=== PATIENT | female | born 1950 ===

== ENCOUNTER 2025-03-06 09:10 | Outpatient (AMB) | payer MEDICARE, SELFPAY ==
--- OUTSIDE RECORDS SUMMARY | 2024-09-08 04:45 | XMS_ITS ---
Author Organization [facility] Address [address] [place] [address] Care Team Providers Care Product Grader Name Role Phone HILDA SPENCE Unavailable [phone] REASON FOR VISIT 4 week f/u Medications Medication SIG (Take, Route, Frequency, Duration) Notes Start Date End Date Status Omeprazole 20 MG TAKE 1 CAPSULE BY MOUTH 1/2 TO 1 HOUR BEFORE MORNING MEAL ONCE A DAY; Duration: 90 Active Fluticasone Propionate Active Losartan Potassium 50 MG TAKE 1 TABLET BY MOUTH EVERY DAY; Duration: 90 Active amLODIPine Besylate 2.5 MG 1 tablet Orally Once a day Active Metoprolol Tartrate 50 MG 1 tablet with food Oral Twice a day; Duration: 90 days Active Albuterol Sulfate HFA 108 (90 Base) MCG/ACT INHALE 1 PUFF INTO THE LUNGS EVERY 4 HOURS NEEDED; Duration: 30 Active Vitamin D (Ergocalciferol) 1.25 MG (80486 UT) TAKE 1 CAPSULE BY MOUTH WEEKLY; Duration: 84 Active guaiFENesin 400 MG 1 tablet as needed Orally every 4 hrs; Duration: 7 days 600mg Active Mirtazapine 15 MG TAKE 1 TABLET BY MOUTH ONCE DAILY AT BEDTIME; Duration: 90 Active Contrave 8-90 MG 1 tab in AM x 1 week, 1 tab in AM 1 tab in PM for 1 week, 2 tab in AM 1 tab in PM for 1 week, then 2 tabs twice daily Orally twice daily; Duration: 30 days 06/27/2024 Active Pramipexole Dihydrochloride 0.75 MG 1 tablet Orally Once a day rx by neurologist Active Lasix 20 MG 1 tablet Orally Once a day 20mg daily prn Active Gabapentin 300 MG TAKE 1 CAPSULE BY MOUTH TWICE A DAY; Duration: 90 Active Encounters Encounter Location Date Provider Diagnosis [facility] [address] [place] [address] 09/08/2024 HILDA SPENCE Plan Of Treatment Next Appt Details Provider Name:HILDA SPENCE, 03/23/2025 09:15:00 AM, [address], [place], [address], Progress Notes * NOAM DURONADELEB:1950 (74 yo F)Acc No.[id number]:09/08/2024 Patient: SHAVON MOSS Provider: Rg SPENCE PA-C :1950 A ge:73 Y S ex:Female Date:09/08/2024 Address:[address] [place] [address] Subjective: * Chief Complaints: * 1 . 4 week f/u. * Medical History: * Medications: T aking Fluticasone Propionate , Taking amLODIPine Besylate 2.5 MG Tablet 1 tablet Orally Once a day , Taking Metoprolol Tartrate 50 MG Tablet 1 tablet with food Oral Twice a day , Taking Pramipexole Dihydrochloride 0.75 MG Tablet 1 tablet Orally Once a day , Notes to Pharmacist: rx by neurologist, Taking Lasix 20 MG Tablet 1 tablet Orally Once a day , Notes to Pharmacist: 20mg daily prn, Taking Gabapentin 300 MG Capsule TAKE 1 CAPSULE BY MOUTH TWICE A DAY , Taking Vitamin D (Ergocalciferol) 1.25 MG (01388 UT) Capsule TAKE 1 CAPSULE BY MOUTH WEEKLY , Taking guaiFENesin 400 MG Tablet 1 tablet as needed Orally every 4 hrs , Notes to Pharmacist: 600mg, Taking Mirtazapine 15 MG Tablet TAKE 1 TABLET BY MOUTH ONCE DAILY AT BEDTIME , Taking Contrave 8-90 MG Tablet Extended Release 12 Hour 1 tab in AM x 1 week, 1 tab in AM 1 tab in PM for 1 week, 2 tab in AM 1 tab in PM for 1 week, then 2 tabs twice daily Orally twice daily , Taking Albuterol Sulfate HFA 108 (90 Base) MCG/ACT Aerosol Solution INHALE 1 PUFF INTO THE LUNGS EVERY 4 HOURS NEEDED , Taking Losartan Potassium 50 MG Tablet TAKE 1 TABLET BY MOUTH EVERY DAY , Taking Omeprazole 20 MG Capsule Delayed Release TAKE 1 CAPSULE BY MOUTH 1/2 TO 1 HOUR BEFORE MORNING MEAL ONCE A DAY Objective: * Vitals: Assessment: Plan: * Treatment: * Images: Billing Information: * Visit Code: * Procedure Codes: * Electronic signature of THELMA SPENCE PA-C, [id number] on 03/06/2025 at 10:19 AM EDT Sign off status: Pending * Provider: Rg SPENCE PA-C Date: 0 09/08/2024 Generated for Jose juarez/Dean/Terry on: 1 10:19 AM EDT
--- OUTSIDE RECORDS SUMMARY | 2024-10-13 05:00 | XMS_ITS ---
Author Organization [facility] Address [address] [place] [address] Care Team Providers Care Certified Substance Abuse Counselor Name Role Phone HILDA SPENCE Unavailable [phone] LAURENT MARVIN Unavailable [phone] REASON FOR VISIT pt presents for nurse visit. b12 1ml injected. pt tolerated well, consent form signed Medications Medication SIG (Take, Route, Frequency, Duration) Notes Start Date End Date Status Furosemide 20 MG 2 TABS Oral Once a day; Duration: 90 days Active Metoprolol Succinate ER 50 MG 1 tablet Orally Once a day; Duration: 90 days Active Atorvastatin Calcium 80 MG TAKE 1 TABLET BY MOUTH EVERY DAY; Duration: 90 Active Gabapentin 300 MG TAKE 2 TABS Orally Once a day; Duration: 30 days Active metFORMIN HCl ER 500 MG TAKE 1 TABLET BY MOUTH DAILY FOR 2 WEEKS THEN 2 TABLETS BY MOUTH ONCE DAILY; Duration: 30 Active Losartan Potassium 25 MG TAKE 1 TABLET BY MOUTH EVERY DAY Orally Once a day; Duration: 90 days Active Eliquis 5 MG as directed Oral twice a day; Duration: 90 days Active Aspirin Low Dose 81 MG TAKE 1 TABLET BY MOUTH EVERY DAY Oral; Duration: 90 Days Active Omeprazole 20 MG TAKE 1 CAPSULE BY MOUTH 1/2 TO 1 HOUR BEFORE MORNING MEAL ONCE A DAY; Duration: 90 Active Albuterol Sulfate HFA 108 (90 Base) MCG/ACT INHALE 1 PUFF INTO THE LUNGS EVERY 4 HOURS NEEDED; Duration: 30 days Active amLODIPine Besylate 2.5 MG 1 tablet Orally Once a day Active Fluticasone Propionate Active Mirtazapine 15 MG TAKE 1 TABLET BY MOUTH ONCE DAILY AT BEDTIME; Duration: 90 Active Pramipexole Dihydrochloride 0.75 MG 1 tablet Orally Once a day rx by neurologist Active Vitamin D (Ergocalciferol) 1.25 MG (61780 UT) TAKE 1 CAPSULE BY MOUTH WEEKLY; Duration: 84 Active Encounters Encounter Location Date Provider Diagnosis [facility] [address] [place] [address] 10/13/2024 CORRIEFLACO DC Plan Of Treatment Next Appt Details Provider Name:HILDA SPENCE, 03/23/2025 09:15:00 AM, [address], [place], [address], Medications Administered Medication Instructions Date of Administration Dosage Notes vitamin b12 10/13/2024 1 mL Progress Notes * NOAM DURONADOB:1950 (74 yo F)Acc No.[id number]:10/13/2024 Progress Note Patient: SHAVON MOSS Provider: Favio Marvin MD :1950 A ge:73 Y S ex:Female Date:10/13/2024 Address:[address] [place], [place] [id number] Subjective: * Chief Complaints: * 1 . Pt presents for nurse visit. b12 1ml injected. pt tolerated well, consent form signed. * Medical History: * Medications: T aking Fluticasone Propionate , Taking amLODIPine Besylate 2.5 MG Tablet 1 tablet Orally Once a day , Taking Pramipexole Dihydrochloride 0.75 MG Tablet 1 tablet Orally Once a day , Notes to Pharmacist: rx by neurologist, Taking Vitamin D (Ergocalciferol) 1.25 MG (01565 UT) Capsule TAKE 1 CAPSULE BY MOUTH WEEKLY , Taking Mirtazapine 15 MG Tablet TAKE 1 TABLET BY MOUTH ONCE DAILY AT BEDTIME , Taking Losartan Potassium 25 MG Tablet TAKE 1 TABLET BY MOUTH EVERY DAY Orally Once a day , Taking Omeprazole 20 MG Capsule Delayed Release TAKE 1 CAPSULE BY MOUTH 1/2 TO 1 HOUR BEFORE MORNING MEAL ONCE A DAY , Taking Albuterol Sulfate HFA 108 (90 Base) MCG/ACT Aerosol Solution INHALE 1 PUFF INTO THE LUNGS EVERY 4 HOURS NEEDED , Taking Eliquis 5 MG Tablet as directed Oral twice a day , Taking Aspirin Low Dose 81 MG Tablet Delayed Release TAKE 1 TABLET BY MOUTH EVERY DAY Oral , Taking Furosemide 20 MG Tablet 2 TABS Oral Once a day , Taking Metoprolol Succinate ER 50 MG Tablet Extended Release 24 Hour 1 tablet Orally Once a day , Taking Atorvastatin Calcium 80 MG Tablet TAKE 1 TABLET BY MOUTH EVERY DAY , Taking Gabapentin 300 MG Capsule TAKE 2 TABS Orally Once a day , Taking metFORMIN HCl ER 500 MG Tablet Extended Release 24 Hour TAKE 1 TABLET BY MOUTH DAILY FOR 2 WEEKS THEN 2 TABLETS BY MOUTH ONCE DAILY Objective: * Vitals: Assessment: Plan: * Treatment: * Therapeutic Injections: vitamin b12 : 1 mL (Route: Intramuscular) given by Kacy Aragon on left arm intramuscular * Procedure Codes: J 3420 INJ VIT B-12 CYNOCOBLMN TO 1000 MCG, [address] THER/PROPH/DIAG INJ, SC/IM Care Plan: * Problems: * Images: Billing Information: * Visit Code: * Procedure Codes: J3420 INJ VIT B-12 CYNOCOBLMN TO 1000 MCG. [address] THER/PROPH/DIAG INJ, SC/IM. Care Plan Details* * Electronic signature of ENRRIQUE MARVIN MD on 03/06/2025 at 10:19 AM EDT Sign off status: Pending * Provider: Favio Marvin MD Date: 0 10/13/2024 Generated for Jose juarez/Dean/Terry on: 1 10:19 AM EDT
--- OUTSIDE RECORDS SUMMARY | 2024-12-19 04:45 | XMS_ITS ---
Author Organization [facility] Address [address] [place] [address] Care Team Providers Care Guest Services Ambassador Name Role Phone HILDA SPENCE Unavailable [phone] REASON FOR VISIT 3 month f/u Encounters Encounter Location Date Provider Diagnosis [facility] [address] [place] [address] 12/19/2024 HILDA SPENCE Plan Of Treatment Next Appt Details Provider Name:HILDA SPENCE, 03/23/2025 09:15:00 AM, [address], [place], [address], Progress Notes * NAKIA DURONB:1950 (74 yo F)Acc No.[id number]:12/19/2024 Progress Notes Patient: SHAVON MOSS Provider: Rg SPENCE PA-C :1950 A ge:74 Y S ex:Female Date:12/19/2024 Address:[address] [place], [place] [id number] Subjective: * Chief Complaints: * 1 . 3 month f/u. * Medical History: Objective: * Vitals: Assessment: Plan: * Treatment: * Images: Billing Information: * Visit Code: * Procedure Codes: Care Plan Details* * Electronic signature of THELMA SPENCE PA-C, [id number] on 03/06/2025 at 10:18 AM EDT Sign off status: Pending * Provider: Rg SPENCE PA-C Date: 0 12/19/2024 Generated for Jose juarez/Dean/Terry on: 1 10:18 AM EDT
--- OUTSIDE RECORDS SUMMARY | 2024-12-26 05:15 | XMS_ITS ---
Author Organization [facility] Address [address] [place] [address] Care Team Providers Care Rent Collector Name Role Phone HILDA SPENCE Unavailable [phone] LAURENT MARVIN Unavailable [phone] REASON FOR VISIT Patient is here for vitamin b12. Patient signed consent and left the office in stable condition Medications Medication SIG (Take, Route, Frequency, Duration) Notes Start Date End Date Status Atorvastatin Calcium 80 MG TAKE 1 TABLET BY MOUTH EVERY DAY; Duration: 90 Active metFORMIN HCl ER 500 MG TAKE 1 TABLET BY MOUTH DAILY FOR 2 WEEKS THEN 2 TABLETS BY MOUTH ONCE DAILY; Duration: 30 Active Metoprolol Succinate ER 50 MG 1 tablet Orally Once a day; Duration: 90 days Active Vitamin D (Ergocalciferol) 1.25 MG (24674 UT) TAKE 1 CAPSULE BY MOUTH WEEKLY; Duration: 84 Active Escitalopram Oxalate 5 MG TAKE 1 TABLET BY MOUTH EVERY DAY; Duration: 90 Active Aspirin Low Dose 81 MG TAKE 1 TABLET BY MOUTH EVERY DAY Oral; Duration: 90 Days Active Furosemide 20 MG 2 TABS Oral Once a day; Duration: 90 days Active Albuterol Sulfate HFA 108 (90 Base) MCG/ACT INHALE 1 PUFF INTO THE LUNGS EVERY 4 HOURS NEEDED; Duration: 30 days Active Eliquis 5 MG as directed Oral twice a day; Duration: 90 days Active Omeprazole 20 MG TAKE 1 CAPSULE BY MOUTH 1/2 TO 1 HOUR BEFORE MORNING MEAL ONCE A DAY; Duration: 90 Active Fluticasone Propionate Active Mounjaro 2.5 MG/0.5ML as directed Subcutaneous once weekly; Duration: 30 days 12/19/2024 Active Mirtazapine 15 MG TAKE 1 TABLET BY MOUTH ONCE DAILY AT BEDTIME; Duration: 90 Active amLODIPine Besylate 2.5 MG 1 tablet Orally Once a day Active Pramipexole Dihydrochloride 0.75 MG 1 tablet Orally Once a day rx by neurologist Active Gabapentin 300 MG TAKE 2 CAPSULES BY MOUTH ONCE DAILY; Duration: 60 Active Jardiance 10 MG Oral; Duration: 30 Days Active Encounters Encounter Location Date Provider Diagnosis [facility] [address] [place] [address] 12/26/2024 CORRIEFLACO DIAZAN Pernicious anemia D5 1.0 Assessments Encounter Date Diagnosis (ICD Code) Assessment Notes Treatment Notes Treatment Clinical Notes Section Notes 12/26/2024 Pernicious anemia (ICD-10 - D51.0) Plan Of Treatment Next Appt Details Provider Name:HILDA SPENCE, 03/23/2025 09:15:00 AM, [address], [place], [address], Medications Administered Medication Instructions Date of Administration Dosage Notes vitamin b12 12/26/2024 1 mL Progress Notes * NOAM DURONADOB:1950 (74 yo F)Acc No.[id number]:12/26/2024 Progress Note Patient: SHAVON MOSS Provider: Favio Marvin MD :1950 A ge:74 Y S ex:Female Date:12/26/2024 Address:[address] [place] [address] Subjective: * Chief Complaints: * 1 . Patient is here for vitamin b12. Patient signed consent and left the office in stable condition. * Medical History: * Medications: T aking Fluticasone Propionate , Taking amLODIPine Besylate 2.5 MG Tablet 1 tablet Orally Once a day , Taking Pramipexole Dihydrochloride 0.75 MG Tablet 1 tablet Orally Once a day , Notes to Pharmacist: rx by neurologist, Taking Mirtazapine 15 MG Tablet TAKE 1 TABLET BY MOUTH ONCE DAILY AT BEDTIME , Taking Omeprazole 20 MG Capsule Delayed [...] TABLET BY MOUTH EVERY DAY , Taking metFORMIN HCl ER 500 MG Tablet Extended Release 24 Hour TAKE 1 TABLET BY MOUTH DAILY FOR 2 WEEKS THEN 2 TABLETS BY MOUTH ONCE DAILY , Taking Vitamin D (Ergocalciferol) 1.25 MG (10728 UT) Capsule TAKE 1 CAPSULE BY MOUTH WEEKLY , Taking Escitalopram Oxalate 5 MG Tablet TAKE 1 TABLET BY MOUTH EVERY DAY , Taking Gabapentin 300 MG Capsule TAKE 2 CAPSULES BY MOUTH ONCE DAILY , Taking Jardiance 10 MG Tablet Oral , Taking Mounjaro 2.5 MG/0.5ML Solution Auto-injector as directed Subcutaneous once weekly Objective: * Vitals: Assessment: * Assessment: 1. P ernicious anemia - D51.0 (Primary) Plan: * Treatment: * Therapeutic Injections: vitamin b12 : 1 mL (Route: Intramuscular) given by Milind Luciano on left arm intramuscular * Procedure Codes: J 3420 INJ VIT B-12 CYNOCOBLMN TO 1000 MCG, [address] THER/PROPH/DIAG INJ, SC/IM Care Plan: * Problems: * Images: Billing Information: * Visit Code: * Procedure Codes: J3420 INJ VIT B-12 CYNOCOBLMN TO 1000 MCG. [address] THER/PROPH/DIAG INJ, SC/IM. Care Plan Details* * Electronic signature of ENRRIQUE MARVIN MD on 03/06/2025 at 10:19 AM EDT Sign off status: Pending * Provider: Favio Marvin MD Date: 0 12/26/2024 Generated for Jose juarez/Dean/Terry on: 10:19 AM EDT
--- OUTSIDE RECORDS SUMMARY | 2025-02-08 10:00 | XMS_ITS ---
Author Organization [facility] Address [address] [place] [address] Care Team Providers Care Business Control Manager Name Role Phone HILDA SPENCE Unavailable [phone] Allergies Allergen (clinical drug ingredient) Drug/Non Drug Allergy documented on EMR Reaction Allergy Type Onset Date Status lisinopril Lisinopril shortness of breath Drug Allergy Active REASON FOR VISIT low potassium per cardiolody Medications Medication SIG (Take, Route, Frequency, Duration) Notes Start Date End Date Status Jardiance 10 MG Oral; Duration: 30 Days Active Gabapentin 300 MG TAKE 2 CAPSULES BY MOUTH ONCE DAILY; Duration: 60 Active Escitalopram Oxalate 5 MG TAKE 1 TABLET BY MOUTH EVERY DAY; Duration: 90 Active Albuterol Sulfate HFA 108 (90 Base) MCG/ACT INHALE 1 PUFF INTO THE LUNGS EVERY 4 HOURS NEEDED FOR 30 DAYS; Duration: 30 Active Mounjaro 2.5 MG/0.5ML as directed Subcutaneous once weekly; Duration: 30 days 12/19/2024 Active Furosemide 20 MG 2 TABS Oral Once a day; Duration: 90 days Active Vitamin D (Ergocalciferol) 1.25 MG (84782 UT) TAKE 1 CAPSULE BY MOUTH WEEKLY; Duration: 84 Active metFORMIN HCl ER 500 MG TAKE 1 TABLET BY MOUTH DAILY FOR 2 WEEKS THEN 2 TABLETS BY MOUTH ONCE DAILY; Duration: 30 Active Atorvastatin Calcium 80 MG TAKE 1 TABLET BY MOUTH EVERY DAY; Duration: 90 Active Metoprolol Succinate ER 50 MG 1 tablet Orally Once a day; Duration: 90 days Active Mirtazapine 15 MG TAKE 1 TABLET BY MOUTH ONCE DAILY AT BEDTIME; Duration: 90 Active Pramipexole Dihydrochloride 0.75 MG 1 tablet Orally Once a day rx by neurologist Active Aspirin Low Dose 81 MG TAKE 1 TABLET BY MOUTH EVERY DAY Oral; Duration: 90 Days Active Eliquis 5 MG as directed Oral twice a day; Duration: 90 days Active Omeprazole 20 MG TAKE 1 CAPSULE BY MOUTH 1/2 TO 1 HOUR BEFORE MORNING MEAL ONCE A DAY; Duration: 90 Active Fluticasone Propionate Active amLODIPine Besylate 2.5 MG 1 tablet Orally Once a day Active Encounters Encounter Location Date Provider Diagnosis [facility] [address] [place] [address] 02/08/2025 HILDA SPENCE Plan Of Treatment Next Appt Details Provider Name:HILDA BEBE, 03/23/2025 09:15:00 AM, [address] , [place], [address], Progress Notes * RICARDOZAYNAKIAB:1950 (74 yo F)Acc No.[id number]:02/08/2025 Progress Note Patient: SHAVON MOSS Provider: Rg SPENCE PA-C :1950 A ge:74 Y S ex:Female Date:02/08/2025 Address:[address] [place] [address] Subjective: * Chief Complaints: * 1 . Low potassium per cardiolody. 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 * Medications: T aking Fluticasone Propionate , [...] MORNING MEAL ONCE A DAY , Taking Eliquis 5 MG Tablet as [...] , Taking Vitamin D (Ergocalciferol) 1.25 MG (36542 UT) Capsule TAKE 1 CAPSULE BY MOUTH WEEKLY , Taking Escitalopram Oxalate 5 MG Tablet TAKE 1 TABLET BY MOUTH EVERY DAY , Taking Gabapentin 300 MG Capsule TAKE 2 CAPSULES BY MOUTH ONCE DAILY , Taking Jardiance 10 MG Tablet Oral , Taking Mounjaro 2.5 MG/0.5ML Solution Auto-injector as directed Subcutaneous once weekly , Taking Albuterol Sulfate HFA 108 (90 Base) MCG/ACT Aerosol Solution INHALE 1 PUFF INTO THE LUNGS EVERY 4 HOURS NEEDED FOR 30 DAYS * Allergies: L isinopril: shortness of breath - Side Effects. Objective: * Vitals: Assessment: Plan: * Treatment: * Procedure Codes: 9 9199 NO SHOW OFFICE VISIT * Images: Billing Information: * Visit Code: * Procedure Codes: 19822 NO SHOW OFFICE VISIT. * Electronic signature of THELMA SPENCE PA-C, [id number] on 03/06/2025 at 10:19 AM EDT Sign off status: Pending * Provider: Rg SPENCE PA-C Date: Generated for Jose juarez/Dean/Terry on: 10:19 AM EDT
--- NOTE | 2025-03-06 09:12 | A.OFFVIS_ITS ---
Intake Visit Reasons: follow up Allergies No Known Allergies Allergy (Verified 12/26/24 07:16) Medication List - Last Reconciled 03/06/25 by Darlene Johnson MD albuterol sulfate 90 mcg/actuation 1 puff inhalation Q4H PRN amlodipine 2.5 mg PO DAILY apixaban (Eliquis) 5 mg PO BID aspirin 81 mg PO DAILY atorvastatin 80 mg PO DAILY empagliflozin (Jardiance) 10 mg PO QAM ergocalciferol (vitamin D2) 1,250 mcg PO QWEEK escitalopram oxalate 5 mg PO DAILY gabapentin mg PO TID losartan 50 mg PO DAILY metoprolol succinate ER 50 mg PO BID mirtazapine 15 mg PO BEDTIME omeprazole 20 mg PO QAM pramipexole 0.75 mg PO BID 30 days tirzepatide (Mounjaro) mg subcut QWEEK HPI Comments Details: This is a 74-year-old woman with restless legs syndrome, traumatic brain injury who is here for follow-up. She had head trauma from fall with prolonged LOC and amnesia and a brain bleed in 2023. [place] [facility] Having trouble with her eyes since then with diplopia especially on looking to the right. Her balance is off and is now using a cane. She has h/o RLS that is all day for a few years treated with Ropinirole 2mg which she needs to take bid but it caused weight gain. She was switched to Pramipexole. She has had a loop monitor put in . She also has chronic neck pain followed by a provider at [facility], and [place] in 2020. She developed R sided numbness in face and down arm while getting ready on 02/18/2023 with some facial droop. Went to [facility] and was told that she had stroke. Unsure if TPA was administered, however ASA was stopped. On 02/27/2023, she passed out while walking in house. She woke up to her telling her to stay on ground while on phone with [employer]. Had some spit up but did not bite tongue or incontinence. Was brought to [facility] and informed had second stroke based on CT which showed a lacunar stroke in left frontal white matter which was probably the first stroke which had developed on CT since the first CT. Atorvastatin increased to 80mg from 40mg and started on ASA and Plavix. She has never passed out before. She has some lingering numbness to R side of jaw. No weakness or change in balance. No headaches. [facility] Medical History (Updated 03/06/25 @ 09:19 by Darlene Johnson MD) Post-surgical scoliosis Chronic neck pain Right rotator cuff tear Myocardial infarct, old Restless leg syndrome Depression HTN (hypertension) Extrapyramidal and movement disorder Stroke Review of Systems Const Details: Sleep:? Difficulty getting to sleep?admits.? Difficulty maintaining sleep?admits .? Urge to move legs?admits.? Teeth grinding?denies.? Shouting or Kicking during sleep?denies.? Abnormal behavior during sleep?denies.? Excessive sleep?denies.? Snoring?denies.? Daytime sleepiness?denies.? ?? General/Constitutional:? Change in appetite?denies.? Chills?denies.? Fatigue?denies.? Fever?denies .? Weight gain?denies.? Weight loss?denies.? ?? Ophthalmologic:? Blurred vision?denies.? Diminished visual acuity?denies.? ?? ENT:? Stuffiness?denies.? Decreased hearing?denies.? Dry mouth?denies.? Ear pain?denies.? Nosebleed?denies.? Ringing in the ears?denies.? Sinus pain?denies .? Sore throat?denies.? Swollen glands?denies.? ?? Endocrine:? Cold intolerance?denies.? Excessive thirst?denies.? Frequent urination? denies.? Heat intolerance?denies.? ?? Respiratory:? Shortness of breath?denies.? Chest pain?denies.? Cough?denies.? ?? Breast:? Breast lump?denies.? Nipple discharge?denies.? ?? Cardiovascular:? Chest pain at rest?denies.? Chest pain with exertion?denies.? Claudication?denies.? Dizziness?denies.? Fluid accumulation in the legs?denies.? Irregular heartbeat?denies.? Palpitations?denies.? ?? Gastrointestinal:? Abdominal pain?denies.? Constipation?denies.? Diarrhea?denies.? Difficulty swallowing?denies.? Heartburn?denies.? Nausea?denies.? Rectal bleeding?denies.? ?? Hematology:? Easy bruising?denies.? Prolonged bleeding?denies.? ?? Genitourinary:? Frequent urination?denies.? Urgency?denies.? Incontinence?denies.? Erectile Dysfunction?denies.? ?? Musculoskeletal:? Neck pain?admits.? Back pain?denies.? Muscle aches?denies.? Painful joints?denies.? Sciatica?denies.? Weakness?denies.? ?? Podiatric:? Difficulty walking?denies.? Foot numbness?denies.? ?? Neurologic:? Difficulty swallowing?denies.? Balance difficulty?denies.? Coordination? normal.? Difficulty speaking?denies.? Dizziness?denies.? Fainting?admits.? Gait abnormality?denies.? Headache?denies.? Loss of strength?denies.? Loss of use of extremity?denies.? Low back pain?denies.? Memory loss?denies.? Seizures?denies.? Tics?denies.? Tingling/Numbness?admits.? Transient loss of vision?denies.? Tremor?denies.? ?? Psychiatric:? Anxiety?admits.? Auditory/visual hallucinations?denies.? Delusions?denies .? Depressed mood?denies.? Stressors?denies.? Substance abuse?denies.? Suicidal thoughts?denies.? ?? Physical Exam Neuro Other: Abnormal neurological findings:?diplopia on right lateral gaze looking down? with Sup oblique weakness.? Mental Status:?alert and oriented X 3,?Normal attention, orientation, memory and affect.? Cranial Nerves:?Pupils are equal, round and reactive to light. Fundoscopy shows normal disc bilaterally. External occular as above. Visual trimble are full, 1mm right ptosis.? Face is symmetrical, no facial weakness or droop. Facial sensations are normal. Tongue protrudes in midline. Palate elevates symmetrically. Shoulder shrugging is normal..? Motor Examination:?Normal muscle tone, bulk and strength,?No atrophy or fasciculations,?No drift of the extended upper extremities,?Deep tendon reflexes are 2+?,?Plantars are flexor?.? Straight Leg Raising:?90 degrees.? Sensory Exam:?Normal light touch, temperature, pinprick, vibration and joint-position sensations?,?Rhomberg sign is absent.? Coordination:?no ataxia,?no titubation,?[id number], [id number] test and rapid alternating movements were normal.? Gait Exam:?Within normal limits.? Cerebellar Signs:?Lctmap-[id number]-[id number] and mzen-qg-tznl is normal,?no dysdiadochokinesia?.? Extrapyramidal System:?No tremor, rigidity with normal facial expressions,?No bradykinesia, no bradyphrenia. Normal arm swing and posture. No propulsion or retropulsion.? Speech:?Normal,?no dysphasia or dysarthria..? Mini Mental Status Exam: ? Level of Consciousness:?Alert.? Orientation:?Knows correct year, month, date, day and season,?Knows correct city, county and state. Knows correct location and floor.? Registration:?Able to register 3 objects.? Attention:?Serial 7's performed accurately.? Recall:?Able to recall 3 out of 3 objects.? Language:?Normal spontaneous speech, fluency, repetition,naming, comprehension, reading and writing.? Total Score:?30/30.? General Examination: ? GENERAL APPEARANCE:?normal,?in no acute distress.? HEAD:?normocephalic,?atraumatic.? EYES:?sclera non-icteric,?conjunctiva clear.? EARS:?auditory canal clear,?tympanic membrane intact, clear.? NOSE:?no lesions.? ORAL CAVITY:?gums normal,?mucosa moist,?no lesions.? THROAT:?clear.? NECK/THYROID:?no cervical lymphadenopathy,?thyroid normal,?neck supple, full range of motion,?no carotid bruit.? SKIN:?no rashes,?no significant birthmarks.? HEART:?S1, S2 normal,?no murmurs.? LUNGS:?clear anteriorly and posteriorly.? CHEST:?no gross rib deformity,?clear to auscultation.? BACK:?normal exam of spine.? EXTREMITIES:?no edema.? PERIPHERAL PULSES:?normal.? PSYCH:?alert, oriented,?cognitive function intact,?cooperative with exam.? Assessment & Plan Assessment & Plan (1) Stroke: Code(s): I63.9 - Cerebral infarction, unspecified Category: Medical (2) Closed TBI (traumatic brain injury): Comment: Jan 31, 2024. Code(s): S06.9XAA - Unspecified intracranial injury with loss of consciousness status unknown, initial encounter Category: Medical (3) Restless leg syndrome: Code(s): G25.81 - Restless legs syndrome Category: Medical (4) Diplopia: Code(s): H53.2 - Diplopia Category: Medical (5) Syncope: Comment: 03/10/23 EEG WNL, Loop monitor Code(s): R55 - Syncope and collapse Category: Medical Plan MRI brain. Increase Gabapentin to 300mg tid to see if it helps are RLS. If that ro snot work, will increase Pramipexole to 1mg bid. Orders: Orders MR head/brain wo con 4 Weeks I63.9 - Cerebral infarction, unspecified, S06.9XAA - Unspecified intracranial injury with loss of consciousness status unknown, initial encounter Medications: Changed From gabapentin PO TID To gabapentin 300 mg PO TID 270 caps 3RF 90 days From pramipexole 0.75 mg PO BID 30 days 60 tabs 0RF To pramipexole 0.75 mg PO BID 180 tabs 3RF 90 days Coding Level of Care Code Est Pt Level 4 (93728) Diagnoses Stroke I63.9 Closed TBI (traumatic brain injury) S06.9XAA Restless leg syndrome G25.81 Diplopia H53.2 Syncope R55
--- OUTSIDE RECORDS SUMMARY | 2025-03-06 10:19 | XMS_ITS | Patient Health Record ---
[facility] Organization [facility] Address [address] [place] [address] Care Team Providers Care Hide Shaker Name Role Phone HILDA SPENCE Unavailable [phone] DC LAURENT Unavailable [phone] LISA CASTILLO Unavailable [phone] DOV WHITTINGTON Unavailable [phone] Allergies Allergen (clinical drug ingredient) Drug/Non Drug Allergy documented on EMR Reaction Allergy Type Onset Date Status lisinopril Lisinopril shortness of breath Drug Allergy Active Results Component Value Reference Range Notes POTASSIUM Reviewed date:02/21/2025 01:50:37 PM Interpretation: Performing Lab: Notes/Report: Potassium 3.7 3.5-5.5 mmol/L B-TYPE NATRIURETIC PEPTIDE Reviewed date:04/25/2024 08:36:18 AM Interpretation: Performing Lab: Notes/Report: BNP 197 <=100 pcg/mL VITAMIN B12 Reviewed date:08/24/2024 02:06:13 PM Interpretation: Performing Lab: Notes/Report: Vitamin B-12 464 250-900 pcg/mL COMPLETE BLOOD COUNT Reviewed date:04/21/2024 11:00:16 AM Interpretation: Performing Lab: Notes/Report: WBC 6.9 4.8-10.8 K/mcL RBC 4.20 3.80-4.80 M/mcL Hemoglobin 12.5 11.5-16.0 g/dL Hematocrit 39.4 35.0-47.0 % MCV 94.7 79.0-98.0 FL MCH 30.0 27.0-32.0 pcg MCHC 31.7 32.0-37.0 g/dL RDW 13.2 11.0-15.0 % Platelets 309 130-400 K/mcL MPV 9.0 7.0-11.0 FL NRBC 0.0 <1.0 % NRBC Absolute 0.00 <0.10 K/mcL COMPREHENSIVE METABOLIC PANE L Reviewed date:08/24/2024 02:06:13 PM Interpretation: Performing Lab: Notes/Report: Sodium 142 133-145 mmol/L Potassium 4.5 3.5-5.5 mmol/L Chloride 104 96-110 mmol/L CO2 30 21-32 mmol/L Anion Gap 8 3-11 Glucose 97 70-100 mg/dL BUN 14 5-25 mg/dL Creatinine 0.71 0.50-1.10 mg/dL eGFR 89 >=60 mL/min/1.73m2 Calculation based on the?Chronic Kidney Disease Epidemiology Collaboration (CKD-EPI) equation refit?without adjustment for race. BUN/Creatinine Ratio 19.7 Calcium 9.2 8.5-10.5 mg/dL AST (SGOT) 13 10-42 unit/L ALT (SGPT) 18 10-60 unit/L Alkaline Phosphatase 118 42-121 unit/L Total Protein 6.7 6.0-8.0 g/dL Albumin 3.1 3.2-5.0 g/dL Total Bilirubin 0.3 0.0-1.4 mg/dL LIPID PANEL WITH REFLEX TO D IRECT LDL Reviewed date:08/24/2024 02:06:13 PM Interpretation: Performing Lab: Notes/Report: Cholesterol 122 0-200 mg/dL Triglycerides 130 0-150 mg/dL HDL 52 >=40 mg/dL LDL Calculated 44 0-100 mg/dL VLDL Cholesterol Rey 26 Non HDL Chol. (LDL+VLDL) 70 <145 mg/dL Chol/HDL Ratio 2.3 0.0-4.4 CBC WITH AUTO DIFFERENTIAL Reviewed date:08/24/2024 02:06:13 PM Interpretation: Performing Lab: Notes/Report: WBC 7.5 4.8-10.8 K/mcL RBC 4.00 3.80-4.80 M/mcL Hemoglobin 11.9 11.5-16.0 g/dL Hematocrit 38.2 35.0-47.0 % MCV 96.2 79.0-98.0 FL MCH 30.0 27.0-32.0 pcg MCHC 31.2 32.0-37.0 g/dL RDW 14.4 11.0-15.0 % Platelets 307 130-400 K/mcL MPV 8.5 7.0-11.0 FL NRBC 0.0 <1.0 % NRBC Absolute 0.00 <0.10 K/mcL Neutrophils Relative 65.3 Lymphocytes Relative 18.4 Monocytes Relative 9.9 Eosinophils Relative 5.3 Basophils Relative 0.4 Immature Granulocytes Relative 0.7 Neutrophils Absolute 4.92 1.50-7.00 K/mcL Lymphocytes Absolute 1.39 1.00-5.00 K/mcL Monocytes Absolute 0.75 0.20-1.00 K/mcL Eosinophils Absolute 0.40 0.00-0.50 K/mcL Basophils Absolute 0.03 0.00-0.20 K/mcL Immature Granulocytes Absolute 0.05 0.00-0.03 K/mcL BASIC METABOLIC PANEL Reviewed date:04/21/2024 10:58:43 AM Interpretation: Performing Lab: Notes/Report: Sodium 142 133-145 mmol/L Potassium 4.3 3.5-5.5 mmol/L Chloride 110 96-110 mmol/L CO2 25 21-32 mmol/L Anion Gap 7 3-11 Glucose 99 70-100 mg/dL BUN 15 5-25 mg/dL Creatinine 0.84 0.50-1.10 mg/dL eGFR 73 >=60 mL/min/1.73m2 Calculation based on the?Chronic Kidney Disease Epidemiology Collaboration (CKD-EPI) equation refit?without adjustment for race. BUN/Creatinine Ratio 17.9 Calcium 9.1 8.5-10.5 mg/dL FOLATE RBC Reviewed date:08/29/2024 08:05:53 AM Interpretation: Performing Lab: Notes/Report: RBC Folate 506 280-791 ng/mL Test performed at [facility], [address] [facility], [place] [id number] Delaney Crisostomo MD, PhD - Pediatric Oncologist POTASSIUM Reviewed date:01/30/2025 03:05:42 PM Interpretation: Performing Lab: Notes/Report: Potassium 3.9 3.5-5.5 mmol/L POTASSIUM Reviewed date:02/07/2025 09:59:39 AM Interpretation: Performing Lab: Notes/Report: Potassium 2.8 3.5-5.5 mmol/L PPC Hemoglobin A1C Reviewed date:12/19/2024 12:03:15 PM Interpretation:6.0% Performing Lab: Notes/Report: 6.0% RESPIRATORY VIRUS PANEL EULALIA MENDEZ STUDY Reviewed date:04/27/2024 02:40:02 PM Interpretation: Performing Lab: Notes/Report: Testing was performed using the [employer] Respiratory Pathogen PCR Assay. All results must be correlated with the clinical findings. Results should not be used as the sole basis for diagnosis. False Negative results may occur from the presence of sequence variants in the region targeted by the assay or the presence of inhibitors. Results may be affected by concurrent antiviral/antimicrobial therapy or levels of organisms that are below the limit of detection. Adenovirus Detection by PCR Not Detected Not Detected Influenza A PCR Not Detected Not Detected Influenza B PCR Not Detected Not Detected Coronavirus 229E Not Detected Not Detected Coronavirus HKU1 Not Detected Not Detected Coronavirus OC43 Not Detected Not Detected Coronavirus NL63 Not Detected Not Detected Parainfluenza Virus 1 Not Detected Not Detected Parainfluenza Virus 2 Not Detected Not Detected Parainfluenza Virus 3 Not Detected Not Detected Parainfluenza Virus 4 Not Detected Not Detected RSV PCR Not Detected Not Detected Human Metapneumovirus A and B Not Detected Not Detected Rhinovirus/Enterovirus Not Detected Not Detected Bordetella pertussis Not Detected Not Detected Bordetella parapertussis Not Detected Not Detected Mycoplasma pneumo by PCR Not Detected Not Detected Chlamydia pneumoniae Not Detected Not Detected SARS COV-[address] HEAD WO CONTRAST Reviewed date:04/10/2024 10:36:11 AM Interpretation: Performing Lab: Notes/Report: Note See Note [facility], a member of [facility] Patient Name: TANNA DURON Date of : 1950 Reason for Exam: SUBARACHNOID HEMORRHAGE Exam Date: 04/04/2024 [id number] EST Report Status: Final Ordering Provider: DOV NEWTON PCP: LAURENT MARVIN Head CT dated 04/04/2024. HISTORY: SUBARACHNOI D HEMORRHAGE. COMPARISON: 02/27/2023. TECHNIQUE: Noncontra st head CT with coronal and sagittal reformats. Dose length product: 1070 mGy-cm. FINDINGS: Brain: No hemorrhage , edema, mass, or extra-axial fluid collection. No CT evidence of an acute large vessel infarct. Ventricles and sulci are age commensurate. There is an area of encephalomalacia in the lateral right frontal lobe. Patchy hypoattenuation in the supratentorial white matter suggestive of moderate chronic microvascular ischemic disease. Sinuses/mastoids: Partially visible mucous retention cyst in the left maxillary antrum. The right frontal sinus is not pneumatized and the left is hypoplastic. Orbits: Lens implants. Calvarium: Normal. Other: The skull bas e soft tissues are normal. Degenerative changes of the temporomandibular joints, right greater than left. IMPRESSION: 1. No intracranial hemorrhage; no acute intracranial findings. 2. Encephalomalacia in the lateral right frontal lobe. Moderate chronic microvascular ischemic changes. -------- FINAL REPOR T -------- Dictated By: Gil Lion Dictated Date: 04/04 12:07 ET Assigned Physician: Gil Argueta Reviewed and Electronically Signed By: Gil Argueta Signed Date: 024 12:19 ET Workstation ID: [id number] Transcribed By: Self Edit Transcribed Date: 04/04/2024 12:13 ET XR CHEST 1 VIEW Reviewed date:04/27/2024 02:39:51 PM Interpretation: Performing Lab: Notes/Report: Note See Note [facility], a member of [employer] Patient Name: TANNA DURON Date of : 1950 Reason for Exam: SOB, pulmonary edema suspected Exam Date: 04/26/2024 [id number] EST Report Status: Final Ordering Provider: XAVIER MCGILL PCP: LAURENT MARVIN History: Dyspnea. Comparison: 01/03/24 Findings: Portable AP upright chest at 1:40 AM. The cardiac silhouette remains moderately enlarged. The pulmonary vascularity appears within normal limits. There is hazy parenchymal opacity within the lower lungs, similar to the previous study. No focal airspace consolidation is identified. The costophrenic angle is are sharp. There is marked loss of acromiohumeral distance in the right shoulder, consistent with chronic rotator cuff pathology. Severe right glenohumeral arthritic changes are also seen. Surgical hardware is partially imaged in the lumbar and lower thoracic spine. A cardiac loop recorder projects over the left hemithorax. Cervical spine surgical hardware is seen. IMPRESSION: Impression: 1. Stable cardiomegaly. 2. Nonspecific bilat eral hazy parenchymal opacities in the lower lungs, similar [place] ([id number]) -------- FINAL REPOR T -------- Dictated By: Mariah Perez i Dictated Date: 04/26 12:31 ET Assigned Physician: Mariah Amaro Reviewed and Electronically Signed By: Mariah Amaro Signed Date: 024 12:33 ET Workstation ID: [id number] Transcribed By: Self Edit Transcribed Date: 04/26/2024 12:31 ET B-TYPE NATRIURETIC PEPTIDE Reviewed date:09/22/2024 09:55:08 AM Interpretation: Performing Lab: Notes/Report: BNP 82 <=100 pcg/mL BD [facility] Reviewed date:06/05/2024 09:08:11 AM Interpretation: Performing Lab: Notes/Report: Note See Note [facility], a member of [employer] Patient Name: TANNA DURON Date of : 1950 Reason for Exam: osteoporosis screening Exam Date: 06/02/2024 [id number] EST Report Status: Final Ordering Provider: DOV NEWTON PCP: LAURENT MARVIN HISTORY: The patient is a 73-year-old postmenopausal female with clinical concern for metabolic bone disease. The patient is undergone a previous lumbar spine surgery. FINDINGS: Dual energ y x-ray absorptiometry of the femurs is performed. The mean bone mineral density of the femurs bilaterally is 0.947 gm/cm2 which is 94% of that of young normals and 112% of that of age matched controls. This yields a T-score of -0.5 and a Z-score of 0.8 and there is therefore no evidence of osteoporosis or osteopenia here. However, the T-score of the right femoral neck is -1.8 and that of the left femoral neck is -2.0 which is diagnostic of osteopenia. IMPRESSION: 1. Osteopenia. 2. FRAX analysis yie lds a 10-year probability of major osteoporotic fracture of 27.3% and a 10-year probability of hip fracture of 14.1%. Code 17329 -------- FINAL REPOR T -------- Dictated By: He Cortes Dictated Date: 06/02 10:30 ET Assigned Physician: He Cortes Reviewed and Electronically Signed By: He Cortes Signed Date: 025 10:31 ET Workstation ID: [id number] Transcribed By: Self Edit Transcribed Date: 06/02/2024 10:[address] CHEST WO CONTRAST Reviewed date:04/27/2024 02:39:39 PM Interpretation: Performing Lab: Notes/Report: Note See Note [facility], a member of [employer] Patient Name: TANNA DURON Date of : 1950 Reason for Exam: Respiratory illness, nondiagnostic xray Exam Date: 04/26/2024 [id number] EST Report Status: Final Ordering Provider: XAVIER MCGILL PCP: LAURENT MARVIN History: Respiratory illness. Nondiagnostic radiograph. Comparison: Portable chest from earlier today, thoracic CTA 01/03/24 Technique: Helical volumetric imaging of the thorax was performed without IV contrast. DLP: 682.00 mGy/cm [employer] VCT Iterative reconstruc tion technique Findings: The lung volumes are low, suggesting expiration imaging. There is marked flattening of the AP diameter of the trachea with anterior bowing of the posterior portion creating a crescent-shaped appearance raising the possibility of underlying tracheobronchomalacia. This finding is not present on the previous CT which was obtained in full inspiration. There is a small amount of debris within the right bronchus intermedius, possibly secretions. There is generalized increased lung attenuation bilaterally which suggests hypoventilatory change. No focal airspace consolidations are seen. A 5 mm solid, noncalcified nodule is seen in the anterior aspect of the right lower lobe (image 137 series 4), also visible previously. No pleural or perica rdial effusions are seen. Moderate multichambe r cardiomegaly is again demonstrated, with three-vessel coronary artery calcification. There is also moderate mural calcification of the thoracic aorta. No developing thoracic lymphadenopathy is seen. A small portion of t he upper abdomen included on the lowest images through the thorax is without significant abnormality. Spinal hardware is i n place in the upper lumbar/lower thoracic area, partially imaged, and there are kyphoplasty sequelae in the lower thoracic area. Cervical spine surgical hardware is partially imaged. A cardiac loop recor stacy is seen within the anterior subcutaneous soft tissues on the left. IMPRESSION: Impression: 1. Expiratory imaging. 2. Marked flattening of the AP diameter of the trachea and main bronchi, suggesting underlying tracheobronchomalacia. 3. Moderate, multich grzegorz cardiomegaly. [place] ([id number]) -------- FINAL REPOR T -------- Dictated By: Mariah Perez i Dictated Date: 04/26 11:32 ET Assigned Physician: Mariah Amaro Reviewed and Electronically Signed By: Mariah Amaro Signed Date: 11:42 ET Workstation ID: [id number] Transcribed By: Self Edit Transcribed Date: 04/26/2024 11:32 ET HEMOGLOBIN A1C Reviewed date:08/24/2024 02:06:13 PM Interpretation: Performing Lab: Notes/Report: Hemoglobin A1C 6.5 <6.5 % Mean Bld Glu Estim. 140 COMPLETE BLOOD COUNT Reviewed date:09/27/2024 01:35:09 PM Interpretation: Performing Lab: Notes/Report: WBC 8.6 4.8-10.8 K/mcL RBC 4.00 3.80-4.80 M/mcL Hemoglobin 11.9 11.5-16.0 g/dL Hematocrit 39.0 35.0-47.0 % MCV 96.8 79.0-98.0 FL MCH 29.5 27.0-32.0 pcg MCHC 30.5 32.0-37.0 g/dL RDW 14.1 11.0-15.0 % Platelets 362 130-400 K/mcL MPV 8.6 7.0-11.0 FL NRBC 0.0 <1.0 % NRBC Absolute 0.00 <0.10 K/mcL COMPLETE BLOOD COUNT Reviewed date:05/02/2024 08:58:11 AM Interpretation: Performing Lab: Notes/Report: WBC 8.0 4.8-10.8 K/mcL RBC 4.00 3.80-4.80 M/mcL Hemoglobin 11.9 11.5-16.0 g/dL Hematocrit 37.6 35.0-47.0 % MCV 94.0 79.0-98.0 FL MCH 29.8 27.0-32.0 pcg MCHC 31.6 32.0-37.0 g/dL RDW 13.5 11.0-15.0 % Platelets 266 130-400 K/mcL MPV 8.2 7.0-11.0 FL NRBC 0.0 <1.0 % NRBC Absolute 0.00 <0.10 K/mcL COMPREHENSIVE METABOLIC PANE L Reviewed date:01/18/2025 09:39:18 PM Interpretation: Performing Lab: Notes/Report: Sodium 138 133-145 mmol/L Potassium 3.1 3.5-5.5 mmol/L Chloride 100 96-110 mmol/L CO2 34 21-32 mmol/L Anion Gap 4 3-11 Glucose 170 70-100 mg/dL BUN 13 5-25 mg/dL Creatinine 0.90 0.50-1.10 mg/dL eGFR 66 >=60 mL/min/1.73m2 Calculation based on the Chronic Kidney Disease Epidemiology Collaboration (CKD-EPI) equation refit without adjustment for race. BUN/Creatinine Ratio 14.4 Calcium 9.0 8.5-10.5 mg/dL AST (SGOT) 11 10-42 unit/L ALT (SGPT) 19 10-60 unit/L Alkaline Phosphatase 108 42-121 unit/L Total Protein 6.8 6.0-8.0 g/dL Albumin 3.4 3.2-5.0 g/dL Total Bilirubin 0.6 0.0-1.4 mg/dL MAGNESIUM Reviewed date:01/26/2025 09:36:27 AM Interpretation: Performing Lab: Notes/Report: Magnesium 2.1 1.9-2.6 mg/dL MAGNESIUM Reviewed date:06/22/2024 08:55:29 AM Interpretation: Performing Lab: Notes/Report: Magnesium 2.2 1.9-2.6 mg/dL THYROID STIMULATING HORMONE Reviewed date:08/24/2024 02:06:13 PM Interpretation: Performing Lab: Notes/Report: TSH 1.83 0.40-4.00 mcIU/mL LIPID PANEL WITH REFLEX TO D IRECT LDL Reviewed date:01/18/2025 01:21:44 PM Interpretation: Performing Lab: Notes/Report: Cholesterol 100 0-200 mg/dL Triglycerides 140 0-150 mg/dL HDL 47 >=40 mg/dL LDL Calculated 25 0-100 mg/dL Estimated LDL Calculated using equation: Total cholesterol - HDL cholesterol - (Triglycerides/5) VLDL Cholesterol Rey 28 Non HDL Chol. (LDL+VLDL) 53 <145 mg/dL Chol/HDL Ratio 2.1 0.0-4.4 LIPID PANEL WITH REFLEX TO D IRECT LDL Reviewed date:06/22/2024 08:55:29 AM Interpretation: Performing Lab: Notes/Report: Cholesterol 106 0-200 mg/dL Triglycerides 132 0-150 mg/dL HDL 52 >=40 mg/dL LDL Calculated 28 0-100 mg/dL VLDL Cholesterol Rey 26.4 Non HDL Chol. (LDL+VLDL) 54 <145 mg/dL Chol/HDL Ratio 2.0 0.0-4.4 CBC WITH AUTO DIFFERENTIAL Reviewed date:01/18/2025 01:21:38 PM Interpretation: Performing Lab: Notes/Report: WBC 10.0 4.8-10.8 K/mcL RBC 4.70 3.80-4.80 M/mcL Hemoglobin 13.7 11.5-16.0 g/dL Hematocrit 43.1 35.0-47.0 % MCV 92.3 79.0-98.0 FL MCH 29.3 27.0-32.0 pcg MCHC 31.8 32.0-37.0 g/dL RDW 15.4 11.0-15.0 % Platelets 329 130-400 K/mcL MPV 8.4 7.0-11.0 FL NRBC 0.0 <1.0 % NRBC Absolute 0.00 <0.10 K/mcL Neutrophils Relative 57.3 Lymphocytes Relative 33.0 Monocytes Relative 5.8 Eosinophils Relative 2.9 Basophils Relative 0.4 Immature Granulocytes Relative 0.6 Neutrophils Absolute 5.76 1.50-7.00 K/mcL Lymphocytes Absolute 3.31 1.00-5.00 K/mcL Monocytes Absolute 0.58 0.20-1.00 K/mcL Eosinophils Absolute 0.29 0.00-0.50 K/mcL Basophils Absolute 0.04 0.00-0.20 K/mcL Immature Granulocytes Absolute 0.06 0.00-0.03 K/mcL BASIC METABOLIC PANEL Reviewed date:09/27/2024 01:35:09 PM Interpretation: Performing Lab: Notes/Report: Sodium 141 133-145 mmol/L Potassium 4.1 3.5-5.5 mmol/L Hemolysis pre sent Chloride 102 96-110 mmol/L CO2 33 21-32 mmol/L Anion Gap 6 3-11 Glucose 90 70-100 mg/dL BUN 14 5-25 mg/dL Creatinine 0.64 0.50-1.10 mg/dL eGFR 92 >=60 mL/min/1.73m2 Calculation based on the Chronic Kidney Disease Epidemiology Collaboration (CKD-EPI) equation refit without adjustment for race. BUN/Creatinine Ratio 21.9 Calcium 8.6 8.5-10.5 mg/dL BASIC METABOLIC PANEL Reviewed date:09/22/2024 08:29:19 AM Interpretation: Performing Lab: Notes/Report: Sodium 140 133-145 mmol/L Potassium 4.0 3.5-5.5 mmol/L Chloride 105 96-110 mmol/L CO2 30 21-32 mmol/L Anion Gap 5 3-11 Glucose 119 70-100 mg/dL BUN 15 5-25 mg/dL Creatinine 0.60 0.50-1.10 mg/dL eGFR 94 >=60 mL/min/1.73m2 Calculation based on the Chronic Kidney Disease Epidemiology Collaboration (CKD-EPI) equation refit without adjustment for race. BUN/Creatinine Ratio 25.0 Calcium 8.9 8.5-10.5 mg/dL BASIC METABOLIC PANEL Reviewed date:06/22/2024 09:04:53 AM Interpretation: Performing Lab: Notes/Report: Sodium 142 133-145 mmol/L Potassium 4.3 3.5-5.5 mmol/L Chloride 109 96-110 mmol/L CO2 32 21-32 mmol/L Anion Gap 1 3-11 Glucose 113 70-100 mg/dL BUN 17 5-25 mg/dL Creatinine 0.69 0.50-1.10 mg/dL eGFR 91 >=60 mL/min/1.73m2 Calculation based on the Chronic Kidney Disease Epidemiology Collaboration (CKD-EPI) equation refit without adjustment for race. BUN/Creatinine Ratio 24.6 Calcium 9.0 8.5-10.5 mg/dL BASIC METABOLIC PANEL Reviewed date:05/02/2024 08:57:59 AM Interpretation: Performing Lab: Notes/Report: Sodium 141 133-145 mmol/L Potassium 4.2 3.5-5.5 mmol/L Chloride 106 96-110 mmol/L CO2 26 21-32 mmol/L Anion Gap 9 3-11 Glucose 121 70-100 mg/dL BUN 23 5-25 mg/dL Creatinine 0.75 0.50-1.10 mg/dL eGFR 83 >=60 mL/min/1.73m2 Calculation based on the?Chronic Kidney Disease Epidemiology Collaboration (CKD-EPI) equation refit?without adjustment for race. BUN/Creatinine Ratio 30.7 Calcium 8.8 8.5-10.5 mg/dL Reason For Referral Reason [facility] Diagnosis 1 Cerebral infarction, unspecified (I63.9) Referral Organization [facility]E [facility] Referring Provider First Name DOV Referring Provider Last Name PK Referring Provider [facility] Referred Provider Specialty Neurology General Notes KATT GARAY 03/13 04:12:51 PM > referral FAXED [phone] Referral Priority Routine Diagnosis 1 Leg heaviness (R29.8 98) Referral Organization [facility] Referring Provider First Name DOV Referring Provider Last Name PK Referring Provider [facility] Referred Provider Specialty Vascular Josué anita General Notes Sulma Cruz 2024 08:39:50 AM > filled out advanced vein form and faxed over Clinical Notes Malina Holloway 01:33:20 PM > The patient was seen on 05/22 Referral Priority Routine Reason [facility] Diagnosis 1 Chronic cough (R05.3 ) Diagnosis 2 Pulmonary fibrosis ( J84.10) Referral Organization [facility] [address] Referring Provider First Name LISA Referring Provider Last Name ANNA Referring Provider [facility] Referred Provider Specialty Pulmonology General Notes KATT GARAY 05/29 12:44:47 PM > referral faxed [phone], The patient is in need of a pulmonary function test Referral Priority Routine Reason Evaluate & treat Diagnosis 1 Annual physical exam (Z00.00) [facility] Referring Provider First Name HILDA Referring Provider Last Name BEBE Referring Provider [facility] Referred Provider Specialty Physical The rapist General Notes Sulma Cruz 2024 12:10:12 PM >[facility] [place] . , [phone] Referral Priority Routine Medications Medication SIG (Take, Route, Frequency, Duration) Notes Start Date End Date Status Mounjaro 2.5 MG/0.5ML as directed Subcutaneous once weekly; Duration: 30 days 12/19/2024 Active Fluticasone Propionate Active Vitamin D (Ergocalciferol) 1.25 MG (87468 UT) TAKE 1 CAPSULE BY MOUTH WEEKLY; Duration: 84 Active metFORMIN HCl ER 500 MG TAKE 1 TABLET BY MOUTH DAILY FOR 2 WEEKS THEN 2 TABLETS BY MOUTH ONCE DAILY; Duration: 30 Active Atorvastatin Calcium 80 MG TAKE 1 TABLET BY MOUTH EVERY DAY; Duration: 90 Active Metoprolol Succinate ER 50 MG 1 tablet Orally Once a day; Duration: 90 days Active amLODIPine Besylate 2.5 MG 1 tablet Orally Once a day Active Mirtazapine 15 MG TAKE 1 TABLET BY MOUTH ONCE DAILY AT BEDTIME; Duration: 90 Active Jardiance 10 MG Oral; Duration: 30 Days Active Pramipexole Dihydrochloride 0.75 MG 1 tablet Orally Once a day rx by neurologist Active Gabapentin 300 MG TAKE 2 CAPSULES BY MOUTH ONCE DAILY; Duration: 60 Active Escitalopram Oxalate 5 MG TAKE 1 TABLET BY MOUTH EVERY DAY; Duration: 90 Active Furosemide 20 MG 2 TABS Oral Once a day; Duration: 90 days Active Aspirin Low Dose 81 MG TAKE 1 TABLET BY MOUTH EVERY DAY Oral; Duration: 90 Days Active Eliquis 5 MG as directed Oral twice a day; Duration: 90 days Active Albuterol Sulfate HFA 108 (90 Base) MCG/ACT INHALE 1 PUFF INTO THE LUNGS EVERY 4 HOURS NEEDED FOR 30 DAYS; Duration: 30 Active Omeprazole 20 MG TAKE 1 CAPSULE BY MOUTH 1/2 TO 1 HOUR BEFORE MORNING MEAL ONCE A DAY; Duration: 90 Active Immunizations Vaccine Route Administration Date Status Comme nts influenza IM Intramuscular 02/18/2022 Administered influenza IM Intramuscular 01/19/2025 Administered Influenza, high dose seasonal IM Intramuscular 02/02/2023 Administered Social History Tobacco Use: Social History Observation Description Date Details (start date - stop date) Former Smoker NA - NA Tobacco Use/Smoking Question Answer Notes Are you a former smoker How long has it been since you last smoked? > 10 years Section Notes: Quit 1995 about 2 ppd starte d at [place] of 15 Quit 1995 about 2 ppd started at the age of [age] years old smoked from [age] y/o ETOH: Never Health Care Proxy: At home- - Edward and Son- Hany Quit 1995 about 2 ppd started at the age of [age] years old smoked from [age] y/o ETOH: Never Health Care Proxy: At home- - [place] and Son- Hany Quit 1995 about 2 ppd started at the age of [age] years old smoked from [age] y/o ETOH: Never Health Care Proxy: At home- - Edward and Son- Hany Quit 1995 about 2 ppd started at the age of [age] years old smoked from [age] y/o ETOH: Never Health Care Proxy: At home- - [facility] and Son- Hany Quit 1995 about 2 ppd started at the age of [age] years old smoked from [age] y/o ETOH: Never Health Care Proxy: At home- - [facility] and Son- Hany Quit 1995 about 2 ppd started at tehe age of 15 -48 years old ETOH: Never Health Care Proxy: At home- /son Quit 1995 about 2 ppd started at the age of [age] years old smoked from [age] y/o ETOH: Never Health Care Proxy: At home- - [place] and Cresencio Leach Quit 1995 about 2 ppd started at tehe age of 15 -48 years old ETOH: Never Health Care Proxy: At home- /son Quit 1995 about 2 ppd started at tehe age of 15 -48 years old ETOH: Never Health Care Proxy: At home- /son Quit 1995 about 2 ppd starte d at tehe age of 15 -48 years old Quit 1995 about 2 ppd starte d at [facility] 15 Quit 1995 about 2 ppd starte d at tehe age of 15 -48 years old Quit 1995 about 2 ppd started at tehe age of 15 -48 years old ETOH: Never Health Care Proxy: At home- /son Quit 1995 about 2 ppd started at tehe age of 15 -48 years old ETOH: Never Health Care Proxy: At home- /son Quit 1995 about 2 ppd started at the age of [age] years old smoked from [age] y/o ETOH: Never Health Care Proxy: At home- - Edward and Nirav- Hany Quit 1995 about 2 ppd started at the age of [age] years old smoked from [age] y/o ETOH: Never Health Care Proxy: At home- - [place] and Nirav- Hany Quit 1995 about 2 ppd started at tehe age of 15 -48 years old ETOH: Never Health Care Proxy: At home- /son Quit 1995 about 2 ppd started at tehe age of 15 -48 years old ETOH: Never Health Care Proxy: At home- /son Quit 1995 about 2 ppd started at tehe age of 15 -48 years old ETOH: Never Health Care Proxy: At home- /son Quit 1995 about 2 ppd started at tehe age of 15 -48 years old ETOH: Never Health Care Proxy: At home- /son Quit 1995 about 2 ppd started at tehe age of 15 -48 years old ETOH: Never Health Care Proxy: At home- /son Quit 1995 about 2 ppd starte d at tehe age of 15 -48 years old Quit 1995 about 2 ppd starte d [facility] 15 Quit 1995 about 2 ppd starte d at [facility] of 15 Quit 1995 about 2 ppd starte d at [facility] of 15 2 ppd for 30 years. Quit at age 48 2 ppd for 30 years. Quit at age 48 2 ppd for 30 years. Quit at age 48 Quit 1995 about 2 ppd started at the age of [age] years old smoked from [age] y/o ETOH: Never Health Care Proxy: At home- Kevin Leach 2 ppd for 30 years. Quit at age 48 2 ppd for 30 years. Quit at age 48 2 ppd for 30 years. Quit at age 48 2 ppd for 30 years. Quit at age 48 2 ppd for 30 years. Quit at age 48 Quit 1995 about 2 ppd starte d at [facility] of 15 Quit 1995 about 2 ppd starte d at tehe age of 15 -48 years old Quit 1995 about 2 ppd started at the age of [age] years old smoked from [age] y/o ETOH: Never Health Care Proxy: At home- Kevin Leach Quit 1995 about 2 ppd started at the age of [age] years old smoked from [age] y/o ETOH: Never Health Care Proxy: At home- Digna Mir and Cresencio Leach Quit 1995 about 2 ppd starte d at [facility] of 15 2 ppd for 30 years. Quit at age 48 Quit 1995 about 2 ppd started at the age of [age] years old smoked from [age] y/o ETOH: Never Health Care Proxy: At home- Digna Mir and Cresencio Leach Quit 1995 about 2 ppd started at the age of [age] years old smoked from [age] y/o ETOH: Never Health Care Proxy: At home- - Clarke and Son- Hany Quit 1995 about 2 ppd started at tehe age of 15 -48 years old ETOH: Never Health Care Proxy: At home- /son Quit 1995 about 2 ppd started at tehe age of 15 -48 years old ETOH: Never Health Care Proxy: At home- /son Quit 1995 about 2 ppd starte d at [facility] of 15 Quit 1995 about 2 ppd started at the age of [age] years old smoked from [age] y/o ETOH: Never Health Care Proxy: At home- - Clarke and Son- Hany Quit 1995 about 2 ppd started at the age of [age] years old smoked from [age] y/o ETOH: Never Health Care Proxy: At home- - Clarke and Nirav- Hany Quit 1995 about 2 ppd started at the age of [age] years old smoked from [age] y/o ETOH: Never Health Care Proxy: At home- - Clarke and Son- Hany Quit 1995 about 2 ppd started at tehe age of 15 -48 years old ETOH: Never Health Care Proxy: At home- /son Quit 1995 about 2 ppd started at tehe age of 15 -48 years old ETOH: Never Health Care Proxy: At home- /son Quit 1995 about 2 ppd started at tehe age of 15 -48 years old ETOH: Never Health Care Proxy: At home- /son Quit 1995 about 2 ppd started at tehe age of 15 -48 years old ETOH: Never Health Care Proxy: At home- /son Quit 1995 about 2 ppd starte d at tehe age of 15 -48 years old Quit 1995 about 2 ppd starte d at tehe age of 15 -48 years old Quit 1995 about 2 ppd starte d at tehe age of 15 -48 years old Quit 1995 about 2 ppd starte d at [facility] 15 2 ppd for 30 years. Quit at age 48 Quit 1995 about 2 ppd started at the age of [age] years old smoked from [age] y/o ETOH: Never Health Care Proxy: At home- - Clarke and Nirav- Hany Quit 1995 about 2 ppd starte d at [facility] of 15 2 ppd for 30 years. Quit at age 48 Quit 1995 about 2 ppd started at tehe age of 15 -48 years old ETOH: Never Health Care Proxy: At home- /son Quit 1995 about 2 ppd starte d at [facility] of 15 Quit 1995 about 2 ppd starte d at [facility] of 15 2 ppd for 30 years. Quit at age 48 2 ppd for 30 years. Quit at age 48 Problems Problem Type SNOMED Code ICD Code Onset Dates Problem Status W/U Status Risk Notes Problem Pernicious anemia (98023282) Vitamin B12 deficiency anemia due to intrinsic factor deficiency (D51.0) Active confirmed Problem Mixed hyperlipidemia (407834565) Mixed hyperlipidemia (E78.2) Active confirmed Problem Hyperlipidemia (00266192) Hyperlipidemia, unspecified (E78.5) Active confirmed Problem Insomnia (386697633) Insomnia, unspecified (G47.00) Active confirmed Problem Chronic pain (06354690) Other chronic pain (G89.29) Active confirmed Problem Cerebral infarction (651462867) Cerebral infarction, unspecified (I63.9) Active confirmed Problem Cerebrovascular disease (91127494) Cerebrovascular disease, unspecified (I67.9) Active confirmed Problem Sequelae of cerebral infarction (215568389) Unspecified sequelae of cerebral infarction (I69.30) Active confirmed Problem Emphysema (92808302) Other emphysema (J43.8) Active confirmed Problem Gastro-esophageal reflux disease with esophagitis (897679154) Gastro-esophageal reflux disease with esophagitis (K21.0) Active confirmed Problem Full thickness rotator cuff tear (094211157) Complete rotator cuff tear or rupture of right shoulder, not specified as traumatic (M75.121) Active confirmed Problem Shortness of breath (783237920) Shortness of breath (R06.02) Active confirmed Problem Wheezing (53482834) Wheezing (R06.2) Active con firmed Problem Dysphagia (56457575) Dysphagia, unspecified (R13.10) Active confirmed Problem Dysuria (61110450) Dysuria (R30.0) Active confi rmed Problem Screening for malignant neoplasm of breast (353988947) Encounter for screening mammogram for malignant neoplasm of breast (Z12.31) Active confirmed Problem Diabetes mellitus screening (437890020) Encounter for screening for diabetes mellitus (Z13.1) Active confirmed Problem Endocrine/metabolic screening (029965290) Encounter for screening for other suspected endocrine disorder (Z13.29) Active confirmed Problem Screening for osteoporosis (097147120) Encounter for screening for osteoporosis (Z13.820) Active confirmed Problem Essential hypertension (25906418) Essential hypertension (I10) Active confirmed Problem Unsteady gait (90175323) Unsteady gait (R26.81) Active confirmed Problem Urinary tract infectious disease (58164356) Urinary tract infection without hematuria, site unspecified (N39.0) Active confirmed Problem Heart failure (10457141) Chronic congestive heart failure, unspecified heart failure type (I50.9) Active confirmed Problem Adult health examination (978036196) Adult general medical exam (Z00.00) Active confirmed Problem Atrial fibrillation (81959362) Atrial fibrillation, unspecified type (I48.91) Active confirmed Problem Depressive disorder (disorder) (68986341) Depression, unspecified depression type (F32.9) Active confirmed Problem Hypothyroidism (61314098) Hypothyroidism, unspecified type (E03.9) Active confirmed Problem Arthritis (5063357) Arthritis (M19.90) Active c onfirmed Problem Pain in limb (99997725) Foot pain, right (M79.671) Active confirmed Problem Sore throat (607736376) Sore throat (J02.9) Active confirmed Problem Annual health maintenance examination (19440940) Annual physical exam (Z00.00) Active confirmed Problem Vitamin D deficiency (29777968) Vitamin D deficiency (E55.9) Active confirmed Problem Plantar fasciitis (864881667) Plantar fasciitis (M72.2) Active confirmed Problem Cerebrovascular accident (584140577) Cerebrovascular accident (CVA), unspecified mechanism (I63.9) Active confirmed Problem Restless legs syndrome (41980477) Restless leg syndrome (G25.81) Active confirmed Problem Vitamin B12 deficiency (non anemic) (37330084) Vitamin B 12 deficiency (E53.8) Active confirmed Problem Type II diabetes mellitus without complication (766117671) Type 2 diabetes mellitus without complication, without long-term current use of insulin (E11.9) Active confirmed Problem Obesity (152687101) Obesity (BMI 30-39.9) (E66.9) Active confirmed Problem Age-related cataract (40737340) Age-related cataract of both eyes, unspecified age-related cataract type (H25.9) Active confirmed Problem History of cerebrovascular accident without residual deficits (077244276) History of CVA (cerebrovascular accident) (Z86.73) Active confirmed Problem Pain in limb (08010418) Foot pain, left (M79.672) Active confirmed Problem Subarachnoid hemorrhage (96696774) Subarachnoid hemorrhage (I60.9) Active confirmed Problem Localized, primary osteoarthritis of the pelvic region and thigh (185199555) Osteoarthritis of both hips, unspecified osteoarthritis type (M16.0) Active confirmed Problem Lower abdominal pain (57760056) Abdominal pain, lower (R10.30) Active confirmed Problem Edema (668549777) Bilateral leg edema (R60.0) Active confirmed Problem Late effect of injury (63759569) Rotator cuff injury, unspecified laterality, sequela (S46.009S) Active confirmed Problem Vitamin B12 deficiency (non anemic) (86408733) B12 deficiency (E53.8) Active confirmed Problem Diabetes mellitus screening (851636322) Screening for diabetes mellitus (Z13.1) Active confirmed Problem Cardiomyopathy (18736290) Cardiomyopathy, unspecified type (I42.9) Active confirmed Problem Obese class II (437859836503412) BMI 39.0-39.9,adult (Z68.39) Active confirmed Problem Increased frequency of urination (082714342) Urine frequency (R35.0) Active confirmed Problem Advance care planning (178471378) Advance care planning (Z71.89) Active confirmed Problem Amnesia (06012428) Memory change (R41.3) Active confirmed Problem Morbid obesity (532103045) Severe obesity (BMI >= 40) (E66.01) Active confirmed Problem Vitamin B>12< deficiency anaemia (36047311) Anemia due to vitamin B12 deficiency, unspecified B12 deficiency type (D51.9) Active confirmed Problem Obese class II (246064909651232) BMI 38.0-38.9,adult (Z68.38) Active confirmed Problem Chronic systolic heart failure (698663162) Chronic systolic heart failure (I50.22) Active confirmed Problem Bruising (160994714) Bruising (T14.8XXA) Active confirmed Problem Diastolic dysfunction (0312281) Diastolic dysfunction (I51.89) Active confirmed Problem Body mass index 40+ - severely obese (285959472) Body mass index (BMI) of 40.1 to 44.9 in adult (Z68.41) Active confirmed Problem Pulmonary fibrosis (48272365) Pulmonary fibrosis (J84.10) Active confirmed Problem Right lower quadrant pain (628264361) RLQ abdominal pain (R10.31) Active confirmed Problem Old myocardial infarction (9527170) History of DC (myocardial infarction) (I25.2) Active confirmed Problem Difficulty sleeping (095360856) Difficulty sleeping (G47.9) Active confirmed Problem Gastroesophageal reflux disease (181078249) GERD without esophagitis (K21.9) Active confirmed Problem Chronic ihxt-PEEFS-62 syndrome (disorder) (6892751787) 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) Active confirmed Problem Thyroid disorder screening (752881408) Screening for thyroid disorder (Z13.29) Active confirmed Problem Hyperlipidemia screening (266339707) Screening for lipid disorders (Z13.220) Active confirmed Problem Localized, primary osteoarthritis of the pelvic region and thigh (968639585) Primary osteoarthritis of right hip (M16.11) Active confirmed Problem Cough (finding) (95199847) Cough, unspecified type (R05.9) Active confirmed Problem Lipid screening (556888235) Lipid screening (Z13.220) Active confirmed Problem Plain X-ray result abnormal (786313296) Abnormal x-ray (R93.89) Active confirmed Problem Chronic atrial fibrillation (disorder) (796536876) Chronic a-fib (I48.20) Active confirmed Problem Persistent cough (942120197) Persistent cough (R05.3) Active confirmed Problem Achilles tendinosis (M67.88) Active confirmed Problem Atherosclerotic heart disease of resighini coronary artery without angina pectoris (103830455800845) Arteriosclerotic coronary artery disease (I25.10) Active confirmed Problem History of gastrointestinal disease (231460123) History of gastroesophageal reflux (GERD) (Z87.19) Active confirmed Problem Closed extensive facial fractures with routine healing, subsequent encounter (S02.92XD) Active confirmed Vital Signs Heart Rate 90 /min 01/19/2025 Oximetry 93 % 01/19/2025 Blood pressure diastolic 70 mm Hg 01/19/2025 Height 57 in 01/19/2025 Blood pressure systolic 118 mm Hg 01/19/2025 Weight 192.3 lbs 01/19/2025 BMI 41.61 kg/m2 01/19/2025 Encounters Encounter Location Date Provider Diagnosis [facility] [address] [place] [address] 05/16/2024 TALAL MARVIN [facility]ern[facility] [address] [place], [place] 10/13/2024 [facility] [address] [place], [place] 12/26/2024 TALAL MARVIN [facility]ernicious [facility] D5 1.[facility] [address] [place] 03/15/2024 DOV WHITTINGTON Subarachnoid hemorrh age I60.9 ; Closed extensive facial fractures with routine healing, subsequent encounter S02.92XD ; Chronic congestive heart failure, unspecified heart failure type I50.9 ; Essential (primary) hypertension I10 ; History of CVA (cerebrovascular accident) Z86.73 and History of gastroesophageal reflux (GERD) Z87.[address] 03/23/2024 DOV WHITTINGTON Closed extensive fac ial fractures with routine healing, subsequent encounter S02.92XD ; Wellness examination Z00.00 ; Subarachnoid hemorrhage I60.9 ; Chronic congestive heart failure, unspecified heart failure type I50.9 ; Essential (primary) hypertension I10 ; History of CVA (cerebrovascular accident) Z86.73 ; BMI 39.0-39.9,adult Z68.39 ; Encounter for screening for depression Z13.31 ; Encounter for screening for other disorder Z13.89 and Other specified counseling Z71.[address] [address] 04/28/2024 DOV WHITTINGTON COVID-19 U07.1 ; 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 ; Chronic congestive heart failure, unspecified heart failure type I50.9 ; Essential (primary) hypertension I10 ; History of CVA (cerebrovascular accident) Z86.73 ; BMI 38.0-38.9,adult Z68.38 and Difficulty sleeping G47.[address] [facility] [address] [place] [address] 05/12/2024 DOV WHITTINGTON Tracheobronchomalaci a J39.8 ; Cough, unspecified type R05.9 ; Chronic congestive heart failure, unspecified heart failure type I50.9 ; Essential (primary) hypertension I10 ; History of CVA (cerebrovascular accident) Z86.73 and Difficulty sleeping G47.9 [facility] [address] [place] [address] 05/22/2024 DOV WHITTINGTON Cough, unspecified t ype R05.9 ; Paronychia of finger of right hand L03.011 ; 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 ; Chronic congestive heart failure, unspecified heart failure type I50.9 ; Essential (primary) hypertension I10 ; History of CVA (cerebrovascular accident) Z86.73 and Difficulty sleeping G47.[address] [address] 05/27/2024 LISA GAVINT Persistent cough R05 .3 and Post-COVID syndrome U09.[address] [address] 06/16/2024 HILDA SPENCE Pulmonary interstiti al fibrosis J84.10 ; Obesity (BMI 30-39.9) E66.9 ; Restless leg syndrome G25.81 ; Essential hypertension I10 ; B12 deficiency E53.8 and Bilateral leg edema R60.[address] [address] 07/03/2024 HILDA SPENCE B12 deficiency E53.8 ; Severe obesity (BMI >= 40) E66.01 ; Interstitial pulmonary fibrosis J84.10 ; Primary osteoarthritis of right hip M16.11 ; Restless leg syndrome G25.81 ; Essential hypertension I10 and BMI 40.0-44.9, adult Z68.41 [facility] [address] [place] [address] 08/08/2024 HILDARADHIKA SPENCE Severe obesity (BMI >= 40) E66.01 ; Body mass index (BMI) of 40.1 to 44.9 in adult Z68.41 ; B12 deficiency E53.8 ; Restless leg syndrome G25.81 ; Pulmonary fibrosis J84.10 ; Essential hypertension I10 ; Primary osteoarthritis of right hip M16.11 and Chronic systolic heart failure I50.[address] [address] [address] 08/22/2024 HILDA SPENCE Unsteady gait R26.81 ; Memory change R41.3 ; Interstitial pulmonary fibrosis J84.10 and Severe obesity (BMI >= 40) E66.[address] [place] [address] 09/15/2024 HILDA SPENCE Vitamin B12 deficien cy anemia due to intrinsic factor deficiency D51.0 ; Type 2 diabetes mellitus without complication, without long-term current use of insulin E11.9 ; Cerebral infarction, unspecified I63.9 ; Severe obesity (BMI >= 40) E66.01 ; Interstitial pulmonary fibrosis J84.10 ; Chronic coronary artery disease I25.10 ; Mixed hyperlipidemia E78.2 ; Essential hypertension I10 ; Atrial fibrillation, unspecified type I48.91 ; GERD without esophagitis K21.9 and Restless leg syndrome G25.81 [facility] [address] [place] [address] 09/26/2024 HILDA SPENCE Heart failure, diast olic, acute on chronic I50.33 ; Chronic a-fib I48.20 ; On anticoagulant therapy Z79.01 ; CAD in resighini artery I25.10 ; Type 2 diabetes mellitus without complication, without long-term current use of insulin E11.9 ; Idiopathic interstitial fibrosis J84.112 ; GERD without esophagitis K21.9 ; Restless leg syndrome G25.81 and Encounter for examination of blood pressure without abnormal findings Z01.30 [facility] [address] [place] [address] 10/17/2024 HILDA SPENCE Chronic a-fib I48.20 ; On anticoagulant therapy Z79.01 ; CAD in resighini artery I25.10 ; Type 2 diabetes mellitus without complication, without long-term current use of insulin E11.9 ; Heart failure, diastolic, acute on chronic I50.33 ; Idiopathic interstitial fibrosis J84.112 ; GERD without esophagitis K21.9 ; Restless leg syndrome G25.81 and Encounter for examination of blood pressure without abnormal findings Z01.[address] [place] [address] 12/19/2024 HILDA SPENCE Type 2 diabetes stephanie itus without complication, without long-term current use of insulin E11.9 ; Essential (primary) hypertension I10 ; Diastolic dysfunction I51.89 ; Chronic a-fib I48.20 ; Arteriosclerotic coronary artery disease I25.10 ; Pulmonary interstitial fibrosis J84.10 ; Vitamin B12 deficiency E53.8 ; GERD without esophagitis K21.9 ; Restless leg syndrome G25.81 ; Pain in right hip M25.551 and Encounter for examination of blood pressure without abnormal findings Z01.[address] [place] [address] 01/19/2025 HILDA SPENCE Bilateral leg edema R60.0 ; Weight gain R63.5 ; Encounter for immunization Z23 ; Vitamin B12 deficiency anemia, unspecified D51.9 ; Acute hypokalemia E87.6 ; Chronic a-fib I48.20 ; Arteriosclerotic coronary artery disease I25.10 ; Type 2 diabetes mellitus without complication, without long-term current use of insulin E11.9 ; GERD without esophagitis K21.9 ; Restless leg syndrome G25.81 ; H/O urinary incontinence Z87.898 and Encounter for examination of blood pressure without abnormal findings Z01.30 [facility] [address] [place] [address] 03/08/2024 DOV WHITTINGTON [facility] [address] [place] [address] 03/10/2024 DOV WHITTINGTON [facility] [address] [place] [address] 03/13/2024 DOV WHITTINGTON [facility] [address] [place] [address] 03/15/2024 DOV WHITTINGTON [facility] [address] [place] [address] 03/16/2024 DOV WHITTINGTON [facility] [address] [place] [address] 03/16/2024 DOV WHITTINGTON Subarachnoid hemorrh age I60.9 [facility] [address] [place] [address] 03/29/2024 DOV WHITTINGTON [facility] [address] [place] [address] 04/03/2024 DOV WHITTINGTON [facility] [address] [place] [address] 04/03/2024 DOV WHITTINGTON [facility] [address] [place] [address] 04/07/2024 DOV WHITTINGTON [facility] [address] [place] [address] 04/17/2024 DOV WHITTINGTON [facility] [address] [place] [address] 04/20/2024 DOV WHITTINGTON [facility] [address] [place] [address] 04/27/2024 DOV WHITTINGTON [facility] [address] [place] [address] 05/01/2024 DOV WHITTINGTON [facility] [address] [place] [address] 05/12/2024 DOVKeyla [facility] [address] [place] [address] 05/15/2024 DOVKeyla [facility] [address] [place] [address] 05/22/2024 DOV WHITTINGTON [facility] [address] [place] [address] 05/23/2024 DOVKeyla [facility] [address] [place] [address] 06/16/2024 HILDA SPENCE [facility] [address] [place] [address] 06/16/2024 HILDA CHOWDHURYA [facility] [address] [place] [address] 06/21/2024 HILDA BURTUPA [facility] [address] [place] [address] 07/05/2024 HILDA BURTUPA [facility] [address] [place] [address] 08/24/2024 HILDA SPENCE [facility] [address] [place] [address] 09/14/2024 HILDA CHOWDHURYA [facility] [address] [place] [address] 09/18/2024 HILDA BEBE [facility] [address] [place] [address] 09/25/2024 HILDA BEBE [facility] [address] [place] [address] 10/09/2024 HILDA BEBE [facility] [address] [place] [address] 10/23/2024 HILDA BEBE [facility] [address] [place] [address] 10/31/2024 HILDA BEBE [facility] [address] [place] [address] 01/01/2025 HILDA BEBE [facility] [address] [place] [address] 01/02/2025 LISA CASTILLO [facility] [address] [place] [address] 01/11/2025 HILDA BEBE Type 2 diabetes stephanie itus without complication, without long-term current use of insulin E11.9 [facility] [address] [place] [address] 01/16/2025 HILDA BEBE [facility] [address] [place] [address] 01/30/2025 HILDA BEBE [facility] [address] [place] [address] 02/09/2025 HILDA BEBE Type 2 diabetes stephanie itus without complication, without long-term current use of insulin E11.9 [facility] [address] [place] [address] 05/26/2024 DOV WHITTINGTON [facility] [address] [place] [address] 05/28/2024 LISA CASTILLO Pulmonary fibrosis J 84.10 [facility] [address] [place] [address] 06/27/2024 HILDA BEBE [facility] [address] [place] [address] 12/19/2024 HILDA BEBE Type 2 diabetes stephanie itus without complication, without long-term current use of insulin E11.9 [facility] [address] [place] [address] 01/19/2025 HILDA SPENCE [facility] [address] [facility] [address] [place] [address] 01/23/2025 HILDA SPENCE Assessments Encounter Date Diagnosis (ICD Code) Assessment Notes Treatment Notes Treatment Clinical Notes Section Notes 03/16/2024 Subarachnoid hemorrhage (ICD-10 - I60.9) 03/15/2024 Subarachnoid hemorrhage (ICD-10 - I60.9) Tanna is a 73-year-old female with a PMH of CAD s/p DC with cardiac cath (2021), CHFrEF, HTN, prior CVA, GERD, esophageal dysmotility, restless leg that presents for Follow-up. Recently seen for hospital follow-up on 03/01/2024 in the [place] office with AMELIA Cordero. Tanna reports that on 02/19 she was in her dining area when she reached down to pick something up and fell forward onto a radiator. This fall resulted in head strike with +LOC. The patient was transported to [facility] where the trauma surgery team was consulted and a workup was initiated. Extensive imaging was performed and the patient was found to have bilateral punctate subarachnoid hemorrhages with no mass effect, depressed left orbital floor fracture, left lateral orbital wall fracture, left anterior/posterior wall maxillary sinus fractures, left zygomatic arch fracture, and a left frontal scalp hematoma. The patient was additionally found to have a small laceration to left parietal scalp which was washed out and repaired with 3 jason. The patient was admitted where she was followed by neurosurgery, [facility], medicine, and cardiology. Given subarachnoid hemorrhage Eliquis was held and the patient was started on Unasyn given sinus fractures. Repeat head CT without interval change, no neurosurgical intervention recommended. The patient was subsequently discharged 02/23 with instructions to follow-up with Dr. Eldridge with [facility]. She was provided a phone number for for [facility] ([phone]). Patient did reach out and make appointment. Furthermore the patient states home nursing services removed the jason from her head laceration earlier this week, on exam the laceration appears to be healing well there is no current bleeding/discharge. Bruising has improved. Plan to hold Eliquis until next scheduled appointment 03/23 as recommended by neurosurgery. I did call Dr. Campos today, and left a message with his bio medical technician to see whether he would appreciate CT of the head prior to reinitiation of Eliquis To ensure resolution/healing of subarachnoid hemorrhage. Strict ED protocol was provided. The patient understands to seek immediate medical attention/dial 911 should she develop severe headache, nausea, vomiting, visual disturbance, localized weakness, confusion, difficulty speaking, gait disturbance, chest pain, difficulty breathing, etc. #Home safety: The patient lives at home with her . They live in a two-story home with her bedroom and the bathroom on the second level. There are no area rugs or identifiable tripping hazards per patient. Discussed utility of home alert devices such as life alert, the patient is amenable to this. She is encouraged to discuss this with her and son to work on getting a device. #HCP: Patient reports that her is her designated healthcare proxy. She additionally has a son who lives very close and is involved in her care. #HTN: BP stable in office. Continue losartan 50 mg daily, metoprolol 50 mg twice daily, and amlodipine 2.5 mg daily. #CHF: No current swelling of bilateral lower extremities, lungs CTA. Hold Lasix. Patient understands to take daily weights and consult medical provider should she experience a sudden weight gain to discuss need for reinitiating therapy with Lasix. #Prior CVA: Continue atorvastatin 80 mg daily. Hold Eliquis until next scheduled appointment as recommended by neurosurgery. Will consider additional head CT to evaluate resolution of subarachnoid hemorrhage prior to reinitiating therapy with Eliquis.Message left with Dr. Villavicencio #GERD: Denies current symptoms of heartburn, reflux, regurgitation. Continue omeprazole 40 mg as needed. #Depression: Continue escitalopram 5 mg daily. #Restless leg: Continue pramipexole 0.75 mg daily and gabapentin 300 mg twice daily. Following up next week for Medicare wellness visit, sooner as needed All quetsions answered to patients satisfaction. Patient verbalized understanding of diagnosis and treatments explained. To call sooner prior to next visit it any questions/concerns arise. Case discussed with collaborating physician Josephine Marvin who reviewed the assessment and plan. Chart, medications, labs, vital signs reviewed. Dictation was accomplished with the use of [facility] voice recognition software, prone to medical misidentifications and grammatical errors. This is unintentional and the practitioner does try to identify and correct these, but some could still be present. Please do not hesitate to contact practitioner for clarification. 04/28/2024 COVID-19 (ICD-10 - U07.1) #Admitted to [facility] [address] 04/26/2024 and discharged 04/27/2024 secondary to acute bronchitis and COVID-19. Treated with Paxlovid, guanfacine, 1 g of IV ceftriaxone and 500 mg x 2 doses of azithromycin. Patient did have a chest x-ray showing cardiomegaly, and tracheobronchomalac ia. Discharged with routine care.Patient is feeling better. Continue with Compazine, and finished Paxlovid course. Discontinuing statin while on Paxlovid but otherwise is doing well. # Tanna reports that on 02/19 she was in her dining area when she reached down to pick something up and fell forward onto a radiator. This fall resulted in head strike with +LOC. The patient was transported to [facility] where the trauma surgery team was consulted and a workup was initiated. Extensive imaging was performed and the patient was found to have bilateral punctate subarachnoid hemorrhages with no mass effect, depressed left orbital floor fracture, left lateral orbital wall fracture, left anterior/posterior wall maxillary sinus fractures, left zygomatic arch fracture, and a left frontal scalp hematoma. The patient was additionally found to have a small laceration to left parietal scalp which was washed out and repaired with 3 jason. The patient was admitted where she was followed by neurosurgery, [facility], medicine, and cardiology. Given subarachnoid hemorrhage Eliquis was held and the patient was started on Unasyn given sinus fractures. Repeat head CT without interval change, no neurosurgical intervention recommended. The patient was subsequently discharged 02/23 with instructions to follow-up with Dr. Eldridge with [facility]. She was provided a phone number for for [facility] ([phone]). Patient did reach out and make appointment. Furthermore the patient states home nursing services removed the jason from her head laceration earlier this week, on exam the laceration appears to be healing well there is no current bleeding/discharge. Bruising has improved.Continue to hold Eliquis until repeat CT scan of the head. She had her CAT scan which had improved, therefore patient resumed Eliquis on 04/10/2024. Results were faxed over to Dr. Campos. Continue to follow with neurology. Ensuring healing of subarachnoid hemorrhage. Patient to be cleared by ophthalmology and neurology prior to driving.Has initiated Eliquis again.Doing well. #Home safety: The patient lives at home with her . They live in a two-story home with her bedroom and the bathroom on the second level. There are no area rugs or identifiable tripping hazards per patient. Discussed utility of home alert devices such as life alert, the patient is amenable to this. She is encouraged to discuss this with her and son to work on getting a device. #HCP: Patient reports that her is her designated healthcare proxy. She additionally has a son who lives very close and is involved in her care. Filled out 03/23/2024 #HTN: BP stable in office. Continue losartan 50 mg daily, metoprolol 50 mg twice daily, and amlodipine 2.5 mg daily. #CHF: History of nonpitting lower extremity edema, Patient taking Lasix 20 mg as needed.Controlled at this time. Patient understands to take daily weights and consult medical provider should she experience a sudden weight gain. Follows with Dr. Castanon, cardiology. Next visit July 2024, Recently diagnosed with cardiomegaly in the emergency department 04/2024. #Prior CVA: Continue atorvastatin 80 mg daily. Holding well on Paxil level will initiate after discontinued Paxlovid. Reinitiation of Eliquis.Follows with neurology # Weight gain: Patient inquiring about GLP-1's. Based on age, and increased risk of sarcopenia I did recommend against this. Is open to trying alternative options such as Contrave. Initiated Contrave, has been tolerating fine. Has lost 4 pounds since last visit. Discussed the importance of lifestyle in conjunction. #GERD: Denies current symptoms of heartburn, reflux, regurgitation. Continue omeprazole 40 mg as needed. #Depression: Continue escitalopram 5 mg daily, Admits to uncontrolled depression, and difficulty sleeping. Will discontinue Lexapro, and initiate mirtazapine 15 mg at night. Also taking magnesium glycinate. Also taking Contrave which has a Wellbutrin component. Declined suicidal ideation. #Restless leg: Continue pramipexole 0.75 mg daily and gabapentin 300 mg twice daily.Following with neurology # Incontinence: History of bladder sling: Following with urology May 2024 Follow-up in 1 month, sooner as needed. Assess accuracy/compliance of mirtazapine for sleep/depression. All quetsions answered to patients satisfaction. Patient verbalized understanding of diagnosis and treatments explained. To call sooner prior to next visit it any questions/concerns arise. Case discussed with collaborating physician Josephine Marvin who reviewed the assessment and plan. Chart, medications, labs, vital signs reviewed. Dictation was accomplished with the use of [facility] voice recognition software, prone to medical misidentifications and grammatical errors. This is unintentional and the practitioner does try to identify and correct these, but some could still be present. Please do not hesitate to contact practitioner for clarification. 03/23/2024 Wellness examination (ICD-10 - Z00.00) Tanna is a 73-year-old female with a PMH of CAD s/p DC with cardiac cath (2021), CHFrEF, HTN, prior CVA, GERD, esophageal dysmotility, restless leg that presents forMedicare wellness visit.Patient up-to-date on all vaccines, scheduling mammogram and otherwise up-to-date on screening tests, ordering bone density today. Healthcare proxy is her Clarke, filled out in office today. PHQ-9 with a total score of 2, no concern regarding mental health at this time.Audit negative. # Hospital visit: Tanna reports that on 02/19 she was in her dining area when she reached down to pick something up and fell forward onto a radiator. This fall resulted in head strike with +LOC. The patient was transported to [facility] where the trauma surgery team was consulted and a workup was initiated. Extensive imaging was performed and the patient was found to have bilateral punctate subarachnoid hemorrhages with no mass effect, depressed left orbital floor fracture, left lateral orbital wall fracture, left anterior/posterior wall maxillary sinus fractures, left zygomatic arch fracture, and a left frontal scalp hematoma. The patient was additionally found to have a small laceration to left parietal scalp which was washed out and repaired with 3 jason. The patient was admitted where she was followed by neurosurgery, [facility], medicine, and cardiology. Given subarachnoid hemorrhage Eliquis was held and the patient was started on Unasyn given sinus fractures. Repeat head CT without interval change, no neurosurgical intervention recommended. The patient was subsequently discharged 02/23 with instructions to follow-up with Dr. Eldridge with [facility]. She was provided a phone number for for [facility] ([phone]). Patient did reach out and make appointment. Furthermore the patient states home nursing services removed the jason from her head laceration earlier this week, on exam the laceration appears to be healing well there is no current bleeding/discharge. Bruising has improved. Continue holding Eliquis until repeat CT scan of the head, and consider reinitiation of Eliquis, CT ordered after conversation with Dr. Campos today. He preferred that I ordered it myself. If any concern, patient will follow-up with neurology. Trying to ensure resolution/healing of subarachnoid hemorrhage.Patient holding off on driving until cleared by ophthalmology and neurology. Strict ED protocol was provided. The patient understands to seek immediate medical attention/dial 911 should she develop severe headache, nausea, vomiting, visual disturbance, localized weakness, confusion, difficulty speaking, gait disturbance, chest pain, difficulty breathing, etc. #Home safety: The patient lives at home with her . They live in a two-story home with her bedroom and the bathroom on the second level. There are no area rugs or identifiable tripping hazards per patient. Discussed utility of home alert devices such as life alert, the patient is amenable to this. She is encouraged to discuss this with her and son to work on getting a device. #HCP: Patient reports that her is her designated healthcare proxy. She additionally has a son who lives very close and is involved in her care. Filled out 03/23/2024 #HTN: BP stable in office. Continue losartan 50 mg daily, metoprolol 50 mg twice daily, and amlodipine 2.5 mg daily. #CHF: 1+ nonpitting edema bilateral lower extremities. Patient taking Lasix 20 mg as needed. Will take it daily for the next week. Could be associated to some of her weight gain. Patient understands to take daily weights and consult medical provider should she experience a sudden weight gain. Follows with Dr. Castanon, cardiology. Next visit July 2024 #Prior CVA: Continue atorvastatin 80 mg daily. Hold Eliquis until repeat CT confirms improvement in subarachnoid hemorrhage. Patient following with neurosurgery. # Weight gain: Patient inquiring about GLP-1's. Based on age, and increased risk of sarcopenia I did recommend against this. Is open to trying alternative options such as Contrave. Has taken Wellbutrin in the past for tobacco cessation, which worked very well. Will take Contrave, discussed proper use, side effects, long-term risks. Overall, blood work is within normal limits, and did have a CT of her abdomen back in November 2023 which was normal. Patient is following with gastroenterology April 18. Follow-up in 6 weeks Here, But going to hold off on Contrave until she has the CT, and is back on Eliquis. #GERD: Denies current symptoms of heartburn, reflux, regurgitation. Continue omeprazole 40 mg as needed. #Depression: Continue escitalopram 5 mg daily. #Restless leg: Continue pramipexole 0.75 mg daily and gabapentin 300 mg twice daily.Following with neurology Follow-up to assess efficacy/compliance of Contrave, as well as leg swelling, and initiation of Eliquis. Patient seen and examined. Comprehensive discussion was done on the following. 1. Nutrition: It is important to follow a healthy diet based on lots of vegetables and legumes and good fat. Avoid processed food and processed carbohydrates. Prepare your own meals. Read labels and avoid high fructose corn syrup, processed chemicals added to increase shelf life and preprepared meals. Avoid fast foods. Eat slowly and plan meals for a week. Try to count calories and be mindful of daily calorie intake. Get into the habit of keeping an eye on your weight by using an appropriate scale. Learn to log exercise and discussed fitness Apps like [employer]epage[employer] which can help keep log off calories taken versus calories burned. Local food should be preferred. Discussed Dirty Dozen Versus Clean Fifteen. Discussed healthy supplements like fish oil, Tumeric, Curcumin, Melatonin, Resveratrol, Probiotics, Vitamin-D, Alpha-Lipoic acid, Vitamin-D and coconut oil. 2. It is important to exercise regularly. Is a good habit to walk at least 30 minutes a day. Gentle weightlifting with standard precautions to protect the back. Finding activity like cycling or hiking and get into the habit of engaging in it. Stretching before and after the exercises important. It is also important to contact me if there are any problems like shortness of breath, chest pain, back pain and joint or muscle pain associated with the exercise. 3. Discussed age appropriate screening guidelines. Colonoscopy needs to start at age 50 with stool for occult blood as appropriate. There is a new test that can test for genetic abnormalities in the stool sample, Cologuard. This would not replace a colonoscopy but could be used as a screening tool for patients who do not want a colonoscopy. We discussed the importance of early detection of colon cancer. 4. Discussed current PSA screening. PSA screening can be done in most patients between age 50 and 65. However early detection of prostate cancer needs to carefully be balanced with complications with treatment. These include incontinence, impotence etc. Each patient should decide if they would like to have this test. 5. Discussed safe driving and no use of smart phone while driving 6. Age-appropriate immunizations were discussed. A tetanus booster is needed every 10 years. Flu vaccine is recommended every year just before the start of the flu season. Shingles vaccine is recommended after age 50 but not all insurances cover it. Pneumonia vaccine is given after age 65 unless there are certain comorbidities for which it is started earlier. 7. Diagnostic labs were discussed. These could include/not limited to CBC CMP and lipids with fasting blood glucose and insulin levels. Vitamin D and hemoglobin A1c testing might be appropriate. All quetsions answered to patients satisfaction. Patient verbalized understanding of diagnosis and treatments explained. To call sooner prior to next visit it any questions/concerns arise. Case discussed with collaborating physician Josephine Marvin who reviewed the assessment and plan. Chart, medications, labs, vital signs reviewed. Dictation was accomplished with the use of [facility] voice recognition software, prone to medical misidentifications and grammatical errors. This is unintentional and the practitioner does try to identify and correct these, but some could still be present. Please do not hesitate to contact practitioner for clarification. 03/23/2024 Closed extensive facial fractures with routine healing, subsequent encounter (ICD-10 - S02.92XD) Tanna is a 73-year-old female with a PMH of CAD s/p DC with cardiac cath (2021), CHFrEF, HTN, prior CVA, GERD, esophageal dysmotility, restless leg that presents forMedicare wellness visit.Patient up-to-date on all vaccines, scheduling mammogram and otherwise up-to-date on screening tests, ordering bone density today. Healthcare proxy is her Clarke, filled out in office today. PHQ-9 with a total score of 2, no concern regarding mental health at this time.Audit negative. # Hospital visit: Tanna reports that on 02/19 she was in her dining area when she reached down to pick something up and fell forward onto a radiator. This fall resulted in head strike with +LOC. The patient was transported to [facility] where the trauma surgery team was consulted and a workup was initiated. Extensive imaging was performed and the patient was found to have bilateral punctate subarachnoid hemorrhages with no mass effect, depressed left orbital floor fracture, left lateral orbital wall fracture, left anterior/posterior wall maxillary sinus fractures, left zygomatic arch fracture, and a left frontal scalp hematoma. The patient was additionally found to have a small laceration to left parietal scalp which was washed out and repaired with 3 jason. The patient was admitted where she was followed by neurosurgery, [facility], medicine, and cardiology. Given subarachnoid hemorrhage Eliquis was held and the patient was started on Unasyn given sinus fractures. Repeat head CT without interval change, no neurosurgical intervention recommended. The patient was subsequently discharged 02/23 with instructions to follow-up with Dr. Eldridge with [facility]. She was provided a phone number for for [facility] ([phone]). Patient did reach out and make appointment. Furthermore the patient states home nursing services removed the jason from her head laceration earlier this week, on exam the laceration appears to be healing well there is no current bleeding/discharge. Bruising has improved. Continue holding Eliquis until repeat CT scan of the head, and consider reinitiation of Eliquis, CT ordered after conversation with Dr. Campos today. He preferred that I ordered it myself. If any concern, patient will follow-up with neurology. Trying to ensure resolution/healing of subarachnoid hemorrhage.Patient holding off on driving until cleared by ophthalmology and neurology. Strict ED protocol was provided. The patient understands to seek immediate medical attention/dial 911 should she develop severe headache, nausea, vomiting, visual disturbance, localized weakness, confusion, difficulty speaking, gait disturbance, chest pain, difficulty breathing, etc. #Home safety: The patient lives at home with her . They live in a two-story home with her bedroom and the bathroom on the second level. There are no area rugs or identifiable tripping hazards per patient. Discussed utility of home alert devices such as life alert, the patient is amenable to this. She is encouraged to discuss this with her and son to work on getting a device. #HCP: Patient reports that her is her designated healthcare proxy. She additionally has a son who lives very close and is involved in her care. Filled out 03/23/2024 #HTN: BP stable in office. Continue losartan 50 mg daily, metoprolol 50 mg twice daily, and amlodipine 2.5 mg daily. #CHF: 1+ nonpitting edema bilateral lower extremities. Patient taking Lasix 20 mg as needed. Will take it daily for the next week. Could be associated to some of her weight gain. Patient understands to take daily weights and consult medical provider should she experience a sudden weight gain. Follows with Dr. Castanon, cardiology. Next visit July 2024 #Prior CVA: Continue atorvastatin 80 mg daily. Hold Eliquis until repeat CT confirms improvement in subarachnoid hemorrhage. Patient following with neurosurgery. # Weight gain: Patient inquiring about GLP-1's. Based on age, and increased risk of sarcopenia I did recommend against this. Is open to trying alternative options such as Contrave. Has taken Wellbutrin in the past for tobacco cessation, which worked very well. Will take Contrave, discussed proper use, side effects, long-term risks. Overall, blood work is within normal limits, and did have a CT of her abdomen back in November 2023 which was normal. Patient is following with gastroenterology April 18. Follow-up in 6 weeks Here, But going to hold off on Contrave until she has the CT, and is back on Eliquis. #GERD: Denies current symptoms of heartburn, reflux, regurgitation. Continue omeprazole 40 mg as needed. #Depression: Continue escitalopram 5 mg daily. #Restless leg: Continue pramipexole 0.75 mg daily and gabapentin 300 mg twice daily.Following with neurology Follow-up to assess efficacy/compliance of Contrave, as well as leg swelling, and initiation of Eliquis. Patient seen and examined. Comprehensive discussion was done on the following. 1. Nutrition: It is important to follow a healthy diet based on lots of vegetables and legumes and good fat. Avoid processed food and processed carbohydrates. Prepare your own meals. Read labels and avoid high fructose corn syrup, processed chemicals added to increase shelf life and preprepared meals. Avoid fast foods. Eat slowly and plan meals for a week. Try to count calories and be mindful of daily calorie intake. Get into the habit of keeping an eye on your weight by using an appropriate scale. Learn to log exercise and discussed fitness Apps like [employer] which can help keep log off calories taken versus calories burned. Local food should be preferred. Discussed Dirty Dozen Versus Clean Fifteen. Discussed healthy supplements like fish oil, Tumeric, Curcumin, Melatonin, Resveratrol, Probiotics, Vitamin-D, Alpha-Lipoic acid, Vitamin-D and coconut oil. 2. It is important to exercise regularly. Is a good habit to walk at least 30 minutes a day. Gentle weightlifting with standard precautions to protect the back. Finding activity like cycling or hiking and get into the habit of engaging in it. Stretching before and after the exercises important. It is also important to contact me if there are any problems like shortness of breath, chest pain, back pain and joint or muscle pain associated with the exercise. 3. Discussed age appropriate screening guidelines. Colonoscopy needs to start at age 50 with stool for occult blood as appropriate. There is a new test that can test for genetic abnormalities in the stool sample, Cologuard. This would not replace a colonoscopy but could be used as a screening tool for patients who do not want a colonoscopy. We discussed the importance of early detection of colon cancer. 4. Discussed current PSA screening. PSA screening can be done in most patients between age 50 and 65. However early detection of prostate cancer needs to carefully be balanced with complications with treatment. These include incontinence, impotence etc. Each patient should decide if they would like to have this test. 5. Discussed safe driving and no use of smart phone while driving 6. Age-appropriate immunizations were discussed. A tetanus booster is needed every 10 years. Flu vaccine is recommended every year just before the start of the flu season. Shingles vaccine is recommended after age 50 but not all insurances cover it. Pneumonia vaccine is given after age 65 unless there are certain comorbidities for which it is started earlier. 7. Diagnostic labs were discussed. These could include/not limited to CBC CMP and lipids with fasting blood glucose and insulin levels. Vitamin D and hemoglobin A1c testing might be appropriate. All quetsions answered to patients satisfaction. Patient verbalized understanding of diagnosis and treatments explained. To call sooner prior to next visit it any questions/concerns arise. Case discussed with collaborating physician Josephine Marvin who reviewed the assessment and plan. Chart, medications, labs, vital signs reviewed. Dictation was accomplished with the use of [facility] voice recognition software, prone to medical misidentifications and grammatical errors. This is unintentional and the practitioner does try to identify and correct these, but some could still be present. Please do not hesitate to contact practitioner for clarification. 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 Treated with Paxlovid, guanfacine, 1 g of IV ceftriaxone and 500 mg x 2 doses of azithromycin. Patient did have a chest x-ray showing cardiomegaly, and tracheobronchomalac ia. Discharged with routine care.Patient is feeling better. Continue with Compazine, and finished Paxlovid course. Discontinuing statin while on Paxlovid but otherwise is doing well. # Tanna reports that on 02/19 she was in her dining area when she reached down to pick something up and fell forward onto a radiator. This fall resulted in head strike with +LOC. The patient was transported to [facility] where the trauma surgery team was consulted and a workup was initiated. Extensive imaging was performed and the patient was found to have bilateral punctate subarachnoid hemorrhages with no mass effect, depressed left orbital floor fracture, left lateral orbital wall fracture, left anterior/posterior wall maxillary sinus fractures, left zygomatic arch fracture, and a left frontal scalp hematoma. The patient was additionally found to have a small laceration to left parietal scalp which was washed out and repaired with 3 jason. The patient was admitted where she was followed by neurosurgery, FS, medicine, and cardiology. Given subarachnoid hemorrhage Eliquis was held and the patient was started on Unasyn given sinus fractures. Repeat head CT without interval change, no neurosurgical intervention recommended. The patient was subsequently discharged 02/23 with instructions to follow-up with Dr. Eldridge with [facility]. She was provided a phone number for for [facility] ([phone]). Patient did reach out and make appointment. Furthermore the patient states home nursing services removed the jason from her head laceration earlier this week, on exam the laceration appears to be healing well there is no current bleeding/discharge. Bruising has improved.Continue to hold Eliquis until repeat CT scan of the head. She had her CAT scan which had improved, therefore patient resumed Eliquis on 04/10/2024. Results were faxed over to Dr. Campos. Continue to follow with neurology. Ensuring healing of subarachnoid hemorrhage. Patient to be cleared by ophthalmology and neurology prior to driving.Has initiated Eliquis again.Doing well. #Home safety: The patient lives at home with her . They live in a two-story home with her bedroom and the bathroom on the second level. There are no area rugs or identifiable tripping hazards per patient. Discussed utility of home alert devices such as life alert, the patient is amenable to this. She is encouraged to discuss this with her and son to work on getting a device. #HCP: Patient reports that her is her designated healthcare proxy. She additionally has a son who lives very close and is involved in her care. Filled out 03/23/2024 #HTN: BP stable in office. Continue losartan 50 mg daily, metoprolol 50 mg twice daily, and amlodipine 2.5 mg daily. #CHF: History of nonpitting lower extremity edema, Patient taking Lasix 20 mg as needed.Controlled at this time. Patient understands to take daily weights and consult medical provider should she experience a sudden weight gain. Follows with Dr. Castanon, cardiology. Next visit July 2024, Recently diagnosed with cardiomegaly in the emergency department 04/2024. #Prior CVA: Continue atorvastatin 80 mg daily. Holding well on Paxil level will initiate after discontinued Paxlovid. Reinitiation of Eliquis.Follows with neurology # Weight gain: Patient inquiring about GLP-1's. Based on age, and increased risk of sarcopenia I did recommend against this. Is open to trying alternative options such as Contrave. Initiated Contrave, has been tolerating fine. Has lost 4 pounds since last visit. Discussed the importance of lifestyle in conjunction. #GERD: Denies current symptoms of heartburn, reflux, regurgitation. Continue omeprazole 40 mg as needed. #Depression: Continue escitalopram 5 mg daily, Admits to uncontrolled depression, and difficulty sleeping. Will discontinue Lexapro, and initiate mirtazapine 15 mg at night. Also taking magnesium glycinate. Also taking Contrave which has a Wellbutrin component. Declined suicidal ideation. #Restless leg: Continue pramipexole 0.75 mg daily and gabapentin 300 mg twice daily.Following with neurology # Incontinence: History of bladder sling: Following with urology May 2024 Follow-up in 1 month, sooner as needed. Assess accuracy/compliance of mirtazapine for sleep/depression. All quetsions answered to patients satisfaction. Patient verbalized understanding of diagnosis and treatments explained. To call sooner prior to next visit it any questions/concerns arise. Case discussed with collaborating physician Josephine Marvin who reviewed the assessment and plan. Chart, medications, labs, vital signs reviewed. Dictation was accomplished with the use of [facility] voice recognition software, prone to medical misidentifications and grammatical errors. This is unintentional and the practitioner does try to identify and correct these, but some could still be present. Please do not hesitate to contact practitioner for clarification. 05/12/2024 Cough, unspecified type (ICD-10 - R05.9) # At the beginning of April patient was hospitalized for pneumonia and COVID-19. Admits to a lingering cough. States that it was better with guanfacine. Will send prescription. Lungs clear to auscultation, but she does admit to some shortness of breath. Will trial albuterol as needed while waiting for repeat chest x-ray to ensure resolution of symptoms. Did discuss conservative treatments.[facility] criteria. # Tanna reports that on 02/19 she was in her dining area when she reached down to pick something up and fell forward onto a radiator. This fall resulted in head strike with +LOC. The patient was transported to [facility] where the trauma surgery team was consulted and a workup was initiated. Extensive imaging was performed and the patient was found to have bilateral punctate subarachnoid hemorrhages with no mass effect, depressed left orbital floor fracture, left lateral orbital wall fracture, left anterior/posterior wall maxillary sinus fractures, left zygomatic arch fracture, and a left frontal scalp hematoma. The patient was additionally found to have a small laceration to left parietal scalp which was washed out and repaired with 3 jason. The patient was admitted where she was followed by neurosurgery, [facility], medicine, and cardiology. Given subarachnoid hemorrhage Eliquis was held and the patient was started on Unasyn given sinus fractures. Repeat head CT without interval change, no neurosurgical intervention recommended. The patient was subsequently discharged 02/23 with instructions to follow-up with Dr. Eldridge with [facility]. She was provided a phone number for for [facility] ([phone]). Patient did reach out and make appointment. Furthermore the patient states home nursing services removed the jason from her head laceration earlier this week, on exam the laceration appears to be healing well there is no current bleeding/discharge. Bruising has improved.Continue to hold Eliquis until repeat CT scan of the head. She had her CAT scan which had improved, therefore patient resumed Eliquis on 04/10/2024. Results were faxed over to Dr. Campos. Continue to follow with neurology. Ensuring healing of subarachnoid hemorrhage. Patient to be cleared by ophthalmology and neurology prior to driving.Has initiated Eliquis again.Doing well. #Home safety: The patient lives at home with her . They live in a two-story home with her bedroom and the bathroom on the second level. There are no area rugs or identifiable tripping hazards per patient. Discussed utility of home alert devices such as life alert, the patient is amenable to this. She is encouraged to discuss this with her and son to work on getting a device. #HCP: Patient reports that her is her designated healthcare proxy. She additionally has a son who lives very close and is involved in her care. Filled out 03/23/2024 #HTN: BP stable in office. Continue losartan 50 mg daily, metoprolol 50 mg twice daily, and amlodipine 2.5 mg daily. #CHF: History of nonpitting lower extremity edema, Patient taking Lasix 20 mg as needed.Controlled at this time. Patient understands to take daily weights and consult medical provider should she experience a sudden weight gain. Follows with Dr. Castanon, cardiology. Next visit July 2024, Recently diagnosed with cardiomegaly in the emergency department 04/2024. # Lower leg pain: Gabapentin as needed. Questioning vascular etiology secondary to leg fullness/pain/heavi ness. Will refer to vascular. #Prior CVA: Continue atorvastatin 80 mg daily. . Reinitiation of Eliquis.Follows with neurology # Weight gain: Patient inquiring about GLP-1's. Based on age, and increased risk of sarcopenia I did recommend against this. Is open to trying alternative options such as Contrave. Initiated Contrave, has been tolerating fine. Has gained weight since last visit with the holidays but states she is not doing any lifestyle changes. Will try to initiate lifestyle changes in conjunction with Contrave to see if there is improvement in weight loss. #GERD: Denies current symptoms of heartburn, reflux, regurgitation. Continue omeprazole 40 mg as needed. #Depression: Continue escitalopram 5 mg daily, Admits to uncontrolled depression, and difficulty sleeping. Will discontinue Lexapro, and initiate mirtazapine 15 mg at night. Also taking magnesium glycinate. Also taking Contrave which has a Wellbutrin component. Declined suicidal ideation.Patient states that sleep has improved.She is pleased with this. #Restless leg: Continue pramipexole 0.75 mg daily and gabapentin 300 mg twice daily.Following with neurology # Incontinence: History of bladder sling: Following with urology May 2024 Patient following up in 4 weeks, blood work in the meantime. All quetsions answered to patients satisfaction. Patient verbalized understanding of diagnosis and treatments explained. To call sooner prior to next visit it any questions/concerns arise. Case discussed with collaborating physician Josephine Marvin who reviewed the assessment and plan. Chart, medications, labs, vital signs reviewed. Dictation was accomplished with the use of [facility] voice recognition software, prone to medical misidentifications and grammatical errors. This is unintentional and the practitioner does try to identify and correct these, but some could still be present. Please do not hesitate to contact practitioner for clarification. 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 Admits to a lingering cough. States that it was better with guanfacine. Will send prescription. Lungs clear to auscultation, but she does admit to some shortness of breath. Will trial albuterol as needed while waiting for repeat chest x-ray to ensure resolution of symptoms. Did discuss conservative treatments.[facility] criteria. # Tanna reports that on 02/19 she was in her dining area when she reached down to pick something up and fell forward onto a radiator. This fall resulted in head strike with +LOC. The patient was transported to [facility] where the trauma surgery team was consulted and a workup was initiated. Extensive imaging was performed and the patient was found to have bilateral punctate subarachnoid hemorrhages with no mass effect, depressed left orbital floor fracture, left lateral orbital wall fracture, left anterior/posterior wall maxillary sinus fractures, left zygomatic arch fracture, and a left frontal scalp hematoma. The patient was additionally found to have a small laceration to left parietal scalp which was washed out and repaired with 3 jason. The patient was admitted where she was followed by neurosurgery, [facility], medicine, and cardiology. Given subarachnoid hemorrhage Eliquis was held and the patient was started on Unasyn given sinus fractures. Repeat head CT without interval change, no neurosurgical intervention recommended. The patient was subsequently discharged 02/23 with instructions to follow-up with Dr. Eldridge with [facility]. She was provided a phone number for for [facility] ([phone]). Patient did reach out and make appointment. Furthermore the patient states home nursing services removed the jason from her head laceration earlier this week, on exam the laceration appears to be healing well there is no current bleeding/discharge. Bruising has improved.Continue to hold Eliquis until repeat CT scan of the head. She had her CAT scan which had improved, therefore patient resumed Eliquis on 04/10/2024. Results were faxed over to Dr. Campos. Continue to follow with neurology. Ensuring healing of subarachnoid hemorrhage. Patient to be cleared by ophthalmology and neurology prior to driving.Has initiated Eliquis again.Doing well. #Home safety: The patient lives at home with her . They live in a two-story home with her bedroom and the bathroom on the second level. There are no area rugs or identifiable tripping hazards per patient. Discussed utility of home alert devices such as life alert, the patient is amenable to this. She is encouraged to discuss this with her and son to work on getting a device. #HCP: Patient reports that her is her designated healthcare proxy. She additionally has a son who lives very close and is involved in her care. Filled out 03/23/2024 #HTN: BP stable in office. Continue losartan 50 mg daily, metoprolol 50 mg twice daily, and amlodipine 2.5 mg daily. #CHF: History of nonpitting lower extremity edema, Patient taking Lasix 20 mg as needed.Controlled at this time. Patient understands to take daily weights and consult medical provider should she experience a sudden weight gain. Follows with Dr. Castanon, cardiology. Next visit July 2024, Recently diagnosed with cardiomegaly in the emergency department 04/2024. # Lower leg pain: Gabapentin as needed. Questioning vascular etiology secondary to leg fullness/pain/heavi ness. Will refer to vascular. #Prior CVA: Continue atorvastatin 80 mg daily. . Reinitiation of Eliquis.Follows with neurology # Weight gain: Patient inquiring about GLP-1's. Based on age, and increased risk of sarcopenia I did recommend against this. Is open to trying alternative options such as Contrave. Initiated Contrave, has been tolerating fine. Has gained weight since last visit with the holidays but states she is not doing any lifestyle changes. Will try to initiate lifestyle changes in conjunction with Contrave to see if there is improvement in weight loss. #GERD: Denies current symptoms of heartburn, reflux, regurgitation. Continue omeprazole 40 mg as needed. #Depression: Continue escitalopram 5 mg daily, Admits to uncontrolled depression, and difficulty sleeping. Will discontinue Lexapro, and initiate mirtazapine 15 mg at night. Also taking magnesium glycinate. Also taking Contrave which has a Wellbutrin component. Declined suicidal ideation.Patient states that sleep has improved.She is pleased with this. #Restless leg: Continue pramipexole 0.75 mg daily and gabapentin 300 mg twice daily.Following with neurology # Incontinence: History of bladder sling: Following with urology May 2024 Patient following up in 4 weeks, blood work in the meantime. All quetsions answered to patients satisfaction. Patient verbalized understanding of diagnosis and treatments explained. To call sooner prior to next visit it any questions/concerns arise. Case discussed with collaborating physician Josephine Marvin who reviewed the assessment and plan. Chart, medications, labs, vital signs reviewed. Dictation was accomplished with the use of [facility] voice recognition software, prone to medical misidentifications and grammatical errors. This is unintentional and the practitioner does try to identify and correct these, but some could still be present. Please do not hesitate to contact practitioner for clarification. 05/16/2024 Pernicious anemia (ICD-10 - D51.0) 05/27/2024 Post-COVID syndrome (ICD-10 - U09.9) Exam not overly concerning today I suspect post-COVID cough and bronchospasm and chronic inflammation I will put her on a triple therapy inhaler including a steroid component which should help with I encouraged her to get a chest x-ray done today which she will If this does not improve her chronic cough she should be considered for PFTs and maybe pulmonology referral Discussed to follow-up with her primary care provider regarding this Of note, some information is being carried forward from prior records for informational purposes only and is being cited so that efficiency, safety and quality of the patient's care is not compromised This note was prepared using voice recognition software and direct typing Please excuse inadvertent bookkeeper assistant or typing errors, or uncorrected word substitutions Although every attempt has been made by the provider to proofread this document, occasional misspellings and typographical errors may still be present Due to the previous pandemic, and the use of personal protective equipment (PPE) This may decrease voice recognition accuracy Inadvertent bookkeeper assistant errors may occur 05/27/2024 Persistent cough (ICD-10 - R05.3) Exam not overly concerning today I suspect post-COVID cough and bronchospasm and chronic inflammation I will put her on a triple therapy inhaler including a steroid component which should help with I encouraged her to get a chest x-ray done today which she will If this does not improve her chronic cough she should be considered for PFTs and maybe pulmonology referral Discussed to follow-up with her primary care provider regarding this Of note, some information is being carried forward from prior records for informational purposes only and is being cited so that efficiency, safety and quality of the patient's care is not compromised This note was prepared using voice recognition software and direct typing Please excuse inadvertent bookkeeper assistant or typing errors, or uncorrected word substitutions Although every attempt has been made by the provider to proofread this document, occasional misspellings and typographical errors may still be present Due to the previous pandemic, and the use of personal protective equipment (PPE) This may decrease voice recognition accuracy Inadvertent bookkeeper assistant errors may occur 05/28/2024 Pulmonary fibrosis (ICD-10 - J84.10) 05/22/2024 Cough, unspecified type (ICD-10 - R05.9) # Paronychia: Will treat with Augmentin. Discussed proper use, side effects. This is of the right middle finger. If no improvement, consider referral to hand specialist.[place] [facility] proper use, side effects. Discussed that for incision and drainage, can follow-up with urgent care for this as we do not do this here. Questioning exposure to oral melchor therefore we will treat with Augmentin,/Warm salt water soaks. # At the beginning of April patient was hospitalized for pneumonia and COVID-19. Admits to a lingering cough. States that it was better with guanfacine. Will send prescription. Lungs clear to auscultation, but she does admit to some shortness of breath. Patient is been taking albuterol with some improvement. Still awaiting chest x-ray to ensure resolution of symptoms. Did discuss conservative treatments.[place] [facility] emergency department criteria.Will reorder today. # Tanna reports that on 02/19 she was in her dining area when she reached down to pick something up and fell forward onto a radiator. This fall resulted in head strike with +LOC. The patient was transported to [facility] where the trauma surgery team was consulted and a workup was initiated. Extensive imaging was performed and the patient was found to have bilateral punctate subarachnoid hemorrhages with no mass effect, depressed left orbital floor fracture, left lateral orbital wall fracture, left anterior/posterior wall maxillary sinus fractures, left zygomatic arch fracture, and a left frontal scalp hematoma. The patient was additionally found to have a small laceration to left parietal scalp which was washed out and repaired with 3 jason. The patient was admitted where she was followed by neurosurgery, [facility], medicine, and cardiology. Given subarachnoid hemorrhage Eliquis was held and the patient was started on Unasyn given sinus fractures. Repeat head CT without interval change, no neurosurgical intervention recommended. The patient was subsequently discharged 02/23 with instructions to follow-up with Dr. Eldridge with [facility]. She was provided a phone number for for [facility] ([phone]). Patient did reach out and make appointment. Furthermore the patient states home nursing services removed the jason from her head laceration earlier this week, on exam the laceration appears to be healing well there is no current bleeding/discharge. Bruising has improved.Continue to hold Eliquis until repeat CT scan of the head. She had her CAT scan which had improved, therefore patient resumed Eliquis on 04/10/2024. Results were faxed over to Dr. Campos. Continue to follow with neurology. Ensuring healing of subarachnoid hemorrhage. Patient to be cleared by ophthalmology and neurology prior to driving.Has initiated Eliquis again.Doing well. #Home safety: The patient lives at home with her . They live in a two-story home with her bedroom and the bathroom on the second level. There are no area rugs or identifiable tripping hazards per patient. Discussed utility of home alert devices such as life alert, the patient is amenable to this. She is encouraged to discuss this with her and son to work on getting a device. #HCP: Patient reports that her is her designated healthcare proxy. She additionally has a son who lives very close and is involved in her care. Filled out 03/23/2024 #HTN: BP stable in office. Continue losartan 50 mg daily, metoprolol 50 mg twice daily, and amlodipine 2.5 mg daily. #CHF: History of nonpitting lower extremity edema, Patient taking Lasix 20 mg as needed.Controlled at this time. Patient understands to take daily weights and consult medical provider should she experience a sudden weight gain. Follows with Dr. Castanon, cardiology. Next visit July 2024, Recently diagnosed with cardiomegaly in the emergency department 04/2024. # Lower leg pain: Gabapentin as needed. Questioning vascular etiology secondary to leg fullness/pain/heavi ness. Will refer to vascular. #Prior CVA: Continue atorvastatin 80 mg daily. . Reinitiation of Eliquis.Follows with neurology # Weight gain: Patient inquiring about GLP-1's. Based on age, and increased risk of sarcopenia I did recommend against this. Is open to trying alternative options such as Contrave. Initiated Contrave, has been tolerating fine. Has gained weight since last visit with the holidays but states she is not doing any lifestyle changes. Will try to initiate lifestyle changes in conjunction with Contrave to see if there is improvement in weight loss.Patient states that Contrave is not working well at this time, but discussed the importance of lifestyle modifications, and time. #GERD: Denies current symptoms of heartburn, reflux, regurgitation. Continue omeprazole 40 mg as needed. #Depression: Continue escitalopram 5 mg daily, Admits to uncontrolled depression, and difficulty sleeping. Will discontinue Lexapro, and initiate mirtazapine 15 mg at night. Also taking magnesium glycinate. Also taking Contrave which has a Wellbutrin component. Declined suicidal ideation.Patient states that sleep has improved.She is pleased with this. #Restless leg: Continue pramipexole 0.75 mg daily and gabapentin 300 mg twice daily.Following with neurology # Incontinence: History of bladder sling: Following with urology May 2024 Patient following up in 4 weeks, blood work in the meantime. All quetsions answered to patients satisfaction. Patient verbalized understanding of diagnosis and treatments explained. To call sooner prior to next visit it any questions/concerns arise. Case discussed with collaborating physician Josephine Marvin who reviewed the assessment and plan. Chart, medications, labs, vital signs reviewed. Dictation was accomplished with the use of [facility] voice recognition software, prone to medical misidentifications and grammatical errors. This is unintentional and the practitioner does try to identify and correct these, but some could still be present. Please do not hesitate to contact practitioner for clarification. 05/22/2024 Paronychia of finger of right hand (ICD-10 - L03.011) # Paronychia: Will treat with Augmentin. Discussed proper use, side effects. This is of the right middle finger. If no improvement, consider referral to hand specialist.Discusse d proper use, side effects. Discussed that for incision and drainage, can follow-up with urgent care for this as we do not do this here. Questioning exposure to oral melchor therefore we will treat with Augmentin,/Warm salt water soaks. # At the beginning of April patient was hospitalized for pneumonia and COVID-19. Admits to a lingering cough. States that it was better with guanfacine. Will send prescription. Lungs clear to auscultation, but she does admit to some shortness of breath. Patient is been taking albuterol with some improvement. Still awaiting chest x-ray to ensure resolution of symptoms. Did discuss conservative treatments.Discusse d emergency department criteria.Will reorder today. # Tanna reports that on 02/19 she was in her dining area when she reached down to pick something up and fell forward onto a radiator. This fall resulted in head strike with +LOC. The patient was transported to [facility] where the trauma surgery team was consulted and a workup was initiated. Extensive imaging was performed and the patient was found to have bilateral punctate subarachnoid hemorrhages with no mass effect, depressed left orbital floor fracture, left lateral orbital wall fracture, left anterior/posterior wall maxillary sinus fractures, left zygomatic arch fracture, and a left frontal scalp hematoma. The patient was additionally found to have a small laceration to left parietal scalp which was washed out and repaired with 3 jason. The patient was admitted where she was followed by neurosurgery, OMFS, medicine, and cardiology. Given subarachnoid hemorrhage Eliquis was held and the patient was started on Unasyn given sinus fractures. Repeat head CT without interval change, no neurosurgical intervention recommended. The patient was subsequently discharged 02/23 with instructions to follow-up with Dr. Eldridge with [facility]. She was provided a phone number for for [facility] ([phone]). Patient did reach out and make appointment. Furthermore the patient states home nursing services removed the jason from her head laceration earlier this week, on exam the laceration appears to be healing well there is no current bleeding/discharge. Bruising has improved.Continue to hold Eliquis until repeat CT scan of the head. She had her CAT scan which had improved, therefore patient resumed Eliquis on 04/10/2024. Results were faxed over to Dr. Campos. Continue to follow with neurology. Ensuring healing of subarachnoid hemorrhage. Patient to be cleared by ophthalmology and neurology prior to driving.Has initiated Eliquis again.Doing well. #Home safety: The patient lives at home with her . They live in a two-story home with her bedroom and the bathroom on the second level. There are no area rugs or identifiable tripping hazards per patient. Discussed utility of home alert devices such as life alert, the patient is amenable to this. She is encouraged to discuss this with her and son to work on getting a device. #HCP: Patient reports that her is her designated healthcare proxy. She additionally has a son who lives very close and is involved in her care. Filled out 03/23/2024 #HTN: BP stable in office. Continue losartan 50 mg daily, metoprolol 50 mg twice daily, and amlodipine 2.5 mg daily. #CHF: History of nonpitting lower extremity edema, Patient taking Lasix 20 mg as needed.Controlled at this time. Patient understands to take daily weights and consult medical provider should she experience a sudden weight gain. Follows with Dr. Castanon, cardiology. Next visit July 2024, Recently diagnosed with cardiomegaly in the emergency department 04/2024. # Lower leg pain: Gabapentin as needed. Questioning vascular etiology secondary to leg fullness/pain/heavi ness. Will refer to vascular. #Prior CVA: Continue atorvastatin 80 mg daily. . Reinitiation of Eliquis.Follows with neurology # Weight gain: Patient inquiring about GLP-1's. Based on age, and increased risk of sarcopenia I did recommend against this. Is open to trying alternative options such as Contrave. Initiated Contrave, has been tolerating fine. Has gained weight since last visit with the holidays but states she is not doing any lifestyle changes. Will try to initiate lifestyle changes in conjunction with Contrave to see if there is improvement in weight loss.Patient states that Contrave is not working well at this time, but discussed the importance of lifestyle modifications, and time. #GERD: Denies current symptoms of heartburn, reflux, regurgitation. Continue omeprazole 40 mg as needed. #Depression: Continue escitalopram 5 mg daily, Admits to uncontrolled depression, and difficulty sleeping. Will discontinue Lexapro, and initiate mirtazapine 15 mg at night. Also taking magnesium glycinate. Also taking Contrave which has a Wellbutrin component. Declined suicidal ideation.Patient states that sleep has improved.She is pleased with this. #Restless leg: Continue pramipexole 0.75 mg daily and gabapentin 300 mg twice daily.Following with neurology # Incontinence: History of bladder sling: Following with urology May 2024 Patient following up in 4 weeks, blood work in the meantime. All quetsions answered to patients satisfaction. Patient verbalized understanding of diagnosis and treatments explained. To call sooner prior to next visit it any questions/concerns arise. Case discussed with collaborating physician Josephine Marvin who reviewed the assessment and plan. Chart, medications, labs, vital signs reviewed. Dictation was accomplished with the use of [facility] voice recognition software, prone to medical misidentifications and grammatical errors. This is unintentional and the practitioner does try to identify and correct these, but some could still be present. Please do not hesitate to contact practitioner for clarification. 06/16/2024 Obesity (BMI 30-39.9 ) (ICD-10 - E66.9) Tanna is a 73-year-old female present today for follow-up. # Interstitial fibrosis: Has had chronic cough treated with multiple antibiotics and no resolution. Chest x-ray from 05/27/2024 revealing interstitial fibrosis. Referral has been placed for pulmonology and patient reports she had most likely received a call regarding this consultation visit scheduling, but did not return the call. Will check voicemails and look into scheduling this. In the meantime, will refill prescription for benzonatate as patient reports this has been helping with her cough in addition to continue using Flonase. #Weight gain: Patient reports excessive weight gain while on ropinirole. Was prescribed Contrave for which she took for 1 month prior to self discontinuing. States she did not have any weight loss and felt it was not working. Does endorse appetite suppression. States she did titrate up to 2 tabs in the morning and 2 tabs in the evening. Will be discussed with patient in regards to restarting this medication. #Restless leg syndrome: Followed by neurology with DrToña Campos, history of restless leg syndrome on pramipexole. #Hypertension: Blood pressure stable in office. Managed on losartan 50 mg p.o. once daily, metoprolol 50 mg twice daily amlodipine 2.5 mg daily. Followed by cardiology #B12 deficiency: Patient received RAO B12 injection today in office. This was my mistake and patient was not charged. Will schedule for vitamin B-12 injection in office and continue monthly. #CHF history of nonpitting lower extremity edema. Recently seen by cardiology and was told to double up on Lasix 20 mg x 7 days for fluid retention. #Lower leg pain: Gabapentin as needed All questions answered to patients satisfaction. Patient verbalized understanding of diagnosis and treatments explained. To call sooner prior to next visit it any questions/concerns arise. Case discussed with collaborating physician Dr. Marvin who reviewed the assessment and plan. Chart, medications, labs, vital signs reviewed. Dictation was accomplished with the use of [facility] voice recognition software, prone to medical misidentifications and grammatical errors. This is unintentional and the practitioner does try to identify and correct these, but some could still be present. Please do not hesitate to contact practitioner for clarification. 06/16/2024 Pulmonary interstitial fibrosis (ICD-10 - J84.10) Tanna is a 73-year-old female present today for follow-up. # Interstitial fibrosis: Has had chronic cough treated with multiple antibiotics and no resolution. Chest x-ray from 05/27/2024 revealing interstitial fibrosis. Referral has been placed for pulmonology and patient reports she had most likely received a call regarding this consultation visit scheduling, but did not return the call. Will check voicemails and look into scheduling this. In the meantime, will refill prescription for benzonatate as patient reports this has been helping with her cough in addition to continue using Flonase. #Weight gain: Patient reports excessive weight gain while on ropinirole. Was prescribed Contrave for which she took for 1 month prior to self discontinuing. States she did not have any weight loss and felt it was not working. Does endorse appetite suppression. States she did titrate up to 2 tabs in the morning and 2 tabs in the evening. Will be discussed with patient in regards to restarting this medication. #Restless leg syndrome: Followed by neurology with DrToña Campos, history of restless leg syndrome on pramipexole. #Hypertension: Blood pressure stable in office. Managed on losartan 50 mg p.o. once daily, metoprolol 50 mg twice daily amlodipine 2.5 mg daily. Followed by cardiology #B12 deficiency: Patient received RAO B12 injection today in office. This was my mistake and patient was not charged. Will schedule for vitamin B-12 injection in office and continue monthly. #CHF history of nonpitting lower extremity edema. Recently seen by cardiology and was told to double up on Lasix 20 mg x 7 days for fluid retention. #Lower leg pain: Gabapentin as needed All questions answered to patients satisfaction. Patient verbalized understanding of diagnosis and treatments explained. To call sooner prior to next visit it any questions/concerns arise. Case discussed with collaborating physician Dr. Marvin who reviewed the assessment and plan. Chart, medications, labs, vital signs reviewed. Dictation was accomplished with the use of [facility] voice recognition software, prone to medical misidentifications and grammatical errors. This is unintentional and the practitioner does try to identify and correct these, but some could still be present. Please do not hesitate to contact practitioner for clarification. 07/03/2024 B12 deficiency (ICD-10 - E53.8) Tanna is a 73-year-old female present today for 1 month follow-up. #Weight gain: Wt: 197.8 lbs, BMI: 42.8 patient frustrated and discouraged with weight gain. States she has had weight gain since being placed on ropinirole for restless leg syndrome. Was prescribed Contrave but self discontinued after 1 month. States she was not exercising or dieting well on the medication. Patient represcribed Contrave with clear instructions on how to titrate up the dose. Patient has not had a weight management consultation thus far. Advised patient today to call and schedule weight management consultation where we will complete a Seca scale and further discuss Contrave as well as lifestyle modifications. Will continue with 4-week follow-up following the consultation. Patient agreeable with plan. # Interstitial fibrosis: Has had chronic cough treated with multiple antibiotics and no resolution. Chest x-ray from 05/27/2024 revealing interstitial fibrosis. Referral has been placed for pulmonology. Patient was post to be seen today with Dr. Henderson, but unfortunately this had to be canceled and rescheduled to mid July. Patient prescribed albuterol as needed, fluticasone propionate daily, and Trelegy 200 mcg 1 puff inhalation daily. 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 Free sample provided today in office. This sample would be able to get patient to her pulmonology visit. Will be able to further discuss with Dr. Henderson regarding treatment plan. #Acute on chronic right hip pain #osteoarthritis: Patient previously followed by Dr. Gregg and received cortisone injections for chronic osteoarthritis of right hip. States she has not had a cortisone injection over a year. Patient had called the office between visits and [facility]. States she has an appointment scheduled to be seen, but unsure regarding date. Advised to call the office if this appointment follows through and she needs further referral. #Restless leg syndrome: Followed by neurology with Dr. Dr. Campos, history of restless leg syndrome on pramipexole. #Hypertension: Blood pressure stable in office. Managed on losartan 50 mg p.o. once daily, metoprolol 50 mg twice daily amlodipine 2.5 mg daily. Followed by cardiology #B12 deficiency: Plan to administer vitamin B12 injection in office and continue monthly. #CHF history of nonpitting lower extremity edema: Recently seen by cardiology and was told to double up on Lasix 20 mg x 7 days. Has since resolved. # Plan to schedule weight management consultation and follow-up regarding additional information of Contrave and lifestyle modifications. Plan to continue with 4-week follow-ups thereafter. Plan to follow-up in 3 months for primary care. All questions answered to patients satisfaction. Patient verbalized understanding of diagnosis and treatments explained. To call sooner prior to next visit it any questions/concerns arise. Case discussed with collaborating physician Dr. Marvin who reviewed the assessment and plan. Chart, medications, labs, vital signs reviewed. Dictation was accomplished with the use of [facility] voice recognition software, prone to medical misidentifications and grammatical errors. This is unintentional and the practitioner does try to identify and correct these, but some could still be present. Please do not hesitate to contact practitioner for clarification. 07/03/2024 Severe obesity (BMI >= 40) (ICD-10 - E66.01) Tanna is a 73-year-old female present today for 1 month follow-up. #Weight gain: Wt: 197.8 lbs, BMI: 42.8 patient frustrated and discouraged with weight gain. States she has had weight gain since being placed on ropinirole for restless leg syndrome. Was prescribed Contrave but self discontinued after 1 month. States she was not exercising or dieting well on the medication. Patient represcribed Contrave with clear instructions on how to titrate up the dose. Patient has not had a weight management consultation thus far. Advised patient today to call and schedule weight management consultation where we will complete a Seca scale and further discuss Contrave as well as lifestyle modifications. Will continue with 4-week follow-up following the consultation. Patient agreeable with plan. # Interstitial fibrosis: Has had chronic cough treated with multiple antibiotics and no resolution. Chest x-ray from 05/27/2024 revealing interstitial fibrosis. Referral has been placed for pulmonology. Patient was post to be seen today with Dr. Henderson, but unfortunately this had to be canceled and rescheduled to mid July. Patient prescribed albuterol as needed, fluticasone propionate daily, and Trelegy 200 mcg 1 puff inhalation daily. 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 Free sample provided today in office. This sample would be able to get patient to her pulmonology visit. Will be able to further discuss with Dr. Henderson regarding treatment plan. #Acute on chronic right hip pain #osteoarthritis: Patient previously followed by Dr. Gregg and received cortisone injections for chronic osteoarthritis of right hip. States she has not had a cortisone injection over a year. Patient had called the office between visits and was [facility]. States she has an appointment scheduled to be seen, but unsure regarding date. Advised to call the office if this appointment follows through and she needs further referral. #Restless leg syndrome: Followed by neurology with Dr. Dr. Campos, history of restless leg syndrome on pramipexole. #Hypertension: Blood pressure stable in office. Managed on losartan 50 mg p.o. once daily, metoprolol 50 mg twice daily amlodipine 2.5 mg daily. Followed by cardiology #B12 deficiency: Plan to administer vitamin B12 injection in office and continue monthly. #CHF history of nonpitting lower extremity edema: Recently seen by cardiology and was told to double up on Lasix 20 mg x 7 days. Has since resolved. # Plan to schedule weight management consultation and follow-up regarding additional information of Contrave and lifestyle modifications. Plan to continue with 4-week follow-ups thereafter. Plan to follow-up in 3 months for primary care. All questions answered to patients satisfaction. Patient verbalized understanding of diagnosis and treatments explained. To call sooner prior to next visit it any questions/concerns arise. Case discussed with collaborating physician Dr. Marvin who reviewed the assessment and plan. Chart, medications, labs, vital signs reviewed. Dictation was accomplished with the use of [facility] voice recognition software, prone to medical misidentifications and grammatical errors. This is unintentional and the practitioner does try to identify and correct these, but some could still be present. Please do not hesitate to contact practitioner for clarification. 08/08/2024 Severe obesity (BMI >= 40) (ICD-10 - E66.01) Tanna is a 73-year-old female present today for weight management consultation. 08/08/2024: Wt: 191.3 lbs, BMI: 41.39 Patient congratulated on 6 pound weight loss since last visit. patient trialed on Contrave twice, but has not been consistent with this medication. Discussed Seca scale which revealed borderline low muscle mass in upper extremities. Discussed how GLP-1's would not be recommended as risk for potential further muscle loss. Patient admits she has not been consistent with the Contrave. Discussed with patient that Contrave or lifestyle would be the best for her in regards to weight loss. Patient willing to try Contrave 1 more time consistently. Will send prescription to [facility] pharmacy. Advised patient to increase protein with a daily goal of at least 80 g of protein. Discussed increasing physical activity with short walks as patient gets dyspnea on exertion. Recommend patient purchase his resistance bands or light hand weights to strengthen upper extremities. Patient agreeable with plan. Plan follow-up in 4 weeks and repeat Seca scale. #Interstitial fibrosis: Has had a chronic cough with multiple antibiotics with no resolution. Chest x-ray from 05/27/2024 revealing interstitial fibrosis. Patient referred to [facility] pulmonology. Prescribed albuterol as needed, fluticasone propriety daily and Trelegy daily. Will continue with pulmonology recommendations. #Osteoarthritis: Patient previously received cortisone injections for chronic osteoarthritis of the right hip. Referred to orthopedics that she has not had a cortisone injection in the past year. #Restless leg syndrome: Patient had rapid weight gain since initiating ropinirole. No longer taking. Switch to mirtazapine to take at night. Followed by neurology. #Hypertension: Blood pressure stable in office. Plan to continue losartan 50 mg, metoprolol 50 mg twice daily, and amlodipine 2.5 mg. Followed by cardiology. #B12 deficiency: Patient receives monthly B12 injections in office. #CHF: Followed by cardiology and doubled up on Lasix x 7 days when needed. No pitting edema on exam today. Patient was reassured and welcomed to the practice. We discussed that we stress a hollistic medical approach with emphasis on lifestyle modification. Patient was informed that a healthy lifestyle with exercise and good eating habits can help reduce his risk of medical complications. Patient is explained that obesity increases his risk of diabetes, cardiovascular disease, or organ damage. We spent a lot of time discussing the relationship between food, exercise, sleep, mental health and obesity. Patient was counseled on the importance EATING local, organic food when possible. Patient was educated on clean 15 and dirty dozen. I provided information about reading books called The Food Rules by Олег Puckett and Eat Fat Get Lean by Dr Devon Villalba. Self education is important in the journey for weight management. Patient was offered diagnostic testing/ SECA scale. We want to measure visceral adiposity, advanced body composition, adverse lipids, fatty acid balance, risk for heart disease and atherosclerosis, markers of inflammation and genetic susceptibility. Patient was counseled on weight management and was advised to lose weight using A. [employer] Patient was educated on the replacement products called optifast. This is a good way of taking fixed amount of calories. It has been shown in studies to be ineffective weight management tool. This however has to be coupled with lifestyle intervention as well as laboratory data and EKG monitoring. It is impossible to know how a person will tolerate complete meal replacement. The side effects of meal replacement and weight loss could include syncopal attacks, dizziness, gallstones, potential cholecystectomy, possible heart attack and even . The benefits of meal replacement would be potential weight loss but no guarantees can be made. Meal replacement products are not covered by insurance. Once the patient has bought these products we cannot return them B. Lifestyle management which includes several strategies as below 1. Eat a low carbohydrate good fat good protein diet. Eliminate refined carbohydrates from the diet. Limit sugared beverages. Eat local organic when possible. Cook your own meals. Read food labels. Focus on healthy snacks. Portion control and food with low glycemic index 2. Exercise regularly. Try to get at least 6000 steps a day. Use a predominant to track activity level. Consider using apps like 7 minute excercise, myfitnesspal, lose it, stick as needed for self-monitoring and weight management. Consider group exercises. Consider hiring a appraiser personal property. Regular exercise is nagy to sustainable health and prevents as a buffer against weight regain 3. Sleep is most important for healing. Try to sleep at least 6-8 hours a night. A good quality sleep needs a sleep ritual with ideal room temperature of around 68. It might help to take a shower and have no electronics in the room and sleep in a very dark room without artificial light. Start sleep routine and get up early in the morning and go to bed on time. 4. Make a social connection. Surround yourself with positive people with positive energy. Connect with friends and family. 5. Get into the habit of meditating and mindfulness while doing everything. 6. Go outside and connect with nature. C. Prescription medications Patient was educated on the use of prescription medications for medical weight loss. This is a growing list and includes phentermine, Topamax, Qsymia, contrave, belviq and saxenda, wegovy etc. All prescription medications could have side effects including but not limited to kidney stones, seizure disorder, cardiac arrhythmias, heart attack, pancreatitis, GI effects, Etc. Patient was encouraged to read the prescription insert and discuss with their pharmacist to make an informed decision about taking medication and know that these medications are being prescribed with good intentions and we do not know how a patient would react to her medication. Some medications are FDA approved for weight loss and there is also off label use depending on patient's inability to afford medications in an attempt to lose weight. D. Behavioral counseling was done to establish a relationship between food and an mood. Patient was provided information about local counseling and psychiatry and Dr Jimenez at [facility]. We would like to cover regular topics and build on low glycemic eating exercise mindful eating, using yoga and meditation along with deep breathing and connecting with friends and family. E. MASS PAT reviewed, Patient's current medications were reviewed and opinion was given on medication that can cause weight gain and can be substituted F. Patient was assessed for risk with obesity including and not limiting to atherosclerosis, heart disease, stroke, kidney disease, restrictive lung disease, irritable bowel syndrome and overall mortality. Risk of developing prediabetes diabetes and metabolic syndrome was discussed G. Therapeutic plan: We have decided to make therapeutic plan which would include choosing wisely on calories restricting portion getting active, tracking weight, getting good quality sleep and working on time management H. Patient will follow up in 4 weeks for weight management Total time spent today was 60 minutes of which greater than 50% was spent on coordinating and counseling Case discussed with collaborating physician Jonathan Marvin who reviewed the assessment and plan. Chart, medications, labs, vital signs reviewed. Dictation was accomplished with the use of [facility] voice recognition software, prone to medical misidentifications and grammatical errors. This is unintentional and the practitioner does try to identify and correct these, but some could still be present. Please do not hesitate to contact practitioner for clarification. All questions answered to patients satisfaction. Patient verbalized understanding of diagnosis and treatments explained. To call sooner prior to next visit it any questions/concerns arise. 08/08/2024 Body mass index (BMI ) of 40.1 to 44.9 in adult (ICD-10 - Z68.41) Tanna is a 73-year-old female present today for weight management consultation. 08/08/2024: Wt: 191.3 lbs, BMI: 41.39 Patient congratulated on 6 pound weight loss since last visit. patient trialed on Contrave twice, but has not been consistent with this medication. Discussed Seca scale which revealed borderline low muscle mass in upper extremities. Discussed how GLP-1's would not be recommended as risk for potential further muscle loss. Patient admits she has not been consistent with the Contrave. Discussed with patient that Contrave or lifestyle would be the best for her in regards to weight loss. Patient willing to try Contrave 1 more time consistently. Will send prescription to [facility] pharmacy. Advised patient to increase protein with a daily goal of at least 80 g of protein. Discussed increasing physical activity with short walks as patient gets dyspnea on exertion. Recommend patient purchase his resistance bands or light hand weights to strengthen upper extremities. Patient agreeable with plan. Plan follow-up in 4 weeks and repeat Seca scale. #Interstitial fibrosis: Has had a chronic cough with multiple antibiotics with no resolution. Chest x-ray from 05/27/2024 revealing interstitial fibrosis. Patient referred to [facility] pulmonology. Prescribed albuterol as needed, fluticasone propriety daily and Trelegy daily. Will continue with pulmonology recommendations. #Osteoarthritis: Patient previously received cortisone injections for chronic osteoarthritis of the right hip. Referred to orthopedics that she has not had a cortisone injection in the past year. #Restless leg syndrome: Patient had rapid weight gain since initiating ropinirole. No longer taking. Switch to mirtazapine to take at night. Followed by neurology. #Hypertension: Blood pressure stable in office. Plan to continue losartan 50 mg, metoprolol 50 mg twice daily, and amlodipine 2.5 mg. Followed by cardiology. #B12 deficiency: Patient receives monthly B12 injections in office. #CHF: Followed by cardiology and doubled up on Lasix x 7 days when needed. No pitting edema on exam today. Patient was reassured and welcomed to the practice. We discussed that we stress a hollistic medical approach with emphasis on lifestyle modification. Patient was informed that a healthy lifestyle with exercise and good eating habits can help reduce his risk of medical complications. Patient is explained that obesity increases his risk of diabetes, cardiovascular disease, or organ damage. We spent a lot of time discussing the relationship between food, exercise, sleep, mental health and obesity. Patient was counseled on the importance EATING local, organic food when possible. Patient was educated on clean 15 and dirty dozen. I provided information about reading books called The Food Rules by Олег Puckett and Eat Fat Get Lean by Dr Devon Villalba. Self education is important in the journey for weight management. Patient was offered diagnostic testing/ SECA scale. We want to measure visceral adiposity, advanced body composition, adverse lipids, fatty acid balance, risk for heart disease and atherosclerosis, markers of inflammation and genetic susceptibility. Patient was counseled on weight management and was advised to lose weight using A. Meal Replacement Products Patient was educated on the replacement products called optifast. This is a good way of taking fixed amount of calories. It has been shown in studies to be ineffective weight management tool. This however has to be coupled with lifestyle intervention as well as laboratory data and EKG monitoring. It is impossible to know how a person will tolerate complete meal replacement. The side effects of meal replacement and weight loss could include syncopal attacks, dizziness, gallstones, potential cholecystectomy, possible heart attack and even . The benefits of meal replacement would be potential weight loss but no guarantees can be made. Meal replacement products are not covered by insurance. Once the patient has bought these products we cannot return them B. Lifestyle management which includes several strategies as below 1. Eat a low carbohydrate good fat good protein diet. Eliminate refined carbohydrates from the diet. Limit sugared beverages. Eat local organic when possible. Cook your own meals. Read food labels. Focus on healthy snacks. Portion control and food with low glycemic index 2. Exercise regularly. Try to get at least 6000 steps a day. Use a predominant to track activity level. Consider using apps like 7 minute excercise, my[employer] Roundpal, lose it, stick as needed for self-monitoring and weight management. Consider group exercises. Consider hiring a appraiser personal property. Regular exercise is nagy to sustainable health and prevents as a buffer against weight regain 3. Sleep is most important for healing. Try to sleep at least 6-8 hours a night. A good quality sleep needs a sleep ritual with ideal room temperature of around 68. It might help to take a shower and have no electronics in the room and sleep in a very dark room without artificial light. Start sleep routine and get up early in the morning and go to bed on time. 4. Make a social connection. Surround yourself with positive people with positive energy. Connect with friends and family. 5. Get into the habit of meditating and mindfulness while doing everything. 6. Go outside and connect with nature. C. Prescription medications Patient was educated on the use of prescription medications for medical weight loss. This is a growing list and includes phentermine, Topamax, Qsymia, contrave, belviq and saxenda, wegovy etc. All prescription medications could have side effects including but not limited to kidney stones, seizure disorder, cardiac arrhythmias, heart attack, pancreatitis, GI effects, Etc. Patient was encouraged to read the prescription insert and discuss with their pharmacist to make an informed decision about taking medication and know that these medications are being prescribed with good intentions and we do not know how a patient would react to her medication. Some medications are FDA approved for weight loss and there is also off label use depending on patient's inability to afford medications in an attempt to lose weight. D. Behavioral counseling was done to establish a relationship between food and an mood. Patient was provided information about local counseling and psychiatry and Dr Jimenez at [facility]. We would like to cover regular topics and build on low glycemic eating exercise mindful eating, using yoga and meditation along with deep breathing and connecting with friends and family. E. MASS PAT reviewed, Patient's current medications were reviewed and opinion was given on medication that can cause weight gain and can be substituted F. Patient was assessed for risk with obesity including and not limiting to atherosclerosis, heart disease, stroke, kidney disease, restrictive lung disease, irritable bowel syndrome and overall mortality. Risk of developing prediabetes diabetes and metabolic syndrome was discussed G. Therapeutic plan: We have decided to make therapeutic plan which would include choosing wisely on calories restricting portion getting active, tracking weight, getting good quality sleep and working on time management H. Patient will follow up in 4 weeks for weight management Total time spent today was 60 minutes of which greater than 50% was spent on coordinating and counseling Case discussed with collaborating physician Jonathan Marvin who reviewed the assessment and plan. Chart, medications, labs, vital signs reviewed. Dictation was accomplished with the use of [facility] voice recognition software, prone to medical misidentifications and grammatical errors. This is unintentional and the practitioner does try to identify and correct these, but some could still be present. Please do not hesitate to contact practitioner for clarification. All questions answered to patients satisfaction. Patient verbalized understanding of diagnosis and treatments explained. To call sooner prior to next visit it any questions/concerns arise. 08/22/2024 Unsteady gait (ICD-1 0 - R26.81) Tanna is a 73-year-old female present today for follow-up. # Need to have further evaluation for concern of memory changes at follow-up in 2 weeks. Patient today presenting to office discussing unsteady gait after a fall 2 months ago and brain bleed . After further investigation through [facility] emergency, patient is referring to a fall that occurred last February revealing left orbital floor fracture, displaced left lateral orbital wall fracture with comminuted left zygomatic arch fracture, anterior left maxillary sinus fracture, left facial soft tissue swelling and multiple acute subarachnoid hemorrhages of right cerebellar hemisphere and basal cisterns. Patient at the times Eliquis was held and cardiac workup was unremarkable. Of note patient did present to the ER at [facility] 2 months ago for a total of 45 minutes with a chief complaint of leg swelling, but was not evaluated by a provider. Followed by cardiology and recommended short course of Lasix which resolved leg swelling. To my knowledge, patient was last seen by neurology on 03/14/2024 does not have any upcoming follow-up scheduled. Advised patient to call the office to schedule to ensure she is not lost to follow-up. Will perform Mini-Mental status exam at follow-up in 2 weeks. Will consider further blood work as well as brain MRI if indicated. Patient currently lives at home with and is able to perform day-to-day tasks independently. #Unsteady gait: In regards to patient's concern for unsteady gait since the fall, will obtain basic labs and add on A1c, B12 and folate for further evaluation for further evaluation regarding electrolyte abnormality or vitamin deficiency. Patient does not report any vertigo symptoms at this time. Patient had completed course of physical therapy post fall. Will refer back to PT given gait instability and concern for recurrent falls. Will call regarding bloodwork and follow up with neurology. # Interstitial fibrosis: Newly diagnosis for patient after chronic cough. Referred to pulmonology. #Elevated BMI: Wt: 195.6 lbs, BMI: 42.32 patient followed in weight management program. Has been noncompliant with Contrave in the past and has restarted Contrave for the third attempt. Will follow-up on 09/07 for weight management. Given patient's age, would recommend against GLP-1 therapy. All questions answered to patients satisfaction. Patient verbalized understanding of diagnosis and treatments explained. To call sooner prior to next visit it any questions/concerns arise. Case discussed with collaborating physician Dr. Marvin who reviewed the assessment and plan. Chart, medications, labs, vital signs reviewed. Dictation was accomplished with the use of [facility] voice recognition software, prone to medical misidentifications and grammatical errors. This is unintentional and the practitioner does try to identify and correct these, but some could still be present. Please do not hesitate to contact practitioner for clarification. 08/22/2024 Memory change (ICD-1 0 - R41.3) Tanna is a 73-year-old female present today for follow-up. # Need to have further evaluation for concern of memory changes at follow-up in 2 weeks. Patient today presenting to office discussing unsteady gait after a fall 2 months ago and brain bleed . After further investigation through [facility] emergency, patient is referring to a fall that occurred last February revealing left orbital floor fracture, displaced left lateral orbital wall fracture with comminuted left zygomatic arch fracture, anterior left maxillary sinus fracture, left facial soft tissue swelling and multiple acute subarachnoid hemorrhages of right cerebellar hemisphere and basal cisterns. Patient at the times Eliquis was held and cardiac workup was unremarkable. Of note patient did present to the ER at [facility] 2 months ago for a total of 45 minutes with a chief complaint of leg swelling, but was not evaluated by a provider. Followed by cardiology and recommended short course of Lasix which resolved leg swelling. To my knowledge, patient was last seen by neurology on 03/14/2024 does not have any upcoming follow-up scheduled. Advised patient to call the office to schedule to ensure she is not lost to follow-up. Will perform Mini-Mental status exam at follow-up in 2 weeks. Will consider further blood work as well as brain MRI if indicated. Patient currently lives at home with and is able to perform day-to-day tasks independently. #Unsteady gait: In regards to patient's concern for unsteady gait since the fall, will obtain basic labs and add on A1c, B12 and folate for further evaluation for further evaluation regarding electrolyte abnormality or vitamin deficiency. Patient does not report any vertigo symptoms at this time. Patient had completed course of physical therapy post fall. Will refer back to PT given gait instability and concern for recurrent falls. Will call regarding bloodwork and follow up with neurology. # Interstitial fibrosis: Newly diagnosis for patient after chronic cough. Referred to pulmonology. #Elevated BMI: Wt: 195.6 lbs, BMI: 42.32 patient followed in weight management program. Has been noncompliant with Contrave in the past and has restarted Contrave for the third attempt. Will follow-up on 09/07 for weight management. Given patient's age, would recommend against GLP-1 therapy. All questions answered to patients satisfaction. Patient verbalized understanding of diagnosis and treatments explained. To call sooner prior to next visit it any questions/concerns arise. Case discussed with collaborating physician Dr. Marvin who reviewed the assessment and plan. Chart, medications, labs, vital signs reviewed. Dictation was accomplished with the use of [facility] voice recognition software, prone to medical misidentifications and grammatical errors. This is unintentional and the practitioner does try to identify and correct these, but some could still be present. Please do not hesitate to contact practitioner for clarification. 09/15/2024 Vitamin B12 deficiency anemia due to intrinsic factor deficiency (ICD-10 - D51.0) Tanna is a 73-year-old female presents today for 1 month follow-up. # Memory: Patient appears today to be at baseline with no further concern regarding altered mental status or change of baseline. #Elevated BMI: Switch from Contrave and begin trialing metformin. Discussed side effects including GI upset. Will prescribe to take 1 tab once daily x 2 weeks and then switch to 2 tabs once daily. Patient has A1c of 6.5%, so we will continue to monitor A1c for improvement. #Interstitial fibrosis: Patient developed a chronic cough and chest x-ray revealed changes suggesting interstitial fibrosis. Referred to pulmonology, Dr. Henderson. Recent CT chest with revealed no findings aside from atelectasis. Will continue with their recommendations. #B12 deficiency: Administer B12 today in office. # Diabetes: A1C of 6.5%. Initiating metformin ER 500 mg 1 tab once daily x 2 weeks then 2 tabs once daily x 2 weeks. #CHF: Followed by cardiology. Discussed low-sodium diet. Recommend compression stockings. Discussed importance of weighing daily and to call the office if she experiences extreme acute weight gain as this could be fluid retention. #Coronary artery disease #hyperlipidemia #hypertension #A-fib: Followed by cardiology. On anticoagulation with Eliquis 5 mg. BP managed on amlodipine 2.5, losartan 50 and metoprolol succinate extended release 50 mg. Hyperlipidemia managed on atorvastatin 80 mg. History of CHF and nonpitting lower extremity edema. Managed on Lasix 20 mg daily. #GERD managed on omeprazole 40 mg as needed. #Depression #restless leg: Continue pramipexole 0.75 mg daily and gabapentin 300 mg twice daily. Followed by neurology. States she does not have a visit scheduled. Would recommend calling to ensure she is not lost to follow-up. #History of incontinence: Followed by urology. #Plan to follow-up in 3 months. All questions answered to patients satisfaction. Patient verbalized understanding of diagnosis and treatments explained. To call sooner prior to next visit it any questions/concerns arise. Case discussed with collaborating physician Dr. Marvin who reviewed the assessment and plan. Chart, medications, labs, vital signs reviewed. Dictation was accomplished with the use of [facility] voice recognition software, prone to medical misidentifications and grammatical errors. This is unintentional and the practitioner does try to identify and correct these, but some could still be present. Please do not hesitate to contact practitioner for clarification. 09/15/2024 Type 2 diabetes mellitus without complication, without long-term current use of insulin (ICD-10 - E11.9) Tanna is a 73-year-old female presents today for 1 month follow-up. # Memory: Patient appears today to be at baseline with no further concern regarding altered mental status or change of baseline. #Elevated BMI: Switch from Contrave and begin trialing metformin. Discussed side effects including GI upset. Will prescribe to take 1 tab once daily x 2 weeks and then switch to 2 tabs once daily. Patient has A1c of 6.5%, so we will continue to monitor A1c for improvement. #Interstitial fibrosis: Patient developed a chronic cough and chest x-ray revealed changes suggesting interstitial fibrosis. Referred to pulmonology, Dr. Henderson. Recent CT chest with revealed no findings aside from atelectasis. Will continue with their recommendations. #B12 deficiency: Administer B12 today in office. # Diabetes: A1C of 6.5%. Initiating metformin ER 500 mg 1 tab once daily x 2 weeks then 2 tabs once daily x 2 weeks. #CHF: Followed by cardiology. Discussed low-sodium diet. Recommend compression stockings. Discussed importance of weighing daily and to call the office if she experiences extreme acute weight gain as this could be fluid retention. #Coronary artery disease #hyperlipidemia #hypertension #A-fib: Followed by cardiology. On anticoagulation with Eliquis 5 mg. BP managed on amlodipine 2.5, losartan 50 and metoprolol succinate extended release 50 mg. Hyperlipidemia managed on atorvastatin 80 mg. History of CHF and nonpitting lower extremity edema. Managed on Lasix 20 mg daily. #GERD managed on omeprazole 40 mg as needed. #Depression #restless leg: Continue pramipexole 0.75 mg daily and gabapentin 300 mg twice daily. Followed by neurology. States she does not have a visit scheduled. Would recommend calling to ensure she is not lost to follow-up. #History of incontinence: Followed by urology. #Plan to follow-up in 3 months. All questions answered to patients satisfaction. Patient verbalized understanding of diagnosis and treatments explained. To call sooner prior to next visit it any questions/concerns arise. Case discussed with collaborating physician Dr. Marvin who reviewed the assessment and plan. Chart, medications, labs, vital signs reviewed. Dictation was accomplished with the use of [facility] voice recognition software, prone to medical misidentifications and grammatical errors. This is unintentional and the practitioner does try to identify and correct these, but some could still be present. Please do not hesitate to contact practitioner for clarification. 09/26/2024 Chronic a-fib (ICD-1 0 - I48.20) Tanna is a pleasant 73-year-old female present today for hospital follow-up. #Hospitalized for acute on chronic diastolic congestive heart failure with acute decompensation and acute hypoxemic respiratory failure from 09/21 - 09/[address] [facility]. # Patient presented with shortness of breath and lower extremity edema. Echocardiogram repeated in hospital noting ejection fraction of 65% with mild concentric hypertrophy. This improved from prior echocardiogram May 2024 revealing grade 3 diastolic dysfunction. Amlodipine and losartan held during hospital stay and patient was started on diuresis with Lasix 40 mg twice daily. Patient discharged with improvement of symptoms and restarted on amlodipine, however her losartan dose had changed to 25 mg and metoprolol succinate to 50 mg p.o. once daily. # VNA services with nursing visits for BP checks. Has not started yet. # Supposed to schedule cardiology follow-up within 1 week for further evaluation. Reiterated the importance of a cardiology follow-up as patient was recommended to start torsemide 40 mg twice daily at home per cardiology, but was educated during hospital discharge to resume Lasix 40 mg. Patient obtain blood work today which revealed CBC within normal limits, pending BMP. Educated patient to continue medication regimen but follow-up with cardiology as necessary to discuss diuretics. Patient today has had improvement in lower extremity edema and feels though patient is stable to follow-up with cardiology in 1 week. Discussed the importance of daily weight ins as well as low-salt diet. Recommend use of compression stockings in addition to lower extremity elevation at nighttime. Discussed the importance of looking for signs regarding fluid retention and to call the office or cardiology if this develops. Patient agreeable with plan. #Chronic A-fib: Anticoagulated on Eliquis 5 mg twice daily. Metoprolol for rate control. #Coronary artery disease: Continue daily aspirin, atorvastatin metoprolol 50 mg p.o. once daily. #Diabetes: Most recent A1c in office of 6.5%. Initiated on metformin ER 500 mg titrating up to 2 tabs p.o. once daily. Will follow-up in 3 months and repeat A1c. #Interstitial fibrosis: Patient developed a chronic cough and chest x-ray revealed changes suggesting interstitial fibrosis. Referred to pulmonology, Dr. Henderson. Recent CT chest with revealed no findings aside from atelectasis. Will continue with their recommendations. Continue albuterol as needed. #GERD managed on omeprazole 40 mg. #Restless leg syndrome: Continue pramipexole and gabapentin. Followed by neurology. #History of incontinence: Followed by urology. All questions answered to patients satisfaction. Patient verbalized understanding of diagnosis and treatments explained. To call sooner prior to next visit it any questions/concerns arise. Case discussed with collaborating physician Dr. Marvin who reviewed the assessment and plan. Chart, medications, labs, vital signs reviewed. Dictation was accomplished with the use of [employer] voice recognition software, prone to medical misidentifications and grammatical errors. This is unintentional and the practitioner does try to identify and correct these, but some could still be present. Please do not hesitate to contact practitioner for clarification. 09/26/2024 Heart failure, diastolic, acute on chronic (ICD-10 - I50.33) Tanna is a pleasant 73-year-old female present today for hospital follow-up. #Hospitalized for acute on chronic diastolic congestive heart failure with acute decompensation and acute hypoxemic respiratory failure from 09/21 - 09/[address] [facility]. # Patient presented with shortness of breath and lower extremity edema. Echocardiogram repeated in hospital noting ejection fraction of 65% with mild concentric hypertrophy. This improved from prior echocardiogram May 2024 revealing grade 3 diastolic dysfunction. Amlodipine and losartan held during hospital stay and patient was started on diuresis with Lasix 40 mg twice daily. Patient discharged with improvement of symptoms and restarted on amlodipine, however her losartan dose had changed to 25 mg and metoprolol succinate to 50 mg p.o. once daily. # VNA services with nursing visits for BP checks. Has not started yet. # Supposed to schedule cardiology follow-up within 1 week for further evaluation. Reiterated the importance of a cardiology follow-up as patient was recommended to start torsemide 40 mg twice daily at home per cardiology, but was educated during hospital discharge to resume Lasix 40 mg. Patient obtain blood work today which revealed CBC within normal limits, pending BMP. Educated patient to continue medication regimen but follow-up with cardiology as necessary to discuss diuretics. Patient today has had improvement in lower extremity edema and feels though patient is stable to follow-up with cardiology in 1 week. Discussed the importance of daily weight ins as well as low-salt diet. Recommend use of compression stockings in addition to lower extremity elevation at nighttime. Discussed the importance of looking for signs regarding fluid retention and to call the office or cardiology if this develops. Patient agreeable with plan. #Chronic A-fib: Anticoagulated on Eliquis 5 mg twice daily. Metoprolol for rate control. #Coronary artery disease: Continue daily aspirin, atorvastatin metoprolol 50 mg p.o. once daily. #Diabetes: Most recent A1c in office of 6.5%. Initiated on metformin ER 500 mg titrating up to 2 tabs p.o. once daily. Will follow-up in 3 months and repeat A1c. #Interstitial fibrosis: Patient developed a chronic cough and chest x-ray revealed changes suggesting interstitial fibrosis. Referred to pulmonology, Dr. Henderson. Recent CT chest with revealed no findings aside from atelectasis. Will continue with their recommendations. Continue albuterol as needed. #GERD managed on omeprazole 40 mg. #Restless leg syndrome: Continue pramipexole and gabapentin. Followed by neurology. #History of incontinence: Followed by urology. All questions answered to patients satisfaction. Patient verbalized understanding of diagnosis and treatments explained. To call sooner prior to next visit it any questions/concerns arise. Case discussed with collaborating physician Dr. Marvin who reviewed the assessment and plan. Chart, medications, labs, vital signs reviewed. Dictation was accomplished with the use of [facility] voice recognition software, prone to medical misidentifications and grammatical errors. This is unintentional and the practitioner does try to identify and correct these, but some could still be present. Please do not hesitate to contact practitioner for clarification. 10/17/2024 Chronic a-fib (ICD-1 0 - I48.20) Tanna is a pleasant 73-year-old female present today for hospital follow-up. #Hospitalized for acute on chronic diastolic congestive heart failure with acute decompensation and acute hypoxemic respiratory failure from 09/21 - 09/[address] [facility]. Patient presented with shortness of breath and lower extremity edema. Echocardiogram repeated in hospital noting ejection fraction of 65% with mild concentric hypertrophy. This improved from prior echocardiogram May 2024 revealing grade 3 diastolic dysfunction. Amlodipine and losartan held during hospital stay and patient was started on diuresis with Lasix 40 mg twice daily. Patient discharged with improvement of symptoms and restarted on amlodipine, however her losartan dose had changed to 25 mg and metoprolol succinate to 50 mg p.o. once daily. # Patient following up with cardiology next week. Per cardiology, consider adding spironolactone and SGLT-2 inhibitor to patient regimen. Patient to discuss with cardiology regarding initiating torsemide. Discussed the importance of daily weight-ins as well as low-salt diet. Recommend use of compression stockings in addition to lower extremity elevation at nighttime. Discussed the importance of looking for signs regarding fluid retention and to call the office or cardiology if this develops. Patient agreeable with plan. #Chronic A-fib: Anticoagulated on Eliquis 5 mg twice daily. Metoprolol for rate control. #Coronary artery disease: Continue daily aspirin, atorvastatin metoprolol 50 mg p.o. once daily. #Diabetes: Most recent A1c in office of 6.5%. Initiated on metformin ER 500 mg titrating up to 2 tabs p.o. once daily. Will follow-up in 3 months and repeat A1c. #Interstitial fibrosis: Patient developed a chronic cough and chest x-ray revealed changes suggesting interstitial fibrosis. Referred to pulmonology, Dr. Henderson. Recent CT chest with revealed no findings aside from atelectasis. Will continue with their recommendations. Continue albuterol as needed. #GERD managed on omeprazole 40 mg. #Restless leg syndrome: Continue pramipexole and gabapentin. Followed by neurology. #History of incontinence: Followed by urology. All questions answered to patients satisfaction. Patient verbalized understanding of diagnosis and treatments explained. To call sooner prior to next visit it any questions/concerns arise. Case discussed with collaborating physician Dr. Marvin who reviewed the assessment and plan. Chart, medications, labs, vital signs reviewed. Dictation was accomplished with the use of [facility] voice recognition software, prone to medical misidentifications and grammatical errors. This is unintentional and the practitioner does try to identify and correct these, but some could still be present. Please do not hesitate to contact practitioner for clarification. 12/19/2024 Essential (primary) hypertension (ICD-10 - I10) Tanna is a pleasant 74-year-old female present today for follow-up. #Diabetes: A1c at last visit in August of 6.5%. Patient initiated on metformin 500 mg 2 tabs once daily. Since seeing cardiology, initiated on Jardiance 10 mg. A1c today office of 6%. Given significant weight gain in the past year as well as concern for diastolic heart failure, cardiology recommended GLP-1 therapy for intentional weight loss. Given diagnosis of diabetes, will prescribe Mounjaro 2.5 mg weekly injection. Discussed role of medication as well as side effect profile. Plan to follow-up in 1 month in regards to Mounjaro initiation. Will repeat A1c in 3 months. #Hypertension #diastolic heart failure: Followed by cardiology. Last seen 11/14/2024 with medication changes. Will follow-up in 1 month with cardiology. Continue Lasix 40 mg, metoprolol 50 mg and Jardiance 10 mg. Discontinue losartan. Blood pressure stable in office. Continue with the recommendations. #Chronic A-fib: Anticoagulated on Eliquis 5 mg twice daily. Metoprolol for rate control. #CAD: Continue aspirin 81 mg daily and atorvastatin. Will obtain blood work including lipids and review at follow-up. #Interstitial fibrosis: Chronic cough and chest x-ray revealed changes suggesting interstitial fibrosis. Referred to pulmonology. #Vitamin B12 deficiency: Obtains monthly B12 injections in office. #GERD: Managed on omeprazole 40 mg. #Restless leg syndrome: Continue pramipexole and gabapentin. Followed by neurology. Patient has since discontinued gabapentin and uses [id number] Tylenol as needed. #Right hip pain: followed by [facility]. All questions answered to patients satisfaction. Patient verbalized understanding of diagnosis and treatments explained. To call sooner prior to next visit it any questions/concerns arise. Case discussed with collaborating physician Dr. Marvin who reviewed the assessment and plan. Chart, medications, labs, vital signs reviewed. Dictation was accomplished with the use of [facility] voice recognition software, prone to medical misidentifications and grammatical errors. This is unintentional and the practitioner does try to identify and correct these, but some could still be present. Please do not hesitate to contact practitioner for clarification. 12/19/2024 Type 2 diabetes mellitus without complication, without long-term current use of insulin (ICD-10 - E11.9) Tanna is a pleasant 74-year-old female present today for follow-up. #Diabetes: A1c at last visit in August of 6.5%. Patient initiated on metformin 500 mg 2 tabs once daily. Since seeing cardiology, initiated on Jardiance 10 mg. A1c today office of 6%. Given significant weight gain in the past year as well as concern for diastolic heart failure, cardiology recommended GLP-1 therapy for intentional weight loss. Given diagnosis of diabetes, will prescribe Mounjaro 2.5 mg weekly injection. Discussed role of medication as well as side effect profile. Plan to follow-up in 1 month in regards to Mounjaro initiation. Will repeat A1c in 3 months. #Hypertension #diastolic heart failure: Followed by cardiology. Last seen 11/14/2024 with medication changes. Will follow-up in 1 month with cardiology. Continue Lasix 40 mg, metoprolol 50 mg and Jardiance 10 mg. Discontinue losartan. Blood pressure stable in office. Continue with the recommendations. #Chronic A-fib: Anticoagulated on Eliquis 5 mg twice daily. Metoprolol for rate control. #CAD: Continue aspirin 81 mg daily and atorvastatin. Will obtain blood work including lipids and review at follow-up. #Interstitial fibrosis: Chronic cough and chest x-ray revealed changes suggesting interstitial fibrosis. Referred to pulmonology. #Vitamin B12 deficiency: Obtains monthly B12 injections in office. #GERD: Managed on omeprazole 40 mg. #Restless leg syndrome: Continue pramipexole and gabapentin. Followed by neurology. Patient has since discontinued gabapentin and uses [id number] Tylenol as needed. #Right hip pain: followed by [facility]. All questions answered to patients satisfaction. Patient verbalized understanding of diagnosis and treatments explained. To call sooner prior to next visit it any questions/concerns arise. Case discussed with collaborating physician Dr. Marvin who reviewed the assessment and plan. Chart, medications, labs, vital signs reviewed. Dictation was accomplished with the use of [facility] voice recognition software, prone to medical misidentifications and grammatical errors. This is unintentional and the practitioner does try to identify and correct these, but some could still be present. Please do not hesitate to contact practitioner for clarification. 12/26/2024 Pernicious anemia (ICD-10 - D51.0) 01/11/2025 Type 2 diabetes mellitus without complication, without long-term current use of insulin (ICD-10 - E11.9) 01/19/2025 Weight gain (ICD-10 - R63.5) Tanna is a 74-year-old female present today for 1 month follow-up. Past medical history of hyperlipidemia, coronary artery disease, reflux gastritis, hypertension, overactive bladder, depression, hydronephrosis with ureteral stricture, vitamin D deficiency, vitamin B12 deficiency, cerebral infarction, restless leg syndrome followed by neurology, A-fib on anticoagulation, cardiomegaly, bronchitis, hip osteoarthritis and congestive heart failure followed by cardiology. # Will update influenza and B12 injection for B12 deficiency in office. # Lower extremity edema #RLE edema exacerbation: Patient had contacted [facility] on 01/16/2025 reporting right foot swollen. Denies any shortness of breath. Staying well-hydrated and good urine output without difficulty. Per Dr. Castanon, recommended taking Lasix 40 mg twice a day x 3 days with labs including a basic metabolic panel and magnesium. Patient advised to go to [facility] lab today for these labs and cardiology will reach out to follow-up same day. Pending cardiology recommendations. Patient reports swelling as improved however on palpation of RLE, leakage of fluid is appreciated. In office, compression bandaging is placed to help apply external pressure to the limb, which counteracts elevated ambulatory venous pressure, decreased capillary filtration and promote fluid shift into noncompressed regions thereby improving lymphatic drainage and venous return. Patient verablized understanding Patient advised to keep dressing on over the weekend. Discussed importance of compliance with short term furosemide 40 mg BID to improve symptoms. Discussed low salt diet and daily weigh-ins. Discussed worsening signs. Discussed ER protocol. Will follow up with cardiology today. If symptoms worsen over the weekend, will consider duplex u/s of RLE. Patient advised to call the office by Wednesday. # Low potassium: Recent labs reveal potassium of 3.1. Discussed concern for electrolyte abnormality. Recommend potassium supplementation however patient states cardiology ordered a BNP to check electrolytes today and she will check potassium level today. Will check BNP when available and rediscuss potassium supplementation if indicated. Discussed risk of hypokalemia including arrhythmias. Patient understanding. # Follow up 2 months for labs including CBC, CMP and A1C. Will review cardiology order for BMP when available after today's bloodwork. #Chronic A-fib: Anticoagulated on Eliquis 5 mg twice daily. Metoprolol for rate control. #Coronary artery disease: Continue daily aspirin, atorvastatin metoprolol 50 mg p.o. once daily. #Diabetes: Most recent A1c of 6%. Managed on metformin, jardiance and Mounjaro. Will follow-up in 2 months and repeat A1c. #Interstitial fibrosis:. Continue albuterol as needed. #GERD managed on omeprazole 40 mg. #Restless leg syndrome: Continue pramipexole and gabapentin. Followed by neurology. #History of incontinence: Followed by urology. #weight gain: Managed on Mounjaro 2.5 mg weekly injections per cardiology recommendations. Has had a 5 lb weight loss in 1 month. Given concern for age and risk of osteoporosis will continue low dose and refrain from higher doses given successful weight loss. Discussed need for lifestyle modifications. All questions answered to patients satisfaction. Patient verbalized understanding of diagnosis and treatments explained. To call sooner prior to next visit it any questions/concerns arise. Case discussed with collaborating physician Dr. Marvin who reviewed the assessment and plan. Chart, medications, labs, vital signs reviewed. Dictation was accomplished with the use of [facility] voice recognition software, prone to medical misidentifications and grammatical errors. This is unintentional and the practitioner does try to identify and correct these, but some could still be present. Please do not hesitate to contact practitioner for clarification. 01/19/2025 Bilateral leg edema (ICD-10 - R60.0) Tanna is a 74-year-old female present today for 1 month follow-up. Past medical history of hyperlipidemia, coronary artery disease, reflux gastritis, hypertension, overactive bladder, depression, hydronephrosis with ureteral stricture, vitamin D deficiency, vitamin B12 deficiency, cerebral infarction, restless leg syndrome followed by neurology, A-fib on anticoagulation, cardiomegaly, bronchitis, hip osteoarthritis and congestive heart failure followed by cardiology. # Will update influenza and B12 injection for B12 deficiency in office. # Lower extremity edema #RLE edema exacerbation: Patient had contacted [facility] on 01/16/2025 reporting right foot swollen. Denies any shortness of breath. Staying well-hydrated and good urine output without difficulty. Per Dr. Castanon, recommended taking Lasix 40 mg twice a day x 3 days with labs including a basic metabolic panel and magnesium. Patient advised to go to [facility] lab today for these labs and cardiology will reach out to follow-up same day. Pending cardiology recommendations. Patient reports swelling as improved however on palpation of RLE, leakage of fluid is appreciated. In office, compression bandaging is placed to help apply external pressure to the limb, which counteracts elevated ambulatory venous pressure, decreased capillary filtration and promote fluid shift into noncompressed regions thereby improving lymphatic drainage and venous return. Patient verablized understanding Patient advised to keep dressing on over the weekend. Discussed importance of compliance with short term furosemide 40 mg BID to improve symptoms. Discussed low salt diet and daily weigh-ins. Discussed worsening signs. Discussed ER protocol. Will follow up with cardiology today. If symptoms worsen over the weekend, will consider duplex u/s of RLE. Patient advised to call the office by Wednesday. # Low potassium: Recent labs reveal potassium of 3.1. Discussed concern for electrolyte abnormality. Recommend potassium supplementation however patient states cardiology ordered a BNP to check electrolytes today and she will check potassium level today. Will check BNP when available and rediscuss potassium supplementation if indicated. Discussed risk of hypokalemia including arrhythmias. Patient understanding. # Follow up 2 months for labs including CBC, CMP and A1C. Will review cardiology order for BMP when available after today's bloodwork. #Chronic A-fib: Anticoagulated on Eliquis 5 mg twice daily. Metoprolol for rate control. #Coronary artery disease: Continue daily aspirin, atorvastatin metoprolol 50 mg p.o. once daily. #Diabetes: Most recent A1c of 6%. Managed on metformin, jardiance and Mounjaro. Will follow-up in 2 months and repeat A1c. #Interstitial fibrosis:. Continue albuterol as needed. #GERD managed on omeprazole 40 mg. #Restless leg syndrome: Continue pramipexole and gabapentin. Followed by neurology. #History of incontinence: Followed by urology. #weight gain: Managed on Mounjaro 2.5 mg weekly injections per cardiology recommendations. Has had a 5 lb weight loss in 1 month. Given concern for age and risk of osteoporosis will continue low dose and refrain from higher doses given successful weight loss. Discussed need for lifestyle modifications. All questions answered to patients satisfaction. Patient verbalized understanding of diagnosis and treatments explained. To call sooner prior to next visit it any questions/concerns arise. Case discussed with collaborating physician Dr. Marvin who reviewed the assessment and plan. Chart, medications, labs, vital signs reviewed. Dictation was accomplished with the use of [facility] voice recognition software, prone to medical misidentifications and grammatical errors. This is unintentional and the practitioner does try to identify and correct these, but some could still be present. Please do not hesitate to contact practitioner for clarification. 02/09/2025 Type 2 diabetes mellitus without complication, without long-term current use of insulin (ICD-10 - E11.9) 01/19/2025 Encounter for immunization (ICD-10 - Z23) Tanna is a 74-year-old female present today for 1 month follow-up. Past medical history of hyperlipidemia, coronary artery disease, reflux gastritis, hypertension, overactive bladder, depression, hydronephrosis with ureteral stricture, vitamin D deficiency, vitamin B12 deficiency, cerebral infarction, restless leg syndrome followed by neurology, A-fib on anticoagulation, cardiomegaly, bronchitis, hip osteoarthritis and congestive heart failure followed by cardiology. # Will update influenza and B12 injection for B12 deficiency in office. # Lower extremity edema #RLE edema exacerbation: Patient had contacted [facility] on 01/16/2025 reporting right foot swollen. Denies any shortness of breath. Staying well-hydrated and good urine output without difficulty. Per Dr. Castanon, recommended taking Lasix 40 mg twice a day x 3 days with labs including a basic metabolic panel and magnesium. Patient advised to go to [facility] lab today for these labs and cardiology will reach out to follow-up same day. Pending cardiology recommendations. Patient reports swelling as improved however on palpation of RLE, leakage of fluid is appreciated. In office, compression bandaging is placed to help apply external pressure to the limb, which counteracts elevated ambulatory venous pressure, decreased capillary filtration and promote fluid shift into noncompressed regions thereby improving lymphatic drainage and venous return. Patient verablized understanding Patient advised to keep dressing on over the weekend. Discussed importance of compliance with short term furosemide 40 mg BID to improve symptoms. Discussed low salt diet and daily weigh-ins. Discussed worsening signs. Discussed ER protocol. Will follow up with cardiology today. If symptoms worsen over the weekend, will consider duplex u/s of RLE. Patient advised to call the office by Wednesday. # Low potassium: Recent labs reveal potassium of 3.1. Discussed concern for electrolyte abnormality. Recommend potassium supplementation however patient states cardiology ordered a BNP to check electrolytes today and she will check potassium level today. Will check BNP when available and rediscuss potassium supplementation if indicated. Discussed risk of hypokalemia including arrhythmias. Patient understanding. # Follow up 2 months for labs including CBC, CMP and A1C. Will review cardiology order for BMP when available after today's bloodwork. #Chronic A-fib: Anticoagulated on Eliquis 5 mg twice daily. Metoprolol for rate control. #Coronary artery disease: Continue daily aspirin, atorvastatin metoprolol 50 mg p.o. once daily. #Diabetes: Most recent A1c of 6%. Managed on metformin, jardiance and Mounjaro. Will follow-up in 2 months and repeat A1c. #Interstitial fibrosis:. Continue albuterol as needed. #GERD managed on omeprazole 40 mg. #Restless leg syndrome: Continue pramipexole and gabapentin. Followed by neurology. #History of incontinence: Followed by urology. #weight gain: Managed on Mounjaro 2.5 mg weekly injections per cardiology recommendations. Has had a 5 lb weight loss in 1 month. Given concern for age and risk of osteoporosis will continue low dose and refrain from higher doses given successful weight loss. Discussed need for lifestyle modifications. All questions answered to patients satisfaction. Patient verbalized understanding of diagnosis and treatments explained. To call sooner prior to next visit it any questions/concerns arise. Case discussed with collaborating physician Dr. Marvin who reviewed the assessment and plan. Chart, medications, labs, vital signs reviewed. Dictation was accomplished with the use of [facility] voice recognition software, prone to medical misidentifications and grammatical errors. This is unintentional and the practitioner does try to identify and correct these, but some could still be present. Please do not hesitate to contact practitioner for clarification. 12/19/2024 Diastolic dysfunctio n (ICD-10 - I51.89) Tanna is a pleasant 74-year-old female present today for follow-up. #Diabetes: A1c at last visit in August of 6.5%. Patient initiated on metformin 500 mg 2 tabs once daily. Since seeing cardiology, initiated on Jardiance 10 mg. A1c today office of 6%. Given significant weight gain in the past year as well as concern for diastolic heart failure, cardiology recommended GLP-1 therapy for intentional weight loss. Given diagnosis of diabetes, will prescribe Mounjaro 2.5 mg weekly injection. Discussed role of medication as well as side effect profile. Plan to follow-up in 1 month in regards to Mounjaro initiation. Will repeat A1c in 3 months. #Hypertension #diastolic heart failure: Followed by cardiology. Last seen 11/14/2024 with medication changes. Will follow-up in 1 month with cardiology. Continue Lasix 40 mg, metoprolol 50 mg and Jardiance 10 mg. Discontinue losartan. Blood pressure stable in office. Continue with the recommendations. #Chronic A-fib: Anticoagulated on Eliquis 5 mg twice daily. Metoprolol for rate control. #CAD: Continue aspirin 81 mg daily and atorvastatin. Will obtain blood work including lipids and review at follow-up. #Interstitial fibrosis: Chronic cough and chest x-ray revealed changes suggesting interstitial fibrosis. Referred to pulmonology. #Vitamin B12 deficiency: Obtains monthly B12 injections in office. #GERD: Managed on omeprazole 40 mg. #Restless leg syndrome: Continue pramipexole and gabapentin. Followed by neurology. Patient has since discontinued gabapentin and uses [id number] Tylenol as needed. #Right hip pain: followed by [facility]. All questions answered to patients satisfaction. Patient verbalized understanding of diagnosis and treatments explained. To call sooner prior to next visit it any questions/concerns arise. Case discussed with collaborating physician Dr. Marvin who reviewed the assessment and plan. Chart, medications, labs, vital signs reviewed. Dictation was accomplished with the use of [facility] voice recognition software, prone to medical misidentifications and grammatical errors. This is unintentional and the practitioner does try to identify and correct these, but some could still be present. Please do not hesitate to contact practitioner for clarification. 12/19/2024 Type 2 diabetes mellitus without complication, without long-term current use of insulin (ICD-10 - E11.9) Electronic Prior Authorization was requested for Mounjaro 2.5 MG/0.5ML Solution Auto-injector. Provider can order medication once approval received. 10/17/2024 On anticoagulant therapy (ICD-10 - Z79.01) Tanna is a pleasant 73-year-old female present today for hospital follow-up. #Hospitalized for acute on chronic diastolic congestive heart failure with acute decompensation and acute hypoxemic respiratory failure from 09/21 - 09/[address] [facility]. Patient presented with shortness of breath and lower extremity edema. Echocardiogram repeated in hospital noting ejection fraction of 65% with mild concentric hypertrophy. This improved from prior echocardiogram May 2024 revealing grade 3 diastolic dysfunction. Amlodipine and losartan held during hospital stay and patient was started on diuresis with Lasix 40 mg twice daily. Patient discharged with improvement of symptoms and restarted on amlodipine, however her losartan dose had changed to 25 mg and metoprolol succinate to 50 mg p.o. once daily. # Patient following up with cardiology next week. Per cardiology, consider adding spironolactone and SGLT-2 inhibitor to patient regimen. Patient to discuss with cardiology regarding initiating torsemide. Discussed the importance of daily weight-ins as well as low-salt diet. Recommend use of compression stockings in addition to lower extremity elevation at nighttime. Discussed the importance of looking for signs regarding fluid retention and to call the office or cardiology if this develops. Patient agreeable with plan. #Chronic A-fib: Anticoagulated on Eliquis 5 mg twice daily. Metoprolol for rate control. #Coronary artery disease: Continue daily aspirin, atorvastatin metoprolol 50 mg p.o. once daily. #Diabetes: Most recent A1c in office of 6.5%. Initiated on metformin ER 500 mg titrating up to 2 tabs p.o. once daily. Will follow-up in 3 months and repeat A1c. #Interstitial fibrosis: Patient developed a chronic cough and chest x-ray revealed changes suggesting interstitial fibrosis. Referred to pulmonology, Dr. Henderson. Recent CT chest with revealed no findings aside from atelectasis. Will continue with their recommendations. Continue albuterol as needed. #GERD managed on omeprazole 40 mg. #Restless leg syndrome: Continue pramipexole and gabapentin. Followed by neurology. #History of incontinence: Followed by urology. All questions answered to patients satisfaction. Patient verbalized understanding of diagnosis and treatments explained. To call sooner prior to next visit it any questions/concerns arise. Case discussed with collaborating physician Dr. aMrvin who reviewed the assessment and plan. Chart, medications, labs, vital signs reviewed. Dictation was accomplished with the use of [facility] voice recognition software, prone to medical misidentifications and grammatical errors. This is unintentional and the practitioner does try to identify and correct these, but some could still be present. Please do not hesitate to contact practitioner for clarification. 09/26/2024 On anticoagulant therapy (ICD-10 - Z79.01) Tanna is a pleasant 73-year-old female present today for hospital follow-up. #Hospitalized for acute on chronic diastolic congestive heart failure with acute decompensation and acute hypoxemic respiratory failure from 09/21 - 09/[address] [facility]. # Patient presented with shortness of breath and lower extremity edema. Echocardiogram repeated in hospital noting ejection fraction of 65% with mild concentric hypertrophy. This improved from prior echocardiogram May 2024 revealing grade 3 diastolic dysfunction. Amlodipine and losartan held during hospital stay and patient was started on diuresis with Lasix 40 mg twice daily. Patient discharged with improvement of symptoms and restarted on amlodipine, however her losartan dose had changed to 25 mg and metoprolol succinate to 50 mg p.o. once daily. # VNA services with nursing visits for BP checks. Has not started yet. # Supposed to schedule cardiology follow-up within 1 week for further evaluation. Reiterated the importance of a cardiology follow-up as patient was recommended to start torsemide 40 mg twice daily at home per cardiology, but was educated during hospital discharge to resume Lasix 40 mg. Patient obtain blood work today which revealed CBC within normal limits, pending BMP. Educated patient to continue medication regimen but follow-up with cardiology as necessary to discuss diuretics. Patient today has had improvement in lower extremity edema and feels though patient is stable to follow-up with cardiology in 1 week. Discussed the importance of daily weight ins as well as low-salt diet. Recommend use of compression stockings in addition to lower extremity elevation at nighttime. Discussed the importance of looking for signs regarding fluid retention and to call the office or cardiology if this develops. Patient agreeable with plan. #Chronic A-fib: Anticoagulated on Eliquis 5 mg twice daily. Metoprolol for rate control. #Coronary artery disease: Continue daily aspirin, atorvastatin metoprolol 50 mg p.o. once daily. #Diabetes: Most recent A1c in office of 6.5%. Initiated on metformin ER 500 mg titrating up to 2 tabs p.o. once daily. Will follow-up in 3 months and repeat A1c. #Interstitial fibrosis: Patient developed a chronic cough and chest x-ray revealed changes suggesting interstitial fibrosis. Referred to pulmonology, Dr. Henderson. Recent CT chest with revealed no findings aside from atelectasis. Will continue with their recommendations. Continue albuterol as needed. #GERD managed on omeprazole 40 mg. #Restless leg syndrome: Continue pramipexole and gabapentin. Followed by neurology. #History of incontinence: Followed by urology. All questions answered to patients satisfaction. Patient verbalized understanding of diagnosis and treatments explained. To call sooner prior to next visit it any questions/concerns arise. Case discussed with collaborating physician Dr. Marvin who reviewed the assessment and plan. Chart, medications, labs, vital signs reviewed. Dictation was accomplished with the use of [facility] voice recognition software, prone to medical misidentifications and grammatical errors. This is unintentional and the practitioner does try to identify and correct these, but some could still be present. Please do not hesitate to contact practitioner for clarification. 08/08/2024 B12 deficiency (ICD-10 - E53.8) Tanna is a 73-year-old female present today for weight management consultation. 08/08/2024: Wt: 191.3 lbs, BMI: 41.39 Patient congratulated on 6 pound weight loss since last visit. patient trialed on Contrave twice, but has not been consistent with this medication. Discussed Seca scale which revealed borderline low muscle mass in upper extremities. Discussed how GLP-1's would not be recommended as risk for potential further muscle loss. Patient admits she has not been consistent with the Contrave. Discussed with patient that Contrave or lifestyle would be the best for her in regards to weight loss. Patient willing to try Contrave 1 more time consistently. Will send prescription to [facility] pharmacy. Advised patient to increase protein with a daily goal of at least 80 g of protein. Discussed increasing physical activity with short walks as patient gets dyspnea on exertion. Recommend patient purchase his resistance bands or light hand weights to strengthen upper extremities. Patient agreeable with plan. Plan follow-up in 4 weeks and repeat Seca scale. #Interstitial fibrosis: Has had a chronic cough with multiple antibiotics with no resolution. Chest x-ray from 05/27/2024 revealing interstitial fibrosis. Patient referred to [facility] pulmonology. Prescribed albuterol as needed, fluticasone propriety daily and Trelegy daily. Will continue with pulmonology recommendations. #Osteoarthritis: Patient previously received cortisone injections for chronic osteoarthritis of the right hip. Referred to orthopedics that she has not had a cortisone injection in the past year. #Restless leg syndrome: Patient had rapid weight gain since initiating ropinirole. No longer taking. Switch to mirtazapine to take at night. Followed by neurology. #Hypertension: Blood pressure stable in office. Plan to continue losartan 50 mg, metoprolol 50 mg twice daily, and amlodipine 2.5 mg. Followed by cardiology. #B12 deficiency: Patient receives monthly B12 injections in office. #CHF: Followed by cardiology and doubled up on Lasix x 7 days when needed. No pitting edema on exam today. Patient was reassured and welcomed to the practice. We discussed that we stress a hollistic medical approach with emphasis on lifestyle modification. Patient was informed that a healthy lifestyle with exercise and good eating habits can help reduce his risk of medical complications. Patient is explained that obesity increases his risk of diabetes, cardiovascular disease, or organ damage. We spent a lot of time discussing the relationship between food, exercise, sleep, mental health and obesity. Patient was counseled on the importance EATING local, organic food when possible. Patient was educated on clean 15 and dirty dozen. I provided information about reading books called The Food Rules by Олег Puckett and Eat Fat Get Lean by Dr Devon Villalba. Self education is important in the journey for weight management. Patient was offered diagnostic testing/ SECA scale. We want to measure visceral adiposity, advanced body composition, adverse lipids, fatty acid balance, risk for heart disease and atherosclerosis, markers of inflammation and genetic susceptibility. Patient was counseled on weight management and was advised to lose weight using A. Meal Replacement Products Patient was educated on the replacement products called optifast. This is a good way of taking fixed amount of calories. It has been shown in studies to be ineffective weight management tool. This however has to be coupled with lifestyle intervention as well as laboratory data and EKG monitoring. It is impossible to know how a person will tolerate complete meal replacement. The side effects of meal replacement and weight loss could include syncopal attacks, dizziness, gallstones, potential cholecystectomy, possible heart attack and even . The benefits of meal replacement would be potential weight loss but no guarantees can be made. Meal replacement products are not covered by insurance. Once the patient has bought these products we cannot return them B. Lifestyle management which includes several strategies as below 1. Eat a low carbohydrate good fat good protein diet. Eliminate refined carbohydrates from the diet. Limit sugared beverages. Eat local organic when possible. Cook your own meals. Read food labels. Focus on healthy snacks. Portion control and food with low glycemic index 2. Exercise regularly. Try to get at least 6000 steps a day. Use a predominant to track activity level. Consider using apps like 7 minute excercise, Rebellepal, lose it, stick as needed for self-monitoring and weight management. Consider group exercises. Consider hiring a appraiser personal property. Regular exercise is nagy to sustainable health and prevents as a buffer against weight regain 3. Sleep is most important for healing. Try to sleep at least 6-8 hours a night. A good quality sleep needs a sleep ritual with ideal room temperature of around 68. It might help to take a shower and have no electronics in the room and sleep in a very dark room without artificial light. Start sleep routine and get up early in the morning and go to bed on time. 4. Make a social connection. Surround yourself with positive people with positive energy. Connect with friends and family. 5. Get into the habit of meditating and mindfulness while doing everything. 6. Go outside and connect with nature. C. Prescription medications Patient was educated on the use of prescription medications for medical weight loss. This is a growing list and includes phentermine, Topamax, Qsymia, contrave, belviq and saxenda, wegovy etc. All prescription medications could have side effects including but not limited to kidney stones, seizure disorder, cardiac arrhythmias, heart attack, pancreatitis, GI effects, Etc. Patient was encouraged to read the prescription insert and discuss with their pharmacist to make an informed decision about taking medication and know that these medications are being prescribed with good intentions and we do not know how a patient would react to her medication. Some medications are FDA approved for weight loss and there is also off label use depending on patient's inability to afford medications in an attempt to lose weight. D. Behavioral counseling was done to establish a relationship between food and an mood. Patient was provided information about local counseling and psychiatry and Dr Jimenez at [facility]. We would like to cover regular topics and build on low glycemic eating exercise mindful eating, using yoga and meditation along with deep breathing and connecting with friends and family. E. MASS PAT reviewed, Patient's current medications were reviewed and opinion was given on medication that can cause weight gain and can be substituted F. Patient was assessed for risk with obesity including and not limiting to atherosclerosis, heart disease, stroke, kidney disease, restrictive lung disease, irritable bowel syndrome and overall mortality. Risk of developing prediabetes diabetes and metabolic syndrome was discussed G. Therapeutic plan: We have decided to make therapeutic plan which would include choosing wisely on calories restricting portion getting active, tracking weight, getting good quality sleep and working on time management H. Patient will follow up in 4 weeks for weight management Total time spent today was 60 minutes of which greater than 50% was spent on coordinating and counseling Case discussed with collaborating physician Jonathan Marvin who reviewed the assessment and plan. Chart, medications, labs, vital signs reviewed. Dictation was accomplished with the use of [facility] voice recognition software, prone to medical misidentifications and grammatical errors. This is unintentional and the practitioner does try to identify and correct these, but some could still be present. Please do not hesitate to contact practitioner for clarification. All questions answered to patients satisfaction. Patient verbalized understanding of diagnosis and treatments explained. To call sooner prior to next visit it any questions/concerns arise. 08/22/2024 Interstitial pulmonary fibrosis (ICD-10 - J84.10) Tanna is a 73-year-old female present today for follow-up. # Need to have further evaluation for concern of memory changes at follow-up in 2 weeks. Patient today presenting to office discussing unsteady gait after a fall 2 months ago and brain bleed . After further investigation through [facility] emergency, patient is referring to a fall that occurred last February revealing left orbital floor fracture, displaced left lateral orbital wall fracture with comminuted left zygomatic arch fracture, anterior left maxillary sinus fracture, left facial soft tissue swelling and multiple acute subarachnoid hemorrhages of right cerebellar hemisphere and basal cisterns. Patient at the times Eliquis was held and cardiac workup was unremarkable. Of note patient did present to the ER at [facility] 2 months ago for a total of 45 minutes with a chief complaint of leg swelling, but was not evaluated by a provider. Followed by cardiology and recommended short course of Lasix which resolved leg swelling. To my knowledge, patient was last seen by neurology on 03/14/2024 does not have any upcoming follow-up scheduled. Advised patient to call the office to schedule to ensure she is not lost to follow-up. Will perform Mini-Mental status exam at follow-up in 2 weeks. Will consider further blood work as well as brain MRI if indicated. Patient currently lives at home with and is able to perform day-to-day tasks independently. #Unsteady gait: In regards to patient's concern for unsteady gait since the fall, will obtain basic labs and add on A1c, B12 and folate for further evaluation for further evaluation regarding electrolyte abnormality or vitamin deficiency. Patient does not report any vertigo symptoms at this time. Patient had completed course of physical therapy post fall. Will refer back to PT given gait instability and concern for recurrent falls. Will call regarding bloodwork and follow up with neurology. # Interstitial fibrosis: Newly diagnosis for patient after chronic cough. Referred to pulmonology. #Elevated BMI: Wt: 195.6 lbs, BMI: 42.32 patient followed in weight management program. Has been noncompliant with Contrave in the past and has restarted Contrave for the third attempt. Will follow-up on 09/07 for weight management. Given patient's age, would recommend against GLP-1 therapy. All questions answered to patients satisfaction. Patient verbalized understanding of diagnosis and treatments explained. To call sooner prior to next visit it any questions/concerns arise. Case discussed with collaborating physician Dr. Marvin who reviewed the assessment and plan. Chart, medications, labs, vital signs reviewed. Dictation was accomplished with the use of [facility] voice recognition software, prone to medical misidentifications and grammatical errors. This is unintentional and the practitioner does try to identify and correct these, but some could still be present. Please do not hesitate to contact practitioner for clarification. 09/15/2024 Cerebral infarction, unspecified (ICD-10 - I63.9) Tanna is a 73-year-old female presents today for 1 month follow-up. # Memory: Patient appears today to be at baseline with no further concern regarding altered mental status or change of baseline. #Elevated BMI: Switch from Contrave and begin trialing metformin. Discussed side effects including GI upset. Will prescribe to take 1 tab once daily x 2 weeks and then switch to 2 tabs once daily. Patient has A1c of 6.5%, so we will continue to monitor A1c for improvement. #Interstitial fibrosis: Patient developed a chronic cough and chest x-ray revealed changes suggesting interstitial fibrosis. Referred to pulmonology, Dr. Henderson. Recent CT chest with revealed no findings aside from atelectasis. Will continue with their recommendations. #B12 deficiency: Administer B12 today in office. # Diabetes: A1C of 6.5%. Initiating metformin ER 500 mg 1 tab once daily x 2 weeks then 2 tabs once daily x 2 weeks. #CHF: Followed by cardiology. Discussed low-sodium diet. Recommend compression stockings. Discussed importance of weighing daily and to call the office if she experiences extreme acute weight gain as this could be fluid retention. #Coronary artery disease #hyperlipidemia #hypertension #A-fib: Followed by cardiology. On anticoagulation with Eliquis 5 mg. BP managed on amlodipine 2.5, losartan 50 and metoprolol succinate extended release 50 mg. Hyperlipidemia managed on atorvastatin 80 mg. History of CHF and nonpitting lower extremity edema. Managed on Lasix 20 mg daily. #GERD managed on omeprazole 40 mg as needed. #Depression #restless leg: Continue pramipexole 0.75 mg daily and gabapentin 300 mg twice daily. Followed by neurology. States she does not have a visit scheduled. Would recommend calling to ensure she is not lost to follow-up. #History of incontinence: Followed by urology. #Plan to follow-up in 3 months. All questions answered to patients satisfaction. Patient verbalized understanding of diagnosis and treatments explained. To call sooner prior to next visit it any questions/concerns arise. Case discussed with collaborating physician Dr. Marvin who reviewed the assessment and plan. Chart, medications, labs, vital signs reviewed. Dictation was accomplished with the use of [facility] voice recognition software, prone to medical misidentifications and grammatical errors. This is unintentional and the practitioner does try to identify and correct these, but some could still be present. Please do not hesitate to contact practitioner for clarification. 07/03/2024 Interstitial pulmonary fibrosis (ICD-10 - J84.10) Tanna is a 73-year-old female present today for 1 month follow-up. #Weight gain: Wt: 197.8 lbs, BMI: 42.8 patient frustrated and discouraged with weight gain. States she has had weight gain since being placed on ropinirole for restless leg syndrome. Was prescribed Contrave but self discontinued after 1 month. States she was not exercising or dieting well on the medication. Patient represcribed Contrave with clear instructions on how to titrate up the dose. Patient has not had a weight management consultation thus far. Advised patient today to call and schedule weight management consultation where we will complete a Seca scale and further discuss Contrave as well as lifestyle modifications. Will continue with 4-week follow-up following the consultation. Patient agreeable with plan. # Interstitial fibrosis: Has had chronic cough treated with multiple antibiotics and no resolution. Chest x-ray from 05/27/2024 revealing interstitial fibrosis. Referral has been placed for pulmonology. Patient was post to be seen today with Dr. Henderson, but unfortunately this had to be canceled and rescheduled to mid July. Patient prescribed albuterol as needed, fluticasone propionate daily, and Trelegy 200 mcg 1 puff inhalation daily. 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 Free sample provided today in office. This sample would be able to get patient to her pulmonology visit. Will be able to further discuss with Dr. Henderson regarding treatment plan. #Acute on chronic right hip pain #osteoarthritis: Patient previously followed by Dr. Gregg and received cortisone injections for chronic osteoarthritis of right hip. States she has not had a cortisone injection over a year. Patient had called the office between visits and was referred to [facility] which [facility] an outpatient [facility]. States she has an appointment scheduled to be seen, but unsure regarding date. Advised to call the office if this appointment follows through and she needs further referral. #Restless leg syndrome: Followed by neurology with Dr. Dr. Campos, history of restless leg syndrome on pramipexole. #Hypertension: Blood pressure stable in office. Managed on losartan 50 mg p.o. once daily, metoprolol 50 mg twice daily amlodipine 2.5 mg daily. Followed by cardiology #B12 deficiency: Plan to administer vitamin B12 injection in office and continue monthly. #CHF history of nonpitting lower extremity edema: Recently seen by cardiology and was told to double up on Lasix 20 mg x 7 days. Has since resolved. # Plan to schedule weight management consultation and follow-up regarding additional information of Contrave and lifestyle modifications. Plan to continue with 4-week follow-ups thereafter. Plan to follow-up in 3 months for primary care. All questions answered to patients satisfaction. Patient verbalized understanding of diagnosis and treatments explained. To call sooner prior to next visit it any questions/concerns arise. Case discussed with collaborating physician Dr. Marvin who reviewed the assessment and plan. Chart, medications, labs, vital signs reviewed. Dictation was accomplished with the use of [facility] voice recognition software, prone to medical misidentifications and grammatical errors. This is unintentional and the practitioner does try to identify and correct these, but some could still be present. Please do not hesitate to contact practitioner for clarification. 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 Discussed proper use, side effects. This is of the right middle finger. If no improvement, consider referral to hand specialist.Discusse d proper use, side effects. Discussed that for incision and drainage, can follow-up with urgent care for this as we do not do this here. Questioning exposure to oral melchor therefore we will treat with Augmentin,/Warm salt water soaks. # At the beginning of April patient was hospitalized for pneumonia and COVID-19. Admits to a lingering cough. States that it was better with guanfacine. Will send prescription. Lungs clear to auscultation, but she does admit to some shortness of breath. Patient is been taking albuterol with some improvement. Still awaiting chest x-ray to ensure resolution of symptoms. Did discuss conservative treatments.Discusse d emergency department criteria.Will reorder today. # Tanna reports that on 02/19 she was in her dining area when she reached down to pick something up and fell forward onto a radiator. This fall resulted in head strike with +LOC. The patient was transported to [facility] where the trauma surgery team was consulted and a workup was initiated. Extensive imaging was performed and the patient was found to have bilateral punctate subarachnoid hemorrhages with no mass effect, depressed left orbital floor fracture, left lateral orbital wall fracture, left anterior/posterior wall maxillary sinus fractures, left zygomatic arch fracture, and a left frontal scalp hematoma. The patient was additionally found to have a small laceration to left parietal scalp which was washed out and repaired with 3 jason. The patient was admitted where she was followed by neurosurgery, OMFS, medicine, and cardiology. Given subarachnoid hemorrhage Eliquis was held and the patient was started on Unasyn given sinus fractures. Repeat head CT without interval change, no neurosurgical intervention recommended. The patient was subsequently discharged 02/23 with instructions to follow-up with Dr. Eldridge with [facility]. She was provided a phone number for for [facility] ([phone]). Patient did reach out and make appointment. Furthermore the patient states home nursing services removed the jason from her head laceration earlier this week, on exam the laceration appears to be healing well there is no current bleeding/discharge. Bruising has improved.Continue to hold Eliquis until repeat CT scan of the head. She had her CAT scan which had improved, therefore patient resumed Eliquis on 04/10/2024. Results were faxed over to Dr. Campos. Continue to follow with neurology. Ensuring healing of subarachnoid hemorrhage. Patient to be cleared by ophthalmology and neurology prior to driving.Has initiated Eliquis again.Doing well. #Home safety: The patient lives at home with her . They live in a two-story home with her bedroom and the bathroom on the second level. There are no area rugs or identifiable tripping hazards per patient. Discussed utility of home alert devices such as life alert, the patient is amenable to this. She is encouraged to discuss this with her and son to work on getting a device. #HCP: Patient reports that her is her designated healthcare proxy. She additionally has a son who lives very close and is involved in her care. Filled out 03/23/2024 #HTN: BP stable in office. Continue losartan 50 mg daily, metoprolol 50 mg twice daily, and amlodipine 2.5 mg daily. #CHF: History of nonpitting lower extremity edema, Patient taking Lasix 20 mg as needed.Controlled at this time. Patient understands to take daily weights and consult medical provider should she experience a sudden weight gain. Follows with Dr. Castanon, cardiology. Next visit July 2024, Recently diagnosed with cardiomegaly in the emergency department 04/2024. # Lower leg pain: Gabapentin as needed. Questioning vascular etiology secondary to leg fullness/pain/heavi ness. Will refer to vascular. #Prior CVA: Continue atorvastatin 80 mg daily. . Reinitiation of Eliquis.Follows with neurology # Weight gain: Patient inquiring about GLP-1's. Based on age, and increased risk of sarcopenia I did recommend against this. Is open to trying alternative options such as Contrave. Initiated Contrave, has been tolerating fine. Has gained weight since last visit with the holidays but states she is not doing any lifestyle changes. Will try to initiate lifestyle changes in conjunction with Contrave to see if there is improvement in weight loss.Patient states that Contrave is not working well at this time, but discussed the importance of lifestyle modifications, and time. #GERD: Denies current symptoms of heartburn, reflux, regurgitation. Continue omeprazole 40 mg as needed. #Depression: Continue escitalopram 5 mg daily, Admits to uncontrolled depression, and difficulty sleeping. Will discontinue Lexapro, and initiate mirtazapine 15 mg at night. Also taking magnesium glycinate. Also taking Contrave which has a Wellbutrin component. Declined suicidal ideation.Patient states that sleep has improved.She is pleased with this. #Restless leg: Continue pramipexole 0.75 mg daily and gabapentin 300 mg twice daily.Following with neurology # Incontinence: History of bladder sling: Following with urology May 2024 Patient following up in 4 weeks, blood work in the meantime. All quetsions answered to patients satisfaction. Patient verbalized understanding of diagnosis and treatments explained. To call sooner prior to next visit it any questions/concerns arise. Case discussed with collaborating physician Josephine Marvin who reviewed the assessment and plan. Chart, medications, labs, vital signs reviewed. Dictation was accomplished with the use of [facility] voice recognition software, prone to medical misidentifications and grammatical errors. This is unintentional and the practitioner does try to identify and correct these, but some could still be present. Please do not hesitate to contact practitioner for clarification. 04/28/2024 Chronic congestive heart failure, unspecified heart failure type (ICD-10 - I50.9) #Admitted to [facility] 04/26/2024 and discharged 04/27/2024 secondary to acute bronchitis and COVID-19. Treated with Paxlovid, guanfacine, 1 g of IV ceftriaxone and 500 mg x 2 doses of azithromycin. Patient did have a chest x-ray showing cardiomegaly, and tracheobronchomalac ia. Discharged with routine care.Patient is feeling better. Continue with Compazine, and finished Paxlovid course. Discontinuing statin while on Paxlovid but otherwise is doing well. # Tanna reports that on 02/19 she was in her dining area when she reached down to pick something up and fell forward onto a radiator. This fall resulted in head strike with +LOC. The patient was transported to [facility] where the trauma surgery team was consulted and a workup was initiated. Extensive imaging was performed and the patient was found to have bilateral punctate subarachnoid hemorrhages with no mass effect, depressed left orbital floor fracture, left lateral orbital wall fracture, left anterior/posterior wall maxillary sinus fractures, left zygomatic arch fracture, and a left frontal scalp hematoma. The patient was additionally found to have a small laceration to left parietal scalp which was washed out and repaired with 3 jason. The patient was admitted where she was followed by neurosurgery, OMFS, medicine, and cardiology. Given subarachnoid hemorrhage Eliquis was held and the patient was started on Unasyn given sinus fractures. Repeat head CT without interval change, no neurosurgical intervention recommended. The patient was subsequently discharged 02/23 with instructions to follow-up with Dr. Eldridge with [facility]. She was provided a phone number for for [facility] ([phone]). Patient did reach out and make appointment. Furthermore the patient states home nursing services removed the jason from her head laceration earlier this week, on exam the laceration appears to be healing well there is no current bleeding/discharge. Bruising has improved.Continue to hold Eliquis until repeat CT scan of the head. She had her CAT scan which had improved, therefore patient resumed Eliquis on 04/10/2024. Results were faxed over to Dr. Campos. Continue to follow with neurology. Ensuring healing of subarachnoid hemorrhage. Patient to be cleared by ophthalmology and neurology prior to driving.Has initiated Eliquis again.Doing well. #Home safety: The patient lives at home with her . They live in a two-story home with her bedroom and the bathroom on the second level. There are no area rugs or identifiable tripping hazards per patient. Discussed utility of home alert devices such as life alert, the patient is amenable to this. She is encouraged to discuss this with her and son to work on getting a device. #HCP: Patient reports that her is her designated healthcare proxy. She additionally has a son who lives very close and is involved in her care. Filled out 03/23/2024 #HTN: BP stable in office. Continue losartan 50 mg daily, metoprolol 50 mg twice daily, and amlodipine 2.5 mg daily. #CHF: History of nonpitting lower extremity edema, Patient taking Lasix 20 mg as needed.Controlled at this time. Patient understands to take daily weights and consult medical provider should she experience a sudden weight gain. Follows with Dr. Castanon, cardiology. Next visit July 2024, Recently diagnosed with cardiomegaly in the emergency department 04/2024. #Prior CVA: Continue atorvastatin 80 mg daily. Holding well on Paxil level will initiate after discontinued Paxlovid. Reinitiation of Eliquis.Follows with neurology # Weight gain: Patient inquiring about GLP-1's. Based on age, and increased risk of sarcopenia I did recommend against this. Is open to trying alternative options such as Contrave. Initiated Contrave, has been tolerating fine. Has lost 4 pounds since last visit. Discussed the importance of lifestyle in conjunction. #GERD: Denies current symptoms of heartburn, reflux, regurgitation. Continue omeprazole 40 mg as needed. #Depression: Continue escitalopram 5 mg daily, Admits to uncontrolled depression, and difficulty sleeping. Will discontinue Lexapro, and initiate mirtazapine 15 mg at night. Also taking magnesium glycinate. Also taking Contrave which has a Wellbutrin component. Declined suicidal ideation. #Restless leg: Continue pramipexole 0.75 mg daily and gabapentin 300 mg twice daily.Following with neurology # Incontinence: History of bladder sling: Following with urology May 2024 Follow-up in 1 month, sooner as needed. Assess accuracy/compliance of mirtazapine for sleep/depression. All quetsions answered to patients satisfaction. Patient verbalized understanding of diagnosis and treatments explained. To call sooner prior to next visit it any questions/concerns arise. Case discussed with collaborating physician Josephine Marvin who reviewed the assessment and plan. Chart, medications, labs, vital signs reviewed. Dictation was accomplished with the use of [facility] voice recognition software, prone to medical misidentifications and grammatical errors. This is unintentional and the practitioner does try to identify and correct these, but some could still be present. Please do not hesitate to contact practitioner for clarification. 06/16/2024 Restless leg syndrom e (ICD-10 - G25.81) Tanna is a 73-year-old female present today for follow-up. # Interstitial fibrosis: Has had chronic cough treated with multiple antibiotics and no resolution. Chest x-ray from 05/27/2024 revealing interstitial fibrosis. Referral has been placed for pulmonology and patient reports she had most likely received a call regarding this consultation visit scheduling, but did not return the call. Will check voicemails and look into scheduling this. In the meantime, will refill prescription for benzonatate as patient reports this has been helping with her cough in addition to continue using Flonase. #Weight gain: Patient reports excessive weight gain while on ropinirole. Was prescribed Contrave for which she took for 1 month prior to self discontinuing. States she did not have any weight loss and felt it was not working. Does endorse appetite suppression. States she did titrate up to 2 tabs in the morning and 2 tabs in the evening. Will be discussed with patient in regards to restarting this medication. #Restless leg syndrome: Followed by neurology with Dr. Dr. Campos, history of restless leg syndrome on pramipexole. #Hypertension: Blood pressure stable in office. Managed on losartan 50 mg p.o. once daily, metoprolol 50 mg twice daily amlodipine 2.5 mg daily. Followed by cardiology #B12 deficiency: Patient received RAO B12 injection today in office. This was my mistake and patient was not charged. Will schedule for vitamin B-12 injection in office and continue monthly. #CHF history of nonpitting lower extremity edema. Recently seen by cardiology and was told to double up on Lasix 20 mg x 7 days for fluid retention. #Lower leg pain: Gabapentin as needed All questions answered to patients satisfaction. Patient verbalized understanding of diagnosis and treatments explained. To call sooner prior to next visit it any questions/concerns arise. Case discussed with collaborating physician Dr. Marvin who reviewed the assessment and plan. Chart, medications, labs, vital signs reviewed. Dictation was accomplished with the use of [facility] voice recognition software, prone to medical misidentifications and grammatical errors. This is unintentional and the practitioner does try to identify and correct these, but some could still be present. Please do not hesitate to contact practitioner for clarification. 05/12/2024 Chronic congestive heart failure, unspecified heart failure type (ICD-10 - I50.9) # At the beginning of April patient was hospitalized for pneumonia and COVID-19. Admits to a lingering cough. States that it was better with guanfacine. Will send prescription. Lungs clear to auscultation, but she does admit to some shortness of breath. Will trial albuterol as needed while waiting for repeat chest x-ray to ensure resolution of symptoms. Did discuss conservative treatments.[facility] emergency [facility] criteria. # Tanna reports that on 02/19 she was in her dining area when she reached down to pick something up and fell forward onto a radiator. This fall resulted in head strike with +LOC. The patient was transported to [facility] where the trauma surgery team was consulted and a workup was initiated. Extensive imaging was performed and the patient was found to have bilateral punctate subarachnoid hemorrhages with no mass effect, depressed left orbital floor fracture, left lateral orbital wall fracture, left anterior/posterior wall maxillary sinus fractures, left zygomatic arch fracture, and a left frontal scalp hematoma. The patient was additionally found to have a small laceration to left parietal scalp which was washed out and repaired with 3 jason. The patient was admitted where she was followed by neurosurgery, OMFS, medicine, and cardiology. Given subarachnoid hemorrhage Eliquis was held and the patient was started on Unasyn given sinus fractures. Repeat head CT without interval change, no neurosurgical intervention recommended. The patient was subsequently discharged 02/23 with instructions to follow-up with Dr. Eldridge with [facility]. She was provided a phone number for for [facility] ([phone]). Patient did reach out and make appointment. Furthermore the patient states home nursing services removed the jason from her head laceration earlier this week, on exam the laceration appears to be healing well there is no current bleeding/discharge. Bruising has improved.Continue to hold Eliquis until repeat CT scan of the head. She had her CAT scan which had improved, therefore patient resumed Eliquis on 04/10/2024. Results were faxed over to Dr. Campos. Continue to follow with neurology. Ensuring healing of subarachnoid hemorrhage. Patient to be cleared by ophthalmology and neurology prior to driving.Has initiated Eliquis again.Doing well. #Home safety: The patient lives at home with her . They live in a two-story home with her bedroom and the bathroom on the second level. There are no area rugs or identifiable tripping hazards per patient. Discussed utility of home alert devices such as life alert, the patient is amenable to this. She is encouraged to discuss this with her and son to work on getting a device. #HCP: Patient reports that her is her designated healthcare proxy. She additionally has a son who lives very close and is involved in her care. Filled out 03/23/2024 #HTN: BP stable in office. Continue losartan 50 mg daily, metoprolol 50 mg twice daily, and amlodipine 2.5 mg daily. #CHF: History of nonpitting lower extremity edema, Patient taking Lasix 20 mg as needed.Controlled at this time. Patient understands to take daily weights and consult medical provider should she experience a sudden weight gain. Follows with Dr. Castanon, cardiology. Next visit July 2024, Recently diagnosed with cardiomegaly in the emergency department 04/2024. # Lower leg pain: Gabapentin as needed. Questioning vascular etiology secondary to leg fullness/pain/heavi ness. Will refer to vascular. #Prior CVA: Continue atorvastatin 80 mg daily. . Reinitiation of Eliquis.Follows with neurology # Weight gain: Patient inquiring about GLP-1's. Based on age, and increased risk of sarcopenia I did recommend against this. Is open to trying alternative options such as Contrave. Initiated Contrave, has been tolerating fine. Has gained weight since last visit with the holidays but states she is not doing any lifestyle changes. Will try to initiate lifestyle changes in conjunction with Contrave to see if there is improvement in weight loss. #GERD: Denies current symptoms of heartburn, reflux, regurgitation. Continue omeprazole 40 mg as needed. #Depression: Continue escitalopram 5 mg daily, Admits to uncontrolled depression, and difficulty sleeping. Will discontinue Lexapro, and initiate mirtazapine 15 mg at night. Also taking magnesium glycinate. Also taking Contrave which has a Wellbutrin component. Declined suicidal ideation.Patient states that sleep has improved.She is pleased with this. #Restless leg: Continue pramipexole 0.75 mg daily and gabapentin 300 mg twice daily.Following with neurology # Incontinence: History of bladder sling: Following with urology May 2024 Patient following up in 4 weeks, blood work in the meantime. All quetsions answered to patients satisfaction. Patient verbalized understanding of diagnosis and treatments explained. To call sooner prior to next visit it any questions/concerns arise. Case discussed with collaborating physician Josephine Marvin who reviewed the assessment and plan. Chart, medications, labs, vital signs reviewed. Dictation was accomplished with the use of [facility] voice recognition software, prone to medical misidentifications and grammatical errors. This is unintentional and the practitioner does try to identify and correct these, but some could still be present. Please do not hesitate to contact practitioner for clarification. 03/15/2024 Closed extensive facial fractures with routine healing, subsequent encounter (ICD-10 - S02.92XD) Tanna is a 73-year-old female with a PMH of CAD s/p DC with cardiac cath (2021), CHFrEF, HTN, prior CVA, GERD, esophageal dysmotility, restless leg that presents for Follow-up. Recently seen for hospital follow-up on 03/01/2024 in the [place] office with AMELIA Cordero. Tanna reports that on 02/19 she was in her dining area when she reached down to pick something up and fell forward onto a radiator. This fall resulted in head strike with +LOC. The patient was transported to [facility] where the trauma surgery team was consulted and a workup was initiated. Extensive imaging was performed and the patient was found to have bilateral punctate subarachnoid hemorrhages with no mass effect, depressed left orbital floor fracture, left lateral orbital wall fracture, left anterior/posterior wall maxillary sinus fractures, left zygomatic arch fracture, and a left frontal scalp hematoma. The patient was additionally found to have a small laceration to left parietal scalp which was washed out and repaired with 3 jason. The patient was admitted where she was followed by neurosurgery, OMFS, medicine, and cardiology. Given subarachnoid hemorrhage Eliquis was held and the patient was started on Unasyn given sinus fractures. Repeat head CT without interval change, no neurosurgical intervention recommended. The patient was subsequently discharged 02/23 with instructions to follow-up with Dr. Eldridge with [facility]. She was provided a phone number for for OMFS ([phone]). Patient did reach out and make appointment. Furthermore the patient states home nursing services removed the jason from her head laceration earlier this week, on exam the laceration appears to be healing well there is no current bleeding/discharge. Bruising has improved. Plan to hold Eliquis until next scheduled appointment 03/23 as recommended by neurosurgery. I did call Dr. Campos today, and left a message with his bio medical technician to see whether he would appreciate CT of the head prior to reinitiation of Eliquis To ensure resolution/healing of subarachnoid hemorrhage. Strict ED protocol was provided. The patient understands to seek immediate medical attention/dial 911 should she develop severe headache, nausea, vomiting, visual disturbance, localized weakness, confusion, difficulty speaking, gait disturbance, chest pain, difficulty breathing, etc. #Home safety: The patient lives at home with her . They live in a two-story home with her bedroom and the bathroom on the second level. There are no area rugs or identifiable tripping hazards per patient. Discussed utility of home alert devices such as life alert, the patient is amenable to this. She is encouraged to discuss this with her and son to work on getting a device. #HCP: Patient reports that her is her designated healthcare proxy. She additionally has a son who lives very close and is involved in her care. #HTN: BP stable in office. Continue losartan 50 mg daily, metoprolol 50 mg twice daily, and amlodipine 2.5 mg daily. #CHF: No current swelling of bilateral lower extremities, lungs CTA. Hold Lasix. Patient understands to take daily weights and consult medical provider should she experience a sudden weight gain to discuss need for reinitiating therapy with Lasix. #Prior CVA: Continue atorvastatin 80 mg daily. Hold Eliquis until next scheduled appointment as recommended by neurosurgery. Will consider additional head CT to evaluate resolution of subarachnoid hemorrhage prior to reinitiating therapy with Eliquis.Message left with Dr. Villavicencio #GERD: Denies current symptoms of heartburn, reflux, regurgitation. Continue omeprazole 40 mg as needed. #Depression: Continue escitalopram 5 mg daily. #Restless leg: Continue pramipexole 0.75 mg daily and gabapentin 300 mg twice daily. Following up next week for Medicare wellness visit, sooner as needed All quetsions answered to patients satisfaction. Patient verbalized understanding of diagnosis and treatments explained. To call sooner prior to next visit it any questions/concerns arise. Case discussed with collaborating physician Josephine Marvin who reviewed the assessment and plan. Chart, medications, labs, vital signs reviewed. Dictation was accomplished with the use of [facility] voice recognition software, prone to medical misidentifications and grammatical errors. This is unintentional and the practitioner does try to identify and correct these, but some could still be present. Please do not hesitate to contact practitioner for clarification. 03/23/2024 Subarachnoid hemorrhage (ICD-10 - I60.9) Tanna is a 73-year-old female with a PMH of CAD s/p DC with cardiac cath (2021), CHFrEF, HTN, prior CVA, GERD, esophageal dysmotility, restless [facility]Patient up-to-date on all vaccines, scheduling mammogram and otherwise up-to-date on screening tests, ordering bone density today. Healthcare proxy is her Clarke, filled out in office today. PHQ-9 with a total score of 2, no concern regarding mental health at this time.Audit negative. # Hospital visit: Tanna reports that on 02/19 she was in her dining area when she reached down to pick something up and fell forward onto a radiator. This fall resulted in head strike with +LOC. The patient was transported to [facility] where the trauma surgery team was consulted and a workup was initiated. Extensive imaging was performed and the patient was found to have bilateral punctate subarachnoid hemorrhages with no mass effect, depressed left orbital floor fracture, left lateral orbital wall fracture, left anterior/posterior wall maxillary sinus fractures, left zygomatic arch fracture, and a left frontal scalp hematoma. The patient was additionally found to have a small laceration to left parietal scalp which was washed out and repaired with 3 jason. The patient was admitted where she was followed by neurosurgery, OMFS, medicine, and cardiology. Given subarachnoid hemorrhage Eliquis was held and the patient was started on Unasyn given sinus fractures. Repeat head CT without interval change, no neurosurgical intervention recommended. The patient was subsequently discharged 02/23 with instructions to follow-up with Dr. Eldridge with [facility]. She was provided a phone number for for FS ([phone]). Patient did reach out and make appointment. Furthermore the patient states home nursing services removed the jason from her head laceration earlier this week, on exam the laceration appears to be healing well there is no current bleeding/discharge. Bruising has improved. Continue holding Eliquis until repeat CT scan of the head, and consider reinitiation of Eliquis, CT ordered after conversation with Dr. Campos today. He preferred that I ordered it myself. If any concern, patient will follow-up with neurology. Trying to ensure resolution/healing of subarachnoid hemorrhage.Patient holding off on driving until cleared by ophthalmology and neurology. Strict ED protocol was provided. The patient understands to seek immediate medical attention/dial 911 should she develop severe headache, nausea, vomiting, visual disturbance, localized weakness, confusion, difficulty speaking, gait disturbance, chest pain, difficulty breathing, etc. #Home safety: The patient lives at home with her . They live in a two-story home with her bedroom and the bathroom on the second level. There are no area rugs or identifiable tripping hazards per patient. Discussed utility of home alert devices such as life alert, the patient is amenable to this. She is encouraged to discuss this with her and son to work on getting a device. #HCP: Patient reports that her is her designated healthcare proxy. She additionally has a son who lives very close and is involved in her care. Filled out 03/23/2024 #HTN: BP stable in office. Continue losartan 50 mg daily, metoprolol 50 mg twice daily, and amlodipine 2.5 mg daily. #CHF: 1+ nonpitting edema bilateral lower extremities. Patient taking Lasix 20 mg as needed. Will take it daily for the next week. Could be associated to some of her weight gain. Patient understands to take daily weights and consult medical provider should she experience a sudden weight gain. Follows with Dr. Castanon, cardiology. Next visit July 2024 #Prior CVA: Continue atorvastatin 80 mg daily. Hold Eliquis until repeat CT confirms improvement in subarachnoid hemorrhage. Patient following with neurosurgery. # Weight gain: Patient inquiring about GLP-1's. Based on age, and increased risk of sarcopenia I did recommend against this. Is open to trying alternative options such as Contrave. Has taken Wellbutrin in the past for tobacco cessation, which worked very well. Will take Contrave, discussed proper use, side effects, long-term risks. Overall, blood work is within normal limits, and did have a CT of her abdomen back in November 2023 which was normal. Patient is following with gastroenterology April 18. Follow-up in 6 weeks Here, But going to hold off on Contrave until she has the CT, and is back on Eliquis. #GERD: Denies current symptoms of heartburn, reflux, regurgitation. Continue omeprazole 40 mg as needed. #Depression: Continue escitalopram 5 mg daily. #Restless leg: Continue pramipexole 0.75 mg daily and gabapentin 300 mg twice daily.Following with neurology Follow-up to assess efficacy/compliance of Contrave, as well as leg swelling, and initiation of Eliquis. Patient seen and examined. Comprehensive discussion was done on the following. 1. Nutrition: It is important to follow a healthy diet based on lots of vegetables and legumes and good fat. Avoid processed food and processed carbohydrates. Prepare your own meals. Read labels and avoid high fructose corn syrup, processed chemicals added to increase shelf life and preprepared meals. Avoid fast foods. Eat slowly and plan meals for a week. Try to count calories and be mindful of daily calorie intake. Get into the habit of keeping an eye on your weight by using an appropriate scale. Learn to log exercise and discussed fitness Apps like Myfacepage/[employer]taire which can help keep log off calories taken versus calories burned. Local food should be preferred. Discussed Dirty Dozen Versus Clean Fifteen. Discussed healthy supplements like fish oil, Tumeric, Curcumin, Melatonin, Resveratrol, Probiotics, Vitamin-D, Alpha-Lipoic acid, Vitamin-D and coconut oil. 2. It is important to exercise regularly. Is a good habit to walk at least 30 minutes a day. Gentle weightlifting with standard precautions to protect the back. Finding activity like cycling or hiking and get into the habit of engaging in it. Stretching before and after the exercises important. It is also important to contact me if there are any problems like shortness of breath, chest pain, back pain and joint or muscle pain associated with the exercise. 3. Discussed age appropriate screening guidelines. Colonoscopy needs to start at age 50 with stool for occult blood as appropriate. There is a new test that can test for genetic abnormalities in the stool sample, Cologuard. This would not replace a colonoscopy but could be used as a screening tool for patients who do not want a colonoscopy. We discussed the importance of early detection of colon cancer. 4. Discussed current PSA screening. PSA screening can be done in most patients between age 50 and 65. However early detection of prostate cancer needs to carefully be balanced with complications with treatment. These include incontinence, impotence etc. Each patient should decide if they would like to have this test. 5. Discussed safe driving and no use of smart phone while driving 6. Age-appropriate immunizations were discussed. A tetanus booster is needed every 10 years. Flu vaccine is recommended every year just before the start of the flu season. Shingles vaccine is recommended after age 50 but not all insurances cover it. Pneumonia vaccine is given after age 65 unless there are certain comorbidities for which it is started earlier. 7. Diagnostic labs were discussed. These could include/not limited to CBC CMP and lipids with fasting blood glucose and insulin levels. Vitamin D and hemoglobin A1c testing might be appropriate. All quetsions answered to patients satisfaction. Patient verbalized understanding of diagnosis and treatments explained. To call sooner prior to next visit it any questions/concerns arise. Case discussed with collaborating physician Josephine Marvin who reviewed the assessment and plan. Chart, medications, labs, vital signs reviewed. Dictation was accomplished with the use of [facility] voice recognition software, prone to medical misidentifications and grammatical errors. This is unintentional and the practitioner does try to identify and correct these, but some could still be present. Please do not hesitate to contact practitioner for clarification. 03/15/2024 Chronic congestive heart failure, unspecified heart failure type (ICD-10 - I50.9) Tanna is a 73-year-old female with a PMH of CAD s/p DC with cardiac cath (2021), CHFrEF, HTN, prior CVA, GERD, esophageal dysmotility, restless leg that presents for Follow-up. Recently seen for hospital follow-up on 03/01/2024 in the [place] office with AMELIA Cordero. Tanna reports that on 02/19 she was in her dining area when she reached down to pick something up and fell forward onto a radiator. This fall resulted in head strike with +LOC. The patient was transported to [facility] where the trauma surgery team was consulted and a workup was initiated. Extensive imaging was performed and the patient was found to have bilateral punctate subarachnoid hemorrhages with no mass effect, depressed left orbital floor fracture, left lateral orbital wall fracture, left anterior/posterior wall maxillary sinus fractures, left zygomatic arch fracture, and a left frontal scalp hematoma. The patient was additionally found to have a small laceration to left parietal scalp which was washed out and repaired with 3 jason. The patient was admitted where she was followed by neurosurgery, OMFS, medicine, and cardiology. Given subarachnoid hemorrhage Eliquis was held and the patient was started on Unasyn given sinus fractures. Repeat head CT without interval change, no neurosurgical intervention recommended. The patient was subsequently discharged 02/23 with instructions to follow-up with Dr. Eldridge with [facility]. She was provided a phone number for for OMFS ([phone]). Patient did reach out and make appointment. Furthermore the patient states home nursing services removed the jason from her head laceration earlier this week, on exam the laceration appears to be healing well there is no current bleeding/discharge. Bruising has improved. Plan to hold Eliquis until next scheduled appointment 03/23 as recommended by neurosurgery. I did call Dr. Campos today, and left a message with his bio medical technician to see whether he would appreciate CT of the head prior to reinitiation of Eliquis To ensure resolution/healing of subarachnoid hemorrhage. Strict ED protocol was provided. The patient understands to seek immediate medical attention/dial 911 should she develop severe headache, nausea, vomiting, visual disturbance, localized weakness, confusion, difficulty speaking, gait disturbance, chest pain, difficulty breathing, etc. #Home safety: The patient lives at home with her . They live in a two-story home with her bedroom and the bathroom on the second level. There are no area rugs or identifiable tripping hazards per patient. Discussed utility of home alert devices such as life alert, the patient is amenable to this. She is encouraged to discuss this with her and son to work on getting a device. #HCP: Patient reports that her is her designated healthcare proxy. She additionally has a son who lives very close and is involved in her care. #HTN: BP stable in office. Continue losartan 50 mg daily, metoprolol 50 mg twice daily, and amlodipine 2.5 mg daily. #CHF: No current swelling of bilateral lower extremities, lungs CTA. Hold Lasix. Patient understands to take daily weights and consult medical provider should she experience a sudden weight gain to discuss need for reinitiating therapy with Lasix. #Prior CVA: Continue atorvastatin 80 mg daily. Hold Eliquis until next scheduled appointment as recommended by neurosurgery. Will consider additional head CT to evaluate resolution of subarachnoid hemorrhage prior to reinitiating therapy with Eliquis.Message left with Dr. Villavicencio #GERD: Denies current symptoms of heartburn, reflux, regurgitation. Continue omeprazole 40 mg as needed. #Depression: Continue escitalopram 5 mg daily. #Restless leg: Continue pramipexole 0.75 mg daily and gabapentin 300 mg twice daily. Following up next week for Medicare wellness visit, sooner as needed All quetsions answered to patients satisfaction. Patient verbalized understanding of diagnosis and treatments explained. To call sooner prior to next visit it any questions/concerns arise. Case discussed with collaborating physician Josephine Marvin who reviewed the assessment and plan. Chart, medications, labs, vital signs reviewed. Dictation was accomplished with the use of [facility] voice recognition software, prone to medical misidentifications and grammatical errors. This is unintentional and the practitioner does try to identify and correct these, but some could still be present. Please do not hesitate to contact practitioner for clarification. 03/15/2024 Essential (primary) hypertension (ICD-10 - I10) Tanna is a 73-year-old female with a PMH of CAD s/p DC with cardiac cath (2021), CHFrEF, HTN, prior CVA, GERD, esophageal dysmotility, restless leg that presents for Follow-up. Recently seen for hospital follow-up on 03/01/2024 in the [place] office with AMELIA Cordero. Tanna reports that on 02/19 she was in her dining area when she reached down to pick something up and fell forward onto a radiator. This fall resulted in head strike with +LOC. The patient was transported to [facility] where the trauma surgery team was consulted and a workup was initiated. Extensive imaging was performed and the patient was found to have bilateral punctate subarachnoid hemorrhages with no mass effect, depressed left orbital floor fracture, left lateral orbital wall fracture, left anterior/posterior wall maxillary sinus fractures, left zygomatic arch fracture, and a left frontal scalp hematoma. The patient was additionally found to have a small laceration to left parietal scalp which was washed out and repaired with 3 jason. The patient was admitted where she was followed by neurosurgery, OMFS, medicine, and cardiology. Given subarachnoid hemorrhage Eliquis was held and the patient was started on Unasyn given sinus fractures. Repeat head CT without interval change, no neurosurgical intervention recommended. The patient was subsequently discharged 02/23 with instructions to follow-up with Dr. Eldridge with [facility]. She was provided a phone number for for FS ([phone]). Patient did reach out and make appointment. Furthermore the patient states home nursing services removed the jason from her head laceration earlier this week, on exam the laceration appears to be healing well there is no current bleeding/discharge. Bruising has improved. Plan to hold Eliquis until next scheduled appointment 03/23 as recommended by neurosurgery. I did call Dr. Campos today, and left a message with his bio medical technician to see whether he would appreciate CT of the head prior to reinitiation of Eliquis To ensure resolution/healing of subarachnoid hemorrhage. Strict ED protocol was provided. The patient understands to seek immediate medical attention/dial 911 should she develop severe headache, nausea, vomiting, visual disturbance, localized weakness, confusion, difficulty speaking, gait disturbance, chest pain, difficulty breathing, etc. #Home safety: The patient lives at home with her . They live in a two-story home with her bedroom and the bathroom on the second level. There are no area rugs or identifiable tripping hazards per patient. Discussed utility of home alert devices such as life alert, the patient is amenable to this. She is encouraged to discuss this with her and son to work on getting a device. #HCP: Patient reports that her is her designated healthcare proxy. She additionally has a son who lives very close and is involved in her care. #HTN: BP stable in office. Continue losartan 50 mg daily, metoprolol 50 mg twice daily, and amlodipine 2.5 mg daily. #CHF: No current swelling of bilateral lower extremities, lungs CTA. Hold Lasix. Patient understands to take daily weights and consult medical provider should she experience a sudden weight gain to discuss need for reinitiating therapy with Lasix. #Prior CVA: Continue atorvastatin 80 mg daily. Hold Eliquis until next scheduled appointment as recommended by neurosurgery. Will consider additional head CT to evaluate resolution of subarachnoid hemorrhage prior to reinitiating therapy with Eliquis.Message left with Dr. Villavicencio #GERD: Denies current symptoms of heartburn, reflux, regurgitation. Continue omeprazole 40 mg as needed. #Depression: Continue escitalopram 5 mg daily. #Restless leg: Continue pramipexole 0.75 mg daily and gabapentin 300 mg twice daily. Following up next week for Medicare wellness visit, sooner as needed All quetsions answered to patients satisfaction. Patient verbalized understanding of diagnosis and treatments explained. To call sooner prior to next visit it any questions/concerns arise. Case discussed with collaborating physician Josephine Marvin who reviewed the assessment and plan. Chart, medications, labs, vital signs reviewed. Dictation was accomplished with the use of [facility] voice recognition software, prone to medical misidentifications and grammatical errors. This is unintentional and the practitioner does try to identify and correct these, but some could still be present. Please do not hesitate to contact practitioner for clarification. 03/23/2024 Chronic congestive heart failure, unspecified heart failure type (ICD-10 - I50.9) Tanna is a 73-year-old female with a PMH of CAD s/p DC with cardiac cath (2021), CHFrEF, HTN, prior CVA, GERD, esophageal dysmotility, restless leg that presents forMedicare wellness visit.Patient up-to-date on all vaccines, scheduling mammogram and otherwise up-to-date on screening tests, ordering bone density today. Healthcare proxy is her Clarke, filled out in office today. PHQ-9 with a total score of 2, no concern regarding mental health at this time.Audit negative. # Hospital visit: Tanna reports that on 02/19 she was in her dining area when she reached down to pick something up and fell forward onto a radiator. This fall resulted in head strike with +LOC. The patient was transported to [facility] where the trauma surgery team was consulted and a workup was initiated. Extensive imaging was performed and the patient was found to have bilateral punctate subarachnoid hemorrhages with no mass effect, depressed left orbital floor fracture, left lateral orbital wall fracture, left anterior/posterior wall maxillary sinus fractures, left zygomatic arch fracture, and a left frontal scalp hematoma. The patient was additionally found to have a small laceration to left parietal scalp which was washed out and repaired with 3 jason. The patient was admitted where she was followed by neurosurgery, [facility], medicine, and cardiology. Given subarachnoid hemorrhage Eliquis was held and the patient was started on Unasyn given sinus fractures. Repeat head CT without interval change, no neurosurgical intervention recommended. The patient was subsequently discharged 02/23 with instructions to follow-up with Dr. Eldridge with [facility]. She was provided a phone number for for [facility] ([phone]). Patient did reach out and make appointment. Furthermore the patient states home nursing services removed the jason from her head laceration earlier this week, on exam the laceration appears to be healing well there is no current bleeding/discharge. Bruising has improved. Continue holding Eliquis until repeat CT scan of the head, and consider reinitiation of Eliquis, CT ordered after conversation with Dr. Campos today. He preferred that I ordered it myself. If any concern, patient will follow-up with neurology. Trying to ensure resolution/healing of subarachnoid hemorrhage.Patient holding off on driving until cleared by ophthalmology and neurology. Strict ED protocol was provided. The patient understands to seek immediate medical attention/dial 911 should she develop severe headache, nausea, vomiting, visual disturbance, localized weakness, confusion, difficulty speaking, gait disturbance, chest pain, difficulty breathing, etc. #Home safety: The patient lives at home with her . They live in a two-story home with her bedroom and the bathroom on the second level. There are no area rugs or identifiable tripping hazards per patient. Discussed utility of home alert devices such as life alert, the patient is amenable to this. She is encouraged to discuss this with her and son to work on getting a device. #HCP: Patient reports that her is her designated healthcare proxy. She additionally has a son who lives very close and is involved in her care. Filled out 03/23/2024 #HTN: BP stable in office. Continue losartan 50 mg daily, metoprolol 50 mg twice daily, and amlodipine 2.5 mg daily. #CHF: 1+ nonpitting edema bilateral lower extremities. Patient taking Lasix 20 mg as needed. Will take it daily for the next week. Could be associated to some of her weight gain. Patient understands to take daily weights and consult medical provider should she experience a sudden weight gain. Follows with Dr. Castanon, cardiology. Next visit July 2024 #Prior CVA: Continue atorvastatin 80 mg daily. Hold Eliquis until repeat CT confirms improvement in subarachnoid hemorrhage. Patient following with neurosurgery. # Weight gain: Patient inquiring about GLP-1's. Based on age, and increased risk of sarcopenia I did recommend against this. Is open to trying alternative options such as Contrave. Has taken Wellbutrin in the past for tobacco cessation, which worked very well. Will take Contrave, discussed proper use, side effects, long-term risks. Overall, blood work is within normal limits, and did have a CT of her abdomen back in November 2023 which was normal. Patient is following with gastroenterology April 18. Follow-up in 6 weeks Here, But going to hold off on Contrave until she has the CT, and is back on Eliquis. #GERD: Denies current symptoms of heartburn, reflux, regurgitation. Continue omeprazole 40 mg as needed. #Depression: Continue escitalopram 5 mg daily. #Restless leg: Continue pramipexole 0.75 mg daily and gabapentin 300 mg twice daily.Following with neurology Follow-up to assess efficacy/compliance of Contrave, as well as leg swelling, and initiation of Eliquis. Patient seen and examined. Comprehensive discussion was done on the following. 1. Nutrition: It is important to follow a healthy diet based on lots of vegetables and legumes and good fat. Avoid processed food and processed carbohydrates. Prepare your own meals. Read labels and avoid high fructose corn syrup, processed chemicals added to increase shelf life and preprepared meals. Avoid fast foods. Eat slowly and plan meals for a week. Try to count calories and be mindful of daily calorie intake. Get into the habit of keeping an eye on your weight by using an appropriate scale. Learn to log exercise and discussed fitness Apps like Myfacepage/Voltaire which can help keep log off calories taken versus calories burned. Local food should be preferred. Discussed Dirty Dozen Versus Clean Fifteen. Discussed healthy supplements like fish oil, Tumeric, Curcumin, Melatonin, Resveratrol, Probiotics, Vitamin-D, Alpha-Lipoic acid, Vitamin-D and coconut oil. 2. It is important to exercise regularly. Is a good habit to walk at least 30 minutes a day. Gentle weightlifting with standard precautions to protect the back. Finding activity like cycling or hiking and get into the habit of engaging in it. Stretching before and after the exercises important. It is also important to contact me if there are any problems like shortness of breath, chest pain, back pain and joint or muscle pain associated with the exercise. 3. Discussed age appropriate screening guidelines. Colonoscopy needs to start at age 50 with stool for occult blood as appropriate. There is a new test that can test for genetic abnormalities in the stool sample, Cologuard. This would not replace a colonoscopy but could be used as a screening tool for patients who do not want a colonoscopy. We discussed the importance of early detection of colon cancer. 4. Discussed current PSA screening. PSA screening can be done in most patients between age 50 and 65. However early detection of prostate cancer needs to carefully be balanced with complications with treatment. These include incontinence, impotence etc. Each patient should decide if they would like to have this test. 5. Discussed safe driving and no use of smart phone while driving 6. Age-appropriate immunizations were discussed. A tetanus booster is needed every 10 years. Flu vaccine is recommended every year just before the start of the flu season. Shingles vaccine is recommended after age 50 but not all insurances cover it. Pneumonia vaccine is given after age 65 unless there are certain comorbidities for which it is started earlier. 7. Diagnostic labs were discussed. These could include/not limited to CBC CMP and lipids with fasting blood glucose and insulin levels. Vitamin D and hemoglobin A1c testing might be appropriate. All quetsions answered to patients satisfaction. Patient verbalized understanding of diagnosis and treatments explained. To call sooner prior to next visit it any questions/concerns arise. Case discussed with collaborating physician Josephine Marvin who reviewed the assessment and plan. Chart, medications, labs, vital signs reviewed. Dictation was accomplished with the use of [facility] voice recognition software, prone to medical misidentifications and grammatical errors. This is unintentional and the practitioner does try to identify and correct these, but some could still be present. Please do not hesitate to contact practitioner for clarification. 05/22/2024 Chronic congestive heart failure, unspecified heart failure type (ICD-10 - I50.9) # Paronychia: Will treat with Augmentin. Discussed proper use, side effects. This is of the right middle finger. If no improvement, consider referral to hand specialist.Discusse d proper use, side effects. Discussed that for incision and drainage, can follow-up with urgent care for this as we do not do this here. Questioning exposure to oral melchor therefore we will treat with Augmentin,/Warm salt water soaks. # At the beginning of April patient was hospitalized for pneumonia and COVID-19. Admits to a lingering cough. States that it was better with guanfacine. Will send prescription. Lungs clear to auscultation, but she does admit to some shortness of breath. Patient is been taking albuterol with some improvement. Still awaiting chest x-ray to ensure resolution of symptoms. Did discuss conservative treatments.Discusse d emergency department criteria.Will reorder today. # Tanna reports that on 02/19 she was in her dining area when she reached down to pick something up and fell forward onto a radiator. This fall resulted in head strike with +LOC. The patient was transported to [facility] where the trauma surgery team was consulted and a workup was initiated. Extensive imaging was performed and the patient was found to have bilateral punctate subarachnoid hemorrhages with no mass effect, depressed left orbital floor fracture, left lateral orbital wall fracture, left anterior/posterior wall maxillary sinus fractures, left zygomatic arch fracture, and a left frontal scalp hematoma. The patient was additionally found to have a small laceration to left parietal scalp which was washed out and repaired with 3 jason. The patient was admitted where she was followed by neurosurgery, OMFS, medicine, and cardiology. Given subarachnoid hemorrhage Eliquis was held and the patient was started on Unasyn given sinus fractures. Repeat head CT without interval change, no neurosurgical intervention recommended. The patient was subsequently discharged 02/23 with instructions to follow-up with Dr. Eldridge with [facility]. She was provided a phone number for for [facility] ([phone]). Patient did reach out and make appointment. Furthermore the patient states home nursing services removed the jason from her head laceration earlier this week, on exam the laceration appears to be healing well there is no current bleeding/discharge. Bruising has improved.Continue to hold Eliquis until repeat CT scan of the head. She had her CAT scan which had improved, therefore patient resumed Eliquis on 04/10/2024. Results were faxed over to Dr. Campos. Continue to follow with neurology. Ensuring healing of subarachnoid hemorrhage. Patient to be cleared by ophthalmology and neurology prior to driving.Has initiated Eliquis again.Doing well. #Home safety: The patient lives at home with her . They live in a two-story home with her bedroom and the bathroom on the second level. There are no area rugs or identifiable tripping hazards per patient. Discussed utility of home alert devices such as life alert, the patient is amenable to this. She is encouraged to discuss this with her and son to work on getting a device. #HCP: Patient reports that her is her designated healthcare proxy. She additionally has a son who lives very close and is involved in her care. Filled out 03/23/2024 #HTN: BP stable in office. Continue losartan 50 mg daily, metoprolol 50 mg twice daily, and amlodipine 2.5 mg daily. #CHF: History of nonpitting lower extremity edema, Patient taking Lasix 20 mg as needed.Controlled at this time. Patient understands to take daily weights and consult medical provider should she experience a sudden weight gain. Follows with Dr. Castanon, cardiology. Next visit July 2024, Recently diagnosed with cardiomegaly in the emergency department 04/2024. # Lower leg pain: Gabapentin as needed. Questioning vascular etiology secondary to leg fullness/pain/heavi ness. Will refer to vascular. #Prior CVA: Continue atorvastatin 80 mg daily. . Reinitiation of Eliquis.Follows with neurology # Weight gain: Patient inquiring about GLP-1's. Based on age, and increased risk of sarcopenia I did recommend against this. Is open to trying alternative options such as Contrave. Initiated Contrave, has been tolerating fine. Has gained weight since last visit with the holidays but states she is not doing any lifestyle changes. Will try to initiate lifestyle changes in conjunction with Contrave to see if there is improvement in weight loss.Patient states that Contrave is not working well at this time, but discussed the importance of lifestyle modifications, and time. #GERD: Denies current symptoms of heartburn, reflux, regurgitation. Continue omeprazole 40 mg as needed. #Depression: Continue escitalopram 5 mg daily, Admits to uncontrolled depression, and difficulty sleeping. Will discontinue Lexapro, and initiate mirtazapine 15 mg at night. Also taking magnesium glycinate. Also taking Contrave which has a Wellbutrin component. Declined suicidal ideation.Patient states that sleep has improved.She is pleased with this. #Restless leg: Continue pramipexole 0.75 mg daily and gabapentin 300 mg twice daily.Following with neurology # Incontinence: History of bladder sling: Following with urology May 2024 Patient following up in 4 weeks, blood work in the meantime. All quetsions answered to patients satisfaction. Patient verbalized understanding of diagnosis and treatments explained. To call sooner prior to next visit it any questions/concerns arise. Case discussed with collaborating physician Josephine Marvin who reviewed the assessment and plan. Chart, medications, labs, vital signs reviewed. Dictation was accomplished with the use of [facility] voice recognition software, prone to medical misidentifications and grammatical errors. This is unintentional and the practitioner does try to identify and correct these, but some could still be present. Please do not hesitate to contact practitioner for clarification. 05/12/2024 Essential (primary) hypertension (ICD-10 - I10) # At the beginning of April patient was hospitalized for pneumonia and COVID-19. Admits to a lingering cough. States that it was better with guanfacine. Will send prescription. Lungs clear to auscultation, but she does admit to some shortness of breath. Will trial albuterol as needed while waiting for repeat chest x-ray to ensure resolution of symptoms. Did discuss conservative treatments.[facility] emergency [facility] criteria. # Tanna reports that on 02/19 she was in her dining area when she reached down to pick something up and fell forward onto a radiator. This fall resulted in head strike with +LOC. The patient was transported to [facility] where the trauma surgery team was consulted and a workup was initiated. Extensive imaging was performed and the patient was found to have bilateral punctate subarachnoid hemorrhages with no mass effect, depressed left orbital floor fracture, left lateral orbital wall fracture, left anterior/posterior wall maxillary sinus fractures, left zygomatic arch fracture, and a left frontal scalp hematoma. The patient was additionally found to have a small laceration to left parietal scalp which was washed out and repaired with 3 jason. The patient was admitted where she was followed by neurosurgery, OM[facility], medicine, and cardiology. Given subarachnoid hemorrhage Eliquis was held and the patient was started on Unasyn given sinus fractures. Repeat head CT without interval change, no neurosurgical intervention recommended. The patient was subsequently discharged 02/23 with instructions to follow-up with Dr. Eldridge with [facility]. She was provided a phone number for for [facility] ([phone]). Patient did reach out and make appointment. Furthermore the patient states home nursing services removed the jason from her head laceration earlier this week, on exam the laceration appears to be healing well there is no current bleeding/discharge. Bruising has improved.Continue to hold Eliquis until repeat CT scan of the head. She had her CAT scan which had improved, therefore patient resumed Eliquis on 04/10/2024. Results were faxed over to Dr. Campos. Continue to follow with neurology. Ensuring healing of subarachnoid hemorrhage. Patient to be cleared by ophthalmology and neurology prior to driving.Has initiated Eliquis again.Doing well. #Home safety: The patient lives at home with her . They live in a two-story home with her bedroom and the bathroom on the second level. There are no area rugs or identifiable tripping hazards per patient. Discussed utility of home alert devices such as life alert, the patient is amenable to this. She is encouraged to discuss this with her and son to work on getting a device. #HCP: Patient reports that her is her designated healthcare proxy. She additionally has a son who lives very close and is involved in her care. Filled out 03/23/2024 #HTN: BP stable in office. Continue losartan 50 mg daily, metoprolol 50 mg twice daily, and amlodipine 2.5 mg daily. #CHF: History of nonpitting lower extremity edema, Patient taking Lasix 20 mg as needed.Controlled at this time. Patient understands to take daily weights and consult medical provider should she experience a sudden weight gain. Follows with Dr. Castanon, cardiology. Next visit July 2024, Recently diagnosed with cardiomegaly in the emergency department 04/2024. # Lower leg pain: Gabapentin as needed. Questioning vascular etiology secondary to leg fullness/pain/heavi ness. Will refer to vascular. #Prior CVA: Continue atorvastatin 80 mg daily. . Reinitiation of Eliquis.Follows with neurology # Weight gain: Patient inquiring about GLP-1's. Based on age, and increased risk of sarcopenia I did recommend against this. Is open to trying alternative options such as Contrave. Initiated Contrave, has been tolerating fine. Has gained weight since last visit with the holidays but states she is not doing any lifestyle changes. Will try to initiate lifestyle changes in conjunction with Contrave to see if there is improvement in weight loss. #GERD: Denies current symptoms of heartburn, reflux, regurgitation. Continue omeprazole 40 mg as needed. #Depression: Continue escitalopram 5 mg daily, Admits to uncontrolled depression, and difficulty sleeping. Will discontinue Lexapro, and initiate mirtazapine 15 mg at night. Also taking magnesium glycinate. Also taking Contrave which has a Wellbutrin component. Declined suicidal ideation.Patient states that sleep has improved.She is pleased with this. #Restless leg: Continue pramipexole 0.75 mg daily and gabapentin 300 mg twice daily.Following with neurology # Incontinence: History of bladder sling: Following with urology May 2024 Patient following up in 4 weeks, blood work in the meantime. All quetsions answered to patients satisfaction. Patient verbalized understanding of diagnosis and treatments explained. To call sooner prior to next visit it any questions/concerns arise. Case discussed with collaborating physician Josephine Marvin who reviewed the assessment and plan. Chart, medications, labs, vital signs reviewed. Dictation was accomplished with the use of [facility] voice recognition software, prone to medical misidentifications and grammatical errors. This is unintentional and the practitioner does try to identify and correct these, but some could still be present. Please do not hesitate to contact practitioner for clarification. 04/28/2024 Essential (primary) hypertension (ICD-10 - I10) #Admitted to [facility] [address] 04/26/2024 and discharged 04/27/2024 secondary to acute bronchitis and COVID-19. Treated with Paxlovid, guanfacine, 1 g of IV ceftriaxone and 500 mg x 2 doses of azithromycin. Patient did have a chest x-ray showing cardiomegaly, and tracheobronchomalac ia. Discharged with routine care.Patient is feeling better. Continue with Compazine, and finished Paxlovid course. Discontinuing statin while on Paxlovid but otherwise is doing well. # Tanna reports that on 02/19 she was in her dining area when she reached down to pick something up and fell forward onto a radiator. This fall resulted in head strike with +LOC. The patient was transported to [facility] where the trauma surgery team was consulted and a workup was initiated. Extensive imaging was performed and the patient was found to have bilateral punctate subarachnoid hemorrhages with no mass effect, depressed left orbital floor fracture, left lateral orbital wall fracture, left anterior/posterior wall maxillary sinus fractures, left zygomatic arch fracture, and a left frontal scalp hematoma. The patient was additionally found to have a small laceration to left parietal scalp which was washed out and repaired with 3 jason. The patient was admitted where she was followed by neurosurgery, OMFS, medicine, and cardiology. Given subarachnoid hemorrhage Eliquis was held and the patient was started on Unasyn given sinus fractures. Repeat head CT without interval change, no neurosurgical intervention recommended. The patient was subsequently discharged 02/23 with instructions to follow-up with Dr. Eldridge with [facility]. She was provided a phone number for for [facility] ([phone]). Patient did reach out and make appointment. Furthermore the patient states home nursing services removed the jason from her head laceration earlier this week, on exam the laceration appears to be healing well there is no current bleeding/discharge. Bruising has improved.Continue to hold Eliquis until repeat CT scan of the head. She had her CAT scan which had improved, therefore patient resumed Eliquis on 04/10/2024. Results were faxed over to Dr. Campos. Continue to follow with neurology. Ensuring healing of subarachnoid hemorrhage. Patient to be cleared by ophthalmology and neurology prior to driving.Has initiated Eliquis again.Doing well. #Home safety: The patient lives at home with her . They live in a two-story home with her bedroom and the bathroom on the second level. There are no area rugs or identifiable tripping hazards per patient. Discussed utility of home alert devices such as life alert, the patient is amenable to this. She is encouraged to discuss this with her and son to work on getting a device. #HCP: Patient reports that her is her designated healthcare proxy. She additionally has a son who lives very close and is involved in her care. Filled out 03/23/2024 #HTN: BP stable in office. Continue losartan 50 mg daily, metoprolol 50 mg twice daily, and amlodipine 2.5 mg daily. #CHF: History of nonpitting lower extremity edema, Patient taking Lasix 20 mg as needed.Controlled at this time. Patient understands to take daily weights and consult medical provider should she experience a sudden weight gain. Follows with Dr. Castanon, cardiology. Next visit July 2024, Recently diagnosed with cardiomegaly in the emergency department 04/2024. #Prior CVA: Continue atorvastatin 80 mg daily. Holding well on Paxil level will initiate after discontinued Paxlovid. Reinitiation of Eliquis.Follows with neurology # Weight gain: Patient inquiring about GLP-1's. Based on age, and increased risk of sarcopenia I did recommend against this. Is open to trying alternative options such as Contrave. Initiated Contrave, has been tolerating fine. Has lost 4 pounds since last visit. Discussed the importance of lifestyle in conjunction. #GERD: Denies current symptoms of heartburn, reflux, regurgitation. Continue omeprazole 40 mg as needed. #Depression: Continue escitalopram 5 mg daily, Admits to uncontrolled depression, and difficulty sleeping. Will discontinue Lexapro, and initiate mirtazapine 15 mg at night. Also taking magnesium glycinate. Also taking Contrave which has a Wellbutrin component. Declined suicidal ideation. #Restless leg: Continue pramipexole 0.75 mg daily and gabapentin 300 mg twice daily.Following with neurology # Incontinence: History of bladder sling: Following with urology May 2024 Follow-up in 1 month, sooner as needed. Assess accuracy/compliance of mirtazapine for sleep/depression. All quetsions answered to patients satisfaction. Patient verbalized understanding of diagnosis and treatments explained. To call sooner prior to next visit it any questions/concerns arise. Case discussed with collaborating physician Josephine Marvin who reviewed the assessment and plan. Chart, medications, labs, vital signs reviewed. Dictation was accomplished with the use of [facility] voice recognition software, prone to medical misidentifications and grammatical errors. This is unintentional and the practitioner does try to identify and correct these, but some could still be present. Please do not hesitate to contact practitioner for clarification. 06/16/2024 Essential hypertension (ICD-10 - I10) Tanna is a 73-year-old female present today for follow-up. # Interstitial fibrosis: Has had chronic cough treated with multiple antibiotics and no resolution. Chest x-ray from 05/27/2024 revealing interstitial fibrosis. Referral has been placed for pulmonology and patient reports she had most likely received a call regarding this consultation visit scheduling, but did not return the call. Will check voicemails and look into scheduling this. In the meantime, will refill prescription for benzonatate as patient reports this has been helping with her cough in addition to continue using Flonase. #Weight gain: Patient reports excessive weight gain while on ropinirole. Was prescribed Contrave for which she took for 1 month prior to self discontinuing. States she did not have any weight loss and felt it was not working. Does endorse appetite suppression. States she did titrate up to 2 tabs in the morning and 2 tabs in the evening. Will be discussed with patient in regards to restarting this medication. #Restless leg syndrome: Followed by neurology with Dr. Dr. Campos, history of restless leg syndrome on pramipexole. #Hypertension: Blood pressure stable in office. Managed on losartan 50 mg p.o. once daily, metoprolol 50 mg twice daily amlodipine 2.5 mg daily. Followed by cardiology #B12 deficiency: Patient received RAO B12 injection today in office. This was my mistake and patient was not charged. Will schedule for vitamin B-12 injection in office and continue monthly. #CHF history of nonpitting lower extremity edema. Recently seen by cardiology and was told to double up on Lasix 20 mg x 7 days for fluid retention. #Lower leg pain: Gabapentin as needed All questions answered to patients satisfaction. Patient verbalized understanding of diagnosis and treatments explained. To call sooner prior to next visit it any questions/concerns arise. Case discussed with collaborating physician Dr. Marvin who reviewed the assessment and plan. Chart, medications, labs, vital signs reviewed. Dictation was accomplished with the use of [facility] voice recognition software, prone to medical misidentifications and grammatical errors. This is unintentional and the practitioner does try to identify and correct these, but some could still be present. Please do not hesitate to contact practitioner for clarification. 07/03/2024 Primary osteoarthritis of right hip (ICD-10 - M16.11) Tanna is a 73-year-old female present today for 1 month follow-up. #Weight gain: Wt: 197.8 lbs, BMI: 42.8 patient frustrated and discouraged with weight gain. States she has had weight gain since being placed on ropinirole for restless leg syndrome. Was prescribed Contrave but self discontinued after 1 month. States she was not exercising or dieting well on the medication. Patient represcribed Contrave with clear instructions on how to titrate up the dose. Patient has not had a weight management consultation thus far. Advised patient today to call and schedule weight management consultation where we will complete a Seca scale and further discuss Contrave as well as lifestyle modifications. Will continue with 4-week follow-up following the consultation. Patient agreeable with plan. # Interstitial fibrosis: Has had chronic cough treated with multiple antibiotics and no resolution. Chest x-ray from 05/27/2024 revealing interstitial fibrosis. Referral has been placed for pulmonology. Patient was post to be seen today with Dr. Henderson, but unfortunately this had to be canceled and rescheduled to mid July. Patient prescribed albuterol as needed, fluticasone propionate daily, and Trelegy 200 mcg 1 puff inhalation daily. 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 Free sample provided today in office. This sample would be able to get patient to her pulmonology visit. Will be able to further discuss with Dr. Henderson regarding treatment plan. #Acute on chronic right hip pain #osteoarthritis: Patient previously followed by Dr. Gregg and received cortisone injections for chronic osteoarthritis of right hip. States she has not had a cortisone injection over a year. Patient had called the office between visits and [facility] an [facility]. States she has an appointment scheduled to be seen, but unsure regarding date. Advised to call the office if this appointment follows through and she needs further referral. #Restless leg syndrome: Followed by neurology with Dr. Dr. Campos, history of restless leg syndrome on pramipexole. #Hypertension: Blood pressure stable in office. Managed on losartan 50 mg p.o. once daily, metoprolol 50 mg twice daily amlodipine 2.5 mg daily. Followed by cardiology #B12 deficiency: Plan to administer vitamin B12 injection in office and continue monthly. #CHF history of nonpitting lower extremity edema: Recently seen by cardiology and was told to double up on Lasix 20 mg x 7 days. Has since resolved. # Plan to schedule weight management consultation and follow-up regarding additional information of Contrave and lifestyle modifications. Plan to continue with 4-week follow-ups thereafter. Plan to follow-up in 3 months for primary care. All questions answered to patients satisfaction. Patient verbalized understanding of diagnosis and treatments explained. To call sooner prior to next visit it any questions/concerns arise. Case discussed with collaborating physician Dr. Marvin who reviewed the assessment and plan. Chart, medications, labs, vital signs reviewed. Dictation was accomplished with the use of [facility] voice recognition software, prone to medical misidentifications and grammatical errors. This is unintentional and the practitioner does try to identify and correct these, but some could still be present. Please do not hesitate to contact practitioner for clarification. 08/08/2024 Restless leg syndrom e (ICD-10 - G25.81) Tanna is a 73-year-old female present today for weight management consultation. 08/08/2024: Wt: 191.3 lbs, BMI: 41.39 Patient congratulated on 6 pound weight loss since last visit. patient trialed on Contrave twice, but has not been consistent with this medication. Discussed Seca scale which revealed borderline low muscle mass in upper extremities. Discussed how GLP-1's would not be recommended as risk for potential further muscle loss. Patient admits she has not been consistent with the Contrave. Discussed with patient that Contrave or lifestyle would be the best for her in regards to weight loss. Patient willing to try Contrave 1 more time consistently. Will send prescription to [facility] pharmacy. Advised patient to increase protein with a daily goal of at least 80 g of protein. Discussed increasing physical activity with short walks as patient gets dyspnea on exertion. Recommend patient purchase his resistance bands or light hand weights to strengthen upper extremities. Patient agreeable with plan. Plan follow-up in 4 weeks and repeat Seca scale. #Interstitial fibrosis: Has had a chronic cough with multiple antibiotics with no resolution. Chest x-ray from 05/27/2024 revealing interstitial fibrosis. Patient referred to [facility] pulmonology. Prescribed albuterol as needed, fluticasone propriety daily and Trelegy daily. Will continue with pulmonology recommendations. #Osteoarthritis: Patient previously received cortisone injections for chronic osteoarthritis of the right hip. Referred to orthopedics that she has not had a cortisone injection in the past year. #Restless leg syndrome: Patient had rapid weight gain since initiating ropinirole. No longer taking. Switch to mirtazapine to take at night. Followed by neurology. #Hypertension: Blood pressure stable in office. Plan to continue losartan 50 mg, metoprolol 50 mg twice daily, and amlodipine 2.5 mg. Followed by cardiology. #B12 deficiency: Patient receives monthly B12 injections in office. #CHF: Followed by cardiology and doubled up on Lasix x 7 days when needed. No pitting edema on exam today. Patient was reassured and welcomed to the practice. We discussed that we stress a hollistic medical approach with emphasis on lifestyle modification. Patient was informed that a healthy lifestyle with exercise and good eating habits can help reduce his risk of medical complications. Patient is explained that obesity increases his risk of diabetes, cardiovascular disease, or organ damage. We spent a lot of time discussing the relationship between food, exercise, sleep, mental health and obesity. Patient was counseled on the importance EATING local, organic food when possible. Patient was educated on clean 15 and dirty dozen. I provided information about reading books called The Food Rules by Олег Puckett and Eat Fat Get Lean by Dr Devon Villalba. Self education is important in the journey for weight management. Patient was offered diagnostic testing/ SECA scale. We want to measure visceral adiposity, advanced body composition, adverse lipids, fatty acid balance, risk for heart disease and atherosclerosis, markers of inflammation and genetic susceptibility. Patient was counseled on weight management and was advised to lose weight using A. Meal Replacement Products Patient was educated on the replacement products called optifast. This is a good way of taking fixed amount of calories. It has been shown in studies to be ineffective weight management tool. This however has to be coupled with lifestyle intervention as well as laboratory data and EKG monitoring. It is impossible to know how a person will tolerate complete meal replacement. The side effects of meal replacement and weight loss could include syncopal attacks, dizziness, gallstones, potential cholecystectomy, possible heart attack and even . The benefits of meal replacement would be potential weight loss but no guarantees can be made. Meal replacement products are not covered by insurance. Once the patient has bought these products we cannot return them B. Lifestyle management which includes several strategies as below 1. Eat a low carbohydrate good fat good protein diet. Eliminate refined carbohydrates from the diet. Limit sugared beverages. Eat local organic when possible. Cook your own meals. Read food labels. Focus on healthy snacks. Portion control and food with low glycemic index 2. Exercise regularly. Try to get at least 6000 steps a day. Use a predominant to track activity level. Consider using apps like 7 minute excercise, Rebellepal, lose it, stick as needed for self-monitoring and weight management. Consider group exercises. Consider hiring a appraiser personal property. Regular exercise is nagy to sustainable health and prevents as a buffer against weight regain 3. Sleep is most important for healing. Try to sleep at least 6-8 hours a night. A good quality sleep needs a sleep ritual with ideal room temperature of around 68. It might help to take a shower and have no electronics in the room and sleep in a very dark room without artificial light. Start sleep routine and get up early in the morning and go to bed on time. 4. Make a social connection. Surround yourself with positive people with positive energy. Connect with friends and family. 5. Get into the habit of meditating and mindfulness while doing everything. 6. Go outside and connect with nature. C. Prescription medications Patient was educated on the use of prescription medications for medical weight loss. This is a growing list and includes phentermine, Topamax, Qsymia, contrave, belviq and saxenda, wegovy etc. All prescription medications could have side effects including but not limited to kidney stones, seizure disorder, cardiac arrhythmias, heart attack, pancreatitis, GI effects, Etc. Patient was encouraged to read the prescription insert and discuss with their pharmacist to make an informed decision about taking medication and know that these medications are being prescribed with good intentions and we do not know how a patient would react to her medication. Some medications are FDA approved for weight loss and there is also off label use depending on patient's inability to afford medications in an attempt to lose weight. D. Behavioral counseling was done to establish a relationship between food and an mood. Patient was provided information about local counseling and psychiatry and Dr Jimenez at [facility]. We would like to cover regular topics and build on low glycemic eating exercise mindful eating, using yoga and meditation along with deep breathing and connecting with friends and family. E. MASS PAT reviewed, Patient's current medications were reviewed and opinion was given on medication that can cause weight gain and can be substituted F. Patient was assessed for risk with obesity including and not limiting to atherosclerosis, heart disease, stroke, kidney disease, restrictive lung disease, irritable bowel syndrome and overall mortality. Risk of developing prediabetes diabetes and metabolic syndrome was discussed G. Therapeutic plan: We have decided to make therapeutic plan which would include choosing wisely on calories restricting portion getting active, tracking weight, getting good quality sleep and working on time management H. Patient will follow up in 4 weeks for weight management Total time spent today was 60 minutes of which greater than 50% was spent on coordinating and counseling Case discussed with collaborating physician Jonathan Marvin who reviewed the assessment and plan. Chart, medications, labs, vital signs reviewed. Dictation was accomplished with the use of [facility] voice recognition software, prone to medical misidentifications and grammatical errors. This is unintentional and the practitioner does try to identify and correct these, but some could still be present. Please do not hesitate to contact practitioner for clarification. All questions answered to patients satisfaction. Patient verbalized understanding of diagnosis and treatments explained. To call sooner prior to next visit it any questions/concerns arise. 08/22/2024 Severe obesity (BMI >= 40) (ICD-10 - E66.01) Tanna is a 73-year-old female present today for follow-up. # Need to have further evaluation for concern of memory changes at follow-up in 2 weeks. Patient today presenting to office discussing unsteady gait after a fall 2 months ago and brain bleed . After further investigation through [facility] emergency, patient is referring to a fall that occurred last February revealing left orbital floor fracture, displaced left lateral orbital wall fracture with comminuted left zygomatic arch fracture, anterior left maxillary sinus fracture, left facial soft tissue swelling and multiple acute subarachnoid hemorrhages of right cerebellar hemisphere and basal cisterns. Patient at the times Eliquis was held and cardiac workup was unremarkable. Of note patient did present to the ER at [facility] 2 months ago for a total of 45 minutes with a chief complaint of leg swelling, but was not evaluated by a provider. Followed by cardiology and recommended short course of Lasix which resolved leg swelling. To my knowledge, patient was last seen by neurology on 03/14/2024 does not have any upcoming follow-up scheduled. Advised patient to call the office to schedule to ensure she is not lost to follow-up. Will perform Mini-Mental status exam at follow-up in 2 weeks. Will consider further blood work as well as brain MRI if indicated. Patient currently lives at home with and is able to perform day-to-day tasks independently. #Unsteady gait: In regards to patient's concern for unsteady gait since the fall, will obtain basic labs and add on A1c, B12 and folate for further evaluation for further evaluation regarding electrolyte abnormality or vitamin deficiency. Patient does not report any vertigo symptoms at this time. Patient had completed course of physical therapy post fall. Will refer back to PT given gait instability and concern for recurrent falls. Will call regarding bloodwork and follow up with neurology. # Interstitial fibrosis: Newly diagnosis for patient after chronic cough. Referred to pulmonology. #Elevated BMI: Wt: 195.6 lbs, BMI: 42.32 patient followed in weight management program. Has been noncompliant with Contrave in the past and has restarted Contrave for the third attempt. Will follow-up on 09/07 for weight management. Given patient's age, would recommend against GLP-1 therapy. All questions answered to patients satisfaction. Patient verbalized understanding of diagnosis and treatments explained. To call sooner prior to next visit it any questions/concerns arise. Case discussed with collaborating physician Dr. Marvin who reviewed the assessment and plan. Chart, medications, labs, vital signs reviewed. Dictation was accomplished with the use of [facility] voice recognition software, prone to medical misidentifications and grammatical errors. This is unintentional and the practitioner does try to identify and correct these, but some could still be present. Please do not hesitate to contact practitioner for clarification. 09/26/2024 CAD in resighini artery (ICD-10 - I25.10) Tanna is a pleasant 73-year-old female present today for hospital follow-up. #Hospitalized for acute on chronic diastolic congestive heart failure with acute decompensation and acute hypoxemic respiratory failure from 09/21 - 09/[address] [facility]. # Patient presented with shortness of breath and lower extremity edema. Echocardiogram repeated in hospital noting ejection fraction of 65% with mild concentric hypertrophy. This improved from prior echocardiogram May 2024 revealing grade 3 diastolic dysfunction. Amlodipine and losartan held during hospital stay and patient was started on diuresis with Lasix 40 mg twice daily. Patient discharged with improvement of symptoms and restarted on amlodipine, however her losartan dose had changed to 25 mg and metoprolol succinate to 50 mg p.o. once daily. # VNA services with nursing visits for BP checks. Has not started yet. # Supposed to schedule cardiology follow-up within 1 week for further evaluation. Reiterated the importance of a cardiology follow-up as patient was recommended to start torsemide 40 mg twice daily at home per cardiology, but was educated during hospital discharge to resume Lasix 40 mg. Patient obtain blood work today which revealed CBC within normal limits, pending BMP. Educated patient to continue medication regimen but follow-up with cardiology as necessary to discuss diuretics. Patient today has had improvement in lower extremity edema and feels though patient is stable to follow-up with cardiology in 1 week. Discussed the importance of daily weight ins as well as low-salt diet. Recommend use of compression stockings in addition to lower extremity elevation at nighttime. Discussed the importance of looking for signs regarding fluid retention and to call the office or cardiology if this develops. Patient agreeable with plan. #Chronic A-fib: Anticoagulated on Eliquis 5 mg twice daily. Metoprolol for rate control. #Coronary artery disease: Continue daily aspirin, atorvastatin metoprolol 50 mg p.o. once daily. #Diabetes: Most recent A1c in office of 6.5%. Initiated on metformin ER 500 mg titrating up to 2 tabs p.o. once daily. Will follow-up in 3 months and repeat A1c. #Interstitial fibrosis: Patient developed a chronic cough and chest x-ray revealed changes suggesting interstitial fibrosis. Referred to pulmonology, Dr. Henderson. Recent CT chest with revealed no findings aside from atelectasis. Will continue with their recommendations. Continue albuterol as needed. #GERD managed on omeprazole 40 mg. #Restless leg syndrome: Continue pramipexole and gabapentin. Followed by neurology. #History of incontinence: Followed by urology. All questions answered to patients satisfaction. Patient verbalized understanding of diagnosis and treatments explained. To call sooner prior to next visit it any questions/concerns arise. Case discussed with collaborating physician Dr. Marvin who reviewed the assessment and plan. Chart, medications, labs, vital signs reviewed. Dictation was accomplished with the use of [facility] voice recognition software, prone to medical misidentifications and grammatical errors. This is unintentional and the practitioner does try to identify and correct these, but some could still be present. Please do not hesitate to contact practitioner for clarification. 09/15/2024 Severe obesity (BMI >= 40) (ICD-10 - E66.01) Tanna is a 73-year-old female presents today for 1 month follow-up. # Memory: Patient appears today to be at baseline with no further concern regarding altered mental status or change of baseline. #Elevated BMI: Switch from Contrave and begin trialing metformin. Discussed side effects including GI upset. Will prescribe to take 1 tab once daily x 2 weeks and then switch to 2 tabs once daily. Patient has A1c of 6.5%, so we will continue to monitor A1c for improvement. #Interstitial fibrosis: Patient developed a chronic cough and chest x-ray revealed changes suggesting interstitial fibrosis. Referred to pulmonology, Dr. Henderson. Recent CT chest with revealed no findings aside from atelectasis. Will continue with their recommendations. #B12 deficiency: Administer B12 today in office. # Diabetes: A1C of 6.5%. Initiating metformin ER 500 mg 1 tab once daily x 2 weeks then 2 tabs once daily x 2 weeks. #CHF: Followed by cardiology. Discussed low-sodium diet. Recommend compression stockings. Discussed importance of weighing daily and to call the office if she experiences extreme acute weight gain as this could be fluid retention. #Coronary artery disease #hyperlipidemia #hypertension #A-fib: Followed by cardiology. On anticoagulation with Eliquis 5 mg. BP managed on amlodipine 2.5, losartan 50 and metoprolol succinate extended release 50 mg. Hyperlipidemia managed on atorvastatin 80 mg. History of CHF and nonpitting lower extremity edema. Managed on Lasix 20 mg daily. #GERD managed on omeprazole 40 mg as needed. #Depression #restless leg: Continue pramipexole 0.75 mg daily and gabapentin 300 mg twice daily. Followed by neurology. States she does not have a visit scheduled. Would recommend calling to ensure she is not lost to follow-up. #History of incontinence: Followed by urology. #Plan to follow-up in 3 months. All questions answered to patients satisfaction. Patient verbalized understanding of diagnosis and treatments explained. To call sooner prior to next visit it any questions/concerns arise. Case discussed with collaborating physician Dr. Marvin who reviewed the assessment and plan. Chart, medications, labs, vital signs reviewed. Dictation was accomplished with the use of [facility] voice recognition software, prone to medical misidentifications and grammatical errors. This is unintentional and the practitioner does try to identify and correct these, but some could still be present. Please do not hesitate to contact practitioner for clarification. 10/17/2024 CAD in resighini artery (ICD-10 - I25.10) Tanna is a pleasant 73-year-old female present today for hospital follow-up. #Hospitalized for acute on chronic diastolic congestive heart failure with acute decompensation and acute hypoxemic respiratory failure from 09/21 - 09/[address] [facility]. Patient presented with shortness of breath and lower extremity edema. Echocardiogram repeated in hospital noting ejection fraction of 65% with mild concentric hypertrophy. This improved from prior echocardiogram May 2024 revealing grade 3 diastolic dysfunction. Amlodipine and losartan held during hospital stay and patient was started on diuresis with Lasix 40 mg twice daily. Patient discharged with improvement of symptoms and restarted on amlodipine, however her losartan dose had changed to 25 mg and metoprolol succinate to 50 mg p.o. once daily. # Patient following up with cardiology next week. Per cardiology, consider adding spironolactone and SGLT-2 inhibitor to patient regimen. Patient to discuss with cardiology regarding initiating torsemide. Discussed the importance of daily weight-ins as well as low-salt diet. Recommend use of compression stockings in addition to lower extremity elevation at nighttime. Discussed the importance of looking for signs regarding fluid retention and to call the office or cardiology if this develops. Patient agreeable with plan. #Chronic A-fib: Anticoagulated on Eliquis 5 mg twice daily. Metoprolol for rate control. #Coronary artery disease: Continue daily aspirin, atorvastatin metoprolol 50 mg p.o. once daily. #Diabetes: Most recent A1c in office of 6.5%. Initiated on metformin ER 500 mg titrating up to 2 tabs p.o. once daily. Will follow-up in 3 months and repeat A1c. #Interstitial fibrosis: Patient developed a chronic cough and chest x-ray revealed changes suggesting interstitial fibrosis. Referred to pulmonology, Dr. Henderson. Recent CT chest with revealed no findings aside from atelectasis. Will continue with their recommendations. Continue albuterol as needed. #GERD managed on omeprazole 40 mg. #Restless leg syndrome: Continue pramipexole and gabapentin. Followed by neurology. #History of incontinence: Followed by urology. All questions answered to patients satisfaction. Patient verbalized understanding of diagnosis and treatments explained. To call sooner prior to next visit it any questions/concerns arise. Case discussed with collaborating physician Dr. Marvin who reviewed the assessment and plan. Chart, medications, labs, vital signs reviewed. Dictation was accomplished with the use of [facility] voice recognition software, prone to medical misidentifications and grammatical errors. This is unintentional and the practitioner does try to identify and correct these, but some could still be present. Please do not hesitate to contact practitioner for clarification. 12/19/2024 Chronic a-fib (ICD-1 0 - I48.20) Tanna is a pleasant 74-year-old female present today for follow-up. #Diabetes: A1c at last visit in August of 6.5%. Patient initiated on metformin 500 mg 2 tabs once daily. Since seeing cardiology, initiated on Jardiance 10 mg. A1c today office of 6%. Given significant weight gain in the past year as well as concern for diastolic heart failure, cardiology recommended GLP-1 therapy for intentional weight loss. Given diagnosis of diabetes, will prescribe Mounjaro 2.5 mg weekly injection. Discussed role of medication as well as side effect profile. Plan to follow-up in 1 month in regards to Mounjaro initiation. Will repeat A1c in 3 months. #Hypertension #diastolic heart failure: Followed by cardiology. Last seen 11/14/2024 with medication changes. Will follow-up in 1 month with cardiology. Continue Lasix 40 mg, metoprolol 50 mg and Jardiance 10 mg. Discontinue losartan. Blood pressure stable in office. Continue with the recommendations. #Chronic A-fib: Anticoagulated on Eliquis 5 mg twice daily. Metoprolol for rate control. #CAD: Continue aspirin 81 mg daily and atorvastatin. Will obtain blood work including lipids and review at follow-up. #Interstitial fibrosis: Chronic cough and chest x-ray revealed changes suggesting interstitial fibrosis. Referred to pulmonology. #Vitamin B12 deficiency: Obtains monthly B12 injections in office. #GERD: Managed on omeprazole 40 mg. #Restless leg syndrome: Continue pramipexole and gabapentin. Followed by neurology. Patient has since discontinued gabapentin and uses [id number] Tylenol as needed. #Right hip pain: followed by [facility]. All questions answered to patients satisfaction. Patient verbalized understanding of diagnosis and treatments explained. To call sooner prior to next visit it any questions/concerns arise. Case discussed with collaborating physician Dr. Marvin who reviewed the assessment and plan. Chart, medications, labs, vital signs reviewed. Dictation was accomplished with the use of [facility] voice recognition software, prone to medical misidentifications and grammatical errors. This is unintentional and the practitioner does try to identify and correct these, but some could still be present. Please do not hesitate to contact practitioner for clarification. 01/19/2025 Vitamin B12 deficiency anemia, unspecified (ICD-10 - D51.9) Tanna is a 74-year-old female present today for 1 month follow-up. Past medical history of hyperlipidemia, coronary artery disease, reflux gastritis, hypertension, overactive bladder, depression, hydronephrosis with ureteral stricture, vitamin D deficiency, vitamin B12 deficiency, cerebral infarction, restless leg syndrome followed by neurology, A-fib on anticoagulation, cardiomegaly, bronchitis, hip osteoarthritis and congestive heart failure followed by cardiology. # Will update influenza and B12 injection for B12 deficiency in office. # Lower extremity edema #RLE edema exacerbation: Patient had contacted [facility] on 01/16/2025 reporting right foot swollen. Denies any shortness of breath. Staying well-hydrated and good urine output without difficulty. Per Dr. Castanon, recommended taking Lasix 40 mg twice a day x 3 days with labs including a basic metabolic panel and magnesium. Patient advised to go to [facility] lab today for these labs and cardiology will reach out to follow-up same day. Pending cardiology recommendations. Patient reports swelling as improved however on palpation of RLE, leakage of fluid is appreciated. In office, compression bandaging is placed to help apply external pressure to the limb, which counteracts elevated ambulatory venous pressure, decreased capillary filtration and promote fluid shift into noncompressed regions thereby improving lymphatic drainage and venous return. Patient verablized understanding Patient advised to keep dressing on over the weekend. Discussed importance of compliance with short term furosemide 40 mg BID to improve symptoms. Discussed low salt diet and daily weigh-ins. Discussed worsening signs. Discussed ER protocol. Will follow up with cardiology today. If symptoms worsen over the weekend, will consider duplex u/s of RLE. Patient advised to call the office by Wednesday. # Low potassium: Recent labs reveal potassium of 3.1. Discussed concern for electrolyte abnormality. Recommend potassium supplementation however patient states cardiology ordered a BNP to check electrolytes today and she will check potassium level today. Will check BNP when available and rediscuss potassium supplementation if indicated. Discussed risk of hypokalemia including arrhythmias. Patient understanding. # Follow up 2 months for labs including CBC, CMP and A1C. Will review cardiology order for BMP when available after today's bloodwork. #Chronic A-fib: Anticoagulated on Eliquis 5 mg twice daily. Metoprolol for rate control. #Coronary artery disease: Continue daily aspirin, atorvastatin metoprolol 50 mg p.o. once daily. #Diabetes: Most recent A1c of 6%. Managed on metformin, jardiance and Mounjaro. Will follow-up in 2 months and repeat A1c. #Interstitial fibrosis:. Continue albuterol as needed. #GERD managed on omeprazole 40 mg. #Restless leg syndrome: Continue pramipexole and gabapentin. Followed by neurology. #History of incontinence: Followed by urology. #weight gain: Managed on Mounjaro 2.5 mg weekly injections per cardiology recommendations. Has had a 5 lb weight loss in 1 month. Given concern for age and risk of osteoporosis will continue low dose and refrain from higher doses given successful weight loss. Discussed need for lifestyle modifications. All questions answered to patients satisfaction. Patient verbalized understanding of diagnosis and treatments explained. To call sooner prior to next visit it any questions/concerns arise. Case discussed with collaborating physician Dr. Marvin who reviewed the assessment and plan. Chart, medications, labs, vital signs reviewed. Dictation was accomplished with the use of [facility] voice recognition software, prone to medical misidentifications and grammatical errors. This is unintentional and the practitioner does try to identify and correct these, but some could still be present. Please do not hesitate to contact practitioner for clarification. 01/19/2025 Acute hypokalemia (ICD-10 - E87.6) Tanna is a 74-year-old female present today for 1 month follow-up. Past medical history of hyperlipidemia, coronary artery disease, reflux gastritis, hypertension, overactive bladder, depression, hydronephrosis with ureteral stricture, vitamin D deficiency, vitamin B12 deficiency, cerebral infarction, restless leg syndrome followed by neurology, A-fib on anticoagulation, cardiomegaly, bronchitis, hip osteoarthritis and congestive heart failure followed by cardiology. # Will update influenza and B12 injection for B12 deficiency in office. # Lower extremity edema #RLE edema exacerbation: Patient had contacted [facility] on 01/16/2025 reporting right foot swollen. Denies any shortness of breath. Staying well-hydrated and good urine output without difficulty. Per Dr. Castanon, recommended taking Lasix 40 mg twice a day x 3 days with labs including a basic metabolic panel and magnesium. Patient advised to go to [facility] lab today for these labs and cardiology will reach out to follow-up same day. Pending cardiology recommendations. Patient reports swelling as improved however on palpation of RLE, leakage of fluid is appreciated. In office, compression bandaging is placed to help apply external pressure to the limb, which counteracts elevated ambulatory venous pressure, decreased capillary filtration and promote fluid shift into noncompressed regions thereby improving lymphatic drainage and venous return. Patient verablized understanding Patient advised to keep dressing on over the weekend. Discussed importance of compliance with short term furosemide 40 mg BID to improve symptoms. Discussed low salt diet and daily weigh-ins. Discussed worsening signs. Discussed ER protocol. Will follow up with cardiology today. If symptoms worsen over the weekend, will consider duplex u/s of RLE. Patient advised to call the office by Wednesday. # Low potassium: Recent labs reveal potassium of 3.1. Discussed concern for electrolyte abnormality. Recommend potassium supplementation however patient states cardiology ordered a BNP to check electrolytes today and she will check potassium level today. Will check BNP when available and rediscuss potassium supplementation if indicated. Discussed risk of hypokalemia including arrhythmias. Patient understanding. # Follow up 2 months for labs including CBC, CMP and A1C. Will review cardiology order for BMP when available after today's bloodwork. #Chronic A-fib: Anticoagulated on Eliquis 5 mg twice daily. Metoprolol for rate control. #Coronary artery disease: Continue daily aspirin, atorvastatin metoprolol 50 mg p.o. once daily. #Diabetes: Most recent A1c of 6%. Managed on metformin, jardiance and Mounjaro. Will follow-up in 2 months and repeat A1c. #Interstitial fibrosis:. Continue albuterol as needed. #GERD managed on omeprazole 40 mg. #Restless leg syndrome: Continue pramipexole and gabapentin. Followed by neurology. #History of incontinence: Followed by urology. #weight gain: Managed on Mounjaro 2.5 mg weekly injections per cardiology recommendations. Has had a 5 lb weight loss in 1 month. Given concern for age and risk of osteoporosis will continue low dose and refrain from higher doses given successful weight loss. Discussed need for lifestyle modifications. All questions answered to patients satisfaction. Patient verbalized understanding of diagnosis and treatments explained. To call sooner prior to next visit it any questions/concerns arise. Case discussed with collaborating physician Dr. Marvin who reviewed the assessment and plan. Chart, medications, labs, vital signs reviewed. Dictation was accomplished with the use of [facility] voice recognition software, prone to medical misidentifications and grammatical errors. This is unintentional and the practitioner does try to identify and correct these, but some could still be present. Please do not hesitate to contact practitioner for clarification. 12/19/2024 Arteriosclerotic coronary artery disease (ICD-10 - I25.10) Tanna is a pleasant 74-year-old female present today for follow-up. #Diabetes: A1c at last visit in August of 6.5%. Patient initiated on metformin 500 mg 2 tabs once daily. Since seeing cardiology, initiated on Jardiance 10 mg. A1c today office of 6%. Given significant weight gain in the past year as well as concern for diastolic heart failure, cardiology recommended GLP-1 therapy for intentional weight loss. Given diagnosis of diabetes, will prescribe Mounjaro 2.5 mg weekly injection. Discussed role of medication as well as side effect profile. Plan to follow-up in 1 month in regards to Mounjaro initiation. Will repeat A1c in 3 months. #Hypertension #diastolic heart failure: Followed by cardiology. Last seen 11/14/2024 with medication changes. Will follow-up in 1 month with cardiology. Continue Lasix 40 mg, metoprolol 50 mg and Jardiance 10 mg. Discontinue losartan. Blood pressure stable in office. Continue with the recommendations. #Chronic A-fib: Anticoagulated on Eliquis 5 mg twice daily. Metoprolol for rate control. #CAD: Continue aspirin 81 mg daily and atorvastatin. Will obtain blood work including lipids and review at follow-up. #Interstitial fibrosis: Chronic cough and chest x-ray revealed changes suggesting interstitial fibrosis. Referred to pulmonology. #Vitamin B12 deficiency: Obtains monthly B12 injections in office. #GERD: Managed on omeprazole 40 mg. #Restless leg syndrome: Continue pramipexole and gabapentin. Followed by neurology. Patient has since discontinued gabapentin and uses [id number] Tylenol as needed. #Right hip pain: followed by [facility]. All questions answered to patients satisfaction. Patient verbalized understanding of diagnosis and treatments explained. To call sooner prior to next visit it any questions/concerns arise. Case discussed with collaborating physician Dr. Marvin who reviewed the assessment and plan. Chart, medications, labs, vital signs reviewed. Dictation was accomplished with the use of [facility] voice recognition software, prone to medical misidentifications and grammatical errors. This is unintentional and the practitioner does try to identify and correct these, but some could still be present. Please do not hesitate to contact practitioner for clarification. 10/17/2024 Type 2 diabetes mellitus without complication, without long-term current use of insulin (ICD-10 - E11.9) Tanna is a pleasant 73-year-old female present today for hospital follow-up. #Hospitalized for acute on chronic diastolic congestive heart failure with acute decompensation and acute hypoxemic respiratory failure from 09/21 - 09/[address] [facility]. Patient presented with shortness of breath and lower extremity edema. Echocardiogram repeated in hospital noting ejection fraction of 65% with mild concentric hypertrophy. This improved from prior echocardiogram May 2024 revealing grade 3 diastolic dysfunction. Amlodipine and losartan held during hospital stay and patient was started on diuresis with Lasix 40 mg twice daily. Patient discharged with improvement of symptoms and restarted on amlodipine, however her losartan dose had changed to 25 mg and metoprolol succinate to 50 mg p.o. once daily. # Patient following up with cardiology next week. Per cardiology, consider adding spironolactone and SGLT-2 inhibitor to patient regimen. Patient to discuss with cardiology regarding initiating torsemide. Discussed the importance of daily weight-ins as well as low-salt diet. Recommend use of compression stockings in addition to lower extremity elevation at nighttime. Discussed the importance of looking for signs regarding fluid retention and to call the office or cardiology if this develops. Patient agreeable with plan. #Chronic A-fib: Anticoagulated on Eliquis 5 mg twice daily. Metoprolol for rate control. #Coronary artery disease: Continue daily aspirin, atorvastatin metoprolol 50 mg p.o. once daily. #Diabetes: Most recent A1c in office of 6.5%. Initiated on metformin ER 500 mg titrating up to 2 tabs p.o. once daily. Will follow-up in 3 months and repeat A1c. #Interstitial fibrosis: Patient developed a chronic cough and chest x-ray revealed changes suggesting interstitial fibrosis. Referred to pulmonology, Dr. Henderson. Recent CT chest with revealed no findings aside from atelectasis. Will continue with their recommendations. Continue albuterol as needed. #GERD managed on omeprazole 40 mg. #Restless leg syndrome: Continue pramipexole and gabapentin. Followed by neurology. #History of incontinence: Followed by urology. All questions answered to patients satisfaction. Patient verbalized understanding of diagnosis and treatments explained. To call sooner prior to next visit it any questions/concerns arise. Case discussed with collaborating physician Dr. Marvin who reviewed the assessment and plan. Chart, medications, labs, vital signs reviewed. Dictation was accomplished with the use of [facility] voice recognition software, prone to medical misidentifications and grammatical errors. This is unintentional and the practitioner does try to identify and correct these, but some could still be present. Please do not hesitate to contact practitioner for clarification. 09/15/2024 Interstitial pulmonary fibrosis (ICD-10 - J84.10) Tanna is a 73-year-old female presents today for 1 month follow-up. # Memory: Patient appears today to be at baseline with no further concern regarding altered mental status or change of baseline. #Elevated BMI: Switch from Contrave and begin trialing metformin. Discussed side effects including GI upset. Will prescribe to take 1 tab once daily x 2 weeks and then switch to 2 tabs once daily. Patient has A1c of 6.5%, so we will continue to monitor A1c for improvement. #Interstitial fibrosis: Patient developed a chronic cough and chest x-ray revealed changes suggesting interstitial fibrosis. Referred to pulmonology, Dr. Henderson. Recent CT chest with revealed no findings aside from atelectasis. Will continue with their recommendations. #B12 deficiency: Administer B12 today in office. # Diabetes: A1C of 6.5%. Initiating metformin ER 500 mg 1 tab once daily x 2 weeks then 2 tabs once daily x 2 weeks. #CHF: Followed by cardiology. Discussed low-sodium diet. Recommend compression stockings. Discussed importance of weighing daily and to call the office if she experiences extreme acute weight gain as this could be fluid retention. #Coronary artery disease #hyperlipidemia #hypertension #A-fib: Followed by cardiology. On anticoagulation with Eliquis 5 mg. BP managed on amlodipine 2.5, losartan 50 and metoprolol succinate extended release 50 mg. Hyperlipidemia managed on atorvastatin 80 mg. History of CHF and nonpitting lower extremity edema. Managed on Lasix 20 mg daily. #GERD managed on omeprazole 40 mg as needed. #Depression #restless leg: Continue pramipexole 0.75 mg daily and gabapentin 300 mg twice daily. Followed by neurology. States she does not have a visit scheduled. Would recommend calling to ensure she is not lost to follow-up. #History of incontinence: Followed by urology. #Plan to follow-up in 3 months. All questions answered to patients satisfaction. Patient verbalized understanding of diagnosis and treatments explained. To call sooner prior to next visit it any questions/concerns arise. Case discussed with collaborating physician Dr. Marvin who reviewed the assessment and plan. Chart, medications, labs, vital signs reviewed. Dictation was accomplished with the use of [facility] voice recognition software, prone to medical misidentifications and grammatical errors. This is unintentional and the practitioner does try to identify and correct these, but some could still be present. Please do not hesitate to contact practitioner for clarification. 09/26/2024 Type 2 diabetes mellitus without complication, without long-term current use of insulin (ICD-10 - E11.9) Tanna is a pleasant 73-year-old female present today for hospital follow-up. #Hospitalized for acute on chronic diastolic congestive heart failure with acute decompensation and acute hypoxemic respiratory failure from 09/21 - 09/[address] [facility]. # Patient presented with shortness of breath and lower extremity edema. Echocardiogram repeated in hospital noting ejection fraction of 65% with mild concentric hypertrophy. This improved from prior echocardiogram May 2024 revealing grade 3 diastolic dysfunction. Amlodipine and losartan held during hospital stay and patient was started on diuresis with Lasix 40 mg twice daily. Patient discharged with improvement of symptoms and restarted on amlodipine, however her losartan dose had changed to 25 mg and metoprolol succinate to 50 mg p.o. once daily. # [facility] services with nursing visits for BP checks. Has not started yet. # Supposed to schedule cardiology follow-up within 1 week for further evaluation. Reiterated the importance of a cardiology follow-up as patient was recommended to start torsemide 40 mg twice daily at home per cardiology, but was educated during hospital discharge to resume Lasix 40 mg. Patient obtain blood work today which revealed CBC within normal limits, pending BMP. Educated patient to continue medication regimen but follow-up with cardiology as necessary to discuss diuretics. Patient today has had improvement in lower extremity edema and feels though patient is stable to follow-up with cardiology in 1 week. Discussed the importance of daily weight ins as well as low-salt diet. Recommend use of compression stockings in addition to lower extremity elevation at nighttime. Discussed the importance of looking for signs regarding fluid retention and to call the office or cardiology if this develops. Patient agreeable with plan. #Chronic A-fib: Anticoagulated on Eliquis 5 mg twice daily. Metoprolol for rate control. #Coronary artery disease: Continue daily aspirin, atorvastatin metoprolol 50 mg p.o. once daily. #Diabetes: Most recent A1c in office of 6.5%. Initiated on metformin ER 500 mg titrating up to 2 tabs p.o. once daily. Will follow-up in 3 months and repeat A1c. #Interstitial fibrosis: Patient developed a chronic cough and chest x-ray revealed changes suggesting interstitial fibrosis. Referred to pulmonology, Dr. Henderson. Recent CT chest with revealed no findings aside from atelectasis. Will continue with their recommendations. Continue albuterol as needed. #GERD managed on omeprazole 40 mg. #Restless leg syndrome: Continue pramipexole and gabapentin. Followed by neurology. #History of incontinence: Followed by urology. All questions answered to patients satisfaction. Patient verbalized understanding of diagnosis and treatments explained. To call sooner prior to next visit it any questions/concerns arise. Case discussed with collaborating physician Dr. Marvin who reviewed the assessment and plan. Chart, medications, labs, vital signs reviewed. Dictation was accomplished with the use of [facility] voice recognition software, prone to medical misidentifications and grammatical errors. This is unintentional and the practitioner does try to identify and correct these, but some could still be present. Please do not hesitate to contact practitioner for clarification. 06/16/2024 B12 deficiency (ICD-10 - E53.8) Tanna is a 73-year-old female present today for follow-up. # Interstitial fibrosis: Has had chronic cough treated with multiple antibiotics and no resolution. Chest x-ray from 05/27/2024 revealing interstitial fibrosis. Referral has been placed for pulmonology and patient reports she had most likely received a call regarding this consultation visit scheduling, but did not return the call. Will check voicemails and look into scheduling this. In the meantime, will refill prescription for benzonatate as patient reports this has been helping with her cough in addition to continue using Flonase. #Weight gain: Patient reports excessive weight gain while on ropinirole. Was prescribed Contrave for which she took for 1 month prior to self discontinuing. States she did not have any weight loss and felt it was not working. Does endorse appetite suppression. States she did titrate up to 2 tabs in the morning and 2 tabs in the evening. Will be discussed with patient in regards to restarting this medication. #Restless leg syndrome: Followed by neurology with DrToña Campos, history of restless leg syndrome on pramipexole. #Hypertension: Blood pressure stable in office. Managed on losartan 50 mg p.o. once daily, metoprolol 50 mg twice daily amlodipine 2.5 mg daily. Followed by cardiology #B12 deficiency: Patient received RAO B12 injection today in office. This was my mistake and patient was not charged. Will schedule for vitamin B-12 injection in office and continue monthly. #CHF history of nonpitting lower extremity edema. Recently seen by cardiology and was told to double up on Lasix 20 mg x 7 days for fluid retention. #Lower leg pain: Gabapentin as needed All questions answered to patients satisfaction. Patient verbalized understanding of diagnosis and treatments explained. To call sooner prior to next visit it any questions/concerns arise. Case discussed with collaborating physician Dr. Marvin who reviewed the assessment and plan. Chart, medications, labs, vital signs reviewed. Dictation was accomplished with the use of [facility] voice recognition software, prone to medical misidentifications and grammatical errors. This is unintentional and the practitioner does try to identify and correct these, but some could still be present. Please do not hesitate to contact practitioner for clarification. 08/08/2024 Pulmonary fibrosis (ICD-10 - J84.10) Tanna is a 73-year-old female present today for weight management consultation. 08/08/2024: Wt: 191.3 lbs, BMI: 41.39 Patient congratulated on 6 pound weight loss since last visit. patient trialed on Contrave twice, but has not been consistent with this medication. Discussed Seca scale which revealed borderline low muscle mass in upper extremities. Discussed how GLP-1's would not be recommended as risk for potential further muscle loss. Patient admits she has not been consistent with the Contrave. Discussed with patient that Contrave or lifestyle would be the best for her in regards to weight loss. Patient willing to try Contrave 1 more time consistently. Will send prescription to [facility]. Advised patient to increase protein with a daily goal of at least 80 g of protein. Discussed increasing physical activity with short walks as patient gets dyspnea on exertion. Recommend patient purchase his resistance bands or light hand weights to strengthen upper extremities. Patient agreeable with plan. Plan follow-up in 4 weeks and repeat Seca scale. #Interstitial fibrosis: Has had a chronic cough with multiple antibiotics with no resolution. Chest x-ray from 05/27/2024 revealing interstitial fibrosis. Patient referred to [facility] pulmonology. Prescribed albuterol as needed, fluticasone propriety daily and Trelegy daily. Will continue with pulmonology recommendations. #Osteoarthritis: Patient previously received cortisone injections for chronic osteoarthritis of the right hip. Referred to orthopedics that she has not had a cortisone injection in the past year. #Restless leg syndrome: Patient had rapid weight gain since initiating ropinirole. No longer taking. Switch to mirtazapine to take at night. Followed by neurology. #Hypertension: Blood pressure stable in office. Plan to continue losartan 50 mg, metoprolol 50 mg twice daily, and amlodipine 2.5 mg. Followed by cardiology. #B12 deficiency: Patient receives monthly B12 injections in office. #CHF: Followed by cardiology and doubled up on Lasix x 7 days when needed. No pitting edema on exam today. Patient was reassured and welcomed to the practice. We discussed that we stress a hollistic medical approach with emphasis on lifestyle modification. Patient was informed that a healthy lifestyle with exercise and good eating habits can help reduce his risk of medical complications. Patient is explained that obesity increases his risk of diabetes, cardiovascular disease, or organ damage. We spent a lot of time discussing the relationship between food, exercise, sleep, mental health and obesity. Patient was counseled on the importance EATING local, organic food when possible. Patient was educated on clean 15 and dirty dozen. I provided information about reading books called The Food Rules by Олге Puckett and Eat Fat Get Lean by Dr Devon Villalba. Self education is important in the journey for weight management. Patient was offered diagnostic testing/ SECA scale. We want to measure visceral adiposity, advanced body composition, adverse lipids, fatty acid balance, risk for heart disease and atherosclerosis, markers of inflammation and genetic susceptibility. Patient was counseled on weight management and was advised to lose weight using A. Meal Replacement Products Patient was educated on the replacement products called optifast. This is a good way of taking fixed amount of calories. It has been shown in studies to be ineffective weight management tool. This however has to be coupled with lifestyle intervention as well as laboratory data and EKG monitoring. It is impossible to know how a person will tolerate complete meal replacement. The side effects of meal replacement and weight loss could include syncopal attacks, dizziness, gallstones, potential cholecystectomy, possible heart attack and even . The benefits of meal replacement would be potential weight loss but no guarantees can be made. Meal replacement products are not covered by insurance. Once the patient has bought these products we cannot return them B. Lifestyle management which includes several strategies as below 1. Eat a low carbohydrate good fat good protein diet. Eliminate refined carbohydrates from the diet. Limit sugared beverages. Eat local organic when possible. Cook your own meals. Read food labels. Focus on healthy snacks. Portion control and food with low glycemic index 2. Exercise regularly. Try to get at least 6000 steps a day. Use a predominant to track activity level. Consider using apps like 7 minute excercise, myRevo Roundpal, lose it, stick as needed for self-monitoring and weight management. Consider group exercises. Consider hiring a appraiser personal property. Regular exercise is nagy to sustainable health and prevents as a buffer against weight regain 3. Sleep is most important for healing. Try to sleep at least 6-8 hours a night. A good quality sleep needs a sleep ritual with ideal room temperature of around 68. It might help to take a shower and have no electronics in the room and sleep in a very dark room without artificial light. Start sleep routine and get up early in the morning and go to bed on time. 4. Make a social connection. Surround yourself with positive people with positive energy. Connect with friends and family. 5. Get into the habit of meditating and mindfulness while doing everything. 6. Go outside and connect with nature. C. Prescription medications Patient was educated on the use of prescription medications for medical weight loss. This is a growing list and includes phentermine, Topamax, Qsymia, contrave, belviq and saxenda, wegovy etc. All prescription medications could have side effects including but not limited to kidney stones, seizure disorder, cardiac arrhythmias, heart attack, pancreatitis, GI effects, Etc. Patient was encouraged to read the prescription insert and discuss with their pharmacist to make an informed decision about taking medication and know that these medications are being prescribed with good intentions and we do not know how a patient would react to her medication. Some medications are FDA approved for weight loss and there is also off label use depending on patient's inability to afford medications in an attempt to lose weight. D. Behavioral counseling was done to establish a relationship between food and an mood. Patient was provided information about local counseling and psychiatry and Dr Jimenez at [facility]. We would like to cover regular topics and build on low glycemic eating exercise mindful eating, using yoga and meditation along with deep breathing and connecting with friends and family. E. MASS PAT reviewed, Patient's current medications were reviewed and opinion was given on medication that can cause weight gain and can be substituted F. Patient was assessed for risk with obesity including and not limiting to atherosclerosis, heart disease, stroke, kidney disease, restrictive lung disease, irritable bowel syndrome and overall mortality. Risk of developing prediabetes diabetes and metabolic syndrome was discussed G. Therapeutic plan: We have decided to make therapeutic plan which would include choosing wisely on calories restricting portion getting active, tracking weight, getting good quality sleep and working on time management H. Patient will follow up in 4 weeks for weight management Total time spent today was 60 minutes of which greater than 50% was spent on coordinating and counseling Case discussed with collaborating physician Jonathan Marvin who reviewed the assessment and plan. Chart, medications, labs, vital signs reviewed. Dictation was accomplished with the use of [facility] voice recognition software, prone to medical misidentifications and grammatical errors. This is unintentional and the practitioner does try to identify and correct these, but some could still be present. Please do not hesitate to contact practitioner for clarification. All questions answered to patients satisfaction. Patient verbalized understanding of diagnosis and treatments explained. To call sooner prior to next visit it any questions/concerns arise. 07/03/2024 Restless leg syndrom e (ICD-10 - G25.81) Tanna is a 73-year-old female present today for 1 month follow-up. #Weight gain: Wt: 197.8 lbs, BMI: 42.8 patient frustrated and discouraged with weight gain. States she has had weight gain since being placed on ropinirole for restless leg syndrome. Was prescribed Contrave but self discontinued after 1 month. States she was not exercising or dieting well on the medication. Patient represcribed Contrave with clear instructions on how to titrate up the dose. Patient has not had a weight management consultation thus far. Advised patient today to call and schedule weight management consultation where we will complete a Seca scale and further discuss Contrave as well as lifestyle modifications. Will continue with 4-week follow-up following the consultation. Patient agreeable with plan. # Interstitial fibrosis: Has had chronic cough treated with multiple antibiotics and no resolution. Chest x-ray from 05/27/2024 revealing interstitial fibrosis. Referral has been placed for pulmonology. Patient was post to be seen today with Dr. Henderson, but unfortunately this had to be canceled and rescheduled to mid July. Patient prescribed albuterol as needed, fluticasone propionate daily, and Trelegy 200 mcg 1 puff inhalation daily. 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 Free sample provided today in office. This sample would be able to get patient to her pulmonology visit. Will be able to further discuss with Dr. Henderson regarding treatment plan. #Acute on chronic right hip pain #osteoarthritis: Patient previously followed by Dr. Gregg and received cortisone injections for chronic osteoarthritis of right hip. States she has not had a cortisone injection over a year. Patient had called the office between visits and [facility]. States she has an appointment scheduled to be seen, but unsure regarding date. Advised to call the office if this appointment follows through and she needs further referral. #Restless leg syndrome: Followed by neurology with Dr. Dr. Campos, history of restless leg syndrome on pramipexole. #Hypertension: Blood pressure stable in office. Managed on losartan 50 mg p.o. once daily, metoprolol 50 mg twice daily amlodipine 2.5 mg daily. Followed by cardiology #B12 deficiency: Plan to administer vitamin B12 injection in office and continue monthly. #CHF history of nonpitting lower extremity edema: Recently seen by cardiology and was told to double up on Lasix 20 mg x 7 days. Has since resolved. # Plan to schedule weight management consultation and follow-up regarding additional information of Contrave and lifestyle modifications. Plan to continue with 4-week follow-ups thereafter. Plan to follow-up in 3 months for primary care. All questions answered to patients satisfaction. Patient verbalized understanding of diagnosis and treatments explained. To call sooner prior to next visit it any questions/concerns arise. Case discussed with collaborating physician Dr. Marvin who reviewed the assessment and plan. Chart, medications, labs, vital signs reviewed. Dictation was accomplished with the use of [facility] voice recognition software, prone to medical misidentifications and grammatical errors. This is unintentional and the practitioner does try to identify and correct these, but some could still be present. Please do not hesitate to contact practitioner for clarification. 04/28/2024 History of CVA (cerebrovascular accident) (ICD-10 - Z86.73) #Admitted to [facility] 04/26/2024 and discharged 04/27/2024 secondary to acute bronchitis and COVID-19. Treated with Paxlovid, guanfacine, 1 g of IV ceftriaxone and 500 mg x 2 doses of azithromycin. Patient did have a chest x-ray showing cardiomegaly, and tracheobronchomalac ia. Discharged with routine care.Patient is feeling better. Continue with Compazine, and finished Paxlovid course. Discontinuing statin while on Paxlovid but otherwise is doing well. # Tanna reports that on 02/19 she was in her dining area when she reached down to pick something up and fell forward onto a radiator. This fall resulted in head strike with +LOC. The patient was transported to [facility] where the trauma surgery team was consulted and a workup was initiated. Extensive imaging was performed and the patient was found to have bilateral punctate subarachnoid hemorrhages with no mass effect, depressed left orbital floor fracture, left lateral orbital wall fracture, left anterior/posterior wall maxillary sinus fractures, left zygomatic arch fracture, and a left frontal scalp hematoma. The patient was additionally found to have a small laceration to left parietal scalp which was washed out and repaired with 3 jason. The patient was admitted where she was followed by neurosurgery, FS, medicine, and cardiology. Given subarachnoid hemorrhage Eliquis was held and the patient was started on Unasyn given sinus fractures. Repeat head CT without interval change, no neurosurgical intervention recommended. The patient was subsequently discharged 02/23 with instructions to follow-up with Dr. Eldridge with [facility]. She was provided a phone number for for [facility] ([phone]). Patient did reach out and make appointment. Furthermore the patient states home nursing services removed the jason from her head laceration earlier this week, on exam the laceration appears to be healing well there is no current bleeding/discharge. Bruising has improved.Continue to hold Eliquis until repeat CT scan of the head. She had her CAT scan which had improved, therefore patient resumed Eliquis on 04/10/2024. Results were faxed over to Dr. Campos. Continue to follow with neurology. Ensuring healing of subarachnoid hemorrhage. Patient to be cleared by ophthalmology and neurology prior to driving.Has initiated Eliquis again.Doing well. #Home safety: The patient lives at home with her . They live in a two-story home with her bedroom and the bathroom on the second level. There are no area rugs or identifiable tripping hazards per patient. Discussed utility of home alert devices such as life alert, the patient is amenable to this. She is encouraged to discuss this with her and son to work on getting a device. #HCP: Patient reports that her is her designated healthcare proxy. She additionally has a son who lives very close and is involved in her care. Filled out 03/23/2024 #HTN: BP stable in office. Continue losartan 50 mg daily, metoprolol 50 mg twice daily, and amlodipine 2.5 mg daily. #CHF: History of nonpitting lower extremity edema, Patient taking Lasix 20 mg as needed.Controlled at this time. Patient understands to take daily weights and consult medical provider should she experience a sudden weight gain. Follows with Dr. Castanon, cardiology. Next visit July 2024, Recently diagnosed with cardiomegaly in the emergency department 04/2024. #Prior CVA: Continue atorvastatin 80 mg daily. Holding well on Paxil level will initiate after discontinued Paxlovid. Reinitiation of Eliquis.Follows with neurology # Weight gain: Patient inquiring about GLP-1's. Based on age, and increased risk of sarcopenia I did recommend against this. Is open to trying alternative options such as Contrave. Initiated Contrave, has been tolerating fine. Has lost 4 pounds since last visit. Discussed the importance of lifestyle in conjunction. #GERD: Denies current symptoms of heartburn, reflux, regurgitation. Continue omeprazole 40 mg as needed. #Depression: Continue escitalopram 5 mg daily, Admits to uncontrolled depression, and difficulty sleeping. Will discontinue Lexapro, and initiate mirtazapine 15 mg at night. Also taking magnesium glycinate. Also taking Contrave which has a Wellbutrin component. Declined suicidal ideation. #Restless leg: Continue pramipexole 0.75 mg daily and gabapentin 300 mg twice daily.Following with neurology # Incontinence: History of bladder sling: Following with urology May 2024 Follow-up in 1 month, sooner as needed. Assess accuracy/compliance of mirtazapine for sleep/depression. All quetsions answered to patients satisfaction. Patient verbalized understanding of diagnosis and treatments explained. To call sooner prior to next visit it any questions/concerns arise. Case discussed with collaborating physician Josephine Marvin who reviewed the assessment and plan. Chart, medications, labs, vital signs reviewed. Dictation was accomplished with the use of [facility] voice recognition software, prone to medical misidentifications and grammatical errors. This is unintentional and the practitioner does try to identify and correct these, but some could still be present. Please do not hesitate to contact practitioner for clarification. 05/12/2024 History of CVA (cerebrovascular accident) (ICD-10 - Z86.73) # At the beginning of April patient was hospitalized for pneumonia and COVID-19. Admits to a lingering cough. States that it was better with guanfacine. Will send prescription. Lungs clear to auscultation, but she does admit to some shortness of breath. Will trial albuterol as needed while waiting for repeat chest x-ray to ensure resolution of symptoms. Did discuss conservative treatments.[facility] emergency department criteria. # Tanna reports that on 02/19 she was in her dining area when she reached down to pick something up and fell forward onto a radiator. This fall resulted in head strike with +LOC. The patient was transported to [facility] where the trauma surgery team was consulted and a workup was initiated. Extensive imaging was performed and the patient was found to have bilateral punctate subarachnoid hemorrhages with no mass effect, depressed left orbital floor fracture, left lateral orbital wall fracture, left anterior/posterior wall maxillary sinus fractures, left zygomatic arch fracture, and a left frontal scalp hematoma. The patient was additionally found to have a small laceration to left parietal scalp which was washed out and repaired with 3 jason. The patient was admitted where she was followed by neurosurgery, [facility], medicine, and cardiology. Given subarachnoid hemorrhage Eliquis was held and the patient was started on Unasyn given sinus fractures. Repeat head CT without interval change, no neurosurgical intervention recommended. The patient was subsequently discharged 02/23 with instructions to follow-up with Dr. Eldridge with [facility]. She was provided a phone number for for [facility] ([phone]). Patient did reach out and make appointment. Furthermore the patient states home nursing services removed the jason from her head laceration earlier this week, on exam the laceration appears to be healing well there is no current bleeding/discharge. Bruising has improved.Continue to hold Eliquis until repeat CT scan of the head. She had her CAT scan which had improved, therefore patient resumed Eliquis on 04/10/2024. Results were faxed over to Dr. Campos. Continue to follow with neurology. Ensuring healing of subarachnoid hemorrhage. Patient to be cleared by ophthalmology and neurology prior to driving.Has initiated Eliquis again.Doing well. #Home safety: The patient lives at home with her . They live in a two-story home with her bedroom and the bathroom on the second level. There are no area rugs or identifiable tripping hazards per patient. Discussed utility of home alert devices such as life alert, the patient is amenable to this. She is encouraged to discuss this with her and son to work on getting a device. #HCP: Patient reports that her is her designated healthcare proxy. She additionally has a son who lives very close and is involved in her care. Filled out 03/23/2024 #HTN: BP stable in office. Continue losartan 50 mg daily, metoprolol 50 mg twice daily, and amlodipine 2.5 mg daily. #CHF: History of nonpitting lower extremity edema, Patient taking Lasix 20 mg as needed.Controlled at this time. Patient understands to take daily weights and consult medical provider should she experience a sudden weight gain. Follows with Dr. Castanon, cardiology. Next visit July 2024, Recently diagnosed with cardiomegaly in the emergency department 04/2024. # Lower leg pain: Gabapentin as needed. Questioning vascular etiology secondary to leg fullness/pain/heavi ness. Will refer to vascular. #Prior CVA: Continue atorvastatin 80 mg daily. . Reinitiation of Eliquis.Follows with neurology # Weight gain: Patient inquiring about GLP-1's. Based on age, and increased risk of sarcopenia I did recommend against this. Is open to trying alternative options such as Contrave. Initiated Contrave, has been tolerating fine. Has gained weight since last visit with the holidays but states she is not doing any lifestyle changes. Will try to initiate lifestyle changes in conjunction with Contrave to see if there is improvement in weight loss. #GERD: Denies current symptoms of heartburn, reflux, regurgitation. Continue omeprazole 40 mg as needed. #Depression: Continue escitalopram 5 mg daily, Admits to uncontrolled depression, and difficulty sleeping. Will discontinue Lexapro, and initiate mirtazapine 15 mg at night. Also taking magnesium glycinate. Also taking Contrave which has a Wellbutrin component. Declined suicidal ideation.Patient states that sleep has improved.She is pleased with this. #Restless leg: Continue pramipexole 0.75 mg daily and gabapentin 300 mg twice daily.Following with neurology # Incontinence: History of bladder sling: Following with urology May 2024 Patient following up in 4 weeks, blood work in the meantime. All quetsions answered to patients satisfaction. Patient verbalized understanding of diagnosis and treatments explained. To call sooner prior to next visit it any questions/concerns arise. Case discussed with collaborating physician Josephine Marvin who reviewed the assessment and plan. Chart, medications, labs, vital signs reviewed. Dictation was accomplished with the use of [facility] voice recognition software, prone to medical misidentifications and grammatical errors. This is unintentional and the practitioner does try to identify and correct these, but some could still be present. Please do not hesitate to contact practitioner for clarification. 05/22/2024 Essential (primary) hypertension (ICD-10 - I10) # Paronychia: Will treat with Augmentin. Discussed proper use, side effects. This is of the right middle finger. If no improvement, consider referral to hand specialist.Discusse d proper use, side effects. Discussed that for incision and drainage, can follow-up with urgent care for this as we do not do this here. Questioning exposure to oral melchor therefore we will treat with Augmentin,/Warm salt water soaks. # At the beginning of April patient was hospitalized for pneumonia and COVID-19. Admits to a lingering cough. States that it was better with guanfacine. Will send prescription. Lungs clear to auscultation, but she does admit to some shortness of breath. Patient is been taking albuterol with some improvement. Still awaiting chest x-ray to ensure resolution of symptoms. Did discuss conservative treatments.[facility] emergency department criteria.Will reorder today. # Tanna reports that on 02/19 she was in her dining area when she reached down to pick something up and fell forward onto a radiator. This fall resulted in head strike with +LOC. The patient was transported to [facility] where the trauma surgery team was consulted and a workup was initiated. Extensive imaging was performed and the patient was found to have bilateral punctate subarachnoid hemorrhages with no mass effect, depressed left orbital floor fracture, left lateral orbital wall fracture, left anterior/posterior wall maxillary sinus fractures, left zygomatic arch fracture, and a left frontal scalp hematoma. The patient was additionally found to have a small laceration to left parietal scalp which was washed out and repaired with 3 jason. The patient was admitted where she was followed by neurosurgery, [facility], medicine, and cardiology. Given subarachnoid hemorrhage Eliquis was held and the patient was started on Unasyn given sinus fractures. Repeat head CT without interval change, no neurosurgical intervention recommended. The patient was subsequently discharged 02/23 with instructions to follow-up with Dr. Eldridge with [facility]. She was provided a phone number for for [facility] ([phone]). Patient did reach out and make appointment. Furthermore the patient states home nursing services removed the jason from her head laceration earlier this week, on exam the laceration appears to be healing well there is no current bleeding/discharge. Bruising has improved.Continue to hold Eliquis until repeat CT scan of the head. She had her CAT scan which had improved, therefore patient resumed Eliquis on 04/10/2024. Results were faxed over to Dr. Campos. Continue to follow with neurology. Ensuring healing of subarachnoid hemorrhage. Patient to be cleared by ophthalmology and neurology prior to driving.Has initiated Eliquis again.Doing well. #Home safety: The patient lives at home with her . They live in a two-story home with her bedroom and the bathroom on the second level. There are no area rugs or identifiable tripping hazards per patient. Discussed utility of home alert devices such as life alert, the patient is amenable to this. She is encouraged to discuss this with her and son to work on getting a device. #HCP: Patient reports that her is her designated healthcare proxy. She additionally has a son who lives very close and is involved in her care. Filled out 03/23/2024 #HTN: BP stable in office. Continue losartan 50 mg daily, metoprolol 50 mg twice daily, and amlodipine 2.5 mg daily. #CHF: History of nonpitting lower extremity edema, Patient taking Lasix 20 mg as needed.Controlled at this time. Patient understands to take daily weights and consult medical provider should she experience a sudden weight gain. Follows with Dr. Castanon, cardiology. Next visit July 2024, Recently diagnosed with cardiomegaly in the emergency department 04/2024. # Lower leg pain: Gabapentin as needed. Questioning vascular etiology secondary to leg fullness/pain/heavi ness. Will refer to vascular. #Prior CVA: Continue atorvastatin 80 mg daily. . Reinitiation of Eliquis.Follows with neurology # Weight gain: Patient inquiring about GLP-1's. Based on age, and increased risk of sarcopenia I did recommend against this. Is open to trying alternative options such as Contrave. Initiated Contrave, has been tolerating fine. Has gained weight since last visit with the holidays but states she is not doing any lifestyle changes. Will try to initiate lifestyle changes in conjunction with Contrave to see if there is improvement in weight loss.Patient states that Contrave is not working well at this time, but discussed the importance of lifestyle modifications, and time. #GERD: Denies current symptoms of heartburn, reflux, regurgitation. Continue omeprazole 40 mg as needed. #Depression: Continue escitalopram 5 mg daily, Admits to uncontrolled depression, and difficulty sleeping. Will discontinue Lexapro, and initiate mirtazapine 15 mg at night. Also taking magnesium glycinate. Also taking Contrave which has a Wellbutrin component. Declined suicidal ideation.Patient states that sleep has improved.She is pleased with this. #Restless leg: Continue pramipexole 0.75 mg daily and gabapentin 300 mg twice daily.Following with neurology # Incontinence: History of bladder sling: Following with urology May 2024 Patient following up in 4 weeks, blood work in the meantime. All quetsions answered to patients satisfaction. Patient verbalized understanding of diagnosis and treatments explained. To call sooner prior to next visit it any questions/concerns arise. Case discussed with collaborating physician Josephine Marvin who reviewed the assessment and plan. Chart, medications, labs, vital signs reviewed. Dictation was accomplished with the use of [facility] voice recognition software, prone to medical misidentifications and grammatical errors. This is unintentional and the practitioner does try to identify and correct these, but some could still be present. Please do not hesitate to contact practitioner for clarification. 03/15/2024 History of CVA (cerebrovascular accident) (ICD-10 - Z86.73) Tanna is a 73-year-old female with a PMH of CAD s/p DC with cardiac cath (2021), CHFrEF, HTN, prior CVA, GERD, esophageal dysmotility, restless leg that presents for Follow-up. Recently seen for hospital follow-up on 03/01/2024 in the [place] office with AMELIA Cordero. Tanna reports that on 02/19 she was in her dining area when she reached down to pick something up and fell forward onto a radiator. This fall resulted in head strike with +LOC. The patient was transported to [facility] where the trauma surgery team was consulted and a workup was initiated. Extensive imaging was performed and the patient was found to have bilateral punctate subarachnoid hemorrhages with no mass effect, depressed left orbital floor fracture, left lateral orbital wall fracture, left anterior/posterior wall maxillary sinus fractures, left zygomatic arch fracture, and a left frontal scalp hematoma. The patient was additionally found to have a small laceration to left parietal scalp which was washed out and repaired with 3 jason. The patient was admitted where she was followed by neurosurgery, [facility], medicine, and cardiology. Given subarachnoid hemorrhage Eliquis was held and the patient was started on Unasyn given sinus fractures. Repeat head CT without interval change, no neurosurgical intervention recommended. The patient was subsequently discharged 02/23 with instructions to follow-up with Dr. Eldridge with [facility]. She was provided a phone number for for [facility] ([phone]). Patient did reach out and make appointment. Furthermore the patient states home nursing services removed the jason from her head laceration earlier this week, on exam the laceration appears to be healing well there is no current bleeding/discharge. Bruising has improved. Plan to hold Eliquis until next scheduled appointment 03/23 as recommended by neurosurgery. I did call Dr. Campos today, and left a message with his bio medical technician to see whether he would appreciate CT of the head prior to reinitiation of Eliquis To ensure resolution/healing of subarachnoid hemorrhage. Strict ED protocol was provided. The patient understands to seek immediate medical attention/dial 911 should she develop severe headache, nausea, vomiting, visual disturbance, localized weakness, confusion, difficulty speaking, gait disturbance, chest pain, difficulty breathing, etc. #Home safety: The patient lives at home with her . They live in a two-story home with her bedroom and the bathroom on the second level. There are no area rugs or identifiable tripping hazards per patient. Discussed utility of home alert devices such as life alert, the patient is amenable to this. She is encouraged to discuss this with her and son to work on getting a device. #HCP: Patient reports that her is her designated healthcare proxy. She additionally has a son who lives very close and is involved in her care. #HTN: BP stable in office. Continue losartan 50 mg daily, metoprolol 50 mg twice daily, and amlodipine 2.5 mg daily. #CHF: No current swelling of bilateral lower extremities, lungs CTA. Hold Lasix. Patient understands to take daily weights and consult medical provider should she experience a sudden weight gain to discuss need for reinitiating therapy with Lasix. #Prior CVA: Continue atorvastatin 80 mg daily. Hold Eliquis until next scheduled appointment as recommended by neurosurgery. Will consider additional head CT to evaluate resolution of subarachnoid hemorrhage prior to reinitiating therapy with Eliquis.Message left with Dr. Villavicencio #GERD: Denies current symptoms of heartburn, reflux, regurgitation. Continue omeprazole 40 mg as needed. #Depression: Continue escitalopram 5 mg daily. #Restless leg: Continue pramipexole 0.75 mg daily and gabapentin 300 mg twice daily. Following up next week for Medicare wellness visit, sooner as needed All quetsions answered to patients satisfaction. Patient verbalized understanding of diagnosis and treatments explained. To call sooner prior to next visit it any questions/concerns arise. Case discussed with collaborating physician Josephine Marvin who reviewed the assessment and plan. Chart, medications, labs, vital signs reviewed. Dictation was accomplished with the use of [facility] voice recognition software, prone to medical misidentifications and grammatical errors. This is unintentional and the practitioner does try to identify and correct these, but some could still be present. Please do not hesitate to contact practitioner for clarification. 03/23/2024 Essential (primary) hypertension (ICD-10 - I10) Tanna is a 73-year-old female with a PMH of CAD s/p DC with cardiac cath (2021), CHFrEF, HTN, prior CVA, GERD, esophageal dysmotility, restless leg that presents forMedicare wellness visit.Patient up-to-date on all vaccines, scheduling mammogram and otherwise up-to-date on screening tests, ordering bone density today. Healthcare proxy is her Clarke, filled out in office today. PHQ-9 with a total score of 2, no concern regarding mental health at this time.Audit negative. # Hospital visit: Tanna reports that on 02/19 she was in her dining area when she reached down to pick something up and fell forward onto a radiator. This fall resulted in head strike with +LOC. The patient was transported to [facility] where the trauma surgery team was consulted and a workup was initiated. Extensive imaging was performed and the patient was found to have bilateral punctate subarachnoid hemorrhages with no mass effect, depressed left orbital floor fracture, left lateral orbital wall fracture, left anterior/posterior wall maxillary sinus fractures, left zygomatic arch fracture, and a left frontal scalp hematoma. The patient was additionally found to have a small laceration to left parietal scalp which was washed out and repaired with 3 jason. The patient was admitted where she was followed by neurosurgery, [facility], medicine, and cardiology. Given subarachnoid hemorrhage Eliquis was held and the patient was started on Unasyn given sinus fractures. Repeat head CT without interval change, no neurosurgical intervention recommended. The patient was subsequently discharged 02/23 with instructions to follow-up with Dr. Eldridge with [facility]. She was provided a phone number for for [facility] ([phone]). Patient did reach out and make appointment. Furthermore the patient states home nursing services removed the jason from her head laceration earlier this week, on exam the laceration appears to be healing well there is no current bleeding/discharge. Bruising has improved. Continue holding Eliquis until repeat CT scan of the head, and consider reinitiation of Eliquis, CT ordered after conversation with Dr. Campos today. He preferred that I ordered it myself. If any concern, patient will follow-up with neurology. Trying to ensure resolution/healing of subarachnoid hemorrhage.Patient holding off on driving until cleared by ophthalmology and neurology. Strict ED protocol was provided. The patient understands to seek immediate medical attention/dial 911 should she develop severe headache, nausea, vomiting, visual disturbance, localized weakness, confusion, difficulty speaking, gait disturbance, chest pain, difficulty breathing, etc. #Home safety: The patient lives at home with her . They live in a two-story home with her bedroom and the bathroom on the second level. There are no area rugs or identifiable tripping hazards per patient. Discussed utility of home alert devices such as life alert, the patient is amenable to this. She is encouraged to discuss this with her and son to work on getting a device. #HCP: Patient reports that her is her designated healthcare proxy. She additionally has a son who lives very close and is involved in her care. Filled out 03/23/2024 #HTN: BP stable in office. Continue losartan 50 mg daily, metoprolol 50 mg twice daily, and amlodipine 2.5 mg daily. #CHF: 1+ nonpitting edema bilateral lower extremities. Patient taking Lasix 20 mg as needed. Will take it daily for the next week. Could be associated to some of her weight gain. Patient understands to take daily weights and consult medical provider should she experience a sudden weight gain. Follows with Dr. Castanon, cardiology. Next visit July 2024 #Prior CVA: Continue atorvastatin 80 mg daily. Hold Eliquis until repeat CT confirms improvement in subarachnoid hemorrhage. Patient following with neurosurgery. # Weight gain: Patient inquiring about GLP-1's. Based on age, and increased risk of sarcopenia I did recommend against this. Is open to trying alternative options such as Contrave. Has taken Wellbutrin in the past for tobacco cessation, which worked very well. Will take Contrave, discussed proper use, side effects, long-term risks. Overall, blood work is within normal limits, and did have a CT of her abdomen back in November 2023 which was normal. Patient is following with gastroenterology April 18. Follow-up in 6 weeks Here, But going to hold off on Contrave until she has the CT, and is back on Eliquis. #GERD: Denies current symptoms of heartburn, reflux, regurgitation. Continue omeprazole 40 mg as needed. #Depression: Continue escitalopram 5 mg daily. #Restless leg: Continue pramipexole 0.75 mg daily and gabapentin 300 mg twice daily.Following with neurology Follow-up to assess efficacy/compliance of Contrave, as well as leg swelling, and initiation of Eliquis. Patient seen and examined. Comprehensive discussion was done on the following. 1. Nutrition: It is important to follow a healthy diet based on lots of vegetables and legumes and good fat. Avoid processed food and processed carbohydrates. Prepare your own meals. Read labels and avoid high fructose corn syrup, processed chemicals added to increase shelf life and preprepared meals. Avoid fast foods. Eat slowly and plan meals for a week. Try to count calories and be mindful of daily calorie intake. Get into the habit of keeping an eye on your weight by using an appropriate scale. Learn to log exercise and discussed fitness Apps like Myfacepage/[employer] which can help keep log off calories taken versus calories burned. Local food should be preferred. Discussed Dirty Dozen Versus Clean Fifteen. Discussed healthy supplements like fish oil, Tumeric, Curcumin, Melatonin, Resveratrol, Probiotics, Vitamin-D, Alpha-Lipoic acid, Vitamin-D and coconut oil. 2. It is important to exercise regularly. Is a good habit to walk at least 30 minutes a day. Gentle weightlifting with standard precautions to protect the back. Finding activity like cycling or hiking and get into the habit of engaging in it. Stretching before and after the exercises important. It is also important to contact me if there are any problems like shortness of breath, chest pain, back pain and joint or muscle pain associated with the exercise. 3. Discussed age appropriate screening guidelines. Colonoscopy needs to start at age 50 with stool for occult blood as appropriate. There is a new test that can test for genetic abnormalities in the stool sample, Cologuard. This would not replace a colonoscopy but could be used as a screening tool for patients who do not want a colonoscopy. We discussed the importance of early detection of colon cancer. 4. Discussed current PSA screening. PSA screening can be done in most patients between age 50 and 65. However early detection of prostate cancer needs to carefully be balanced with complications with treatment. These include incontinence, impotence etc. Each patient should decide if they would like to have this test. 5. Discussed safe driving and no use of smart phone while driving 6. Age-appropriate immunizations were discussed. A tetanus booster is needed every 10 years. Flu vaccine is recommended every year just before the start of the flu season. Shingles vaccine is recommended after age 50 but not all insurances cover it. Pneumonia vaccine is given after age 65 unless there are certain comorbidities for which it is started earlier. 7. Diagnostic labs were discussed. These could include/not limited to CBC CMP and lipids with fasting blood glucose and insulin levels. Vitamin D and hemoglobin A1c testing might be appropriate. All quetsions answered to patients satisfaction. Patient verbalized understanding of diagnosis and treatments explained. To call sooner prior to next visit it any questions/concerns arise. Case discussed with collaborating physician Josephine Marvin who reviewed the assessment and plan. Chart, medications, labs, vital signs reviewed. Dictation was accomplished with the use of [facility] voice recognition software, prone to medical misidentifications and grammatical errors. This is unintentional and the practitioner does try to identify and correct these, but some could still be present. Please do not hesitate to contact practitioner for clarification. 03/15/2024 History of gastroesophageal reflux (GERD) (ICD-10 - Z87.19) Tanna is a 73-year-old female with a PMH of CAD s/p DC with cardiac cath (2021), CHFrEF, HTN, prior CVA, GERD, esophageal dysmotility, restless leg that presents for Follow-up. Recently seen for hospital follow-up on 03/01/2024 in the [place] office with AMELIA Cordero. Tanna reports that on 02/19 she was in her dining area when she reached down to pick something up and fell forward onto a radiator. This fall resulted in head strike with +LOC. The patient was transported to [facility] where the trauma surgery team was consulted and a workup was initiated. Extensive imaging was performed and the patient was found to have bilateral punctate subarachnoid hemorrhages with no mass effect, depressed left orbital floor fracture, left lateral orbital wall fracture, left anterior/posterior wall maxillary sinus fractures, left zygomatic arch fracture, and a left frontal scalp hematoma. The patient was additionally found to have a small laceration to left parietal scalp which was washed out and repaired with 3 jason. The patient was admitted where she was followed by neurosurgery, [facility], medicine, and cardiology. Given subarachnoid hemorrhage Eliquis was held and the patient was started on Unasyn given sinus fractures. Repeat head CT without interval change, no neurosurgical intervention recommended. The patient was subsequently discharged 02/23 with instructions to follow-up with Dr. Eldridge with [facility]. She was provided a phone number for for [facility] ([phone]). Patient did reach out and make appointment. Furthermore the patient states home nursing services removed the jason from her head laceration earlier this week, on exam the laceration appears to be healing well there is no current bleeding/discharge. Bruising has improved. Plan to hold Eliquis until next scheduled appointment 03/23 as recommended by neurosurgery. I did call Dr. Campos today, and left a message with his bio medical technician to see whether he would appreciate CT of the head prior to reinitiation of Eliquis To ensure resolution/healing of subarachnoid hemorrhage. Strict ED protocol was provided. The patient understands to seek immediate medical attention/dial 911 should she develop severe headache, nausea, vomiting, visual disturbance, localized weakness, confusion, difficulty speaking, gait disturbance, chest pain, difficulty breathing, etc. #Home safety: The patient lives at home with her . They live in a two-story home with her bedroom and the bathroom on the second level. There are no area rugs or identifiable tripping hazards per patient. Discussed utility of home alert devices such as life alert, the patient is amenable to this. She is encouraged to discuss this with her and son to work on getting a device. #HCP: Patient reports that her is her designated healthcare proxy. She additionally has a son who lives very close and is involved in her care. #HTN: BP stable in office. Continue losartan 50 mg daily, metoprolol 50 mg twice daily, and amlodipine 2.5 mg daily. #CHF: No current swelling of bilateral lower extremities, lungs CTA. Hold Lasix. Patient understands to take daily weights and consult medical provider should she experience a sudden weight gain to discuss need for reinitiating therapy with Lasix. #Prior CVA: Continue atorvastatin 80 mg daily. Hold Eliquis until next scheduled appointment as recommended by neurosurgery. Will consider additional head CT to evaluate resolution of subarachnoid hemorrhage prior to reinitiating therapy with Eliquis.Message left with Dr. Villavicencio #GERD: Denies current symptoms of heartburn, reflux, regurgitation. Continue omeprazole 40 mg as needed. #Depression: Continue escitalopram 5 mg daily. #Restless leg: Continue pramipexole 0.75 mg daily and gabapentin 300 mg twice daily. Following up next week for Medicare wellness visit, sooner as needed All quetsions answered to patients satisfaction. Patient verbalized understanding of diagnosis and treatments explained. To call sooner prior to next visit it any questions/concerns arise. Case discussed with collaborating physician Josephine Marvin who reviewed the assessment and plan. Chart, medications, labs, vital signs reviewed. Dictation was accomplished with the use of [facility] voice recognition software, prone to medical misidentifications and grammatical errors. This is unintentional and the practitioner does try to identify and correct these, but some could still be present. Please do not hesitate to contact practitioner for clarification. 03/23/2024 History of CVA (cerebrovascular accident) (ICD-10 - Z86.73) Tanna is a 73-year-old female with a PMH of CAD s/p DC with cardiac cath (2021), CHFrEF, HTN, prior CVA, GERD, esophageal dysmotility, restless leg that presents forMedicare wellness visit.Patient up-to-date on all vaccines, scheduling mammogram and otherwise up-to-date on screening tests, ordering bone density today. Healthcare proxy is her Clarke, filled out in office today. PHQ-9 with a total score of 2, no concern regarding mental health at this time.Audit negative. # Hospital visit: Tanna reports that on 02/19 she was in her dining area when she reached down to pick something up and fell forward onto a radiator. This fall resulted in head strike with +LOC. The patient was transported to [facility] where the trauma surgery team was consulted and a workup was initiated. Extensive imaging was performed and the patient was found to have bilateral punctate subarachnoid hemorrhages with no mass effect, depressed left orbital floor fracture, left lateral orbital wall fracture, left anterior/posterior wall maxillary sinus fractures, left zygomatic arch fracture, and a left frontal scalp hematoma. The patient was additionally found to have a small laceration to left parietal scalp which was washed out and repaired with 3 jason. The patient was admitted where she was followed by neurosurgery, OMFS, medicine, and cardiology. Given subarachnoid hemorrhage Eliquis was held and the patient was started on Unasyn given sinus fractures. Repeat head CT without interval change, no neurosurgical intervention recommended. The patient was subsequently discharged 02/23 with instructions to follow-up with Dr. Eldridge with [facility]. She was provided a phone number for for OMFS ([phone]). Patient did reach out and make appointment. Furthermore the patient states home nursing services removed the jason from her head laceration earlier this week, on exam the laceration appears to be healing well there is no current bleeding/discharge. Bruising has improved. Continue holding Eliquis until repeat CT scan of the head, and consider reinitiation of Eliquis, CT ordered after conversation with Dr. Campos today. He preferred that I ordered it myself. If any concern, patient will follow-up with neurology. Trying to ensure resolution/healing of subarachnoid hemorrhage.Patient holding off on driving until cleared by ophthalmology and neurology. Strict ED protocol was provided. The patient understands to seek immediate medical attention/dial 911 should she develop severe headache, nausea, vomiting, visual disturbance, localized weakness, confusion, difficulty speaking, gait disturbance, chest pain, difficulty breathing, etc. #Home safety: The patient lives at home with her . They live in a two-story home with her bedroom and the bathroom on the second level. There are no area rugs or identifiable tripping hazards per patient. Discussed utility of home alert devices such as life alert, the patient is amenable to this. She is encouraged to discuss this with her and son to work on getting a device. #HCP: Patient reports that her is her designated healthcare proxy. She additionally has a son who lives very close and is involved in her care. Filled out 03/23/2024 #HTN: BP stable in office. Continue losartan 50 mg daily, metoprolol 50 mg twice daily, and amlodipine 2.5 mg daily. #CHF: 1+ nonpitting edema bilateral lower extremities. Patient taking Lasix 20 mg as needed. Will take it daily for the next week. Could be associated to some of her weight gain. Patient understands to take daily weights and consult medical provider should she experience a sudden weight gain. Follows with Dr. Castanon, cardiology. Next visit July 2024 #Prior CVA: Continue atorvastatin 80 mg daily. Hold Eliquis until repeat CT confirms improvement in subarachnoid hemorrhage. Patient following with neurosurgery. # Weight gain: Patient inquiring about GLP-1's. Based on age, and increased risk of sarcopenia I did recommend against this. Is open to trying alternative options such as Contrave. Has taken Wellbutrin in the past for tobacco cessation, which worked very well. Will take Contrave, discussed proper use, side effects, long-term risks. Overall, blood work is within normal limits, and did have a CT of her abdomen back in November 2023 which was normal. Patient is following with gastroenterology April 18. Follow-up in 6 weeks Here, But going to hold off on Contrave until she has the CT, and is back on Eliquis. #GERD: Denies current symptoms of heartburn, reflux, regurgitation. Continue omeprazole 40 mg as needed. #Depression: Continue escitalopram 5 mg daily. #Restless leg: Continue pramipexole 0.75 mg daily and gabapentin 300 mg twice daily.Following with neurology Follow-up to assess efficacy/compliance of Contrave, as well as leg swelling, and initiation of Eliquis. Patient seen and examined. Comprehensive discussion was done on the following. 1. Nutrition: It is important to follow a healthy diet based on lots of vegetables and legumes and good fat. Avoid processed food and processed carbohydrates. Prepare your own meals. Read labels and avoid high fructose corn syrup, processed chemicals added to increase shelf life and preprepared meals. Avoid fast foods. Eat slowly and plan meals for a week. Try to count calories and be mindful of daily calorie intake. Get into the habit of keeping an eye on your weight by using an appropriate scale. Learn to log exercise and discussed fitness Apps like Rebellepal/loseit which can help keep log off calories taken versus calories burned. Local food should be preferred. Discussed Dirty Dozen Versus Clean Fifteen. Discussed healthy supplements like fish oil, Tumeric, Curcumin, Melatonin, Resveratrol, Probiotics, Vitamin-D, Alpha-Lipoic acid, Vitamin-D and coconut oil. 2. It is important to exercise regularly. Is a good habit to walk at least 30 minutes a day. Gentle weightlifting with standard precautions to protect the back. Finding activity like cycling or hiking and get into the habit of engaging in it. Stretching before and after the exercises important. It is also important to contact me if there are any problems like shortness of breath, chest pain, back pain and joint or muscle pain associated with the exercise. 3. Discussed age appropriate screening guidelines. Colonoscopy needs to start at age 50 with stool for occult blood as appropriate. There is a new test that can test for genetic abnormalities in the stool sample, Cologuard. This would not replace a colonoscopy but could be used as a screening tool for patients who do not want a colonoscopy. We discussed the importance of early detection of colon cancer. 4. Discussed current PSA screening. PSA screening can be done in most patients between age 50 and 65. However early detection of prostate cancer needs to carefully be balanced with complications with treatment. These include incontinence, impotence etc. Each patient should decide if they would like to have this test. 5. Discussed safe driving and no use of smart phone while driving 6. Age-appropriate immunizations were discussed. A tetanus booster is needed every 10 years. Flu vaccine is recommended every year just before the start of the flu season. Shingles vaccine is recommended after age 50 but not all insurances cover it. Pneumonia vaccine is given after age 65 unless there are certain comorbidities for which it is started earlier. 7. Diagnostic labs were discussed. These could include/not limited to CBC CMP and lipids with fasting blood glucose and insulin levels. Vitamin D and hemoglobin A1c testing might be appropriate. All quetsions answered to patients satisfaction. Patient verbalized understanding of diagnosis and treatments explained. To call sooner prior to next visit it any questions/concerns arise. Case discussed with collaborating physician Josephine Marvin who reviewed the assessment and plan. Chart, medications, labs, vital signs reviewed. Dictation was accomplished with the use of [facility] voice recognition software, prone to medical misidentifications and grammatical errors. This is unintentional and the practitioner does try to identify and correct these, but some could still be present. Please do not hesitate to contact practitioner for clarification. 05/12/2024 Difficulty sleeping (ICD-10 - G47.9) # At the beginning of April patient was hospitalized for pneumonia and COVID-19. Admits to a lingering cough. States that it was better with guanfacine. Will send prescription. Lungs clear to auscultation, but she does admit to some shortness of breath. Will trial albuterol as needed while waiting for repeat chest x-ray to ensure resolution of symptoms. Did discuss conservative treatments.[facility] emergency [facility] criteria. # Tanna reports that on 02/19 she was in her dining area when she reached down to pick something up and fell forward onto a radiator. This fall resulted in head strike with +LOC. The patient was transported to [facility] where the trauma surgery team was consulted and a workup was initiated. Extensive imaging was performed and the patient was found to have bilateral punctate subarachnoid hemorrhages with no mass effect, depressed left orbital floor fracture, left lateral orbital wall fracture, left anterior/posterior wall maxillary sinus fractures, left zygomatic arch fracture, and a left frontal scalp hematoma. The patient was additionally found to have a small laceration to left parietal scalp which was washed out and repaired with 3 jason. The patient was admitted where she was followed by neurosurgery, OMFS, medicine, and cardiology. Given subarachnoid hemorrhage Eliquis was held and the patient was started on Unasyn given sinus fractures. Repeat head CT without interval change, no neurosurgical intervention recommended. The patient was subsequently discharged 02/23 with instructions to follow-up with Dr. Eldridge with [facility]. She was provided a phone number for for [facility] ([phone]). Patient did reach out and make appointment. Furthermore the patient states home nursing services removed the jason from her head laceration earlier this week, on exam the laceration appears to be healing well there is no current bleeding/discharge. Bruising has improved.Continue to hold Eliquis until repeat CT scan of the head. She had her CAT scan which had improved, therefore patient resumed Eliquis on 04/10/2024. Results were faxed over to Dr. Campos. Continue to follow with neurology. Ensuring healing of subarachnoid hemorrhage. Patient to be cleared by ophthalmology and neurology prior to driving.Has initiated Eliquis again.Doing well. #Home safety: The patient lives at home with her . They live in a two-story home with her bedroom and the bathroom on the second level. There are no area rugs or identifiable tripping hazards per patient. Discussed utility of home alert devices such as life alert, the patient is amenable to this. She is encouraged to discuss this with her and son to work on getting a device. #HCP: Patient reports that her is her designated healthcare proxy. She additionally has a son who lives very close and is involved in her care. Filled out 03/23/2024 #HTN: BP stable in office. Continue losartan 50 mg daily, metoprolol 50 mg twice daily, and amlodipine 2.5 mg daily. #CHF: History of nonpitting lower extremity edema, Patient taking Lasix 20 mg as needed.Controlled at this time. Patient understands to take daily weights and consult medical provider should she experience a sudden weight gain. Follows with Dr. Castanon, cardiology. Next visit July 2024, Recently diagnosed with cardiomegaly in the emergency department 04/2024. # Lower leg pain: Gabapentin as needed. Questioning vascular etiology secondary to leg fullness/pain/heavi ness. Will refer to vascular. #Prior CVA: Continue atorvastatin 80 mg daily. . Reinitiation of Eliquis.Follows with neurology # Weight gain: Patient inquiring about GLP-1's. Based on age, and increased risk of sarcopenia I did recommend against this. Is open to trying alternative options such as Contrave. Initiated Contrave, has been tolerating fine. Has gained weight since last visit with the holidays but states she is not doing any lifestyle changes. Will try to initiate lifestyle changes in conjunction with Contrave to see if there is improvement in weight loss. #GERD: Denies current symptoms of heartburn, reflux, regurgitation. Continue omeprazole 40 mg as needed. #Depression: Continue escitalopram 5 mg daily, Admits to uncontrolled depression, and difficulty sleeping. Will discontinue Lexapro, and initiate mirtazapine 15 mg at night. Also taking magnesium glycinate. Also taking Contrave which has a Wellbutrin component. Declined suicidal ideation.Patient states that sleep has improved.She is pleased with this. #Restless leg: Continue pramipexole 0.75 mg daily and gabapentin 300 mg twice daily.Following with neurology # Incontinence: History of bladder sling: Following with urology May 2024 Patient following up in 4 weeks, blood work in the meantime. All quetsions answered to patients satisfaction. Patient verbalized understanding of diagnosis and treatments explained. To call sooner prior to next visit it any questions/concerns arise. Case discussed with collaborating physician Josephine Marvin who reviewed the assessment and plan. Chart, medications, labs, vital signs reviewed. Dictation was accomplished with the use of [facility] voice recognition software, prone to medical misidentifications and grammatical errors. This is unintentional and the practitioner does try to identify and correct these, but some could still be present. Please do not hesitate to contact practitioner for clarification. 05/22/2024 History of CVA (cerebrovascular accident) (ICD-10 - Z86.73) # Paronychia: Will treat with Augmentin. Discussed proper use, side effects. This is of the right middle finger. If no improvement, consider referral to hand specialist.Discusse d proper use, side effects. Discussed that for incision and drainage, can follow-up with urgent care for this as we do not do this here. Questioning exposure to oral melchor therefore we will treat with Augmentin,/Warm salt water soaks. # At the beginning of April patient was hospitalized for pneumonia and COVID-19. Admits to a lingering cough. States that it was better with guanfacine. Will send prescription. Lungs clear to auscultation, but she does admit to some shortness of breath. Patient is been taking albuterol with some improvement. Still awaiting chest x-ray to ensure resolution of symptoms. Did discuss conservative treatments.[facility] emergency department criteria.Will reorder today. # Tanna reports that on 02/19 she was in her dining area when she reached down to pick something up and fell forward onto a radiator. This fall resulted in head strike with +LOC. The patient was transported to [facility] where the trauma surgery team was consulted and a workup was initiated. Extensive imaging was performed and the patient was found to have bilateral punctate subarachnoid hemorrhages with no mass effect, depressed left orbital floor fracture, left lateral orbital wall fracture, left anterior/posterior wall maxillary sinus fractures, left zygomatic arch fracture, and a left frontal scalp hematoma. The patient was additionally found to have a small laceration to left parietal scalp which was washed out and repaired with 3 jason. The patient was admitted where she was followed by neurosurgery, OMFS, medicine, and cardiology. Given subarachnoid hemorrhage Eliquis was held and the patient was started on Unasyn given sinus fractures. Repeat head CT without interval change, no neurosurgical intervention recommended. The patient was subsequently discharged 02/23 with instructions to follow-up with Dr. Eldridge with [facility]. She was provided a phone number for for [facility] ([phone]). Patient did reach out and make appointment. Furthermore the patient states home nursing services removed the jason from her head laceration earlier this week, on exam the laceration appears to be healing well there is no current bleeding/discharge. Bruising has improved.Continue to hold Eliquis until repeat CT scan of the head. She had her CAT scan which had improved, therefore patient resumed Eliquis on 04/10/2024. Results were faxed over to Dr. Campso. Continue to follow with neurology. Ensuring healing of subarachnoid hemorrhage. Patient to be cleared by ophthalmology and neurology prior to driving.Has initiated Eliquis again.Doing well. #Home safety: The patient lives at home with her . They live in a two-story home with her bedroom and the bathroom on the second level. There are no area rugs or identifiable tripping hazards per patient. Discussed utility of home alert devices such as life alert, the patient is amenable to this. She is encouraged to discuss this with her and son to work on getting a device. #HCP: Patient reports that her is her designated healthcare proxy. She additionally has a son who lives very close and is involved in her care. Filled out 03/23/2024 #HTN: BP stable in office. Continue losartan 50 mg daily, metoprolol 50 mg twice daily, and amlodipine 2.5 mg daily. #CHF: History of nonpitting lower extremity edema, Patient taking Lasix 20 mg as needed.Controlled at this time. Patient understands to take daily weights and consult medical provider should she experience a sudden weight gain. Follows with Dr. Castanon, cardiology. Next visit July 2024, Recently diagnosed with cardiomegaly in the emergency department 04/2024. # Lower leg pain: Gabapentin as needed. Questioning vascular etiology secondary to leg fullness/pain/heavi ness. Will refer to vascular. #Prior CVA: Continue atorvastatin 80 mg daily. . Reinitiation of Eliquis.Follows with neurology # Weight gain: Patient inquiring about GLP-1's. Based on age, and increased risk of sarcopenia I did recommend against this. Is open to trying alternative options such as Contrave. Initiated Contrave, has been tolerating fine. Has gained weight since last visit with the holidays but states she is not doing any lifestyle changes. Will try to initiate lifestyle changes in conjunction with Contrave to see if there is improvement in weight loss.Patient states that Contrave is not working well at this time, but discussed the importance of lifestyle modifications, and time. #GERD: Denies current symptoms of heartburn, reflux, regurgitation. Continue omeprazole 40 mg as needed. #Depression: Continue escitalopram 5 mg daily, Admits to uncontrolled depression, and difficulty sleeping. Will discontinue Lexapro, and initiate mirtazapine 15 mg at night. Also taking magnesium glycinate. Also taking Contrave which has a Wellbutrin component. Declined suicidal ideation.Patient states that sleep has improved.She is pleased with this. #Restless leg: Continue pramipexole 0.75 mg daily and gabapentin 300 mg twice daily.Following with neurology # Incontinence: History of bladder sling: Following with urology May 2024 Patient following up in 4 weeks, blood work in the meantime. All quetsions answered to patients satisfaction. Patient verbalized understanding of diagnosis and treatments explained. To call sooner prior to next visit it any questions/concerns arise. Case discussed with collaborating physician Josephine Marvin who reviewed the assessment and plan. Chart, medications, labs, vital signs reviewed. Dictation was accomplished with the use of [facility] voice recognition software, prone to medical misidentifications and grammatical errors. This is unintentional and the practitioner does try to identify and correct these, but some could still be present. Please do not hesitate to contact practitioner for clarification. 04/28/2024 BMI 38.0-38.9,adult (ICD-10 - Z68.38) #Admitted to [facility] 04/26/2024 and discharged 04/27/2024 secondary to acute bronchitis and COVID-19. Treated with Paxlovid, guanfacine, 1 g of IV ceftriaxone and 500 mg x 2 doses of azithromycin. Patient did have a chest x-ray showing cardiomegaly, and tracheobronchomalac ia. Discharged with routine care.Patient is feeling better. Continue with Compazine, and finished Paxlovid course. Discontinuing statin while on Paxlovid but otherwise is doing well. # Tanna reports that on 02/19 she was in her dining area when she reached down to pick something up and fell forward onto a radiator. This fall resulted in head strike with +LOC. The patient was transported to [facility] where the trauma surgery team was consulted and a workup was initiated. Extensive imaging was performed and the patient was found to have bilateral punctate subarachnoid hemorrhages with no mass effect, depressed left orbital floor fracture, left lateral orbital wall fracture, left anterior/posterior wall maxillary sinus fractures, left zygomatic arch fracture, and a left frontal scalp hematoma. The patient was additionally found to have a small laceration to left parietal scalp which was washed out and repaired with 3 jason. The patient was admitted where she was followed by neurosurgery, OMFS, medicine, and cardiology. Given subarachnoid hemorrhage Eliquis was held and the patient was started on Unasyn given sinus fractures. Repeat head CT without interval change, no neurosurgical intervention recommended. The patient was subsequently discharged 02/23 with instructions to follow-up with Dr. Eldridge with [facility]. She was provided a phone number for for [facility] ([phone]). Patient did reach out and make appointment. Furthermore the patient states home nursing services removed the jason from her head laceration earlier this week, on exam the laceration appears to be healing well there is no current bleeding/discharge. Bruising has improved.Continue to hold Eliquis until repeat CT scan of the head. She had her CAT scan which had improved, therefore patient resumed Eliquis on 04/10/2024. Results were faxed over to Dr. Campos. Continue to follow with neurology. Ensuring healing of subarachnoid hemorrhage. Patient to be cleared by ophthalmology and neurology prior to driving.Has initiated Eliquis again.Doing well. #Home safety: The patient lives at home with her . They live in a two-story home with her bedroom and the bathroom on the second level. There are no area rugs or identifiable tripping hazards per patient. Discussed utility of home alert devices such as life alert, the patient is amenable to this. She is encouraged to discuss this with her and son to work on getting a device. #HCP: Patient reports that her is her designated healthcare proxy. She additionally has a son who lives very close and is involved in her care. Filled out 03/23/2024 #HTN: BP stable in office. Continue losartan 50 mg daily, metoprolol 50 mg twice daily, and amlodipine 2.5 mg daily. #CHF: History of nonpitting lower extremity edema, Patient taking Lasix 20 mg as needed.Controlled at this time. Patient understands to take daily weights and consult medical provider should she experience a sudden weight gain. Follows with Dr. Castanon, cardiology. Next visit July 2024, Recently diagnosed with cardiomegaly in the emergency department 04/2024. #Prior CVA: Continue atorvastatin 80 mg daily. Holding well on Paxil level will initiate after discontinued Paxlovid. Reinitiation of Eliquis.Follows with neurology # Weight gain: Patient inquiring about GLP-1's. Based on age, and increased risk of sarcopenia I did recommend against this. Is open to trying alternative options such as Contrave. Initiated Contrave, has been tolerating fine. Has lost 4 pounds since last visit. Discussed the importance of lifestyle in conjunction. #GERD: Denies current symptoms of heartburn, reflux, regurgitation. Continue omeprazole 40 mg as needed. #Depression: Continue escitalopram 5 mg daily, Admits to uncontrolled depression, and difficulty sleeping. Will discontinue Lexapro, and initiate mirtazapine 15 mg at night. Also taking magnesium glycinate. Also taking Contrave which has a Wellbutrin component. Declined suicidal ideation. #Restless leg: Continue pramipexole 0.75 mg daily and gabapentin 300 mg twice daily.Following with neurology # Incontinence: History of bladder sling: Following with urology May 2024 Follow-up in 1 month, sooner as needed. Assess accuracy/compliance of mirtazapine for sleep/depression. All quetsions answered to patients satisfaction. Patient verbalized understanding of diagnosis and treatments explained. To call sooner prior to next visit it any questions/concerns arise. Case discussed with collaborating physician Josephine Marvin who reviewed the assessment and plan. Chart, medications, labs, vital signs reviewed. Dictation was accomplished with the use of [facility] voice recognition software, prone to medical misidentifications and grammatical errors. This is unintentional and the practitioner does try to identify and correct these, but some could still be present. Please do not hesitate to contact practitioner for clarification. 07/03/2024 Essential hypertension (ICD-10 - I10) Tanna is a 73-year-old female present today for 1 month follow-up. #Weight gain: Wt: 197.8 lbs, BMI: 42.8 patient frustrated and discouraged with weight gain. States she has had weight gain since being placed on ropinirole for restless leg syndrome. Was prescribed Contrave but self discontinued after 1 month. States she was not exercising or dieting well on the medication. Patient represcribed Contrave with clear instructions on how to titrate up the dose. Patient has not had a weight management consultation thus far. Advised patient today to call and schedule weight management consultation where we will complete a Seca scale and further discuss Contrave as well as lifestyle modifications. Will continue with 4-week follow-up following the consultation. Patient agreeable with plan. # Interstitial fibrosis: Has had chronic cough treated with multiple antibiotics and no resolution. Chest x-ray from 05/27/2024 revealing interstitial fibrosis. Referral has been placed for pulmonology. Patient was post to be seen today with Dr. Henderson, but unfortunately this had to be canceled and rescheduled to mid July. Patient prescribed albuterol as needed, fluticasone propionate daily, and Trelegy 200 mcg 1 puff inhalation daily. 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 Free sample provided today in office. This sample would be able to get patient to her pulmonology visit. Will be able to further discuss with Dr. Henderson regarding treatment plan. #Acute on chronic right hip pain #osteoarthritis: Patient previously followed by Dr. Gregg and received cortisone injections for chronic osteoarthritis of right hip. States she has not had a cortisone injection over a year. Patient had called the office between visits and [facility] an [facility]. States she has an appointment scheduled to be seen, but unsure regarding date. Advised to call the office if this appointment follows through and she needs further referral. #Restless leg syndrome: Followed by neurology with Dr. Dr. Campos, history of restless leg syndrome on pramipexole. #Hypertension: Blood pressure stable in office. Managed on losartan 50 mg p.o. once daily, metoprolol 50 mg twice daily amlodipine 2.5 mg daily. Followed by cardiology #B12 deficiency: Plan to administer vitamin B12 injection in office and continue monthly. #CHF history of nonpitting lower extremity edema: Recently seen by cardiology and was told to double up on Lasix 20 mg x 7 days. Has since resolved. # Plan to schedule weight management consultation and follow-up regarding additional information of Contrave and lifestyle modifications. Plan to continue with 4-week follow-ups thereafter. Plan to follow-up in 3 months for primary care. All questions answered to patients satisfaction. Patient verbalized understanding of diagnosis and treatments explained. To call sooner prior to next visit it any questions/concerns arise. Case discussed with collaborating physician Dr. Marvin who reviewed the assessment and plan. Chart, medications, labs, vital signs reviewed. Dictation was accomplished with the use of [facility] voice recognition software, prone to medical misidentifications and grammatical errors. This is unintentional and the practitioner does try to identify and correct these, but some could still be present. Please do not hesitate to contact practitioner for clarification. 06/16/2024 Bilateral leg edema (ICD-10 - R60.0) Tanna is a 73-year-old female present today for follow-up. # Interstitial fibrosis: Has had chronic cough treated with multiple antibiotics and no resolution. Chest x-ray from 05/27/2024 revealing interstitial fibrosis. Referral has been placed for pulmonology and patient reports she had most likely received a call regarding this consultation visit scheduling, but did not return the call. Will check voicemails and look into scheduling this. In the meantime, will refill prescription for benzonatate as patient reports this has been helping with her cough in addition to continue using Flonase. #Weight gain: Patient reports excessive weight gain while on ropinirole. Was prescribed Contrave for which she took for 1 month prior to self discontinuing. States she did not have any weight loss and felt it was not working. Does endorse appetite suppression. States she did titrate up to 2 tabs in the morning and 2 tabs in the evening. Will be discussed with patient in regards to restarting this medication. #Restless leg syndrome: Followed by neurology with Dr. Dr. Campos, history of restless leg syndrome on pramipexole. #Hypertension: Blood pressure stable in office. Managed on losartan 50 mg p.o. once daily, metoprolol 50 mg twice daily amlodipine 2.5 mg daily. Followed by cardiology #B12 deficiency: Patient received RAO B12 injection today in office. This was my mistake and patient was not charged. Will schedule for vitamin B-12 injection in office and continue monthly. #CHF history of nonpitting lower extremity edema. Recently seen by cardiology and was told to double up on Lasix 20 mg x 7 days for fluid retention. #Lower leg pain: Gabapentin as needed All questions answered to patients satisfaction. Patient verbalized understanding of diagnosis and treatments explained. To call sooner prior to next visit it any questions/concerns arise. Case discussed with collaborating physician Dr. Marvin who reviewed the assessment and plan. Chart, medications, labs, vital signs reviewed. Dictation was accomplished with the use of [facility] voice recognition software, prone to medical misidentifications and grammatical errors. This is unintentional and the practitioner does try to identify and correct these, but some could still be present. Please do not hesitate to contact practitioner for clarification. 08/08/2024 Essential hypertension (ICD-10 - I10) Tanna is a 73-year-old female present today for weight management consultation. 08/08/2024: Wt: 191.3 lbs, BMI: 41.39 Patient congratulated on 6 pound weight loss since last visit. patient trialed on Contrave twice, but has not been consistent with this medication. Discussed Seca scale which revealed borderline low muscle mass in upper extremities. Discussed how GLP-1's would not be recommended as risk for potential further muscle loss. Patient admits she has not been consistent with the Contrave. Discussed with patient that Contrave or lifestyle would be the best for her in regards to weight loss. Patient willing to try Contrave 1 more time consistently. Will send prescription to [facility] pharmacy. Advised patient to increase protein with a daily goal of at least 80 g of protein. Discussed increasing physical activity with short walks as patient gets dyspnea on exertion. Recommend patient purchase his resistance bands or light hand weights to strengthen upper extremities. Patient agreeable with plan. Plan follow-up in 4 weeks and repeat Seca scale. #Interstitial fibrosis: Has had a chronic cough with multiple antibiotics with no resolution. Chest x-ray from 05/27/2024 revealing interstitial fibrosis. Patient referred to [facility] pulmonology. Prescribed albuterol as needed, fluticasone propriety daily and Trelegy daily. Will continue with pulmonology recommendations. #Osteoarthritis: Patient previously received cortisone injections for chronic osteoarthritis of the right hip. Referred to orthopedics that she has not had a cortisone injection in the past year. #Restless leg syndrome: Patient had rapid weight gain since initiating ropinirole. No longer taking. Switch to mirtazapine to take at night. Followed by neurology. #Hypertension: Blood pressure stable in office. Plan to continue losartan 50 mg, metoprolol 50 mg twice daily, and amlodipine 2.5 mg. Followed by cardiology. #B12 deficiency: Patient receives monthly B12 injections in office. #CHF: Followed by cardiology and doubled up on Lasix x 7 days when needed. No pitting edema on exam today. Patient was reassured and welcomed to the practice. We discussed that we stress a hollistic medical approach with emphasis on lifestyle modification. Patient was informed that a healthy lifestyle with exercise and good eating habits can help reduce his risk of medical complications. Patient is explained that obesity increases his risk of diabetes, cardiovascular disease, or organ damage. We spent a lot of time discussing the relationship between food, exercise, sleep, mental health and obesity. Patient was counseled on the importance EATING local, organic food when possible. Patient was educated on clean 15 and dirty dozen. I provided information about reading books called The Food Rules by Олег Puckett and Eat Fat Get Lean by Dr Devon Villalba. Self education is important in the journey for weight management. Patient was offered diagnostic testing/ SECA scale. We want to measure visceral adiposity, advanced body composition, adverse lipids, fatty acid balance, risk for heart disease and atherosclerosis, markers of inflammation and genetic susceptibility. Patient was counseled on weight management and was advised to lose weight using A. Meal Replacement Products Patient was educated on the replacement products called optifast. This is a good way of taking fixed amount of calories. It has been shown in studies to be ineffective weight management tool. This however has to be coupled with lifestyle intervention as well as laboratory data and EKG monitoring. It is impossible to know how a person will tolerate complete meal replacement. The side effects of meal replacement and weight loss could include syncopal attacks, dizziness, gallstones, potential cholecystectomy, possible heart attack and even . The benefits of meal replacement would be potential weight loss but no guarantees can be made. Meal replacement products are not covered by insurance. Once the patient has bought these products we cannot return them B. Lifestyle management which includes several strategies as below 1. Eat a low carbohydrate good fat good protein diet. Eliminate refined carbohydrates from the diet. Limit sugared beverages. Eat local organic when possible. Cook your own meals. Read food labels. Focus on healthy snacks. Portion control and food with low glycemic index 2. Exercise regularly. Try to get at least 6000 steps a day. Use a predominant to track activity level. Consider using apps like 7 minute excercise, myfitEchoing Greenpal, lose it, stick as needed for self-monitoring and weight management. Consider group exercises. Consider hiring a appraiser personal property. Regular exercise is angy to sustainable health and prevents as a buffer against weight regain 3. Sleep is most important for healing. Try to sleep at least 6-8 hours a night. A good quality sleep needs a sleep ritual with ideal room temperature of around 68. It might help to take a shower and have no electronics in the room and sleep in a very dark room without artificial light. Start sleep routine and get up early in the morning and go to bed on time. 4. Make a social connection. Surround yourself with positive people with positive energy. Connect with friends and family. 5. Get into the habit of meditating and mindfulness while doing everything. 6. Go outside and connect with nature. C. Prescription medications Patient was educated on the use of prescription medications for medical weight loss. This is a growing list and includes phentermine, Topamax, Qsymia, contrave, belviq and saxenda, wegovy etc. All prescription medications could have side effects including but not limited to kidney stones, seizure disorder, cardiac arrhythmias, heart attack, pancreatitis, GI effects, Etc. Patient was encouraged to read the prescription insert and discuss with their pharmacist to make an informed decision about taking medication and know that these medications are being prescribed with good intentions and we do not know how a patient would react to her medication. Some medications are FDA approved for weight loss and there is also off label use depending on patient's inability to afford medications in an attempt to lose weight. D. Behavioral counseling was done to establish a relationship between food and an mood. Patient was provided information about local counseling and psychiatry and Dr Jimenez at [facility]. We would like to cover regular topics and build on low glycemic eating exercise mindful eating, using yoga and meditation along with deep breathing and connecting with friends and family. E. MASS PAT reviewed, Patient's current medications were reviewed and opinion was given on medication that can cause weight gain and can be substituted F. Patient was assessed for risk with obesity including and not limiting to atherosclerosis, heart disease, stroke, kidney disease, restrictive lung disease, irritable bowel syndrome and overall mortality. Risk of developing prediabetes diabetes and metabolic syndrome was discussed G. Therapeutic plan: We have decided to make therapeutic plan which would include choosing wisely on calories restricting portion getting active, tracking weight, getting good quality sleep and working on time management H. Patient will follow up in 4 weeks for weight management Total time spent today was 60 minutes of which greater than 50% was spent on coordinating and counseling Case discussed with collaborating physician Jonathan Marvin who reviewed the assessment and plan. Chart, medications, labs, vital signs reviewed. Dictation was accomplished with the use of [facility] voice recognition software, prone to medical misidentifications and grammatical errors. This is unintentional and the practitioner does try to identify and correct these, but some could still be present. Please do not hesitate to contact practitioner for clarification. All questions answered to patients satisfaction. Patient verbalized understanding of diagnosis and treatments explained. To call sooner prior to next visit it any questions/concerns arise. 09/26/2024 Idiopathic interstitial fibrosis (ICD-10 - J84.112) Tanna is a pleasant 73-year-old female present today for hospital follow-up. #Hospitalized for acute on chronic diastolic congestive heart failure with acute decompensation and acute hypoxemic respiratory failure from 09/21 - 09/[address] [facility]. # Patient presented with shortness of breath and lower extremity edema. Echocardiogram repeated in hospital noting ejection fraction of 65% with mild concentric hypertrophy. This improved from prior echocardiogram May 2024 revealing grade 3 diastolic dysfunction. Amlodipine and losartan held during hospital stay and patient was started on diuresis with Lasix 40 mg twice daily. Patient discharged with improvement of symptoms and restarted on amlodipine, however her losartan dose had changed to 25 mg and metoprolol succinate to 50 mg p.o. once daily. # VNA services with nursing visits for BP checks. Has not started yet. # Supposed to schedule cardiology follow-up within 1 week for further evaluation. Reiterated the importance of a cardiology follow-up as patient was recommended to start torsemide 40 mg twice daily at home per cardiology, but was educated during hospital discharge to resume Lasix 40 mg. Patient obtain blood work today which revealed CBC within normal limits, pending BMP. Educated patient to continue medication regimen but follow-up with cardiology as necessary to discuss diuretics. Patient today has had improvement in lower extremity edema and feels though patient is stable to follow-up with cardiology in 1 week. Discussed the importance of daily weight ins as well as low-salt diet. Recommend use of compression stockings in addition to lower extremity elevation at nighttime. Discussed the importance of looking for signs regarding fluid retention and to call the office or cardiology if this develops. Patient agreeable with plan. #Chronic A-fib: Anticoagulated on Eliquis 5 mg twice daily. Metoprolol for rate control. #Coronary artery disease: Continue daily aspirin, atorvastatin metoprolol 50 mg p.o. once daily. #Diabetes: Most recent A1c in office of 6.5%. Initiated on metformin ER 500 mg titrating up to 2 tabs p.o. once daily. Will follow-up in 3 months and repeat A1c. #Interstitial fibrosis: Patient developed a chronic cough and chest x-ray revealed changes suggesting interstitial fibrosis. Referred to pulmonology, Dr. Henderson. Recent CT chest with revealed no findings aside from atelectasis. Will continue with their recommendations. Continue albuterol as needed. #GERD managed on omeprazole 40 mg. #Restless leg syndrome: Continue pramipexole and gabapentin. Followed by neurology. #History of incontinence: Followed by urology. All questions answered to patients satisfaction. Patient verbalized understanding of diagnosis and treatments explained. To call sooner prior to next visit it any questions/concerns arise. Case discussed with collaborating physician Dr. Marvin who reviewed the assessment and plan. Chart, medications, labs, vital signs reviewed. Dictation was accomplished with the use of [facility] voice recognition software, prone to medical misidentifications and grammatical errors. This is unintentional and the practitioner does try to identify and correct these, but some could still be present. Please do not hesitate to contact practitioner for clarification. 09/15/2024 Chronic coronary artery disease (ICD-10 - I25.10) Tanna is a 73-year-old female presents today for 1 month follow-up. # Memory: Patient appears today to be at baseline with no further concern regarding altered mental status or change of baseline. #Elevated BMI: Switch from Contrave and begin trialing metformin. Discussed side effects including GI upset. Will prescribe to take 1 tab once daily x 2 weeks and then switch to 2 tabs once daily. Patient has A1c of 6.5%, so we will continue to monitor A1c for improvement. #Interstitial fibrosis: Patient developed a chronic cough and chest x-ray revealed changes suggesting interstitial fibrosis. Referred to pulmonology, Dr. Henderson. Recent CT chest with revealed no findings aside from atelectasis. Will continue with their recommendations. #B12 deficiency: Administer B12 today in office. # Diabetes: A1C of 6.5%. Initiating metformin ER 500 mg 1 tab once daily x 2 weeks then 2 tabs once daily x 2 weeks. #CHF: Followed by cardiology. Discussed low-sodium diet. Recommend compression stockings. Discussed importance of weighing daily and to call the office if she experiences extreme acute weight gain as this could be fluid retention. #Coronary artery disease #hyperlipidemia #hypertension #A-fib: Followed by cardiology. On anticoagulation with Eliquis 5 mg. BP managed on amlodipine 2.5, losartan 50 and metoprolol succinate extended release 50 mg. Hyperlipidemia managed on atorvastatin 80 mg. History of CHF and nonpitting lower extremity edema. Managed on Lasix 20 mg daily. #GERD managed on omeprazole 40 mg as needed. #Depression #restless leg: Continue pramipexole 0.75 mg daily and gabapentin 300 mg twice daily. Followed by neurology. States she does not have a visit scheduled. Would recommend calling to ensure she is not lost to follow-up. #History of incontinence: Followed by urology. #Plan to follow-up in 3 months. All questions answered to patients satisfaction. Patient verbalized understanding of diagnosis and treatments explained. To call sooner prior to next visit it any questions/concerns arise. Case discussed with collaborating physician Dr. Marvin who reviewed the assessment and plan. Chart, medications, labs, vital signs reviewed. Dictation was accomplished with the use of [facility] voice recognition software, prone to medical misidentifications and grammatical errors. This is unintentional and the practitioner does try to identify and correct these, but some could still be present. Please do not hesitate to contact practitioner for clarification. 10/17/2024 Heart failure, diastolic, acute on chronic (ICD-10 - I50.33) Tanna is a pleasant 73-year-old female present today for hospital follow-up. #Hospitalized for acute on chronic diastolic congestive heart failure with acute decompensation and acute hypoxemic respiratory failure from 09/21 - 09/[address] [facility]. Patient presented with shortness of breath and lower extremity edema. Echocardiogram repeated in hospital noting ejection fraction of 65% with mild concentric hypertrophy. This improved from prior echocardiogram May 2024 revealing grade 3 diastolic dysfunction. Amlodipine and losartan held during hospital stay and patient was started on diuresis with Lasix 40 mg twice daily. Patient discharged with improvement of symptoms and restarted on amlodipine, however her losartan dose had changed to 25 mg and metoprolol succinate to 50 mg p.o. once daily. # Patient following up with cardiology next week. Per cardiology, consider adding spironolactone and SGLT-2 inhibitor to patient regimen. Patient to discuss with cardiology regarding initiating torsemide. Discussed the importance of daily weight-ins as well as low-salt diet. Recommend use of compression stockings in addition to lower extremity elevation at nighttime. Discussed the importance of looking for signs regarding fluid retention and to call the office or cardiology if this develops. Patient agreeable with plan. #Chronic A-fib: Anticoagulated on Eliquis 5 mg twice daily. Metoprolol for rate control. #Coronary artery disease: Continue daily aspirin, atorvastatin metoprolol 50 mg p.o. once daily. #Diabetes: Most recent A1c in office of 6.5%. Initiated on metformin ER 500 mg titrating up to 2 tabs p.o. once daily. Will follow-up in 3 months and repeat A1c. #Interstitial fibrosis: Patient developed a chronic cough and chest x-ray revealed changes suggesting interstitial fibrosis. Referred to pulmonology, Dr. Henderson. Recent CT chest with revealed no findings aside from atelectasis. Will continue with their recommendations. Continue albuterol as needed. #GERD managed on omeprazole 40 mg. #Restless leg syndrome: Continue pramipexole and gabapentin. Followed by neurology. #History of incontinence: Followed by urology. All questions answered to patients satisfaction. Patient verbalized understanding of diagnosis and treatments explained. To call sooner prior to next visit it any questions/concerns arise. Case discussed with collaborating physician Dr. Marvin who reviewed the assessment and plan. Chart, medications, labs, vital signs reviewed. Dictation was accomplished with the use of [facility] voice recognition software, prone to medical misidentifications and grammatical errors. This is unintentional and the practitioner does try to identify and correct these, but some could still be present. Please do not hesitate to contact practitioner for clarification. 10/17/2024 Idiopathic interstitial fibrosis (ICD-10 - J84.112) Tanna is a pleasant 73-year-old female present today for hospital follow-up. #Hospitalized for acute on chronic diastolic congestive heart failure with acute decompensation and acute hypoxemic respiratory failure from 09/21 - 09/[address] [facility]. Patient presented with shortness of breath and lower extremity edema. Echocardiogram repeated in hospital noting ejection fraction of 65% with mild concentric hypertrophy. This improved from prior echocardiogram May 2024 revealing grade 3 diastolic dysfunction. Amlodipine and losartan held during hospital stay and patient was started on diuresis with Lasix 40 mg twice daily. Patient discharged with improvement of symptoms and restarted on amlodipine, however her losartan dose had changed to 25 mg and metoprolol succinate to 50 mg p.o. once daily. # Patient following up with cardiology next week. Per cardiology, consider adding spironolactone and SGLT-2 inhibitor to patient regimen. Patient to discuss with cardiology regarding initiating torsemide. Discussed the importance of daily weight-ins as well as low-salt diet. Recommend use of compression stockings in addition to lower extremity elevation at nighttime. Discussed the importance of looking for signs regarding fluid retention and to call the office or cardiology if this develops. Patient agreeable with plan. #Chronic A-fib: Anticoagulated on Eliquis 5 mg twice daily. Metoprolol for rate control. #Coronary artery disease: Continue daily aspirin, atorvastatin metoprolol 50 mg p.o. once daily. #Diabetes: Most recent A1c in office of 6.5%. Initiated on metformin ER 500 mg titrating up to 2 tabs p.o. once daily. Will follow-up in 3 months and repeat A1c. #Interstitial fibrosis: Patient developed a chronic cough and chest x-ray revealed changes suggesting interstitial fibrosis. Referred to pulmonology, Dr. Henderson. Recent CT chest with revealed no findings aside from atelectasis. Will continue with their recommendations. Continue albuterol as needed. #GERD managed on omeprazole 40 mg. #Restless leg syndrome: Continue pramipexole and gabapentin. Followed by neurology. #History of incontinence: Followed by urology. All questions answered to patients satisfaction. Patient verbalized understanding of diagnosis and treatments explained. To call sooner prior to next visit it any questions/concerns arise. Case discussed with collaborating physician Dr. Marvin who reviewed the assessment and plan. Chart, medications, labs, vital signs reviewed. Dictation was accomplished with the use of [facility] voice recognition software, prone to medical misidentifications and grammatical errors. This is unintentional and the practitioner does try to identify and correct these, but some could still be present. Please do not hesitate to contact practitioner for clarification. 12/19/2024 Pulmonary interstitial fibrosis (ICD-10 - J84.10) Tanna is a pleasant 74-year-old female present today for follow-up. #Diabetes: A1c at last visit in August of 6.5%. Patient initiated on metformin 500 mg 2 tabs once daily. Since seeing cardiology, initiated on Jardiance 10 mg. A1c today office of 6%. Given significant weight gain in the past year as well as concern for diastolic heart failure, cardiology recommended GLP-1 therapy for intentional weight loss. Given diagnosis of diabetes, will prescribe Mounjaro 2.5 mg weekly injection. Discussed role of medication as well as side effect profile. Plan to follow-up in 1 month in regards to Mounjaro initiation. Will repeat A1c in 3 months. #Hypertension #diastolic heart failure: Followed by cardiology. Last seen 11/14/2024 with medication changes. Will follow-up in 1 month with cardiology. Continue Lasix 40 mg, metoprolol 50 mg and Jardiance 10 mg. Discontinue losartan. Blood pressure stable in office. Continue with the recommendations. #Chronic A-fib: Anticoagulated on Eliquis 5 mg twice daily. Metoprolol for rate control. #CAD: Continue aspirin 81 mg daily and atorvastatin. Will obtain blood work including lipids and review at follow-up. #Interstitial fibrosis: Chronic cough and chest x-ray revealed changes suggesting interstitial fibrosis. Referred to pulmonology. #Vitamin B12 deficiency: Obtains monthly B12 injections in office. #GERD: Managed on omeprazole 40 mg. #Restless leg syndrome: Continue pramipexole and gabapentin. Followed by neurology. Patient has since discontinued gabapentin and uses [id number] Tylenol as needed. #Right hip pain: followed by [facility]. All questions answered to patients satisfaction. Patient verbalized understanding of diagnosis and treatments explained. To call sooner prior to next visit it any questions/concerns arise. Case discussed with collaborating physician Dr. Marvin who reviewed the assessment and plan. Chart, medications, labs, vital signs reviewed. Dictation was accomplished with the use of [facility] voice recognition software, prone to medical misidentifications and grammatical errors. This is unintentional and the practitioner does try to identify and correct these, but some could still be present. Please do not hesitate to contact practitioner for clarification. 01/19/2025 Chronic a-fib (ICD-1 0 - I48.20) Tanna is a 74-year-old female present today for 1 month follow-up. Past medical history of hyperlipidemia, coronary artery disease, reflux gastritis, hypertension, overactive bladder, depression, hydronephrosis with ureteral stricture, vitamin D deficiency, vitamin B12 deficiency, cerebral infarction, restless leg syndrome followed by neurology, A-fib on anticoagulation, cardiomegaly, bronchitis, hip osteoarthritis and congestive heart failure followed by cardiology. # Will update influenza and B12 injection for B12 deficiency in office. # Lower extremity edema #RLE edema exacerbation: Patient had contacted [facility] on 01/16/2025 reporting right foot swollen. Denies any shortness of breath. Staying well-hydrated and good urine output without difficulty. Per Dr. Castanon, recommended taking Lasix 40 mg twice a day x 3 days with labs including a basic metabolic panel and magnesium. Patient advised to go to [facility] lab today for these labs and cardiology will reach out to follow-up same day. Pending cardiology recommendations. Patient reports swelling as improved however on palpation of RLE, leakage of fluid is appreciated. In office, compression bandaging is placed to help apply external pressure to the limb, which counteracts elevated ambulatory venous pressure, decreased capillary filtration and promote fluid shift into noncompressed regions thereby improving lymphatic drainage and venous return. Patient verablized understanding Patient advised to keep dressing on over the weekend. Discussed importance of compliance with short term furosemide 40 mg BID to improve symptoms. Discussed low salt diet and daily weigh-ins. Discussed worsening signs. Discussed ER protocol. Will follow up with cardiology today. If symptoms worsen over the weekend, will consider duplex u/s of RLE. Patient advised to call the office by Wednesday. # Low potassium: Recent labs reveal potassium of 3.1. Discussed concern for electrolyte abnormality. Recommend potassium supplementation however patient states cardiology ordered a BNP to check electrolytes today and she will check potassium level today. Will check BNP when available and rediscuss potassium supplementation if indicated. Discussed risk of hypokalemia including arrhythmias. Patient understanding. # Follow up 2 months for labs including CBC, CMP and A1C. Will review cardiology order for BMP when available after today's bloodwork. #Chronic A-fib: Anticoagulated on Eliquis 5 mg twice daily. Metoprolol for rate control. #Coronary artery disease: Continue daily aspirin, atorvastatin metoprolol 50 mg p.o. once daily. #Diabetes: Most recent A1c of 6%. Managed on metformin, jardiance and Mounjaro. Will follow-up in 2 months and repeat A1c. #Interstitial fibrosis:. Continue albuterol as needed. #GERD managed on omeprazole 40 mg. #Restless leg syndrome: Continue pramipexole and gabapentin. Followed by neurology. #History of incontinence: Followed by urology. #weight gain: Managed on Mounjaro 2.5 mg weekly injections per cardiology recommendations. Has had a 5 lb weight loss in 1 month. Given concern for age and risk of osteoporosis will continue low dose and refrain from higher doses given successful weight loss. Discussed need for lifestyle modifications. All questions answered to patients satisfaction. Patient verbalized understanding of diagnosis and treatments explained. To call sooner prior to next visit it any questions/concerns arise. Case discussed with collaborating physician Dr. Marvin who reviewed the assessment and plan. Chart, medications, labs, vital signs reviewed. Dictation was accomplished with the use of [facility] voice recognition software, prone to medical misidentifications and grammatical errors. This is unintentional and the practitioner does try to identify and correct these, but some could still be present. Please do not hesitate to contact practitioner for clarification. 01/19/2025 Arteriosclerotic coronary artery disease (ICD-10 - I25.10) Tanna is a 74-year-old female present today for 1 month follow-up. Past medical history of hyperlipidemia, coronary artery disease, reflux gastritis, hypertension, overactive bladder, depression, hydronephrosis with ureteral stricture, vitamin D deficiency, vitamin B12 deficiency, cerebral infarction, restless leg syndrome followed by neurology, A-fib on anticoagulation, cardiomegaly, bronchitis, hip osteoarthritis and congestive heart failure followed by cardiology. # Will update influenza and B12 injection for B12 deficiency in office. # Lower extremity edema #RLE edema exacerbation: Patient had contacted [facility] on 01/16/2025 reporting right foot swollen. Denies any shortness of breath. Staying well-hydrated and good urine output without difficulty. Per Dr. Castanon, recommended taking Lasix 40 mg twice a day x 3 days with labs including a basic metabolic panel and magnesium. Patient advised to go to [facility] lab today for these labs and cardiology will reach out to follow-up same day. Pending cardiology recommendations. Patient reports swelling as improved however on palpation of RLE, leakage of fluid is appreciated. In office, compression bandaging is placed to help apply external pressure to the limb, which counteracts elevated ambulatory venous pressure, decreased capillary filtration and promote fluid shift into noncompressed regions thereby improving lymphatic drainage and venous return. Patient verablized understanding Patient advised to keep dressing on over the weekend. Discussed importance of compliance with short term furosemide 40 mg BID to improve symptoms. Discussed low salt diet and daily weigh-ins. Discussed worsening signs. Discussed ER protocol. Will follow up with cardiology today. If symptoms worsen over the weekend, will consider duplex u/s of RLE. Patient advised to call the office by Wednesday. # Low potassium: Recent labs reveal potassium of 3.1. Discussed concern for electrolyte abnormality. Recommend potassium supplementation however patient states cardiology ordered a BNP to check electrolytes today and she will check potassium level today. Will check BNP when available and rediscuss potassium supplementation if indicated. Discussed risk of hypokalemia including arrhythmias. Patient understanding. # Follow up 2 months for labs including CBC, CMP and A1C. Will review cardiology order for BMP when available after today's bloodwork. #Chronic A-fib: Anticoagulated on Eliquis 5 mg twice daily. Metoprolol for rate control. #Coronary artery disease: Continue daily aspirin, atorvastatin metoprolol 50 mg p.o. once daily. #Diabetes: Most recent A1c of 6%. Managed on metformin, jardiance and Mounjaro. Will follow-up in 2 months and repeat A1c. #Interstitial fibrosis:. Continue albuterol as needed. #GERD managed on omeprazole 40 mg. #Restless leg syndrome: Continue pramipexole and gabapentin. Followed by neurology. #History of incontinence: Followed by urology. #weight gain: Managed on Mounjaro 2.5 mg weekly injections per cardiology recommendations. Has had a 5 lb weight loss in 1 month. Given concern for age and risk of osteoporosis will continue low dose and refrain from higher doses given successful weight loss. Discussed need for lifestyle modifications. All questions answered to patients satisfaction. Patient verbalized understanding of diagnosis and treatments explained. To call sooner prior to next visit it any questions/concerns arise. Case discussed with collaborating physician Dr. Marvin who reviewed the assessment and plan. Chart, medications, labs, vital signs reviewed. Dictation was accomplished with the use of [facility] voice recognition software, prone to medical misidentifications and grammatical errors. This is unintentional and the practitioner does try to identify and correct these, but some could still be present. Please do not hesitate to contact practitioner for clarification. 12/19/2024 Vitamin B12 deficiency (ICD-10 - E53.8) Tanna is a pleasant 74-year-old female present today for follow-up. #Diabetes: A1c at last visit in August of 6.5%. Patient initiated on metformin 500 mg 2 tabs once daily. Since seeing cardiology, initiated on Jardiance 10 mg. A1c today office of 6%. Given significant weight gain in the past year as well as concern for diastolic heart failure, cardiology recommended GLP-1 therapy for intentional weight loss. Given diagnosis of diabetes, will prescribe Mounjaro 2.5 mg weekly injection. Discussed role of medication as well as side effect profile. Plan to follow-up in 1 month in regards to Mounjaro initiation. Will repeat A1c in 3 months. #Hypertension #diastolic heart failure: Followed by cardiology. Last seen 11/14/2024 with medication changes. Will follow-up in 1 month with cardiology. Continue Lasix 40 mg, metoprolol 50 mg and Jardiance 10 mg. Discontinue losartan. Blood pressure stable in office. Continue with the recommendations. #Chronic A-fib: Anticoagulated on Eliquis 5 mg twice daily. Metoprolol for rate control. #CAD: Continue aspirin 81 mg daily and atorvastatin. Will obtain blood work including lipids and review at follow-up. #Interstitial fibrosis: Chronic cough and chest x-ray revealed changes suggesting interstitial fibrosis. Referred to pulmonology. #Vitamin B12 deficiency: Obtains monthly B12 injections in office. #GERD: Managed on omeprazole 40 mg. #Restless leg syndrome: Continue pramipexole and gabapentin. Followed by neurology. Patient has since discontinued gabapentin and uses [id number] Tylenol as needed. #Right hip pain: followed by [facility]. All questions answered to patients satisfaction. Patient verbalized understanding of diagnosis and treatments explained. To call sooner prior to next visit it any questions/concerns arise. Case discussed with collaborating physician Dr. Marvin who reviewed the assessment and plan. Chart, medications, labs, vital signs reviewed. Dictation was accomplished with the use of [facility] voice recognition software, prone to medical misidentifications and grammatical errors. This is unintentional and the practitioner does try to identify and correct these, but some could still be present. Please do not hesitate to contact practitioner for clarification. 10/17/2024 GERD without esophagitis (ICD-10 - K21.9) Tanna is a pleasant 73-year-old female present today for hospital follow-up. #Hospitalized for acute on chronic diastolic congestive heart failure with acute decompensation and acute hypoxemic respiratory failure from 09/21 - 09/[address] [facility]. Patient presented with shortness of breath and lower extremity edema. Echocardiogram repeated in hospital noting ejection fraction of 65% with mild concentric hypertrophy. This improved from prior echocardiogram May 2024 revealing grade 3 diastolic dysfunction. Amlodipine and losartan held during hospital stay and patient was started on diuresis with Lasix 40 mg twice daily. Patient discharged with improvement of symptoms and restarted on amlodipine, however her losartan dose had changed to 25 mg and metoprolol succinate to 50 mg p.o. once daily. # Patient following up with cardiology next week. Per cardiology, consider adding spironolactone and SGLT-2 inhibitor to patient regimen. Patient to discuss with cardiology regarding initiating torsemide. Discussed the importance of daily weight-ins as well as low-salt diet. Recommend use of compression stockings in addition to lower extremity elevation at nighttime. Discussed the importance of looking for signs regarding fluid retention and to call the office or cardiology if this develops. Patient agreeable with plan. #Chronic A-fib: Anticoagulated on Eliquis 5 mg twice daily. Metoprolol for rate control. #Coronary artery disease: Continue daily aspirin, atorvastatin metoprolol 50 mg p.o. once daily. #Diabetes: Most recent A1c in office of 6.5%. Initiated on metformin ER 500 mg titrating up to 2 tabs p.o. once daily. Will follow-up in 3 months and repeat A1c. #Interstitial fibrosis: Patient developed a chronic cough and chest x-ray revealed changes suggesting interstitial fibrosis. Referred to pulmonology, Dr. Henderson. Recent CT chest with revealed no findings aside from atelectasis. Will continue with their recommendations. Continue albuterol as needed. #GERD managed on omeprazole 40 mg. #Restless leg syndrome: Continue pramipexole and gabapentin. Followed by neurology. #History of incontinence: Followed by urology. All questions answered to patients satisfaction. Patient verbalized understanding of diagnosis and treatments explained. To call sooner prior to next visit it any questions/concerns arise. Case discussed with collaborating physician Dr. Marvin who reviewed the assessment and plan. Chart, medications, labs, vital signs reviewed. Dictation was accomplished with the use of [facility] voice recognition software, prone to medical misidentifications and grammatical errors. This is unintentional and the practitioner does try to identify and correct these, but some could still be present. Please do not hesitate to contact practitioner for clarification. 09/15/2024 Mixed hyperlipidemia (ICD-10 - E78.2) Tanna is a 73-year-old female presents today for 1 month follow-up. # Memory: Patient appears today to be at baseline with no further concern regarding altered mental status or change of baseline. #Elevated BMI: Switch from Contrave and begin trialing metformin. Discussed side effects including GI upset. Will prescribe to take 1 tab once daily x 2 weeks and then switch to 2 tabs once daily. Patient has A1c of 6.5%, so we will continue to monitor A1c for improvement. #Interstitial fibrosis: Patient developed a chronic cough and chest x-ray revealed changes suggesting interstitial fibrosis. Referred to pulmonology, Dr. Henderson. Recent CT chest with revealed no findings aside from atelectasis. Will continue with their recommendations. #B12 deficiency: Administer B12 today in office. # Diabetes: A1C of 6.5%. Initiating metformin ER 500 mg 1 tab once daily x 2 weeks then 2 tabs once daily x 2 weeks. #CHF: Followed by cardiology. Discussed low-sodium diet. Recommend compression stockings. Discussed importance of weighing daily and to call the office if she experiences extreme acute weight gain as this could be fluid retention. #Coronary artery disease #hyperlipidemia #hypertension #A-fib: Followed by cardiology. On anticoagulation with Eliquis 5 mg. BP managed on amlodipine 2.5, losartan 50 and metoprolol succinate extended release 50 mg. Hyperlipidemia managed on atorvastatin 80 mg. History of CHF and nonpitting lower extremity edema. Managed on Lasix 20 mg daily. #GERD managed on omeprazole 40 mg as needed. #Depression #restless leg: Continue pramipexole 0.75 mg daily and gabapentin 300 mg twice daily. Followed by neurology. States she does not have a visit scheduled. Would recommend calling to ensure she is not lost to follow-up. #History of incontinence: Followed by urology. #Plan to follow-up in 3 months. All questions answered to patients satisfaction. Patient verbalized understanding of diagnosis and treatments explained. To call sooner prior to next visit it any questions/concerns arise. Case discussed with collaborating physician Dr. Marvin who reviewed the assessment and plan. Chart, medications, labs, vital signs reviewed. Dictation was accomplished with the use of [facility] voice recognition software, prone to medical misidentifications and grammatical errors. This is unintentional and the practitioner does try to identify and correct these, but some could still be present. Please do not hesitate to contact practitioner for clarification. 09/26/2024 GERD without esophagitis (ICD-10 - K21.9) Tanna is a pleasant 73-year-old female present today for hospital follow-up. #Hospitalized for acute on chronic diastolic congestive heart failure with acute decompensation and acute hypoxemic respiratory failure from 09/21 - 09/[address] [facility]. # Patient presented with shortness of breath and lower extremity edema. Echocardiogram repeated in hospital noting ejection fraction of 65% with mild concentric hypertrophy. This improved from prior echocardiogram May 2024 revealing grade 3 diastolic dysfunction. Amlodipine and losartan held during hospital stay and patient was started on diuresis with Lasix 40 mg twice daily. Patient discharged with improvement of symptoms and restarted on amlodipine, however her losartan dose had changed to 25 mg and metoprolol succinate to 50 mg p.o. once daily. # [facility] services with nursing visits for BP checks. Has not started yet. # Supposed to schedule cardiology follow-up within 1 week for further evaluation. Reiterated the importance of a cardiology follow-up as patient was recommended to start torsemide 40 mg twice daily at home per cardiology, but was educated during hospital discharge to resume Lasix 40 mg. Patient obtain blood work today which revealed CBC within normal limits, pending BMP. Educated patient to continue medication regimen but follow-up with cardiology as necessary to discuss diuretics. Patient today has had improvement in lower extremity edema and feels though patient is stable to follow-up with cardiology in 1 week. Discussed the importance of daily weight ins as well as low-salt diet. Recommend use of compression stockings in addition to lower extremity elevation at nighttime. Discussed the importance of looking for signs regarding fluid retention and to call the office or cardiology if this develops. Patient agreeable with plan. #Chronic A-fib: Anticoagulated on Eliquis 5 mg twice daily. Metoprolol for rate control. #Coronary artery disease: Continue daily aspirin, atorvastatin metoprolol 50 mg p.o. once daily. #Diabetes: Most recent A1c in office of 6.5%. Initiated on metformin ER 500 mg titrating up to 2 tabs p.o. once daily. Will follow-up in 3 months and repeat A1c. #Interstitial fibrosis: Patient developed a chronic cough and chest x-ray revealed changes suggesting interstitial fibrosis. Referred to pulmonology, Dr. Henderson. Recent CT chest with revealed no findings aside from atelectasis. Will continue with their recommendations. Continue albuterol as needed. #GERD managed on omeprazole 40 mg. #Restless leg syndrome: Continue pramipexole and gabapentin. Followed by neurology. #History of incontinence: Followed by urology. All questions answered to patients satisfaction. Patient verbalized understanding of diagnosis and treatments explained. To call sooner prior to next visit it any questions/concerns arise. Case discussed with collaborating physician Dr. Marvin who reviewed the assessment and plan. Chart, medications, labs, vital signs reviewed. Dictation was accomplished with the use of [facility] voice recognition software, prone to medical misidentifications and grammatical errors. This is unintentional and the practitioner does try to identify and correct these, but some could still be present. Please do not hesitate to contact practitioner for clarification. 08/08/2024 Primary osteoarthritis of right hip (ICD-10 - M16.11) Tanna is a 73-year-old female present today for weight management consultation. 08/08/2024: Wt: 191.3 lbs, BMI: 41.39 Patient congratulated on 6 pound weight loss since last visit. patient trialed on Contrave twice, but has not been consistent with this medication. Discussed Seca scale which revealed borderline low muscle mass in upper extremities. Discussed how GLP-1's would not be recommended as risk for potential further muscle loss. Patient admits she has not been consistent with the Contrave. Discussed with patient that Contrave or lifestyle would be the best for her in regards to weight loss. Patient willing to try Contrave 1 more time consistently. Will send prescription to [facility]. Advised patient to increase protein with a daily goal of at least 80 g of protein. Discussed increasing physical activity with short walks as patient gets dyspnea on exertion. Recommend patient purchase his resistance bands or light hand weights to strengthen upper extremities. Patient agreeable with plan. Plan follow-up in 4 weeks and repeat Seca scale. #Interstitial fibrosis: Has had a chronic cough with multiple antibiotics with no resolution. Chest x-ray from 05/27/2024 revealing interstitial fibrosis. Patient referred to [facility] pulmonology. Prescribed albuterol as needed, fluticasone propriety daily and Trelegy daily. Will continue with pulmonology recommendations. #Osteoarthritis: Patient previously received cortisone injections for chronic osteoarthritis of the right hip. Referred to orthopedics that she has not had a cortisone injection in the past year. #Restless leg syndrome: Patient had rapid weight gain since initiating ropinirole. No longer taking. Switch to mirtazapine to take at night. Followed by neurology. #Hypertension: Blood pressure stable in office. Plan to continue losartan 50 mg, metoprolol 50 mg twice daily, and amlodipine 2.5 mg. Followed by cardiology. #B12 deficiency: Patient receives monthly B12 injections in office. #CHF: Followed by cardiology and doubled up on Lasix x 7 days when needed. No pitting edema on exam today. Patient was reassured and welcomed to the practice. We discussed that we stress a hollistic medical approach with emphasis on lifestyle modification. Patient was informed that a healthy lifestyle with exercise and good eating habits can help reduce his risk of medical complications. Patient is explained that obesity increases his risk of diabetes, cardiovascular disease, or organ damage. We spent a lot of time discussing the relationship between food, exercise, sleep, mental health and obesity. Patient was counseled on the importance EATING local, organic food when possible. Patient was educated on clean 15 and dirty dozen. I provided information about reading books called The Food Rules by Олег Puckett and Eat Fat Get Lean by Dr Devon Villalba. Self education is important in the journey for weight management. Patient was offered diagnostic testing/ SECA scale. We want to measure visceral adiposity, advanced body composition, adverse lipids, fatty acid balance, risk for heart disease and atherosclerosis, markers of inflammation and genetic susceptibility. Patient was counseled on weight management and was advised to lose weight using A. Meal Replacement Products Patient was educated on the replacement products called optifast. This is a good way of taking fixed amount of calories. It has been shown in studies to be ineffective weight management tool. This however has to be coupled with lifestyle intervention as well as laboratory data and EKG monitoring. It is impossible to know how a person will tolerate complete meal replacement. The side effects of meal replacement and weight loss could include syncopal attacks, dizziness, gallstones, potential cholecystectomy, possible heart attack and even . The benefits of meal replacement would be potential weight loss but no guarantees can be made. Meal replacement products are not covered by insurance. Once the patient has bought these products we cannot return them B. Lifestyle management which includes several strategies as below 1. Eat a low carbohydrate good fat good protein diet. Eliminate refined carbohydrates from the diet. Limit sugared beverages. Eat local organic when possible. Cook your own meals. Read food labels. Focus on healthy snacks. Portion control and food with low glycemic index 2. Exercise regularly. Try to get at least 6000 steps a day. Use a predominant to track activity level. Consider using apps like 7 minute excercise, myfitnesspal, lose it, stick as needed for self-monitoring and weight management. Consider group exercises. Consider hiring a appraiser personal property. Regular exercise is nagy to sustainable health and prevents as a buffer against weight regain 3. Sleep is most important for healing. Try to sleep at least 6-8 hours a night. A good quality sleep needs a sleep ritual with ideal room temperature of around 68. It might help to take a shower and have no electronics in the room and sleep in a very dark room without artificial light. Start sleep routine and get up early in the morning and go to bed on time. 4. Make a social connection. Surround yourself with positive people with positive energy. Connect with friends and family. 5. Get into the habit of meditating and mindfulness while doing everything. 6. Go outside and connect with nature. C. Prescription medications Patient was educated on the use of prescription medications for medical weight loss. This is a growing list and includes phentermine, Topamax, Qsymia, contrave, belviq and saxenda, wegovy etc. All prescription medications could have side effects including but not limited to kidney stones, seizure disorder, cardiac arrhythmias, heart attack, pancreatitis, GI effects, Etc. Patient was encouraged to read the prescription insert and discuss with their pharmacist to make an informed decision about taking medication and know that these medications are being prescribed with good intentions and we do not know how a patient would react to her medication. Some medications are FDA approved for weight loss and there is also off label use depending on patient's inability to afford medications in an attempt to lose weight. D. Behavioral counseling was done to establish a relationship between food and an mood. Patient was provided information about local counseling and psychiatry and Dr Jimenez at [facility]. We would like to cover regular topics and build on low glycemic eating exercise mindful eating, using yoga and meditation along with deep breathing and connecting with friends and family. E. MASS PAT reviewed, Patient's current medications were reviewed and opinion was given on medication that can cause weight gain and can be substituted F. Patient was assessed for risk with obesity including and not limiting to atherosclerosis, heart disease, stroke, kidney disease, restrictive lung disease, irritable bowel syndrome and overall mortality. Risk of developing prediabetes diabetes and metabolic syndrome was discussed G. Therapeutic plan: We have decided to make therapeutic plan which would include choosing wisely on calories restricting portion getting active, tracking weight, getting good quality sleep and working on time management H. Patient will follow up in 4 weeks for weight management Total time spent today was 60 minutes of which greater than 50% was spent on coordinating and counseling Case discussed with collaborating physician Jonathan Marvin who reviewed the assessment and plan. Chart, medications, labs, vital signs reviewed. Dictation was accomplished with the use of [facility] voice recognition software, prone to medical misidentifications and grammatical errors. This is unintentional and the practitioner does try to identify and correct these, but some could still be present. Please do not hesitate to contact practitioner for clarification. All questions answered to patients satisfaction. Patient verbalized understanding of diagnosis and treatments explained. To call sooner prior to next visit it any questions/concerns arise. 07/03/2024 BMI 40.0-44.9, adult (ICD-10 - Z68.41) Tanna is a 73-year-old female present today for 1 month follow-up. #Weight gain: Wt: 197.8 lbs, BMI: 42.8 patient frustrated and discouraged with weight gain. States she has had weight gain since being placed on ropinirole for restless leg syndrome. Was prescribed Contrave but self discontinued after 1 month. States she was not exercising or dieting well on the medication. Patient represcribed Contrave with clear instructions on how to titrate up the dose. Patient has not had a weight management consultation thus far. Advised patient today to call and schedule weight management consultation where we will complete a Seca scale and further discuss Contrave as well as lifestyle modifications. Will continue with 4-week follow-up following the consultation. Patient agreeable with plan. # Interstitial fibrosis: Has had chronic cough treated with multiple antibiotics and no resolution. Chest x-ray from 05/27/2024 revealing interstitial fibrosis. Referral has been placed for pulmonology. Patient was post to be seen today with Dr. Henderson, but unfortunately this had to be canceled and rescheduled to mid July. Patient prescribed albuterol as needed, fluticasone propionate daily, and Trelegy 200 mcg 1 puff inhalation daily. 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 Free sample provided today in office. This sample would be able to get patient to her pulmonology visit. Will be able to further discuss with Dr. Henderson regarding treatment plan. #Acute on chronic right hip pain #osteoarthritis: Patient previously followed by Dr. Gregg and received cortisone injections for chronic osteoarthritis of right hip. States she has not had a cortisone injection over a year. Patient had called the office between visits and [facility]. States she has an appointment scheduled to be seen, but unsure regarding date. Advised to call the office if this appointment follows through and she needs further referral. #Restless leg syndrome: Followed by neurology with Dr. Dr. Campos, history of restless leg syndrome on pramipexole. #Hypertension: Blood pressure stable in office. Managed on losartan 50 mg p.o. once daily, metoprolol 50 mg twice daily amlodipine 2.5 mg daily. Followed by cardiology #B12 deficiency: Plan to administer vitamin B12 injection in office and continue monthly. #CHF history of nonpitting lower extremity edema: Recently seen by cardiology and was told to double up on Lasix 20 mg x 7 days. Has since resolved. # Plan to schedule weight management consultation and follow-up regarding additional information of Contrave and lifestyle modifications. Plan to continue with 4-week follow-ups thereafter. Plan to follow-up in 3 months for primary care. All questions answered to patients satisfaction. Patient verbalized understanding of diagnosis and treatments explained. To call sooner prior to next visit it any questions/concerns arise. Case discussed with collaborating physician Dr. Marvin who reviewed the assessment and plan. Chart, medications, labs, vital signs reviewed. Dictation was accomplished with the use of [facility] voice recognition software, prone to medical misidentifications and grammatical errors. This is unintentional and the practitioner does try to identify and correct these, but some could still be present. Please do not hesitate to contact practitioner for clarification. 04/28/2024 Difficulty sleeping (ICD-10 - G47.9) #Admitted to [facility] 04/26/2024 and discharged 04/27/2024 secondary to acute bronchitis and COVID-19. Treated with Paxlovid, guanfacine, 1 g of IV ceftriaxone and 500 mg x 2 doses of azithromycin. Patient did have a chest x-ray showing cardiomegaly, and tracheobronchomalac ia. Discharged with routine care.Patient is feeling better. Continue with Compazine, and finished Paxlovid course. Discontinuing statin while on Paxlovid but otherwise is doing well. # Tanna reports that on 02/19 she was in her dining area when she reached down to pick something up and fell forward onto a radiator. This fall resulted in head strike with +LOC. The patient was transported to [facility] where the trauma surgery team was consulted and a workup was initiated. Extensive imaging was performed and the patient was found to have bilateral punctate subarachnoid hemorrhages with no mass effect, depressed left orbital floor fracture, left lateral orbital wall fracture, left anterior/posterior wall maxillary sinus fractures, left zygomatic arch fracture, and a left frontal scalp hematoma. The patient was additionally found to have a small laceration to left parietal scalp which was washed out and repaired with 3 jason. The patient was admitted where she was followed by neurosurgery, OMFS, medicine, and cardiology. Given subarachnoid hemorrhage Eliquis was held and the patient was started on Unasyn given sinus fractures. Repeat head CT without interval change, no neurosurgical intervention recommended. The patient was subsequently discharged 02/23 with instructions to follow-up with Dr. Eldridge with [facility]. She was provided a phone number for for [facility] ([phone]). Patient did reach out and make appointment. Furthermore the patient states home nursing services removed the jason from her head laceration earlier this week, on exam the laceration appears to be healing well there is no current bleeding/discharge. Bruising has improved.Continue to hold Eliquis until repeat CT scan of the head. She had her CAT scan which had improved, therefore patient resumed Eliquis on 04/10/2024. Results were faxed over to Dr. Campos. Continue to follow with neurology. Ensuring healing of subarachnoid hemorrhage. Patient to be cleared by ophthalmology and neurology prior to driving.Has initiated Eliquis again.Doing well. #Home safety: The patient lives at home with her . They live in a two-story home with her bedroom and the bathroom on the second level. There are no area rugs or identifiable tripping hazards per patient. Discussed utility of home alert devices such as life alert, the patient is amenable to this. She is encouraged to discuss this with her and son to work on getting a device. #HCP: Patient reports that her is her designated healthcare proxy. She additionally has a son who lives very close and is involved in her care. Filled out 03/23/2024 #HTN: BP stable in office. Continue losartan 50 mg daily, metoprolol 50 mg twice daily, and amlodipine 2.5 mg daily. #CHF: History of nonpitting lower extremity edema, Patient taking Lasix 20 mg as needed.Controlled at this time. Patient understands to take daily weights and consult medical provider should she experience a sudden weight gain. Follows with Dr. Castanon, cardiology. Next visit July 2024, Recently diagnosed with cardiomegaly in the emergency department 04/2024. #Prior CVA: Continue atorvastatin 80 mg daily. Holding well on Paxil level will initiate after discontinued Paxlovid. Reinitiation of Eliquis.Follows with neurology # Weight gain: Patient inquiring about GLP-1's. Based on age, and increased risk of sarcopenia I did recommend against this. Is open to trying alternative options such as Contrave. Initiated Contrave, has been tolerating fine. Has lost 4 pounds since last visit. Discussed the importance of lifestyle in conjunction. #GERD: Denies current symptoms of heartburn, reflux, regurgitation. Continue omeprazole 40 mg as needed. #Depression: Continue escitalopram 5 mg daily, Admits to uncontrolled depression, and difficulty sleeping. Will discontinue Lexapro, and initiate mirtazapine 15 mg at night. Also taking magnesium glycinate. Also taking Contrave which has a Wellbutrin component. Declined suicidal ideation. #Restless leg: Continue pramipexole 0.75 mg daily and gabapentin 300 mg twice daily.Following with neurology # Incontinence: History of bladder sling: Following with urology May 2024 Follow-up in 1 month, sooner as needed. Assess accuracy/compliance of mirtazapine for sleep/depression. All quetsions answered to patients satisfaction. Patient verbalized understanding of diagnosis and treatments explained. To call sooner prior to next visit it any questions/concerns arise. Case discussed with collaborating physician Josephine Marvin who reviewed the assessment and plan. Chart, medications, labs, vital signs reviewed. Dictation was accomplished with the use of [facility] voice recognition software, prone to medical misidentifications and grammatical errors. This is unintentional and the practitioner does try to identify and correct these, but some could still be present. Please do not hesitate to contact practitioner for clarification. 05/22/2024 Difficulty sleeping (ICD-10 - G47.9) # Paronychia: Will treat with Augmentin. Discussed proper use, side effects. This is of the right middle finger. If no improvement, consider referral to hand specialist.Discusse d proper use, side effects. Discussed that for incision and drainage, can follow-up with urgent care for this as we do not do this here. Questioning exposure to oral melchor therefore we will treat with Augmentin,/Warm salt water soaks. # At the beginning of April patient was hospitalized for pneumonia and COVID-19. Admits to a lingering cough. States that it was better with guanfacine. Will send prescription. Lungs clear to auscultation, but she does admit to some shortness of breath. Patient is been taking albuterol with some improvement. Still awaiting chest x-ray to ensure resolution of symptoms. Did discuss conservative treatments.Discusse d emergency department criteria.Will reorder today. # Tanna reports that on 02/19 she was in her dining area when she reached down to pick something up and fell forward onto a radiator. This fall resulted in head strike with +LOC. The patient was transported to [facility] where the trauma surgery team was consulted and a workup was initiated. Extensive imaging was performed and the patient was found to have bilateral punctate subarachnoid hemorrhages with no mass effect, depressed left orbital floor fracture, left lateral orbital wall fracture, left anterior/posterior wall maxillary sinus fractures, left zygomatic arch fracture, and a left frontal scalp hematoma. The patient was additionally found to have a small laceration to left parietal scalp which was washed out and repaired with 3 jason. The patient was admitted where she was followed by neurosurgery, OMFS, medicine, and cardiology. Given subarachnoid hemorrhage Eliquis was held and the patient was started on Unasyn given sinus fractures. Repeat head CT without interval change, no neurosurgical intervention recommended. The patient was subsequently discharged 02/23 with instructions to follow-up with Dr. Eldridge with [facility]. She was provided a phone number for for [facility] ([phone]). Patient did reach out and make appointment. Furthermore the patient states home nursing services removed the jason from her head laceration earlier this week, on exam the laceration appears to be healing well there is no current bleeding/discharge. Bruising has improved.Continue to hold Eliquis until repeat CT scan of the head. She had her CAT scan which had improved, therefore patient resumed Eliquis on 04/10/2024. Results were faxed over to Dr. Campos. Continue to follow with neurology. Ensuring healing of subarachnoid hemorrhage. Patient to be cleared by ophthalmology and neurology prior to driving.Has initiated Eliquis again.Doing well. #Home safety: The patient lives at home with her . They live in a two-story home with her bedroom and the bathroom on the second level. There are no area rugs or identifiable tripping hazards per patient. Discussed utility of home alert devices such as life alert, the patient is amenable to this. She is encouraged to discuss this with her and son to work on getting a device. #HCP: Patient reports that her is her designated healthcare proxy. She additionally has a son who lives very close and is involved in her care. Filled out 03/23/2024 #HTN: BP stable in office. Continue losartan 50 mg daily, metoprolol 50 mg twice daily, and amlodipine 2.5 mg daily. #CHF: History of nonpitting lower extremity edema, Patient taking Lasix 20 mg as needed.Controlled at this time. Patient understands to take daily weights and consult medical provider should she experience a sudden weight gain. Follows with Dr. Castanon, cardiology. Next visit July 2024, Recently diagnosed with cardiomegaly in the emergency department 04/2024. # Lower leg pain: Gabapentin as needed. Questioning vascular etiology secondary to leg fullness/pain/heavi ness. Will refer to vascular. #Prior CVA: Continue atorvastatin 80 mg daily. . Reinitiation of Eliquis.Follows with neurology # Weight gain: Patient inquiring about GLP-1's. Based on age, and increased risk of sarcopenia I did recommend against this. Is open to trying alternative options such as Contrave. Initiated Contrave, has been tolerating fine. Has gained weight since last visit with the holidays but states she is not doing any lifestyle changes. Will try to initiate lifestyle changes in conjunction with Contrave to see if there is improvement in weight loss.Patient states that Contrave is not working well at this time, but discussed the importance of lifestyle modifications, and time. #GERD: Denies current symptoms of heartburn, reflux, regurgitation. Continue omeprazole 40 mg as needed. #Depression: Continue escitalopram 5 mg daily, Admits to uncontrolled depression, and difficulty sleeping. Will discontinue Lexapro, and initiate mirtazapine 15 mg at night. Also taking magnesium glycinate. Also taking Contrave which has a Wellbutrin component. Declined suicidal ideation.Patient states that sleep has improved.She is pleased with this. #Restless leg: Continue pramipexole 0.75 mg daily and gabapentin 300 mg twice daily.Following with neurology # Incontinence: History of bladder sling: Following with urology May 2024 Patient following up in 4 weeks, blood work in the meantime. All quetsions answered to patients satisfaction. Patient verbalized understanding of diagnosis and treatments explained. To call sooner prior to next visit it any questions/concerns arise. Case discussed with collaborating physician Josephine Marvin who reviewed the assessment and plan. Chart, medications, labs, vital signs reviewed. Dictation was accomplished with the use of [facility] voice recognition software, prone to medical misidentifications and grammatical errors. This is unintentional and the practitioner does try to identify and correct these, but some could still be present. Please do not hesitate to contact practitioner for clarification. 03/23/2024 BMI 39.0-39.9,adult (ICD-10 - Z68.39) Tanna is a 73-year-old female with a PMH of CAD s/p DC with cardiac cath (2021), CHFrEF, HTN, prior CVA, GERD, esophageal dysmotility, restless leg that presents forMedicare wellness visit.Patient up-to-date on all vaccines, scheduling mammogram and otherwise up-to-date on screening tests, ordering bone density today. Healthcare proxy is her Clarke, filled out in office today. PHQ-9 with a total score of 2, no concern regarding mental health at this time.Audit negative. # Hospital visit: Tanna reports that on 02/19 she was in her dining area when she reached down to pick something up and fell forward onto a radiator. This fall resulted in head strike with +LOC. The patient was transported to [facility] where the trauma surgery team was consulted and a workup was initiated. Extensive imaging was performed and the patient was found to have bilateral punctate subarachnoid hemorrhages with no mass effect, depressed left orbital floor fracture, left lateral orbital wall fracture, left anterior/posterior wall maxillary sinus fractures, left zygomatic arch fracture, and a left frontal scalp hematoma. The patient was additionally found to have a small laceration to left parietal scalp which was washed out and repaired with 3 jason. The patient was admitted where she was followed by neurosurgery, OMFS, medicine, and cardiology. Given subarachnoid hemorrhage Eliquis was held and the patient was started on Unasyn given sinus fractures. Repeat head CT without interval change, no neurosurgical intervention recommended. The patient was subsequently discharged 02/23 with instructions to follow-up with Dr. Eldridge with [facility]. She was provided a phone number for for [facility] ([phone]). Patient did reach out and make appointment. Furthermore the patient states home nursing services removed the jason from her head laceration earlier this week, on exam the laceration appears to be healing well there is no current bleeding/discharge. Bruising has improved. Continue holding Eliquis until repeat CT scan of the head, and consider reinitiation of Eliquis, CT ordered after conversation with Dr. Campos today. He preferred that I ordered it myself. If any concern, patient will follow-up with neurology. Trying to ensure resolution/healing of subarachnoid hemorrhage.Patient holding off on driving until cleared by ophthalmology and neurology. Strict ED protocol was provided. The patient understands to seek immediate medical attention/dial 911 should she develop severe headache, nausea, vomiting, visual disturbance, localized weakness, confusion, difficulty speaking, gait disturbance, chest pain, difficulty breathing, etc. #Home safety: The patient lives at home with her . They live in a two-story home with her bedroom and the bathroom on the second level. There are no area rugs or identifiable tripping hazards per patient. Discussed utility of home alert devices such as life alert, the patient is amenable to this. She is encouraged to discuss this with her and son to work on getting a device. #HCP: Patient reports that her is her designated healthcare proxy. She additionally has a son who lives very close and is involved in her care. Filled out 03/23/2024 #HTN: BP stable in office. Continue losartan 50 mg daily, metoprolol 50 mg twice daily, and amlodipine 2.5 mg daily. #CHF: 1+ nonpitting edema bilateral lower extremities. Patient taking Lasix 20 mg as needed. Will take it daily for the next week. Could be associated to some of her weight gain. Patient understands to take daily weights and consult medical provider should she experience a sudden weight gain. Follows with Dr. Castanon, cardiology. Next visit July 2024 #Prior CVA: Continue atorvastatin 80 mg daily. Hold Eliquis until repeat CT confirms improvement in subarachnoid hemorrhage. Patient following with neurosurgery. # Weight gain: Patient inquiring about GLP-1's. Based on age, and increased risk of sarcopenia I did recommend against this. Is open to trying alternative options such as Contrave. Has taken Wellbutrin in the past for tobacco cessation, which worked very well. Will take Contrave, discussed proper use, side effects, long-term risks. Overall, blood work is within normal limits, and did have a CT of her abdomen back in November 2023 which was normal. Patient is following with gastroenterology [facility] 10. Follow-up in 6 weeks Here, But going to hold off on Contrave until she has the CT, and is back on Eliquis. #GERD: Denies current symptoms of heartburn, reflux, regurgitation. Continue omeprazole 40 mg as needed. #Depression: Continue escitalopram 5 mg daily. #Restless leg: Continue pramipexole 0.75 mg daily and gabapentin 300 mg twice daily.Following with neurology Follow-up to assess efficacy/compliance of Contrave, as well as leg swelling, and initiation of Eliquis. Patient seen and examined. Comprehensive discussion was done on the following. 1. Nutrition: It is important to follow a healthy diet based on lots of vegetables and legumes and good fat. Avoid processed food and processed carbohydrates. Prepare your own meals. Read labels and avoid high fructose corn syrup, processed chemicals added to increase shelf life and preprepared meals. Avoid fast foods. Eat slowly and plan meals for a week. Try to count calories and be mindful of daily calorie intake. Get into the habit of keeping an eye on your weight by using an appropriate scale. Learn to log exercise and discussed fitness Apps like Myfacepage/Voltaire which can help keep log off calories taken versus calories burned. Local food should be preferred. Discussed Dirty Dozen Versus Clean Fifteen. Discussed healthy supplements like fish oil, Tumeric, Curcumin, Melatonin, Resveratrol, Probiotics, Vitamin-D, Alpha-Lipoic acid, Vitamin-D and coconut oil. 2. It is important to exercise regularly. Is a good habit to walk at least 30 minutes a day. Gentle weightlifting with standard precautions to protect the back. Finding activity like cycling or hiking and get into the habit of engaging in it. Stretching before and after the exercises important. It is also important to contact me if there are any problems like shortness of breath, chest pain, back pain and joint or muscle pain associated with the exercise. 3. Discussed age appropriate screening guidelines. Colonoscopy needs to start at age 50 with stool for occult blood as appropriate. There is a new test that can test for genetic abnormalities in the stool sample, Cologuard. This would not replace a colonoscopy but could be used as a screening tool for patients who do not want a colonoscopy. We discussed the importance of early detection of colon cancer. 4. Discussed current PSA screening. PSA screening can be done in most patients between age 50 and 65. However early detection of prostate cancer needs to carefully be balanced with complications with treatment. These include incontinence, impotence etc. Each patient should decide if they would like to have this test. 5. Discussed safe driving and no use of smart phone while driving 6. Age-appropriate immunizations were discussed. A tetanus booster is needed every 10 years. Flu vaccine is recommended every year just before the start of the flu season. Shingles vaccine is recommended after age 50 but not all insurances cover it. Pneumonia vaccine is given after age 65 unless there are certain comorbidities for which it is started earlier. 7. Diagnostic labs were discussed. These could include/not limited to CBC CMP and lipids with fasting blood glucose and insulin levels. Vitamin D and hemoglobin A1c testing might be appropriate. All quetsions answered to patients satisfaction. Patient verbalized understanding of diagnosis and treatments explained. To call sooner prior to next visit it any questions/concerns arise. Case discussed with collaborating physician Josephine Marvin who reviewed the assessment and plan. Chart, medications, labs, vital signs reviewed. Dictation was accomplished with the use of [facility] voice recognition software, prone to medical misidentifications and grammatical errors. This is unintentional and the practitioner does try to identify and correct these, but some could still be present. Please do not hesitate to contact practitioner for clarification. 03/23/2024 Encounter for screening for depression (ICD-10 - Z13.31) Tanna is a 73-year-old female with a PMH of CAD s/p DC with cardiac cath (2021), CHFrEF, HTN, prior CVA, GERD, esophageal dysmotility, restless leg that presents forMedicare wellness visit.Patient up-to-date on all vaccines, scheduling mammogram and otherwise up-to-date on screening tests, ordering bone density today. Healthcare proxy is her Clarke, filled out in office today. PHQ-9 with a total score of 2, no concern regarding mental health at this time.Audit negative. # Hospital visit: Tanna reports that on 02/19 she was in her dining area when she reached down to pick something up and fell forward onto a radiator. This fall resulted in head strike with +LOC. The patient was transported to [facility] where the trauma surgery team was consulted and a workup was initiated. Extensive imaging was performed and the patient was found to have bilateral punctate subarachnoid hemorrhages with no mass effect, depressed left orbital floor fracture, left lateral orbital wall fracture, left anterior/posterior wall maxillary sinus fractures, left zygomatic arch fracture, and a left frontal scalp hematoma. The patient was additionally found to have a small laceration to left parietal scalp which was washed out and repaired with 3 jason. The patient was admitted where she was followed by neurosurgery, OMFS, medicine, and cardiology. Given subarachnoid hemorrhage Eliquis was held and the patient was started on Unasyn given sinus fractures. Repeat head CT without interval change, no neurosurgical intervention recommended. The patient was subsequently discharged 02/23 with instructions to follow-up with Dr. Eldridge with [facility]. She was provided a phone number for for [facility]FS ([phone]). Patient did reach out and make appointment. Furthermore the patient states home nursing services removed the jason from her head laceration earlier this week, on exam the laceration appears to be healing well there is no current bleeding/discharge. Bruising has improved. Continue holding Eliquis until repeat CT scan of the head, and consider reinitiation of Eliquis, CT ordered after conversation with Dr. Campos today. He preferred that I ordered it myself. If any concern, patient will follow-up with neurology. Trying to ensure resolution/healing of subarachnoid hemorrhage.Patient holding off on driving until cleared by ophthalmology and neurology. Strict ED protocol was provided. The patient understands to seek immediate medical attention/dial 911 should she develop severe headache, nausea, vomiting, visual disturbance, localized weakness, confusion, difficulty speaking, gait disturbance, chest pain, difficulty breathing, etc. #Home safety: The patient lives at home with her . They live in a two-story home with her bedroom and the bathroom on the second level. There are no area rugs or identifiable tripping hazards per patient. Discussed utility of home alert devices such as life alert, the patient is amenable to this. She is encouraged to discuss this with her and son to work on getting a device. #HCP: Patient reports that her is her designated healthcare proxy. She additionally has a son who lives very close and is involved in her care. Filled out 03/23/2024 #HTN: BP stable in office. Continue losartan 50 mg daily, metoprolol 50 mg twice daily, and amlodipine 2.5 mg daily. #CHF: 1+ nonpitting edema bilateral lower extremities. Patient taking Lasix 20 mg as needed. Will take it daily for the next week. Could be associated to some of her weight gain. Patient understands to take daily weights and consult medical provider should she experience a sudden weight gain. Follows with Dr. Castanon, cardiology. Next visit July 2024 #Prior CVA: Continue atorvastatin 80 mg daily. Hold Eliquis until repeat CT confirms improvement in subarachnoid hemorrhage. Patient following with neurosurgery. # Weight gain: Patient inquiring about GLP-1's. Based on age, and increased risk of sarcopenia I did recommend against this. Is open to trying alternative options such as Contrave. Has taken Wellbutrin in the past for tobacco cessation, which worked very well. Will take Contrave, discussed proper use, side effects, long-term risks. Overall, blood work is within normal limits, and did have a CT of her abdomen back in November 2023 which was normal. Patient is following with gastroenterology April 18. Follow-up in 6 weeks Here, But going to hold off on Contrave until she has the CT, and is back on Eliquis. #GERD: Denies current symptoms of heartburn, reflux, regurgitation. Continue omeprazole 40 mg as needed. #Depression: Continue escitalopram 5 mg daily. #Restless leg: Continue pramipexole 0.75 mg daily and gabapentin 300 mg twice daily.Following with neurology Follow-up to assess efficacy/compliance of Contrave, as well as leg swelling, and initiation of Eliquis. Patient seen and examined. Comprehensive discussion was done on the following. 1. Nutrition: It is important to follow a healthy diet based on lots of vegetables and legumes and good fat. Avoid processed food and processed carbohydrates. Prepare your own meals. Read labels and avoid high fructose corn syrup, processed chemicals added to increase shelf life and preprepared meals. Avoid fast foods. Eat slowly and plan meals for a week. Try to count calories and be mindful of daily calorie intake. Get into the habit of keeping an eye on your weight by using an appropriate scale. Learn to log exercise and discussed fitness Apps like Rebellepal/loseit which can help keep log off calories taken versus calories burned. Local food should be preferred. Discussed Dirty Dozen Versus Clean Fifteen. Discussed healthy supplements like fish oil, Tumeric, Curcumin, Melatonin, Resveratrol, Probiotics, Vitamin-D, Alpha-Lipoic acid, Vitamin-D and coconut oil. 2. It is important to exercise regularly. Is a good habit to walk at least 30 minutes a day. Gentle weightlifting with standard precautions to protect the back. Finding activity like cycling or hiking and get into the habit of engaging in it. Stretching before and after the exercises important. It is also important to contact me if there are any problems like shortness of breath, chest pain, back pain and joint or muscle pain associated with the exercise. 3. Discussed age appropriate screening guidelines. Colonoscopy needs to start at age 50 with stool for occult blood as appropriate. There is a new test that can test for genetic abnormalities in the stool sample, Cologuard. This would not replace a colonoscopy but could be used as a screening tool for patients who do not want a colonoscopy. We discussed the importance of early detection of colon cancer. 4. Discussed current PSA screening. PSA screening can be done in most patients between age 50 and 65. However early detection of prostate cancer needs to carefully be balanced with complications with treatment. These include incontinence, impotence etc. Each patient should decide if they would like to have this test. 5. Discussed safe driving and no use of smart phone while driving 6. Age-appropriate immunizations were discussed. A tetanus booster is needed every 10 years. Flu vaccine is recommended every year just before the start of the flu season. Shingles vaccine is recommended after age 50 but not all insurances cover it. Pneumonia vaccine is given after age 65 unless there are certain comorbidities for which it is started earlier. 7. Diagnostic labs were discussed. These could include/not limited to CBC CMP and lipids with fasting blood glucose and insulin levels. Vitamin D and hemoglobin A1c testing might be appropriate. All quetsions answered to patients satisfaction. Patient verbalized understanding of diagnosis and treatments explained. To call sooner prior to next visit it any questions/concerns arise. Case discussed with collaborating physician Josephine Marvin who reviewed the assessment and plan. Chart, medications, labs, vital signs reviewed. Dictation was accomplished with the use of [facility] voice recognition software, prone to medical misidentifications and grammatical errors. This is unintentional and the practitioner does try to identify and correct these, but some could still be present. Please do not hesitate to contact practitioner for clarification. 08/08/2024 Chronic systolic heart failure (ICD-10 - I50.22) Tanna is a 73-year-old female present today for weight management consultation. 08/08/2024: Wt: 191.3 lbs, BMI: 41.39 Patient congratulated on 6 pound weight loss since last visit. patient trialed on Contrave twice, but has not been consistent with this medication. Discussed Seca scale which revealed borderline low muscle mass in upper extremities. Discussed how GLP-1's would not be recommended as risk for potential further muscle loss. Patient admits she has not been consistent with the Contrave. Discussed with patient that Contrave or lifestyle would be the best for her in regards to weight loss. Patient willing to try Contrave 1 more time consistently. Will send prescription to [facility] pharmacy. Advised patient to increase protein with a daily goal of at least 80 g of protein. Discussed increasing physical activity with short walks as patient gets dyspnea on exertion. Recommend patient purchase his resistance bands or light hand weights to strengthen upper extremities. Patient agreeable with plan. Plan follow-up in 4 weeks and repeat Seca scale. #Interstitial fibrosis: Has had a chronic cough with multiple antibiotics with no resolution. Chest x-ray from 05/27/2024 revealing interstitial fibrosis. Patient referred to [facility] pulmonology. Prescribed albuterol as needed, fluticasone propriety daily and Trelegy daily. Will continue with pulmonology recommendations. #Osteoarthritis: Patient previously received cortisone injections for chronic osteoarthritis of the right hip. Referred to orthopedics that she has not had a cortisone injection in the past year. #Restless leg syndrome: Patient had rapid weight gain since initiating ropinirole. No longer taking. Switch to mirtazapine to take at night. Followed by neurology. #Hypertension: Blood pressure stable in office. Plan to continue losartan 50 mg, metoprolol 50 mg twice daily, and amlodipine 2.5 mg. Followed by cardiology. #B12 deficiency: Patient receives monthly B12 injections in office. #CHF: Followed by cardiology and doubled up on Lasix x 7 days when needed. No pitting edema on exam today. Patient was reassured and welcomed to the practice. We discussed that we stress a hollistic medical approach with emphasis on lifestyle modification. Patient was informed that a healthy lifestyle with exercise and good eating habits can help reduce his risk of medical complications. Patient is explained that obesity increases his risk of diabetes, cardiovascular disease, or organ damage. We spent a lot of time discussing the relationship between food, exercise, sleep, mental health and obesity. Patient was counseled on the importance EATING local, organic food when possible. Patient was educated on clean 15 and dirty dozen. I provided information about reading books called The Food Rules by Олег Puckett and Eat Fat Get Lean by Dr Devon Villalba. Self education is important in the journey for weight management. Patient was offered diagnostic testing/ SECA scale. We want to measure visceral adiposity, advanced body composition, adverse lipids, fatty acid balance, risk for heart disease and atherosclerosis, markers of inflammation and genetic susceptibility. Patient was counseled on weight management and was advised to lose weight using A. Meal Replacement Products Patient was educated on the replacement products called optifast. This is a good way of taking fixed amount of calories. It has been shown in studies to be ineffective weight management tool. This however has to be coupled with lifestyle intervention as well as laboratory data and EKG monitoring. It is impossible to know how a person will tolerate complete meal replacement. The side effects of meal replacement and weight loss could include syncopal attacks, dizziness, gallstones, potential cholecystectomy, possible heart attack and even . The benefits of meal replacement would be potential weight loss but no guarantees can be made. Meal replacement products are not covered by insurance. Once the patient has bought these products we cannot return them B. Lifestyle management which includes several strategies as below 1. Eat a low carbohydrate good fat good protein diet. Eliminate refined carbohydrates from the diet. Limit sugared beverages. Eat local organic when possible. Cook your own meals. Read food labels. Focus on healthy snacks. Portion control and food with low glycemic index 2. Exercise regularly. Try to get at least 6000 steps a day. Use a predominant to track activity level. Consider using apps like 7 minute excercise, myfitEchoing Greenpal, lose it, stick as needed for self-monitoring and weight management. Consider group exercises. Consider hiring a appraiser personal property. Regular exercise is nagy to sustainable health and prevents as a buffer against weight regain 3. Sleep is most important for healing. Try to sleep at least 6-8 hours a night. A good quality sleep needs a sleep ritual with ideal room temperature of around 68. It might help to take a shower and have no electronics in the room and sleep in a very dark room without artificial light. Start sleep routine and get up early in the morning and go to bed on time. 4. Make a social connection. Surround yourself with positive people with positive energy. Connect with friends and family. 5. Get into the habit of meditating and mindfulness while doing everything. 6. Go outside and connect with nature. C. Prescription medications Patient was educated on the use of prescription medications for medical weight loss. This is a growing list and includes phentermine, Topamax, Qsymia, contrave, belviq and saxenda, wegovy etc. All prescription medications could have side effects including but not limited to kidney stones, seizure disorder, cardiac arrhythmias, heart attack, pancreatitis, GI effects, Etc. Patient was encouraged to read the prescription insert and discuss with their pharmacist to make an informed decision about taking medication and know that these medications are being prescribed with good intentions and we do not know how a patient would react to her medication. Some medications are FDA approved for weight loss and there is also off label use depending on patient's inability to afford medications in an attempt to lose weight. D. Behavioral counseling was done to establish a relationship between food and an mood. Patient was provided information about local counseling and psychiatry and Dr Jimenez at [facility]. We would like to cover regular topics and build on low glycemic eating exercise mindful eating, using yoga and meditation along with deep breathing and connecting with friends and family. E. MASS PAT reviewed, Patient's current medications were reviewed and opinion was given on medication that can cause weight gain and can be substituted F. Patient was assessed for risk with obesity including and not limiting to atherosclerosis, heart disease, stroke, kidney disease, restrictive lung disease, irritable bowel syndrome and overall mortality. Risk of developing prediabetes diabetes and metabolic syndrome was discussed G. Therapeutic plan: We have decided to make therapeutic plan which would include choosing wisely on calories restricting portion getting active, tracking weight, getting good quality sleep and working on time management H. Patient will follow up in 4 weeks for weight management Total time spent today was 60 minutes of which greater than 50% was spent on coordinating and counseling Case discussed with collaborating physician Jonathan Marvin who reviewed the assessment and plan. Chart, medications, labs, vital signs reviewed. Dictation was accomplished with the use of [facility] voice recognition software, prone to medical misidentifications and grammatical errors. This is unintentional and the practitioner does try to identify and correct these, but some could still be present. Please do not hesitate to contact practitioner for clarification. All questions answered to patients satisfaction. Patient verbalized understanding of diagnosis and treatments explained. To call sooner prior to next visit it any questions/concerns arise. 09/15/2024 Essential hypertension (ICD-10 - I10) Tanna is a 73-year-old female presents today for 1 month follow-up. # Memory: Patient appears today to be at baseline with no further concern regarding altered mental status or change of baseline. #Elevated BMI: Switch from Contrave and begin trialing metformin. Discussed side effects including GI upset. Will prescribe to take 1 tab once daily x 2 weeks and then switch to 2 tabs once daily. Patient has A1c of 6.5%, so we will continue to monitor A1c for improvement. #Interstitial fibrosis: Patient developed a chronic cough and chest x-ray revealed changes suggesting interstitial fibrosis. Referred to pulmonology, Dr. Henderson. Recent CT chest with revealed no findings aside from atelectasis. Will continue with their recommendations. #B12 deficiency: Administer B12 today in office. # Diabetes: A1C of 6.5%. Initiating metformin ER 500 mg 1 tab once daily x 2 weeks then 2 tabs once daily x 2 weeks. #CHF: Followed by cardiology. Discussed low-sodium diet. Recommend compression stockings. Discussed importance of weighing daily and to call the office if she experiences extreme acute weight gain as this could be fluid retention. #Coronary artery disease #hyperlipidemia #hypertension #A-fib: Followed by cardiology. On anticoagulation with Eliquis 5 mg. BP managed on amlodipine 2.5, losartan 50 and metoprolol succinate extended release 50 mg. Hyperlipidemia managed on atorvastatin 80 mg. History of CHF and nonpitting lower extremity edema. Managed on Lasix 20 mg daily. #GERD managed on omeprazole 40 mg as needed. #Depression #restless leg: Continue pramipexole 0.75 mg daily and gabapentin 300 mg twice daily. Followed by neurology. States she does not have a visit scheduled. Would recommend calling to ensure she is not lost to follow-up. #History of incontinence: Followed by urology. #Plan to follow-up in 3 months. All questions answered to patients satisfaction. Patient verbalized understanding of diagnosis and treatments explained. To call sooner prior to next visit it any questions/concerns arise. Case discussed with collaborating physician Dr. Marvin who reviewed the assessment and plan. Chart, medications, labs, vital signs reviewed. Dictation was accomplished with the use of [facility] voice recognition software, prone to medical misidentifications and grammatical errors. This is unintentional and the practitioner does try to identify and correct these, but some could still be present. Please do not hesitate to contact practitioner for clarification. 09/26/2024 Restless leg syndrom e (ICD-10 - G25.81) Tanna is a pleasant 73-year-old female present today for hospital follow-up. #Hospitalized for acute on chronic diastolic congestive heart failure with acute decompensation and acute hypoxemic respiratory failure from 09/21 - 09/[address] [facility]. # Patient presented with shortness of breath and lower extremity edema. Echocardiogram repeated in hospital noting ejection fraction of 65% with mild concentric hypertrophy. This improved from prior echocardiogram May 2024 revealing grade 3 diastolic dysfunction. Amlodipine and losartan held during hospital stay and patient was started on diuresis with Lasix 40 mg twice daily. Patient discharged with improvement of symptoms and restarted on amlodipine, however her losartan dose had changed to 25 mg and metoprolol succinate to 50 mg p.o. once daily. # VNA services with nursing visits for BP checks. Has not started yet. # Supposed to schedule cardiology follow-up within 1 week for further evaluation. Reiterated the importance of a cardiology follow-up as patient was recommended to start torsemide 40 mg twice daily at home per cardiology, but was educated during hospital discharge to resume Lasix 40 mg. Patient obtain blood work today which revealed CBC within normal limits, pending BMP. Educated patient to continue medication regimen but follow-up with cardiology as necessary to discuss diuretics. Patient today has had improvement in lower extremity edema and feels though patient is stable to follow-up with cardiology in 1 week. Discussed the importance of daily weight ins as well as low-salt diet. Recommend use of compression stockings in addition to lower extremity elevation at nighttime. Discussed the importance of looking for signs regarding fluid retention and to call the office or cardiology if this develops. Patient agreeable with plan. #Chronic A-fib: Anticoagulated on Eliquis 5 mg twice daily. Metoprolol for rate control. #Coronary artery disease: Continue daily aspirin, atorvastatin metoprolol 50 mg p.o. once daily. #Diabetes: Most recent A1c in office of 6.5%. Initiated on metformin ER 500 mg titrating up to 2 tabs p.o. once daily. Will follow-up in 3 months and repeat A1c. #Interstitial fibrosis: Patient developed a chronic cough and chest x-ray revealed changes suggesting interstitial fibrosis. Referred to pulmonology, Dr. Henderson. Recent CT chest with revealed no findings aside from atelectasis. Will continue with their recommendations. Continue albuterol as needed. #GERD managed on omeprazole 40 mg. #Restless leg syndrome: Continue pramipexole and gabapentin. Followed by neurology. #History of incontinence: Followed by urology. All questions answered to patients satisfaction. Patient verbalized understanding of diagnosis and treatments explained. To call sooner prior to next visit it any questions/concerns arise. Case discussed with collaborating physician Dr. Marvin who reviewed the assessment and plan. Chart, medications, labs, vital signs reviewed. Dictation was accomplished with the use of [facility] voice recognition software, prone to medical misidentifications and grammatical errors. This is unintentional and the practitioner does try to identify and correct these, but some could still be present. Please do not hesitate to contact practitioner for clarification. 12/19/2024 GERD without esophagitis (ICD-10 - K21.9) Tanna is a pleasant 74-year-old female present today for follow-up. #Diabetes: A1c at last visit in August of 6.5%. Patient initiated on metformin 500 mg 2 tabs once daily. Since seeing cardiology, initiated on Jardiance 10 mg. A1c today office of 6%. Given significant weight gain in the past year as well as concern for diastolic heart failure, cardiology recommended GLP-1 therapy for intentional weight loss. Given diagnosis of diabetes, will prescribe Mounjaro 2.5 mg weekly injection. Discussed role of medication as well as side effect profile. Plan to follow-up in 1 month in regards to Mounjaro initiation. Will repeat A1c in 3 months. #Hypertension #diastolic heart failure: Followed by cardiology. Last seen 11/14/2024 with medication changes. Will follow-up in 1 month with cardiology. Continue Lasix 40 mg, metoprolol 50 mg and Jardiance 10 mg. Discontinue losartan. Blood pressure stable in office. Continue with the recommendations. #Chronic A-fib: Anticoagulated on Eliquis 5 mg twice daily. Metoprolol for rate control. #CAD: Continue aspirin 81 mg daily and atorvastatin. Will obtain blood work including lipids and review at follow-up. #Interstitial fibrosis: Chronic cough and chest x-ray revealed changes suggesting interstitial fibrosis. Referred to pulmonology. #Vitamin B12 deficiency: Obtains monthly B12 injections in office. #GERD: Managed on omeprazole 40 mg. #Restless leg syndrome: Continue pramipexole and gabapentin. Followed by neurology. Patient has since discontinued gabapentin and uses [id number] Tylenol as needed. #Right hip pain: followed by [facility]. All questions answered to patients satisfaction. Patient verbalized understanding of diagnosis and treatments explained. To call sooner prior to next visit it any questions/concerns arise. Case discussed with collaborating physician Dr. Marvin who reviewed the assessment and plan. Chart, medications, labs, vital signs reviewed. Dictation was accomplished with the use of [facility] voice recognition software, prone to medical misidentifications and grammatical errors. This is unintentional and the practitioner does try to identify and correct these, but some could still be present. Please do not hesitate to contact practitioner for clarification. 10/17/2024 Restless leg syndrom e (ICD-10 - G25.81) Tanna is a pleasant 73-year-old female present today for hospital follow-up. #Hospitalized for acute on chronic diastolic congestive heart failure with acute decompensation and acute hypoxemic respiratory failure from 09/21 - 09/[address] [facility]. Patient presented with shortness of breath and lower extremity edema. Echocardiogram repeated in hospital noting ejection fraction of 65% with mild concentric hypertrophy. This improved from prior echocardiogram May 2024 revealing grade 3 diastolic dysfunction. Amlodipine and losartan held during hospital stay and patient was started on diuresis with Lasix 40 mg twice daily. Patient discharged with improvement of symptoms and restarted on amlodipine, however her losartan dose had changed to 25 mg and metoprolol succinate to 50 mg p.o. once daily. # Patient following up with cardiology next week. Per cardiology, consider adding spironolactone and SGLT-2 inhibitor to patient regimen. Patient to discuss with cardiology regarding initiating torsemide. Discussed the importance of daily weight-ins as well as low-salt diet. Recommend use of compression stockings in addition to lower extremity elevation at nighttime. Discussed the importance of looking for signs regarding fluid retention and to call the office or cardiology if this develops. Patient agreeable with plan. #Chronic A-fib: Anticoagulated on Eliquis 5 mg twice daily. Metoprolol for rate control. #Coronary artery disease: Continue daily aspirin, atorvastatin metoprolol 50 mg p.o. once daily. #Diabetes: Most recent A1c in office of 6.5%. Initiated on metformin ER 500 mg titrating up to 2 tabs p.o. once daily. Will follow-up in 3 months and repeat A1c. #Interstitial fibrosis: Patient developed a chronic cough and chest x-ray revealed changes suggesting interstitial fibrosis. Referred to pulmonology, Dr. Henderson. Recent CT chest with revealed no findings aside from atelectasis. Will continue with their recommendations. Continue albuterol as needed. #GERD managed on omeprazole 40 mg. #Restless leg syndrome: Continue pramipexole and gabapentin. Followed by neurology. #History of incontinence: Followed by urology. All questions answered to patients satisfaction. Patient verbalized understanding of diagnosis and treatments explained. To call sooner prior to next visit it any questions/concerns arise. Case discussed with collaborating physician Dr. Marvin who reviewed the assessment and plan. Chart, medications, labs, vital signs reviewed. Dictation was accomplished with the use of [facility] voice recognition software, prone to medical misidentifications and grammatical errors. This is unintentional and the practitioner does try to identify and correct these, but some could still be present. Please do not hesitate to contact practitioner for clarification. 01/19/2025 Type 2 diabetes mellitus without complication, without long-term current use of insulin (ICD-10 - E11.9) Tanna is a 74-year-old female present today for 1 month follow-up. Past medical history of hyperlipidemia, coronary artery disease, reflux gastritis, hypertension, overactive bladder, depression, hydronephrosis with ureteral stricture, vitamin D deficiency, vitamin B12 deficiency, cerebral infarction, restless leg syndrome followed by neurology, A-fib on anticoagulation, cardiomegaly, bronchitis, hip osteoarthritis and congestive heart failure followed by cardiology. # Will update influenza and B12 injection for B12 deficiency in office. # Lower extremity edema #RLE edema exacerbation: Patient had contacted [facility] on 01/16/2025 reporting right foot swollen. Denies any shortness of breath. Staying well-hydrated and good urine output without difficulty. Per Dr. Castanon, recommended taking Lasix 40 mg twice a day x 3 days with labs including a basic metabolic panel and magnesium. Patient advised to go to [facility] lab today for these labs and cardiology will reach out to follow-up same day. Pending cardiology recommendations. Patient reports swelling as improved however on palpation of RLE, leakage of fluid is appreciated. In office, compression bandaging is placed to help apply external pressure to the limb, which counteracts elevated ambulatory venous pressure, decreased capillary filtration and promote fluid shift into noncompressed regions thereby improving lymphatic drainage and venous return. Patient verablized understanding Patient advised to keep dressing on over the weekend. Discussed importance of compliance with short term furosemide 40 mg BID to improve symptoms. Discussed low salt diet and daily weigh-ins. Discussed worsening signs. Discussed ER protocol. Will follow up with cardiology today. If symptoms worsen over the weekend, will consider duplex u/s of RLE. Patient advised to call the office by Wednesday. # Low potassium: Recent labs reveal potassium of 3.1. Discussed concern for electrolyte abnormality. Recommend potassium supplementation however patient states cardiology ordered a BNP to check electrolytes today and she will check potassium level today. Will check BNP when available and rediscuss potassium supplementation if indicated. Discussed risk of hypokalemia including arrhythmias. Patient understanding. # Follow up 2 months for labs including CBC, CMP and A1C. Will review cardiology order for BMP when available after today's bloodwork. #Chronic A-fib: Anticoagulated on Eliquis 5 mg twice daily. Metoprolol for rate control. #Coronary artery disease: Continue daily aspirin, atorvastatin metoprolol 50 mg p.o. once daily. #Diabetes: Most recent A1c of 6%. Managed on metformin, jardiance and Mounjaro. Will follow-up in 2 months and repeat A1c. #Interstitial fibrosis:. Continue albuterol as needed. #GERD managed on omeprazole 40 mg. #Restless leg syndrome: Continue pramipexole and gabapentin. Followed by neurology. #History of incontinence: Followed by urology. #weight gain: Managed on Mounjaro 2.5 mg weekly injections per cardiology recommendations. Has had a 5 lb weight loss in 1 month. Given concern for age and risk of osteoporosis will continue low dose and refrain from higher doses given successful weight loss. Discussed need for lifestyle modifications. All questions answered to patients satisfaction. Patient verbalized understanding of diagnosis and treatments explained. To call sooner prior to next visit it any questions/concerns arise. Case discussed with collaborating physician Dr. Marvin who reviewed the assessment and plan. Chart, medications, labs, vital signs reviewed. Dictation was accomplished with the use of [facility] voice recognition software, prone to medical misidentifications and grammatical errors. This is unintentional and the practitioner does try to identify and correct these, but some could still be present. Please do not hesitate to contact practitioner for clarification. 01/19/2025 GERD without esophagitis (ICD-10 - K21.9) Tanna is a 74-year-old female present today for 1 month follow-up. Past medical history of hyperlipidemia, coronary artery disease, reflux gastritis, hypertension, overactive bladder, depression, hydronephrosis with ureteral stricture, vitamin D deficiency, vitamin B12 deficiency, cerebral infarction, restless leg syndrome followed by neurology, A-fib on anticoagulation, cardiomegaly, bronchitis, hip osteoarthritis and congestive heart failure followed by cardiology. # Will update influenza and B12 injection for B12 deficiency in office. # Lower extremity edema #RLE edema exacerbation: Patient had contacted [facility] on 01/16/2025 reporting right foot swollen. Denies any shortness of breath. Staying well-hydrated and good urine output without difficulty. Per Dr. Castanon, recommended taking Lasix 40 mg twice a day x 3 days with labs including a basic metabolic panel and magnesium. Patient advised to go to [facility] lab today for these labs and cardiology will reach out to follow-up same day. Pending cardiology recommendations. Patient reports swelling as improved however on palpation of RLE, leakage of fluid is appreciated. In office, compression bandaging is placed to help apply external pressure to the limb, which counteracts elevated ambulatory venous pressure, decreased capillary filtration and promote fluid shift into noncompressed regions thereby improving lymphatic drainage and venous return. Patient verablized understanding Patient advised to keep dressing on over the weekend. Discussed importance of compliance with short term furosemide 40 mg BID to improve symptoms. Discussed low salt diet and daily weigh-ins. Discussed worsening signs. Discussed ER protocol. Will follow up with cardiology today. If symptoms worsen over the weekend, will consider duplex u/s of RLE. Patient advised to call the office by Wednesday. # Low potassium: Recent labs reveal potassium of 3.1. Discussed concern for electrolyte abnormality. Recommend potassium supplementation however patient states cardiology ordered a BNP to check electrolytes today and she will check potassium level today. Will check BNP when available and rediscuss potassium supplementation if indicated. Discussed risk of hypokalemia including arrhythmias. Patient understanding. # Follow up 2 months for labs including CBC, CMP and A1C. Will review cardiology order for BMP when available after today's bloodwork. #Chronic A-fib: Anticoagulated on Eliquis 5 mg twice daily. Metoprolol for rate control. #Coronary artery disease: Continue daily aspirin, atorvastatin metoprolol 50 mg p.o. once daily. #Diabetes: Most recent A1c of 6%. Managed on metformin, jardiance and Mounjaro. Will follow-up in 2 months and repeat A1c. #Interstitial fibrosis:. Continue albuterol as needed. #GERD managed on omeprazole 40 mg. #Restless leg syndrome: Continue pramipexole and gabapentin. Followed by neurology. #History of incontinence: Followed by urology. #weight gain: Managed on Mounjaro 2.5 mg weekly injections per cardiology recommendations. Has had a 5 lb weight loss in 1 month. Given concern for age and risk of osteoporosis will continue low dose and refrain from higher doses given successful weight loss. Discussed need for lifestyle modifications. All questions answered to patients satisfaction. Patient verbalized understanding of diagnosis and treatments explained. To call sooner prior to next visit it any questions/concerns arise. Case discussed with collaborating physician Dr. Marvin who reviewed the assessment and plan. Chart, medications, labs, vital signs reviewed. Dictation was accomplished with the use of [facility] voice recognition software, prone to medical misidentifications and grammatical errors. This is unintentional and the practitioner does try to identify and correct these, but some could still be present. Please do not hesitate to contact practitioner for clarification. 12/19/2024 Restless leg syndrom e (ICD-10 - G25.81) Tanna is a pleasant 74-year-old female present today for follow-up. #Diabetes: A1c at last visit in August of 6.5%. Patient initiated on metformin 500 mg 2 tabs once daily. Since seeing cardiology, initiated on Jardiance 10 mg. A1c today office of 6%. Given significant weight gain in the past year as well as concern for diastolic heart failure, cardiology recommended GLP-1 therapy for intentional weight loss. Given diagnosis of diabetes, will prescribe Mounjaro 2.5 mg weekly injection. Discussed role of medication as well as side effect profile. Plan to follow-up in 1 month in regards to Mounjaro initiation. Will repeat A1c in 3 months. #Hypertension #diastolic heart failure: Followed by cardiology. Last seen 11/14/2024 with medication changes. Will follow-up in 1 month with cardiology. Continue Lasix 40 mg, metoprolol 50 mg and Jardiance 10 mg. Discontinue losartan. Blood pressure stable in office. Continue with the recommendations. #Chronic A-fib: Anticoagulated on Eliquis 5 mg twice daily. Metoprolol for rate control. #CAD: Continue aspirin 81 mg daily and atorvastatin. Will obtain blood work including lipids and review at follow-up. #Interstitial fibrosis: Chronic cough and chest x-ray revealed changes suggesting interstitial fibrosis. Referred to pulmonology. #Vitamin B12 deficiency: Obtains monthly B12 injections in office. #GERD: Managed on omeprazole 40 mg. #Restless leg syndrome: Continue pramipexole and gabapentin. Followed by neurology. Patient has since discontinued gabapentin and uses [id number] Tylenol as needed. #Right hip pain: followed by [facility]. All questions answered to patients satisfaction. Patient verbalized understanding of diagnosis and treatments explained. To call sooner prior to next visit it any questions/concerns arise. Case discussed with collaborating physician Dr. Marvin who reviewed the assessment and plan. Chart, medications, labs, vital signs reviewed. Dictation was accomplished with the use of [facility] voice recognition software, prone to medical misidentifications and grammatical errors. This is unintentional and the practitioner does try to identify and correct these, but some could still be present. Please do not hesitate to contact practitioner for clarification. 09/26/2024 Encounter for examination of blood pressure without abnormal findings (ICD-10 - Z01.30) Tanna is a pleasant 73-year-old female present today for hospital follow-up. #Hospitalized for acute on chronic diastolic congestive heart failure with acute decompensation and acute hypoxemic respiratory failure from 09/21 - 09/[address] [facility]. # Patient presented with shortness of breath and lower extremity edema. Echocardiogram repeated in hospital noting ejection fraction of 65% with mild concentric hypertrophy. This improved from prior echocardiogram May 2024 revealing grade 3 diastolic dysfunction. Amlodipine and losartan held during hospital stay and patient was started on diuresis with Lasix 40 mg twice daily. Patient discharged with improvement of symptoms and restarted on amlodipine, however her losartan dose had changed to 25 mg and metoprolol succinate to 50 mg p.o. once daily. # VNA services with nursing visits for BP checks. Has not started yet. # Supposed to schedule cardiology follow-up within 1 week for further evaluation. Reiterated the importance of a cardiology follow-up as patient was recommended to start torsemide 40 mg twice daily at home per cardiology, but was educated during hospital discharge to resume Lasix 40 mg. Patient obtain blood work today which revealed CBC within normal limits, pending BMP. Educated patient to continue medication regimen but follow-up with cardiology as necessary to discuss diuretics. Patient today has had improvement in lower extremity edema and feels though patient is stable to follow-up with cardiology in 1 week. Discussed the importance of daily weight ins as well as low-salt diet. Recommend use of compression stockings in addition to lower extremity elevation at nighttime. Discussed the importance of looking for signs regarding fluid retention and to call the office or cardiology if this develops. Patient agreeable with plan. #Chronic A-fib: Anticoagulated on Eliquis 5 mg twice daily. Metoprolol for rate control. #Coronary artery disease: Continue daily aspirin, atorvastatin metoprolol 50 mg p.o. once daily. #Diabetes: Most recent A1c in office of 6.5%. Initiated on metformin ER 500 mg titrating up to 2 tabs p.o. once daily. Will follow-up in 3 months and repeat A1c. #Interstitial fibrosis: Patient developed a chronic cough and chest x-ray revealed changes suggesting interstitial fibrosis. Referred to pulmonology, Dr. Henderson. Recent CT chest with revealed no findings aside from atelectasis. Will continue with their recommendations. Continue albuterol as needed. #GERD managed on omeprazole 40 mg. #Restless leg syndrome: Continue pramipexole and gabapentin. Followed by neurology. #History of incontinence: Followed by urology. All questions answered to patients satisfaction. Patient verbalized understanding of diagnosis and treatments explained. To call sooner prior to next visit it any questions/concerns arise. Case discussed with collaborating physician Dr. Marvin who reviewed the assessment and plan. Chart, medications, labs, vital signs reviewed. Dictation was accomplished with the use of [facility] voice recognition software, prone to medical misidentifications and grammatical errors. This is unintentional and the practitioner does try to identify and correct these, but some could still be present. Please do not hesitate to contact practitioner for clarification. 10/17/2024 Encounter for examination of blood pressure without abnormal findings (ICD-10 - Z01.30) Tanna is a pleasant 73-year-old female present today for hospital follow-up. #Hospitalized for acute on chronic diastolic congestive heart failure with acute decompensation and acute hypoxemic respiratory failure from 09/21 - 09/[address] [facility]. Patient presented with shortness of breath and lower extremity edema. Echocardiogram repeated in hospital noting ejection fraction of 65% with mild concentric hypertrophy. This improved from prior echocardiogram May 2024 revealing grade 3 diastolic dysfunction. Amlodipine and losartan held during hospital stay and patient was started on diuresis with Lasix 40 mg twice daily. Patient discharged with improvement of symptoms and restarted on amlodipine, however her losartan dose had changed to 25 mg and metoprolol succinate to 50 mg p.o. once daily. # Patient following up with cardiology next week. Per cardiology, consider adding spironolactone and SGLT-2 inhibitor to patient regimen. Patient to discuss with cardiology regarding initiating torsemide. Discussed the importance of daily weight-ins as well as low-salt diet. Recommend use of compression stockings in addition to lower extremity elevation at nighttime. Discussed the importance of looking for signs regarding fluid retention and to call the office or cardiology if this develops. Patient agreeable with plan. #Chronic A-fib: Anticoagulated on Eliquis 5 mg twice daily. Metoprolol for rate control. #Coronary artery disease: Continue daily aspirin, atorvastatin metoprolol 50 mg p.o. once daily. #Diabetes: Most recent A1c in office of 6.5%. Initiated on metformin ER 500 mg titrating up to 2 tabs p.o. once daily. Will follow-up in 3 months and repeat A1c. #Interstitial fibrosis: Patient developed a chronic cough and chest x-ray revealed changes suggesting interstitial fibrosis. Referred to pulmonology, Dr. Henderson. Recent CT chest with revealed no findings aside from atelectasis. Will continue with their recommendations. Continue albuterol as needed. #GERD managed on omeprazole 40 mg. #Restless leg syndrome: Continue pramipexole and gabapentin. Followed by neurology. #History of incontinence: Followed by urology. All questions answered to patients satisfaction. Patient verbalized understanding of diagnosis and treatments explained. To call sooner prior to next visit it any questions/concerns arise. Case discussed with collaborating physician Dr. Marvin who reviewed the assessment and plan. Chart, medications, labs, vital signs reviewed. Dictation was accomplished with the use of [facility] voice recognition software, prone to medical misidentifications and grammatical errors. This is unintentional and the practitioner does try to identify and correct these, but some could still be present. Please do not hesitate to contact practitioner for clarification. 09/15/2024 Atrial fibrillation, unspecified type (ICD-10 - I48.91) Tanna is a 73-year-old female presents today for 1 month follow-up. # Memory: Patient appears today to be at baseline with no further concern regarding altered mental status or change of baseline. #Elevated BMI: Switch from Contrave and begin trialing metformin. Discussed side effects including GI upset. Will prescribe to take 1 tab once daily x 2 weeks and then switch to 2 tabs once daily. Patient has A1c of 6.5%, so we will continue to monitor A1c for improvement. #Interstitial fibrosis: Patient developed a chronic cough and chest x-ray revealed changes suggesting interstitial fibrosis. Referred to pulmonology, Dr. Henderson. Recent CT chest with revealed no findings aside from atelectasis. Will continue with their recommendations. #B12 deficiency: Administer B12 today in office. # Diabetes: A1C of 6.5%. Initiating metformin ER 500 mg 1 tab once daily x 2 weeks then 2 tabs once daily x 2 weeks. #CHF: Followed by cardiology. Discussed low-sodium diet. Recommend compression stockings. Discussed importance of weighing daily and to call the office if she experiences extreme acute weight gain as this could be fluid retention. #Coronary artery disease #hyperlipidemia #hypertension #A-fib: Followed by cardiology. On anticoagulation with Eliquis 5 mg. BP managed on amlodipine 2.5, losartan 50 and metoprolol succinate extended release 50 mg. Hyperlipidemia managed on atorvastatin 80 mg. History of CHF and nonpitting lower extremity edema. Managed on Lasix 20 mg daily. #GERD managed on omeprazole 40 mg as needed. #Depression #restless leg: Continue pramipexole 0.75 mg daily and gabapentin 300 mg twice daily. Followed by neurology. States she does not have a visit scheduled. Would recommend calling to ensure she is not lost to follow-up. #History of incontinence: Followed by urology. #Plan to follow-up in 3 months. All questions answered to patients satisfaction. Patient verbalized understanding of diagnosis and treatments explained. To call sooner prior to next visit it any questions/concerns arise. Case discussed with collaborating physician Dr. Marvin who reviewed the assessment and plan. Chart, medications, labs, vital signs reviewed. Dictation was accomplished with the use of [facility] voice recognition software, prone to medical misidentifications and grammatical errors. This is unintentional and the practitioner does try to identify and correct these, but some could still be present. Please do not hesitate to contact practitioner for clarification. 03/23/2024 Encounter for screening for other disorder (ICD-10 - Z13.89) Tanna is a 73-year-old female with a PMH of CAD s/p DC with cardiac cath (2021), CHFrEF, HTN, prior CVA, GERD, esophageal dysmotility, restless [facility]Patient up-to-date on all vaccines, scheduling mammogram and otherwise up-to-date on screening tests, ordering bone density today. Healthcare proxy is her Clarke, filled out in office today. PHQ-9 with a total score of 2, no concern regarding mental health at this time.Audit negative. # Hospital visit: Tanna reports that on 02/19 she was in her dining area when she reached down to pick something up and fell forward onto a radiator. This fall resulted in head strike with +LOC. The patient was transported to [facility] where the trauma surgery team was consulted and a workup was initiated. Extensive imaging was performed and the patient was found to have bilateral punctate subarachnoid hemorrhages with no mass effect, depressed left orbital floor fracture, left lateral orbital wall fracture, left anterior/posterior wall maxillary sinus fractures, left zygomatic arch fracture, and a left frontal scalp hematoma. The patient was additionally found to have a small laceration to left parietal scalp which was washed out and repaired with 3 jason. The patient was admitted where she was followed by neurosurgery, OMFS, medicine, and cardiology. Given subarachnoid hemorrhage Eliquis was held and the patient was started on Unasyn given sinus fractures. Repeat head CT without interval change, no neurosurgical intervention recommended. The patient was subsequently discharged 02/23 with instructions to follow-up with Dr. Eldridge with [facility]. She was provided a phone number for for OMFS ([phone]). Patient did reach out and make appointment. Furthermore the patient states home nursing services removed the jason from her head laceration earlier this week, on exam the laceration appears to be healing well there is no current bleeding/discharge. Bruising has improved. Continue holding Eliquis until repeat CT scan of the head, and consider reinitiation of Eliquis, CT ordered after conversation with Dr. Campos today. He preferred that I ordered it myself. If any concern, patient will follow-up with neurology. Trying to ensure resolution/healing of subarachnoid hemorrhage.Patient holding off on driving until cleared by ophthalmology and neurology. Strict ED protocol was provided. The patient understands to seek immediate medical attention/dial 911 should she develop severe headache, nausea, vomiting, visual disturbance, localized weakness, confusion, difficulty speaking, gait disturbance, chest pain, difficulty breathing, etc. #Home safety: The patient lives at home with her . They live in a two-story home with her bedroom and the bathroom on the second level. There are no area rugs or identifiable tripping hazards per patient. Discussed utility of home alert devices such as life alert, the patient is amenable to this. She is encouraged to discuss this with her and son to work on getting a device. #HCP: Patient reports that her is her designated healthcare proxy. She additionally has a son who lives very close and is involved in her care. Filled out 03/23/2024 #HTN: BP stable in office. Continue losartan 50 mg daily, metoprolol 50 mg twice daily, and amlodipine 2.5 mg daily. #CHF: 1+ nonpitting edema bilateral lower extremities. Patient taking Lasix 20 mg as needed. Will take it daily for the next week. Could be associated to some of her weight gain. Patient understands to take daily weights and consult medical provider should she experience a sudden weight gain. Follows with Dr. Castanon, cardiology. Next visit July 2024 #Prior CVA: Continue atorvastatin 80 mg daily. Hold Eliquis until repeat CT confirms improvement in subarachnoid hemorrhage. Patient following with neurosurgery. # Weight gain: Patient inquiring about GLP-1's. Based on age, and increased risk of sarcopenia I did recommend against this. Is open to trying alternative options such as Contrave. Has taken Wellbutrin in the past for tobacco cessation, which worked very well. Will take Contrave, discussed proper use, side effects, long-term risks. Overall, blood work is within normal limits, and did have a CT of her abdomen back in November 2023 which was normal. Patient is following with gastroenterology April 18. Follow-up in 6 weeks Here, But going to hold off on Contrave until she has the CT, and is back on Eliquis. #GERD: Denies current symptoms of heartburn, reflux, regurgitation. Continue omeprazole 40 mg as needed. #Depression: Continue escitalopram 5 mg daily. #Restless leg: Continue pramipexole 0.75 mg daily and gabapentin 300 mg twice daily.Following with neurology Follow-up to assess efficacy/compliance of Contrave, as well as leg swelling, and initiation of Eliquis. Patient seen and examined. Comprehensive discussion was done on the following. 1. Nutrition: It is important to follow a healthy diet based on lots of vegetables and legumes and good fat. Avoid processed food and processed carbohydrates. Prepare your own meals. Read labels and avoid high fructose corn syrup, processed chemicals added to increase shelf life and preprepared meals. Avoid fast foods. Eat slowly and plan meals for a week. Try to count calories and be mindful of daily calorie intake. Get into the habit of keeping an eye on your weight by using an appropriate scale. Learn to log exercise and discussed fitness Apps like [employer] which can help keep log off calories taken versus calories burned. Local food should be preferred. Discussed Dirty Dozen Versus Clean Fifteen. Discussed healthy supplements like fish oil, Tumeric, Curcumin, Melatonin, Resveratrol, Probiotics, Vitamin-D, Alpha-Lipoic acid, Vitamin-D and coconut oil. 2. It is important to exercise regularly. Is a good habit to walk at least 30 minutes a day. Gentle weightlifting with standard precautions to protect the back. Finding activity like cycling or hiking and get into the habit of engaging in it. Stretching before and after the exercises important. It is also important to contact me if there are any problems like shortness of breath, chest pain, back pain and joint or muscle pain associated with the exercise. 3. Discussed age appropriate screening guidelines. Colonoscopy needs to start at age 50 with stool for occult blood as appropriate. There is a new test that can test for genetic abnormalities in the stool sample, Cologuard. This would not replace a colonoscopy but could be used as a screening tool for patients who do not want a colonoscopy. We discussed the importance of early detection of colon cancer. 4. Discussed current PSA screening. PSA screening can be done in most patients between age 50 and 65. However early detection of prostate cancer needs to carefully be balanced with complications with treatment. These include incontinence, impotence etc. Each patient should decide if they would like to have this test. 5. Discussed safe driving and no use of smart phone while driving 6. Age-appropriate immunizations were discussed. A tetanus booster is needed every 10 years. Flu vaccine is recommended every year just before the start of the flu season. Shingles vaccine is recommended after age 50 but not all insurances cover it. Pneumonia vaccine is given after age 65 unless there are certain comorbidities for which it is started earlier. 7. Diagnostic labs were discussed. These could include/not limited to CBC CMP and lipids with fasting blood glucose and insulin levels. Vitamin D and hemoglobin A1c testing might be appropriate. All quetsions answered to patients satisfaction. Patient verbalized understanding of diagnosis and treatments explained. To call sooner prior to next visit it any questions/concerns arise. Case discussed with collaborating physician Josephine Marvin who reviewed the assessment and plan. Chart, medications, labs, vital signs reviewed. Dictation was accomplished with the use of [facility] voice recognition software, prone to medical misidentifications and grammatical errors. This is unintentional and the practitioner does try to identify and correct these, but some could still be present. Please do not hesitate to contact practitioner for clarification. 03/23/2024 Other specified counseling (ICD-10 - Z71.89) Tanna is a 73-year-old female with a PMH of CAD s/p DC with cardiac cath (2021), CHFrEF, HTN, prior CVA, GERD, esophageal dysmotility, restless leg that [facility].Patient up-to-date on all vaccines, scheduling mammogram and otherwise up-to-date on screening tests, ordering bone density today. Healthcare proxy is her Clarke, filled out in office today. PHQ-9 with a total score of 2, no concern regarding mental health at this time.Audit negative. # Hospital visit: Tanna reports that on 02/19 she was in her dining area when she reached down to pick something up and fell forward onto a radiator. This fall resulted in head strike with +LOC. The patient was transported to [facility] where the trauma surgery team was consulted and a workup was initiated. Extensive imaging was performed and the patient was found to have bilateral punctate subarachnoid hemorrhages with no mass effect, depressed left orbital floor fracture, left lateral orbital wall fracture, left anterior/posterior wall maxillary sinus fractures, left zygomatic arch fracture, and a left frontal scalp hematoma. The patient was additionally found to have a small laceration to left parietal scalp which was washed out and repaired with 3 jason. The patient was admitted where she was followed by neurosurgery, OMFS, medicine, and cardiology. Given subarachnoid hemorrhage Eliquis was held and the patient was started on Unasyn given sinus fractures. Repeat head CT without interval change, no neurosurgical intervention recommended. The patient was subsequently discharged 02/23 with instructions to follow-up with Dr. Eldridge with OMFS. She was provided a phone number for for OMFS ([phone]). Patient did reach out and make appointment. Furthermore the patient states home nursing services removed the jason from her head laceration earlier this week, on exam the laceration appears to be healing well there is no current bleeding/discharge. Bruising has improved. Continue holding Eliquis until repeat CT scan of the head, and consider reinitiation of Eliquis, CT ordered after conversation with Dr. Campos today. He preferred that I ordered it myself. If any concern, patient will follow-up with neurology. Trying to ensure resolution/healing of subarachnoid hemorrhage.Patient holding off on driving until cleared by ophthalmology and neurology. Strict ED protocol was provided. The patient understands to seek immediate medical attention/dial 911 should she develop severe headache, nausea, vomiting, visual disturbance, localized weakness, confusion, difficulty speaking, gait disturbance, chest pain, difficulty breathing, etc. #Home safety: The patient lives at home with her . They live in a two-story home with her bedroom and the bathroom on the second level. There are no area rugs or identifiable tripping hazards per patient. Discussed utility of home alert devices such as life alert, the patient is amenable to this. She is encouraged to discuss this with her and son to work on getting a device. #HCP: Patient reports that her is her designated healthcare proxy. She additionally has a son who lives very close and is involved in her care. Filled out 03/23/2024 #HTN: BP stable in office. Continue losartan 50 mg daily, metoprolol 50 mg twice daily, and amlodipine 2.5 mg daily. #CHF: 1+ nonpitting edema bilateral lower extremities. Patient taking Lasix 20 mg as needed. Will take it daily for the next week. Could be associated to some of her weight gain. Patient understands to take daily weights and consult medical provider should she experience a sudden weight gain. Follows with Dr. Castanon, cardiology. Next visit July 2024 #Prior CVA: Continue atorvastatin 80 mg daily. Hold Eliquis until repeat CT confirms improvement in subarachnoid hemorrhage. Patient following with neurosurgery. # Weight gain: Patient inquiring about GLP-1's. Based on age, and increased risk of sarcopenia I did recommend against this. Is open to trying alternative options such as Contrave. Has taken Wellbutrin in the past for tobacco cessation, which worked very well. Will take Contrave, discussed proper use, side effects, long-term risks. Overall, blood work is within normal limits, and did have a CT of her abdomen back in November 2023 which was normal. Patient is following with gastroenterology April 18. Follow-up in 6 weeks Here, But going to hold off on Contrave until she has the CT, and is back on Eliquis. #GERD: Denies current symptoms of heartburn, reflux, regurgitation. Continue omeprazole 40 mg as needed. #Depression: Continue escitalopram 5 mg daily. #Restless leg: Continue pramipexole 0.75 mg daily and gabapentin 300 mg twice daily.Following with neurology Follow-up to assess efficacy/compliance of Contrave, as well as leg swelling, and initiation of Eliquis. Patient seen and examined. Comprehensive discussion was done on the following. 1. Nutrition: It is important to follow a healthy diet based on lots of vegetables and legumes and good fat. Avoid processed food and processed carbohydrates. Prepare your own meals. Read labels and avoid high fructose corn syrup, processed chemicals added to increase shelf life and preprepared meals. Avoid fast foods. Eat slowly and plan meals for a week. Try to count calories and be mindful of daily calorie intake. Get into the habit of keeping an eye on your weight by using an appropriate scale. Learn to log exercise and discussed fitness Apps like [employer]taire which can help keep log off calories taken versus calories burned. Local food should be preferred. Discussed Dirty Dozen Versus Clean Fifteen. Discussed healthy supplements like fish oil, Tumeric, Curcumin, Melatonin, Resveratrol, Probiotics, Vitamin-D, Alpha-Lipoic acid, Vitamin-D and coconut oil. 2. It is important to exercise regularly. Is a good habit to walk at least 30 minutes a day. Gentle weightlifting with standard precautions to protect the back. Finding activity like cycling or hiking and get into the habit of engaging in it. Stretching before and after the exercises important. It is also important to contact me if there are any problems like shortness of breath, chest pain, back pain and joint or muscle pain associated with the exercise. 3. Discussed age appropriate screening guidelines. Colonoscopy needs to start at age 50 with stool for occult blood as appropriate. There is a new test that can test for genetic abnormalities in the stool sample, Cologuard. This would not replace a colonoscopy but could be used as a screening tool for patients who do not want a colonoscopy. We discussed the importance of early detection of colon cancer. 4. Discussed current PSA screening. PSA screening can be done in most patients between age 50 and 65. However early detection of prostate cancer needs to carefully be balanced with complications with treatment. These include incontinence, impotence etc. Each patient should decide if they would like to have this test. 5. Discussed safe driving and no use of smart phone while driving 6. Age-appropriate immunizations were discussed. A tetanus booster is needed every 10 years. Flu vaccine is recommended every year just before the start of the flu season. Shingles vaccine is recommended after age 50 but not all insurances cover it. Pneumonia vaccine is given after age 65 unless there are certain comorbidities for which it is started earlier. 7. Diagnostic labs were discussed. These could include/not limited to CBC CMP and lipids with fasting blood glucose and insulin levels. Vitamin D and hemoglobin A1c testing might be appropriate. All quetsions answered to patients satisfaction. Patient verbalized understanding of diagnosis and treatments explained. To call sooner prior to next visit it any questions/concerns arise. Case discussed with collaborating physician Josephine Marvin who reviewed the assessment and plan. Chart, medications, labs, vital signs reviewed. Dictation was accomplished with the use of [facility] voice recognition software, prone to medical misidentifications and grammatical errors. This is unintentional and the practitioner does try to identify and correct these, but some could still be present. Please do not hesitate to contact practitioner for clarification. 09/15/2024 GERD without esophagitis (ICD-10 - K21.9) Tanna is a 73-year-old female presents today for 1 month follow-up. # Memory: Patient appears today to be at baseline with no further concern regarding altered mental status or change of baseline. #Elevated BMI: Switch from Contrave and begin trialing metformin. Discussed side effects including GI upset. Will prescribe to take 1 tab once daily x 2 weeks and then switch to 2 tabs once daily. Patient has A1c of 6.5%, so we will continue to monitor A1c for improvement. #Interstitial fibrosis: Patient developed a chronic cough and chest x-ray revealed changes suggesting interstitial fibrosis. Referred to pulmonology, Dr. Henderson. Recent CT chest with revealed no findings aside from atelectasis. Will continue with their recommendations. #B12 deficiency: Administer B12 today in office. # Diabetes: A1C of 6.5%. Initiating metformin ER 500 mg 1 tab once daily x 2 weeks then 2 tabs once daily x 2 weeks. #CHF: Followed by cardiology. Discussed low-sodium diet. Recommend compression stockings. Discussed importance of weighing daily and to call the office if she experiences extreme acute weight gain as this could be fluid retention. #Coronary artery disease #hyperlipidemia #hypertension #A-fib: Followed by cardiology. On anticoagulation with Eliquis 5 mg. BP managed on amlodipine 2.5, losartan 50 and metoprolol succinate extended release 50 mg. Hyperlipidemia managed on atorvastatin 80 mg. History of CHF and nonpitting lower extremity edema. Managed on Lasix 20 mg daily. #GERD managed on omeprazole 40 mg as needed. #Depression #restless leg: Continue pramipexole 0.75 mg daily and gabapentin 300 mg twice daily. Followed by neurology. States she does not have a visit scheduled. Would recommend calling to ensure she is not lost to follow-up. #History of incontinence: Followed by urology. #Plan to follow-up in 3 months. All questions answered to patients satisfaction. Patient verbalized understanding of diagnosis and treatments explained. To call sooner prior to next visit it any questions/concerns arise. Case discussed with collaborating physician Dr. Marvin who reviewed the assessment and plan. Chart, medications, labs, vital signs reviewed. Dictation was accomplished with the use of [facility] voice recognition software, prone to medical misidentifications and grammatical errors. This is unintentional and the practitioner does try to identify and correct these, but some could still be present. Please do not hesitate to contact practitioner for clarification. 12/19/2024 Pain in right hip (ICD-10 - M25.551) Tanna is a pleasant 74-year-old female present today for follow-up. #Diabetes: A1c at last visit in August of 6.5%. Patient initiated on metformin 500 mg 2 tabs once daily. Since seeing cardiology, initiated on Jardiance 10 mg. A1c today office of 6%. Given significant weight gain in the past year as well as concern for diastolic heart failure, cardiology recommended GLP-1 therapy for intentional weight loss. Given diagnosis of diabetes, will prescribe Mounjaro 2.5 mg weekly injection. Discussed role of medication as well as side effect profile. Plan to follow-up in 1 month in regards to Mounjaro initiation. Will repeat A1c in 3 months. #Hypertension #diastolic heart failure: Followed by cardiology. Last seen 11/14/2024 with medication changes. Will follow-up in 1 month with cardiology. Continue Lasix 40 mg, metoprolol 50 mg and Jardiance 10 mg. Discontinue losartan. Blood pressure stable in office. Continue with the recommendations. #Chronic A-fib: Anticoagulated on Eliquis 5 mg twice daily. Metoprolol for rate control. #CAD: Continue aspirin 81 mg daily and atorvastatin. Will obtain blood work including lipids and review at follow-up. #Interstitial fibrosis: Chronic cough and chest x-ray revealed changes suggesting interstitial fibrosis. Referred to pulmonology. #Vitamin B12 deficiency: Obtains monthly B12 injections in office. #GERD: Managed on omeprazole 40 mg. #Restless leg syndrome: Continue pramipexole and gabapentin. Followed by neurology. Patient has since discontinued gabapentin and uses [id number] Tylenol as needed. #Right hip pain: followed by [facility]. All questions answered to patients satisfaction. Patient verbalized understanding of diagnosis and treatments explained. To call sooner prior to next visit it any questions/concerns arise. Case discussed with collaborating physician Dr. Marvin who reviewed the assessment and plan. Chart, medications, labs, vital signs reviewed. Dictation was accomplished with the use of [facility] voice recognition software, prone to medical misidentifications and grammatical errors. This is unintentional and the practitioner does try to identify and correct these, but some could still be present. Please do not hesitate to contact practitioner for clarification. 01/19/2025 Restless leg syndrom e (ICD-10 - G25.81) Tanna is a 74-year-old female present today for 1 month follow-up. Past medical history of hyperlipidemia, coronary artery disease, reflux gastritis, hypertension, overactive bladder, depression, hydronephrosis with ureteral stricture, vitamin D deficiency, vitamin B12 deficiency, cerebral infarction, restless leg syndrome followed by neurology, A-fib on anticoagulation, cardiomegaly, bronchitis, hip osteoarthritis and congestive heart failure followed by cardiology. # Will update influenza and B12 injection for B12 deficiency in office. # Lower extremity edema #RLE edema exacerbation: Patient had contacted caddymaster on 01/16/2025 reporting right foot swollen. Denies any shortness of breath. Staying well-hydrated and good urine output without difficulty. Per Dr. Castanon, recommended taking Lasix 40 mg twice a day x 3 days with labs including a basic metabolic panel and magnesium. [facility] and cardiology will reach out to follow-up same day. Pending cardiology recommendations. Patient reports swelling as improved however on palpation of RLE, leakage of fluid is appreciated. In office, compression bandaging is placed to help apply external pressure to the limb, which counteracts elevated ambulatory venous pressure, decreased capillary filtration and promote fluid shift into noncompressed regions thereby improving lymphatic drainage and venous return. Patient verablized understanding Patient advised to keep dressing on over the weekend. Discussed importance of compliance with short term furosemide 40 mg BID to improve symptoms. Discussed low salt diet and daily weigh-ins. Discussed worsening signs. Discussed ER protocol. Will follow up with cardiology today. If symptoms worsen over the weekend, will consider duplex u/s of RLE. Patient advised to call the office by Wednesday. # Low potassium: Recent labs reveal potassium of 3.1. Discussed concern for electrolyte abnormality. Recommend potassium supplementation however patient states cardiology ordered a BNP to check electrolytes today and she will check potassium level today. Will check BNP when available and rediscuss potassium supplementation if indicated. Discussed risk of hypokalemia including arrhythmias. Patient understanding. # Follow up 2 months for labs including CBC, CMP and A1C. Will review cardiology order for BMP when available after today's bloodwork. #Chronic A-fib: Anticoagulated on Eliquis 5 mg twice daily. Metoprolol for rate control. #Coronary artery disease: Continue daily aspirin, atorvastatin metoprolol 50 mg p.o. once daily. #Diabetes: Most recent A1c of 6%. Managed on metformin, jardiance and Mounjaro. Will follow-up in 2 months and repeat A1c. #Interstitial fibrosis:. Continue albuterol as needed. #GERD managed on omeprazole 40 mg. #Restless leg syndrome: Continue pramipexole and gabapentin. Followed by neurology. #History of incontinence: Followed by urology. #weight gain: Managed on Mounjaro 2.5 mg weekly injections per cardiology recommendations. Has had a 5 lb weight loss in 1 month. Given concern for age and risk of osteoporosis will continue low dose and refrain from higher doses given successful weight loss. Discussed need for lifestyle modifications. All questions answered to patients satisfaction. Patient verbalized understanding of diagnosis and treatments explained. To call sooner prior to next visit it any questions/concerns arise. Case discussed with collaborating physician Dr. Marvin who reviewed the assessment and plan. Chart, medications, labs, vital signs reviewed. Dictation was accomplished with the use of [facility] voice recognition software, prone to medical misidentifications and grammatical errors. This is unintentional and the practitioner does try to identify and correct these, but some could still be present. Please do not hesitate to contact practitioner for clarification. 01/19/2025 H/O urinary incontinence (ICD-10 - Z87.898) Tanna is a 74-year-old female present today for 1 month follow-up. Past medical history of hyperlipidemia, coronary artery disease, reflux gastritis, hypertension, overactive bladder, depression, hydronephrosis with ureteral stricture, vitamin D deficiency, vitamin B12 deficiency, cerebral infarction, restless leg syndrome followed by neurology, A-fib on anticoagulation, cardiomegaly, bronchitis, hip osteoarthritis and congestive heart failure followed by cardiology. # Will update influenza and B12 injection for B12 deficiency in office. # Lower extremity edema #RLE edema exacerbation: Patient had contacted caddymaster on 01/16/2025 reporting right foot swollen. Denies any shortness of breath. Staying well-hydrated and good urine output without difficulty. Per Dr. Castanon, recommended taking Lasix 40 mg twice a day x 3 days with labs including a basic metabolic panel and magnesium. Patient advised to go to [facility] lab today for these labs and cardiology will reach out to follow-up same day. Pending cardiology recommendations. Patient reports swelling as improved however on palpation of RLE, leakage of fluid is appreciated. In office, compression bandaging is placed to help apply external pressure to the limb, which counteracts elevated ambulatory venous pressure, decreased capillary filtration and promote fluid shift into noncompressed regions thereby improving lymphatic drainage and venous return. Patient verablized understanding Patient advised to keep dressing on over the weekend. Discussed importance of compliance with short term furosemide 40 mg BID to improve symptoms. Discussed low salt diet and daily weigh-ins. Discussed worsening signs. Discussed ER protocol. Will follow up with cardiology today. If symptoms worsen over the weekend, will consider duplex u/s of RLE. Patient advised to call the office by Wednesday. # Low potassium: Recent labs reveal potassium of 3.1. Discussed concern for electrolyte abnormality. Recommend potassium supplementation however patient states cardiology ordered a BNP to check electrolytes today and she will check potassium level today. Will check BNP when available and rediscuss potassium supplementation if indicated. Discussed risk of hypokalemia including arrhythmias. Patient understanding. # Follow up 2 months for labs including CBC, CMP and A1C. Will review cardiology order for BMP when available after today's bloodwork. #Chronic A-fib: Anticoagulated on Eliquis 5 mg twice daily. Metoprolol for rate control. #Coronary artery disease: Continue daily aspirin, atorvastatin metoprolol 50 mg p.o. once daily. #Diabetes: Most recent A1c of 6%. Managed on metformin, jardiance and Mounjaro. Will follow-up in 2 months and repeat A1c. #Interstitial fibrosis:. Continue albuterol as needed. #GERD managed on omeprazole 40 mg. #Restless leg syndrome: Continue pramipexole and gabapentin. Followed by neurology. #History of incontinence: Followed by urology. #weight gain: Managed on Mounjaro 2.5 mg weekly injections per cardiology recommendations. Has had a 5 lb weight loss in 1 month. Given concern for age and risk of osteoporosis will continue low dose and refrain from higher doses given successful weight loss. Discussed need for lifestyle modifications. All questions answered to patients satisfaction. Patient verbalized understanding of diagnosis and treatments explained. To call sooner prior to next visit it any questions/concerns arise. Case discussed with collaborating physician Dr. Marvin who reviewed the assessment and plan. Chart, medications, labs, vital signs reviewed. Dictation was accomplished with the use of [facility] voice recognition software, prone to medical misidentifications and grammatical errors. This is unintentional and the practitioner does try to identify and correct these, but some could still be present. Please do not hesitate to contact practitioner for clarification. 12/19/2024 Encounter for examination of blood pressure without abnormal findings (ICD-10 - Z01.30) Tanna is a pleasant 74-year-old female present today for follow-up. #Diabetes: A1c at last visit in August of 6.5%. Patient initiated on metformin 500 mg 2 tabs once daily. Since seeing cardiology, initiated on Jardiance 10 mg. A1c today office of 6%. Given significant weight gain in the past year as well as concern for diastolic heart failure, cardiology recommended GLP-1 therapy for intentional weight loss. Given diagnosis of diabetes, will prescribe Mounjaro 2.5 mg weekly injection. Discussed role of medication as well as side effect profile. Plan to follow-up in 1 month in regards to Mounjaro initiation. Will repeat A1c in 3 months. #Hypertension #diastolic heart failure: Followed by cardiology. Last seen 11/14/2024 with medication changes. Will follow-up in 1 month with cardiology. Continue Lasix 40 mg, metoprolol 50 mg and Jardiance 10 mg. Discontinue losartan. Blood pressure stable in office. Continue with the recommendations. #Chronic A-fib: Anticoagulated on Eliquis 5 mg twice daily. Metoprolol for rate control. #CAD: Continue aspirin 81 mg daily and atorvastatin. Will obtain blood work including lipids and review at follow-up. #Interstitial fibrosis: Chronic cough and chest x-ray revealed changes suggesting interstitial fibrosis. Referred to pulmonology. #Vitamin B12 deficiency: Obtains monthly B12 injections in office. #GERD: Managed on omeprazole 40 mg. #Restless leg syndrome: Continue pramipexole and gabapentin. Followed by neurology. Patient has since discontinued gabapentin and uses [id number] Tylenol as needed. #Right hip pain: followed by [facility]. All questions answered to patients satisfaction. Patient verbalized understanding of diagnosis and treatments explained. To call sooner prior to next visit it any questions/concerns arise. Case discussed with collaborating physician Dr. Marvin who reviewed the assessment and plan. Chart, medications, labs, vital signs reviewed. Dictation was accomplished with the use of [facility] voice recognition software, prone to medical misidentifications and grammatical errors. This is unintentional and the practitioner does try to identify and correct these, but some could still be present. Please do not hesitate to contact practitioner for clarification. 09/15/2024 Restless leg syndrom e (ICD-10 - G25.81) Tanna is a 73-year-old female presents today for 1 month follow-up. # Memory: Patient appears today to be at baseline with no further concern regarding altered mental status or change of baseline. #Elevated BMI: Switch from Contrave and begin trialing metformin. Discussed side effects including GI upset. Will prescribe to take 1 tab once daily x 2 weeks and then switch to 2 tabs once daily. Patient has A1c of 6.5%, so we will continue to monitor A1c for improvement. #Interstitial fibrosis: Patient developed a chronic cough and chest x-ray revealed changes suggesting interstitial fibrosis. Referred to pulmonology, Dr. Henderson. Recent CT chest with revealed no findings aside from atelectasis. Will continue with their recommendations. #B12 deficiency: Administer B12 today in office. # Diabetes: A1C of 6.5%. Initiating metformin ER 500 mg 1 tab once daily x 2 weeks then 2 tabs once daily x 2 weeks. #CHF: Followed by cardiology. Discussed low-sodium diet. Recommend compression stockings. Discussed importance of weighing daily and to call the office if she experiences extreme acute weight gain as this could be fluid retention. #Coronary artery disease #hyperlipidemia #hypertension #A-fib: Followed by cardiology. On anticoagulation with Eliquis 5 mg. BP managed on amlodipine 2.5, losartan 50 and metoprolol succinate extended release 50 mg. Hyperlipidemia managed on atorvastatin 80 mg. History of CHF and nonpitting lower extremity edema. Managed on Lasix 20 mg daily. #GERD managed on omeprazole 40 mg as needed. #Depression #restless leg: Continue pramipexole 0.75 mg daily and gabapentin 300 mg twice daily. Followed by neurology. States she does not have a visit scheduled. Would recommend calling to ensure she is not lost to follow-up. #History of incontinence: Followed by urology. #Plan to follow-up in 3 months. All questions answered to patients satisfaction. Patient verbalized understanding of diagnosis and treatments explained. To call sooner prior to next visit it any questions/concerns arise. Case discussed with collaborating physician Dr. Marvin who reviewed the assessment and plan. Chart, medications, labs, vital signs reviewed. Dictation was accomplished with the use of [facility] voice recognition software, prone to medical misidentifications and grammatical errors. This is unintentional and the practitioner does try to identify and correct these, but some could still be present. Please do not hesitate to contact practitioner for clarification. 01/19/2025 Encounter for examination of blood pressure without abnormal findings (ICD-10 - Z01.30) Tanna is a 74-year-old female present today for 1 month follow-up. Past medical history of hyperlipidemia, coronary artery disease, reflux gastritis, hypertension, overactive bladder, depression, hydronephrosis with ureteral stricture, vitamin D deficiency, vitamin B12 deficiency, cerebral infarction, restless leg syndrome followed by neurology, A-fib on anticoagulation, cardiomegaly, bronchitis, hip osteoarthritis and congestive heart failure followed by cardiology. # Will update influenza and B12 injection for B12 deficiency in office. # Lower extremity edema #RLE edema exacerbation: Patient had contacted caddymaster on 01/16/2025 reporting right foot swollen. Denies any shortness of breath. Staying well-hydrated and good urine output without difficulty. Per Dr. Castanon, recommended taking Lasix 40 mg twice a day x 3 days with labs including a basic metabolic panel and magnesium. Patient advised to go to [facility] lab today for these labs and cardiology will reach out to follow-up same day. Pending cardiology recommendations. Patient reports swelling as improved however on palpation of RLE, leakage of fluid is appreciated. In office, compression bandaging is placed to help apply external pressure to the limb, which counteracts elevated ambulatory venous pressure, decreased capillary filtration and promote fluid shift into noncompressed regions thereby improving lymphatic drainage and venous return. Patient verablized understanding Patient advised to keep dressing on over the weekend. Discussed importance of compliance with short term furosemide 40 mg BID to improve symptoms. Discussed low salt diet and daily weigh-ins. Discussed worsening signs. Discussed ER protocol. Will follow up with cardiology today. If symptoms worsen over the weekend, will consider duplex u/s of RLE. Patient advised to call the office by Wednesday. # Low potassium: Recent labs reveal potassium of 3.1. Discussed concern for electrolyte abnormality. Recommend potassium supplementation however patient states cardiology ordered a BNP to check electrolytes today and she will check potassium level today. Will check BNP when available and rediscuss potassium supplementation if indicated. Discussed risk of hypokalemia including arrhythmias. Patient understanding. # Follow up 2 months for labs including CBC, CMP and A1C. Will review cardiology order for BMP when available after today's bloodwork. #Chronic A-fib: Anticoagulated on Eliquis 5 mg twice daily. Metoprolol for rate control. #Coronary artery disease: Continue daily aspirin, atorvastatin metoprolol 50 mg p.o. once daily. #Diabetes: Most recent A1c of 6%. Managed on metformin, jardiance and Mounjaro. Will follow-up in 2 months and repeat A1c. #Interstitial fibrosis:. Continue albuterol as needed. #GERD managed on omeprazole 40 mg. #Restless leg syndrome: Continue pramipexole and gabapentin. Followed by neurology. #History of incontinence: Followed by urology. #weight gain: Managed on Mounjaro 2.5 mg weekly injections per cardiology recommendations. Has had a 5 lb weight loss in 1 month. Given concern for age and risk of osteoporosis will continue low dose and refrain from higher doses given successful weight loss. Discussed need for lifestyle modifications. All questions answered to patients satisfaction. Patient verbalized understanding of diagnosis and treatments explained. To call sooner prior to next visit it any questions/concerns arise. Case discussed with collaborating physician Dr. Marvin who reviewed the assessment and plan. Chart, medications, labs, vital signs reviewed. Dictation was accomplished with the use of [facility] voice recognition software, prone to medical misidentifications and grammatical errors. This is unintentional and the practitioner does try to identify and correct these, but some could still be present. Please do not hesitate to contact practitioner for clarification. Plan Of Treatment Pending Test Test Name Order Date X ray : Chest 07/09/2021 X ray : Hip, bilateral 08/24/2023 X ray : Shoulder, right 03/03/2022 Mammogram 04/29/2021 Mammogram 11/09/2019 Mammogram 12/27/2019 X ray : Spines, lumbar 2 views X ray : Chest with 2 views 10/23/2023 X ray : Chest with 2 views 05/12/2024 X ray : Chest with 2 views 05/22/2024 Hemoglobin A1c 11/09/2019 Anticardiolipin Ab, IgG/M, Qn 03/30/2023 Lipid Panel 11/09/2019 Comp. Metabolic Panel (14) 11/09/2019 CBC 11/09/2019 MAMMOGRAM, SCREENING 12/31/2022 Bone Density 12/31/2022 Bone Density 03/23/2024 Urinalysis 11/09/2019 Prothrombin Time with INR (PT/INR) 03/30 EKG 01/03/2024 ANTITHROMBIN III PANEL 03/30/2023 CBC (COMPLETE BLOOD COUNT) 04/03/2020 CBC (COMPLETE BLOOD COUNT) 09/26/2020 CBC (COMPLETE BLOOD COUNT) 01/21/2021 CBC (COMPLETE BLOOD COUNT) WITH DIFF COMPREHENSIVE METABOLIC PANEL 04/03/2020 COMPREHENSIVE METABOLIC PANEL 09/26/2020 COMPREHENSIVE METABOLIC PANEL 01/21/2021 HEMOGLOBIN A1C 09/26/2020 HEMOGLOBIN A1C 04/03/2020 LIPID PANEL 04/03/2020 LIPID PANEL 09/26/2020 LIPID PANEL 01/21/2021 URINALYSIS W/REFLEX CULTURE 01/21/2021 URINALYSIS, COMPLETE 09/26/2020 URINALYSIS, COMPLETE 04/03/2020 Chest 2 Views Frontal and Lat 06/13/2020 CT Abd and Pelvis w Contrast 11/01/2023 CT Abd and Pelvis w and w/o Contrast CT Chest w/o Contrast 04/08/2022 CT Head w/o Contrast 03/16/2024 XR Chest 2 Views 12/28/2023 XR Chest 4+ Views Complete 04/06/2022 XR Hip 1 View LT 07/01/2020 XR Shoulder 2+ Views LT 02/18/2022 URINE CULTURE 01/15/2021 LIPID PANEL, STANDARD 12/19/2024 LIPID PANEL, STANDARD 08/22/2024 LIPID PANEL, STANDARD 10/17/2024 LIPID PANEL, STANDARD 09/03/2022 LIPID PANEL, STANDARD 03/01/2024 LIPID PANEL, STANDARD 12/31/2022 COMPREHENSIVE METABOLIC PANEL 12/31/2022 COMPREHENSIVE METABOLIC PANEL 10/26/2023 COMPREHENSIVE METABOLIC PANEL 08/22/2024 COMPREHENSIVE METABOLIC PANEL 03/01/2024 COMPREHENSIVE METABOLIC PANEL 09/03/2022 COMPREHENSIVE METABOLIC PANEL 12/19/2024 COMPREHENSIVE METABOLIC PANEL 10/17/2024 COMPREHENSIVE METABOLIC PANEL 01/19/2025 CBC (INCLUDES DIFF/PLT) 01/19/2025 CBC (INCLUDES DIFF/PLT) 10/17/2024 CBC (INCLUDES DIFF/PLT) 12/19/2024 CBC (INCLUDES DIFF/PLT) 09/03/2022 CBC (INCLUDES DIFF/PLT) 03/01/2024 CBC (INCLUDES DIFF/PLT) 08/22/2024 CBC (INCLUDES DIFF/PLT) 10/26/2023 CBC (INCLUDES DIFF/PLT) 12/31/2022 URINALYSIS, COMPLETE 12/31/2022 URINALYSIS, COMPLETE 08/24/2023 URINALYSIS, COMPLETE 10/26/2023 URINALYSIS, COMPLETE 09/03/2022 URINALYSIS, COMPLETE W/REFLEX TO CULTURE 03/24/2022 HEMOGLOBIN A1c 12/31/2022 HEMOGLOBIN A1c 03/01/2024 HEMOGLOBIN A1c 08/22/2024 HEMOGLOBIN A1c 10/26/2023 HEMOGLOBIN A1c 10/17/2024 HEMOGLOBIN A1c 01/19/2025 LIPASE 10/26/2023 AMYLASE 10/26/2023 VITAMIN B12 08/22/2024 FOLATE, RBC 08/22/2024 TSH 08/22/2024 TSH 10/26/2023 TSH 12/31/2022 TSH 09/03/2022 TSH W/REFLEX TO FT4 03/01/2024 VITAMIN D,25-OH,TOTAL,IA 03/01/2024 HELICOBACTER PYLORI, UREA BREATH TEST COMPLETE URINALYSIS 01/15/2021 US Abdomen 10/06/2022 FACTOR V LEIDEN MUTATION 03/30/2023 PROTHROMBIN GENE ANALYSIS 03/30/2023 PROTEIN C ACTIVITY 03/30/2023 PROTEIN S ACTIVITY 03/30/2023 Next Appt Details Provider Name:HILDA SPENCE, 03/23/2025 09:15:00 AM, [address], [place], [address], Insurance Providers Payer Name Payer Address Payer Phone Subscriber Number Group Number Insured Name Patient Relationship to Insured Coverage Start Date Coverage End Date [employer] Preferred [address] [place] [address] [id number] TANNA KELLY Self - patient is the insured 0 Medications Administered Medication Instructions Date of Administration Dosage Notes MICC B12 INJECTION 03/01/2024 1 mL MICC B12 INJECTION 06/16/2024 1 mL vitamin b12 10/20/2021 1 mL vitamin b12 10/27/2021 1 mL vitamin b12 11/03/2021 1 mL Lot # [id number] vitamin b12 2021 1 mL vitamin b12 12/19/2021 1 mL vitamin b12 01/22/2022 1 mL vitamin b12 03/24/2022 1 mL vitamin b12 05/18/2022 1 mL vitamin b12 06/10/2022 1 mL vitamin b12 07/14/2022 1 mL vitamin b12 08/06/2022 1 mL vitamin b12 09/03/2022 1 mL vitamin b12 10/06/2022 1 mL vitamin b12 11/16/2022 1 mL vitamin b12 12/21/2022 1 mL vitamin b12 02/24/2023 1 mL vitamin b12 03/30/2023 1 mL vitamin b12 04/26/2023 1 mL vitamin b12 06/08/2023 1 mL vitamin b12 07/05/2023 1 mL vitamin b12 08/24/2023 1 mL lot: [id number] vitamin b12 09/29/2023 1 mL vitamin b12 11/03/2023 1 mL vitamin b12 11/27/2023 1 mL vitamin b12 01/05/2024 1 mL vitamin b12 05/16/2024 1 mL vitamin b12 07/03/2024 1 mL vitamin b12 09/15/2024 1 mL vitamin b12 10/13/2024 1 mL vitamin b12 12/26/2024 1 mL vitamin b12 01/19/2025 1 mL lot: [id number] exp: 03/2026 Medical (General) History Medical History History ICD Code High cholesterol E78.00 Coronary artery disease invo lving resighini coronary artery of resighini heart without angina pectoris I25.10 Reflux gastritis K29.60 Essential (primary) hypertension I10 Overactive bladder N32.81 Depression, unspecified F32.A Hydronephrosis with ureteral stricture, not elsewhere classified N13.1 Vitamin B 12 deficiency E53.8 Cerebral infarction, unspecified I63.9 Restless leg syndrome G25.81 Atrial fibrillation 427.31 Cardiomegaly I51.7 bronchitis, acute Interstitial fibrosis Hip osteoarthritis Diabetes Surgical History Surgery Date(Month/Year) back surgery [facility] [address] pulido 2013 bunionectomy Bladder sling kidney stone removal 01/2023 right knee replacement 2022 Hospitalization History Reason Date(Month/Year) Acute on chronic diastolic heart failure 09/2024 Tari, acute bronchitis April 2024 Fall, with orbital fracture February 2024 Jonna 2023 Tari recurrent CVA 2022 Jonna stroke February 18, 2023 D/c [facility] re: Heart failure, 08/2021
--- OUTSIDE RECORDS SUMMARY | 2025-03-06 10:19 | XMS_ITS | Data Portability ---
Author Organization [place] [facility] [place] Address [address] [facility] [address] [place] [address] Care Team Providers Care Aircraft Instrument Mechanic Name Role Phone SAPPHIRE IRWIN Primary Care Provider [phone] LAURENT IRWIN Referring Provider [phone] Assessment Encounter Date Assessment Date Assessment LastModified by Organization Details LastModified Time 07/13/2024 07/13/2024 73-year-old female with multifactorial right hip pain. Her presenting complaints seem most consistent with greater trochanteric bursitis. I also recognized that she has a moderate to marked degree of osteoarthritis of the right hip. After discussion regarding treatment options she wishes to proceed with cortisone injection into the bursa. I hope that this will be helpful in providing both therapeutic and diagnostic benefits. Follow-up with me in 1 month. This patient was seen and evaluated by Thomas Zapata MS, PA-C in indirect conjunction with documenting/super vising provider Jared Richardson MD. He agrees with history, physical examination, tests/diagnostic imaging, and treatment plan. This document was generated using voice recognition software. As a result, there may be unintended spelling, grammatical and/or textual errors. Not available 07/13/2024 09:21:41 11/24/2024 11/24/2024 HPI: Patient comes in complaining of right hip pain. This patient is experiencing right hip pain at the lateral thigh, which is moderate in intensity, and has recently worsened. The pain limits some activities of daily living. Pain and restriction of function are moderate at this time. She has seen Thomas Zapata in the past. He actually performed a right knee cortisone injection into the greater trochanteric area for greater trochanter bursitis and IT band tendinitis. This was in July. This brought relief for a few months. Review of systems is negative for other rapidly progressive neurological disorder, chest pain, shortness of breath, fevers, chills, or any signs of active or persistent local or systemic infection. Physical Exam: Patient is well nourished, well-developed, in no acute distress, with appropriate mood and affect. The patient is oriented to time, place, and person. Respirations are even and unlabored. There is no inguinal adenopathy. Examination of the contralateral hip shows normal range of motion, strength, no tenderness, and intact skin. The affected limb is well-perfused, shows a grossly normal motor and sensory examination. Examination of the hip shows no skin lesions. Hip motion is reduced and causes mild pain. FADIR is negative and DORIS is negative. Stinchfield test is negative. Patient is TTP at the greater trochanter. Dulce test is positive. Leg lengths are approximately equal. Both hips are stable and muscle strength is normal. Pedal pulses are palpable. Assessment/Plan: The patient has right IT band tendinitis/greate r trochanter bursitis. An extensive discussion was conducted on the natural history of the disease and the variety of non-surgical options available to the patient including non-steroidal anti-inflammatory medications, physical therapy, maintenance of ideal body weight, and reduction of activity. We are going to perform another right hip greater trochanter bursa injection today. Her preference is to follow-up as needed which is reasonable. [email or web address] Not available 11/24/2024 10:26:03 Plan of Treatment Reminders Order Date Submit Date Provider Last Modified By Organization Details Last Modified Time Details Appointments None recorded. Lab None recorded. Referral None recorded. Procedures None recorded. Surgeries None recorded. Imaging XR, hip, unilateral, 2 or 3 view 2024 025 [email or web address] [facility], [address], [address], [place], [address], 11:13:17 Medication Orders Marcaine (PF) 0.5 % (5 mg/mL) injection solution 2024 025 [email or web address] [id number], [address] [place] [address], [address], 5 10:26:36 lidocaine (PF) 100 mg/5 mL (2 %) injection syringe 2024 025 [email or web address] [id number], [address] [place], [address], 5 10:26:36 triamcinolo ne acetonide 40 mg/mL suspension for injection 2024 025 [email or web address] [id number], [address] [place], [address], 5 10:26:36 Marcaine (PF) 0.5 % (5 mg/mL) injection solution 2024 025 [email or web address] [id number], [address] [place] [address], [address], 5 11:13:17 lidocaine (PF) 100 mg/5 mL (2 %) injection syringe 2024 025 [email or web address] [id number], [address] [place] [address], [address], 5 11:13:17 triamcinolo ne acetonide 40 mg/mL suspension for injection 2024 025 [id number], [address] [place] [address], [address], 5 11:13:17 Patient TargetsNo targets recorded. Patient Instructions Encounter Date Encounter Id Patient Instructions Last Modified By Organization Details Last Modified Time 07/13/2024 [id number] 4 view X-ray study obtained during today's office encounter show evidence of moderate right hip osteoarthritis. There is joint space narrowing, subchondral sclerosis and marginal osteophytosis. Kellgren-Jose grade 3. No evidence of acute fracture or osteolytic findings. Not available 07/13/2024 09:28:41 Reason for Referral None Reported. Procedures Surgical History Date Name Laterality Status Provider Name and Address Organization Details Recorded Time 5 MJG GT injection completed Jared Richardson MD [address] [facility], [place], [address], [place] [facility] 11/24/2024 10:24:47 5 MJG GT injection w/US completed THOMAS ZAPATA PA-C [address] [facility],[address], [place], [address], [place] [facility] 07/13/2024 09:21:50 Imaging Results None recorded. Procedure Notes None recorded. Medical Equipment None Reported. Allergies No known drug allergies Medications Name Sig Start Date Stop Date Status Note LastModified by Organization Details LastModified Time losartan 50 mg tablet TAKE 1 TABLET BY MOUTH EVERY DAY active Not Available Not Available No t Available atorvastatin 80 mg tablet TAKE 1 TABLET BY MOUTH EVERY DAY active Not Available Not Available No t Available benzonatate 200 mg capsule TAKE 1 CAPSULE BY MOUTH THREE TIMES A DAY NEEDED FOR COUGH FOR 10 DAYS active Not Available Not Available Not Available metoprolol succinate ER 50 mg tablet,exten ded release 24 hr TAKE 1 TABLET BY MOUTH TWICE A DAY active Not Available Not Available No t Available urea 40 % topical cream APPLY 1 APPLICATION ON THE SKIN TWICE A DAY NEEDED CALLUSED END OF TOE active Not Available Not Available N ot Available ondansetron HCl 4 mg tablet TAKE 1 TABLET BY MOUTH EVERY DAY FOR 30 DAYS active Not Available Not Available No t Available prednisone 20 mg tablet TAKE 2 TABLETS BY MOUTH EVERY DAY FOR 4 DAYS active Not Available Not Available No t Available amlodipine 2.5 mg tablet TAKE 1 TABLET BY MOUTH EVERY DAY active Not Available Not Available No t Available ciprofloxaci n 250 mg tablet TAKE 1 TABLET BY MOUTH TWICE A DAY active Not Available Not Available No t Available sulfamethoxa zole 800 mg-trimethop rim 160 mg tablet TAKE 1 TABLET BY MOUTH TWICE A DAY active Not Available Not Available No t Available omeprazole 40 mg capsule,sang yed release TAKE 1 CAPSULE BY MOUTH EVERY MORNING BEFORE BREAKFAST active Not Available Not Available No t Available aspirin 81 mg tablet,delay ed release TAKE 1 TABLET BY MOUTH EVERY DAY active Not Available Not Available No t Available ketorolac 0.5 % eye drops INSTILL 1 DROP IN OPERATIVE EYE TWICE DAILY. START 2 DAYS PRIOR TO SURGERY. active Not Available Not Available Not Available methenamine hippurate 1 gram tablet TAKE 1 TABLET BY MOUTH TWICE A DAY WITH VIT C active Not Available Not Available No t Available dicyclomine 20 mg tablet TAKE 1 TABLET BY MOUTH 3 TIMES A DAY active Not Available Not Available Not Available benzonatate 100 mg capsule TAKE 1 CAPSULE BY MOUTH THREE TIMES A DAY NEEDED FOR 14 DAYS active Not Available Not Available Not Available triamcinolon e acetonide 40 mg/mL suspension for injection Take 40 mg by injection route. 2024 active Not Available Not Available Not Avai lable cephalexin 500 mg capsule TAKE 1 CAPSULE BY MOUTH TWICE A DAY active Not Available Not Available No t Available losartan 25 mg tablet TAKE 1 TABLET BY MOUTH EVERY DAY active Not Available Not Available No t Available nitroglyceri n 0.4 mg sublingual tablet PLEASE SEE ATTACHED FOR DETAILED DIRECTIONS active Not Available Not Available N ot Available gabapentin 300 mg capsule TAKE 1 CAPSULE BY MOUTH TWICE A DAY active Not Available Not Available No t Available omeprazole 20 mg capsule,sang yed release TAKE 1 CAPSULE BY MOUTH 1/2 TO 1 HOUR BEFORE MORNING MEAL ONCE A DAY active Not Available Not Available No t Available furosemide 20 mg tablet TAKE 1 TABLET BY MOUTH DAILY NEEDED FOR LOWER EXTREMITY EDEMA active Not Available Not Available No t Available mirtazapine 15 mg tablet TAKE 1 TABLET BY MOUTH EVERY DAY AT BEDTIME FOR 30 DAYS active Not Available Not Available No t Available ergocalcifer ol (vitamin D2) 1,250 mcg (50,000 unit) capsule TAKE 1 CAPSULE BY MOUTH ONE TIME PER WEEK active Not Available Not Available No t Available estradiol 0.01% (0.1 mg/gram) vaginal cream APPLY 1 GRAM PER VAGINA AND URETHRA TWICE WEEKLY active Not Available Not Available No t Available albuterol sulfate HFA 90 mcg/actuatio n aerosol inhaler INHALE 1 PUFF INTO THE LUNGS EVERY 4 HOURS NEEDED FOR 30 DAYS active Not Available Not Available No t Available fluticasone propionate 50 mcg/actuatio n nasal spray,suspen jacob SPRAY 1 SPRAY BY INTRANASAL ROUTE EVERY DAY active Not Available Not Available No t Available doxycycline hyclate 100 mg tablet TAKE 1 TABLET BY MOUTH TWICE A DAY FOR 7 DAYS active Not Available Not Available No t Available amoxicillin 875 mg-potassium clavulanate 125 mg tablet TAKE 1 TABLET BY MOUTH EVERY 12 HOURS FOR 7 DAYS active Not Available Not Available N ot Available oxycodone 5 mg tablet TAKE 1 TABLET BY MOUTH EVERY 6 HOURS NEEDED FOR SEVERE PAIN active Not Available Not Available Not Available Marcaine (PF) 0.5 % (5 mg/mL) injection solution Take 4 mL by injection route. 2024 active Not Available Not Available Not Avai lable escitalopram 5 mg tablet TAKE 1 TABLET BY MOUTH EVERY DAY active Not Available Not Available No t Available nitrofuranto in monohydrate/ macrocrystal s 100 mg capsule TAKE 1 CAPSULE BY MOUTH TWICE A DAY active Not Available Not Available No t Available trospium 20 mg tablet TAKE 1 TABLET BY MOUTH EVERY DAY active Not Available Not Available No t Available pramipexole 0.75 mg tablet TAKE 1 TABLET BY MOUTH TWICE A DAY active Not Available Not Available No t Available diclofenac 1 % topical gel APPLY 1 GRAM TOPICALLY TO AFFECTED AREAS OF FEET EVERY 6 HOURS NEEDED. active Not Available Not Available No t Available cholecalcife rol (vitamin D3) 50 mcg (2,000 unit) capsule TAKE 1 CAPSULE BY MOUTH EVERY DAY active Not Available Not Available No t Available lidocaine (PF) 100 mg/5 mL (2 %) injection syringe Take 4 mL by injection route. 2024 active Not Available Not Available Not Avai lable magnesium 400 mg (as magnesium oxide) capsule TAKE 1 CAPSULE BY MOUTH ONCE DAILY active Not Available Not Available No t Available Eliquis 5 mg tablet active Not Available Not Available Not Available guaifenesin ER 600 mg tablet, extended release 12 hr TAKE 1 TABLET BY MOUTH EVERY 12 HOURS FOR 7 DAYS. DO NOT CRUSH CHEW OR SPLIT active Not Available Not Available No t Available Jardiance 10 mg tablet TAKE 1 TABLET BY MOUTH 1 TIME EACH DAY IN THE MORNING. active Not Available Not Available No t Available Paxlovid 300 mg (150 mg x 2)-100 mg tablets in a dose pack TAKE 3 TABS BY MOUTH DIRECTED EVERY 12 HOURS FOR 4 DAYS. active Not Available Not Available No t Available Vitals Date Recorded Body height Body mass index (BMI) Body weight Provider Name and Address Organization Details Last Updated DateTime 07/13/2024 149.86 cm 38.4 kg/m2 [address]397[address] [place] [facility] 07/13/2024 08:59:25 Date Recorded Body height Body mass index (BMI) Body weight Provider Name and Address Organization Details Last Updated DateTime 11/24/2024 149.86 cm 38.4 kg/m2 65459.[address] [facility] 11/24/2024 09:45:54 Social History Question Answer Notes LastModified by Organizat ion Details LastModified Time Tobacco Smoking Status Never Smoker Ricarda Shah [place], [place] [facility] 07/13/2024 10:00:42 Are You Currently In School? No Information not available 07/13/2024 Sex: Unknown Functional Status Question Answer Note LastModified by Organizat ion Details LastModified Time Do you use any illicit or recreational drugs? No Information not available 07/13/2024 Do you or have you ever used any other forms of tobacco or nicotine? No Information not available 07/13/2024 What is your level of alcohol consumption? None Information not available 07/13/2024 Are you currently employed? No Information not available 07/13/2024 Mental Status None recorded. Family History Nothing Reported. Medical History Condition Response Coronary Artery Disease N Gout N Hyperthyroidism N MRSA N Blood Transfusion N Emphysema N Hypothyroidism N COPD N Depression N Pacemaker N Vascular Disease N Gastrointestinal Disease N Anxiety Disorder N Autoimmune disease N Arthritis N Cancer N Stroke Y High Cholesterol N Neurologic Disorder N Liver Disease N Organ Transplant N Arrhythmia N Rheumatoid Arthritis N Fibromyalgia N Kidney Disease N Allergies/Hayfever N Adverse Reaction to Anesthesia N Thyroid Problems N Anemia N Brain Injury N Heart Attack ([place]) Y Osteopenia N Diabetes N Bleeding Disorder N Seizures/Epilepsy N AIDS/HIV N Congestive Heart Failure (CHF) N Asthma N Amputation N Reflux/GERD N Sleep Apnea N Hepatitis N Aneurysm N Heart Disease Y Pulmonary Embolism N Hypertension N Osteoporosis N Gynecological HistoryNo gynecological history recorded. Obstetrics History GPAL:G 0 P 0 0 0 0 Past Encounters Encounter ID Performer Location Encounter Start Date Encounter Closed Date Diagnosis/Indication Diagnosis SNOMED-CT Code Diagnosis ICD10 Code Diagnosis IMO Codes Diagnosis Note [id number] AMELIA BURGESS [address] [address] 07/13/2024 08:47:00 07/13/2024 09:30:57 Pain of hip region 88376691 M25.551 [id number] MD KAREN Thomas [address] [place] [address] 11/24/2024 09:36:50 11/24/2024 10:24:06 Trochanteric bursitis of right hip 1768340656 31937 M70.61 0258436 Tendinitis 88747652 M76. 31 [id number] Health Concerns Section Related Observation LastModified by Organization Detai ls LastModified Time None Recorded Concern Status LastModified by Organization Details LastModified Time None Recorded Advance Directives Directive None Recorded Payers Insurance Date Sequence Insurance Name Policy Number Policy Frances Covered Member ID Frances Member ID Guarantor Name 11/27/2024 1 [facility] Tanna Bonilla [id number] Tanna Bonilla Notes Date Note Type Note Provider Name and Address Organization Details Recorded Time 07/13/2024 text/html Myah 3-year-old female presents with chief complaint of right hip pain. She reports onset of her symptoms 2 months ago. There has been no specific injury accident or trauma. She localizes her pain to the lateral aspect of the right hip. She reports that Dr. Gregg treated her with a cortisone injection in this area years ago with excellent effect. She reports some radiation into the buttock but no pain at the low back groin or radiating into the thigh. She has had a lumbar procedure and right hip replacement surgery but denies a history of any prior right hip surgery. THOMAS ZAPATA PA-C [address] [place] [address], [place], [address], [place] [facility] 07/13/2024 09:36:23 OBGyn Episode No OBEpisode recorded.
--- OUTSIDE RECORDS SUMMARY | 2025-03-06 10:19 | XMS_ITS | Patient Health Record ---
Author Organization [facility] Address [address] [facility] [address] [place] [address] Care Team Providers Care Wire Twister Name Role Phone NAYAN () SHAYAN Primary Care Provider U jaun ChristiansonuevaLiset Unavailable [phone] Reason For Referral No Information Medications Medication SIG (Take, Route, Frequency, Duration) Notes Start Date End Date Status amLODIPine Besylate 5 MG 1 tablet Orally Once a day Active Vitamin D3 1000 IU ORAL daily; Duration: -3 Arnaud-MJ 2011 Active Citalopram Hydrobromide 10MG 1 ORAL daily; Duration: -3 Arnaud-MJ 10/10/2011 Active Social History Tobacco Use: Social History Observation Description Date Details (start date - stop date) Former Smoker NA - NA Tobacco Use/Smoking Question Answer Notes Are you a former smoker How long has it been since you last smoked? > 10 years Alcohol Screen (Audit-C) Question Answer Notes Did you have a drink contain ing alcohol in the past year? Yes How often did you have a dri nk containing alcohol in the past year? Monthly or less (1 point) How many drinks did you have on a typical day when you were drinking in the past year? 1 or 2 drinks (0 point) Points 1 Interpretation Negative Sexual History Question Answer Notes Had sex in the past 12 months (vaginal, oral, or anal)? Yes with Men only Prevention strategies discussed: Other Problems Problem Type SNOMED Code ICD Code Onset Dates Problem Status W/U Status Risk Notes Problem Postmenopausal bleeding (94198204) Postmenopausal bleeding (N95.0) Active confirmed Problem Hyperlipidemia (08556500) Other and unspecified hyperlipidemia (272.4) Active confirmed Major Problem Depressive disorder (19822990) Depressive disorder, not elsewhere classified (311) Active confirmed Major Problem Urinary tract infectious disease (disorder) (92086358) Urinary tract infection, site not specified (599.0) Active confirmed Diag Problem Menopausal symptom (91232251) Symptomatic menopausal or female climacteric states (627.2) Active confirmed Major Problem Postmenopausal atrophic vaginitis (09416266) Postmenopausal atrophic vaginitis (627.3) Active confirmed Diag Problem Gynecological examination normal (794916449629122) Routine gynecological examination (V72.31) Active confirmed Major Problem Exercises teaching, guidance, and counseling (400050362) Exercise counseling (V65.41) Active confirmed Diag Problem Screening for malignant neoplasm of colon (469544054) Special screening for malignant neoplasms, colon (V76.51) Active confirmed Major Plan Of Treatment No Information Insurance Providers Payer Name Payer Address Payer Phone Subscriber Number Group Number Insured Name Patient Relationship to Insured Coverage Start Date Coverage End Date [employer] [address] [address] [place] [address] [id number] SHAVON KELLY Self - patient is the insured Medical (General) History Medical History History ICD Code Postmenopausal atrophic vaginitis N95.2 Major depressive disorder, single episod e, unspecified F32.9 Hyperlipidemia, unspecified E78.5 Menopausal and female climacteric states N95.1 Surgical History Surgery Date(Month/Year) Bilateral Tubal Ligation Colonoscopy Spinal Surgery, Thoracic, Cervical Hospitalization History Reason Date(Month/Year) 3 Vaginal Deliveries See Surgical Hx
--- OUTSIDE RECORDS SUMMARY | 2025-03-06 10:19 | XMS_ITS | Data Portability ---
Author Organization [employer] [facility] Address [address] [place] [address] Care Team Providers Care Aircraft Captain Name Role Phone [facility] CARE TEAM OTHER Assessment Encounter Date Assessment Date Assessment LastModified by Organization Details LastModified Time 05/06/2024 05/06/2024 I provided real -time medical direction via phone for this encounter and was available for additional phone-based assistance as needed. I have reviewed and agree with the Assessment and Plan as documented by the Runway Model. Patient given the opportunity to ask questions. Our service contacted for an assessment of: Cough post COVID As per above, patient was recently diagnosed with COVID and took Paxlovid. She felt completed the course and calls today complaining of persistent cough. Patient with history of asthma. She has been using cough medications both prescribed and [id number] without good success. She has taken prednisone in the past for bronchiolitis and feels like that would be helpful. She denies chest pain shortness of breath or dyspnea on exertion Per geospatial imagery intelligence analyst on the scene, vital signs stable patient is afebrile. No hypoxia on room air. Patient is nontoxic on exam. Lungs are relatively clear. Impression: Cough status post COVID Plan: Short course of prednisone to alleviate symptoms of cough. Plan for a 5 day total course with 2 20 mg tablets given in the field today. Patient has tolerated this in the past and found it to be helpful when she has an asthma flare or bronchitis or a persistent cough. Risk and benefits discussed. Patient will follow up with PCP. Allergies: Reviewed PCP f/u: We discussed the diagnostic uncertainty of home visits and the risk associated with this. In this case, the patient and I felt this to be an acceptable and reasonable amount of risk given the benefit of avoiding an ED visit. We discussed the need to seek care urgently/emergen tly in the setting of any new or worsening serious symptoms, particularly fever [facility]ills [facility] Not available 05/06/2024 13:18:19 Plan of Treatment Reminders Order Date Submit Date Provider Last Modified By Organization Details Last Modified Time Details Appointments None recorded. Lab None recorded. Referral None recorded. Procedures None recorded. Surgeries None recorded. Imaging electrocard iogram 2024 025 [facility], [address] [place] [address], [phone] 5 23:14:05 Medication Orders doxycycline hyclate 100 mg tablet 2024 025 [facility][id number], [address] [place] [address], [id number], 5 19:21:18 doxycycline hyclate 100 mg tablet [address] [facility]acy #[id number], [address] [place] [address], [address], 5 19:21:21 benzonatate 100 mg capsule [address] [facility]armacy #[id number], [address] [place] [address], [address], 5 19:21:20 benzonatate 100 mg capsule 2024 025 [facility] #0859, [address] [place] [address], [address], 5 19:21:18 Flovent HFA 44 mcg/actuati on aerosol inhaler [address] [facility]/Pharmacy #0859, [address] [place] [address], [address], 5 23:08:29 prednisone 20 mg tablet 2023 024 [email or web address] [facility]/Pharmacy #[id number], [address] [place] [address], [address], 4 13:16:14 prednisone 20 mg tablet [address] [facility]armacy #[id number], [address] [facility], [place], [address], 13:16:16 Patient TargetsNo targets recorded. Patient InstructionsNo instructions recorded. Reason for Referral None Reported. Results Created Date Observation Date Name Description Value Unit Range Abnormal Flag Note LastModifiedBy Organization Detail LastModifiedTime 06/10/19 25 06/10/2024 [facility] am No observ ation record ed. [facility] - [facility] [address] [place] [address], [phone] 06/10/2024 23:14:05 Result Notes None recorded. Medical Equipment None Reported. [...] Not Available Not Available No t Available ondansetron HCl 4 mg tablet TAKE [...] CAPSULE BY MOUTH THREE TIMES A DAY FOR 5 DAYS active Not Available Not Available N ot Available ropinirole 2 mg tablet TAKE 1 TABLET BY MOUTH EVERY DAY 1 TO 3 HOURS BEFORE BEDTIME active Not Available Not Available No t Available cephalexin 500 mg capsule TAKE 1 CAPSULE BY MOUTH TWICE A DAY active Not Available Not Available No t Available ropinirole 0.5 mg tablet TAKE 1 TABLET BY MOUTH EVERY DAY 1-3 HOURS BEFORE BEDTIME 90 active Not Available Not Available N ot Available nitroglyceri n 0.4 mg sublingual tablet [...] Available estradiol 0.01% (0.1 mg/gram) vaginal cream active Not Available Not Available Not Available albuterol sulfate HFA 90 mcg/actuatio n aerosol inhaler INHALE 1 PUFF INTO THE LUNGS EVERY 4 HOURS NEEDED active Not Available Not Available No t [...] active Not Available Not Available Not Available escitalopram 5 mg tablet TAKE 1 TABLET BY MOUTH EVERY DAY active Not Available Not Available No t Available nitrofuranto in monohydrate/ macrocrystal s 100 mg capsule TAKE 1 CAPSULE BY MOUTH TWICE A DAY active Not Available Not Available No t Available trospium 20 mg tablet TAKE 1 TABLET BY MOUTH EVERY DAY active Not Available Not Available No t Available Flovent HFA 44 mcg/actuatio n aerosol inhaler Inhale 2 puffs twice a day by inhalation route for 5 days. 2024 active Not Available Not Available Not Avai lable pramipexole 0.75 mg tablet TAKE 1 TABLET BY MOUTH TWICE A DAY active Not Available Not Available No t Available diclofenac 1 % topical gel APPLY 1 GRAM TO AFFECTED SKIN ON EACH FOOT EVERY 6 HOURS active Not Available Not Available No t Available cholecalcife rol (vitamin D3) 50 mcg (2,000 unit) capsule TAKE 1 CAPSULE BY MOUTH EVERY DAY active Not Available Not Available No t Available magnesium 400 mg (as magnesium oxide) capsule TAKE 1 CAPSULE BY MOUTH ONCE DAILY active Not Available Not Available No t Available Eliquis 5 mg tablet TAKE 1 TABLET BY MOUTH TWICE A DAY active Not Available Not Available No t Available guaifenesin ER 600 mg tablet, extended release 12 hr TAKE 1 TABLET BY MOUTH EVERY 12 HOURS FOR 7 DAYS. DO NOT CRUSH CHEW OR SPLIT active Not Available Not Available No t Available Qvar RediHaler 40 mcg/actuatio n HFA breath activated aerosol active Not Available Not Available Not Available Paxlovid 300 mg (150 mg x 2)-100 mg tablets in a dose pack TAKE 3 TABS BY MOUTH DIRECTED EVERY 12 HOURS FOR 4 DAYS. active Not Available Not Available No t Available Vitals Date Recorded Respiratory rate Body temperature Body weight Heart rate Body height Oxygen saturation Oxygen saturation in Arterial blood by Pulse oximetry Systolic And Diastolic Provider Name and Address Organization Details Last Updated DateTime 5 16 /min 97.4 [degF] 73490.3 36 g 86 /min 149.86 cm 98 % 98 % 150/90 mm[Hg] Not Available [facility] - [facility] 5 18:40:55 Date Recorded Oxygen saturation Oxygen saturation in Arterial blood by Pulse oximetry Body weight Body temperature Respiratory rate Heart rate Systolic And Diastolic Provider Name and Address Organization Details Last Updated DateTime 4 98 % 98 % 28494.3 36 g 98.2 [degF] 16 /min 80 /min 134/78 mm[Hg] Not Available [facility] 4 12:34:06 Social History None recorded. Functional Status None recorded. Mental Status None recorded. Family History Nothing Reported. Medical History No medical history recorded. Gynecological HistoryNo gynecological history recorded. Obstetrics History GPAL:G 0 P 0 0 0 0 Past Encounters Encounter ID Performer Location Encounter Start Date Encounter Closed Date Diagnosis/Indication Diagnosis SNOMED-CT Code Diagnosis ICD10 Code Diagnosis IMO Codes Diagnosis Note [id number] Neema Swan MD [facility] - [facility] [address] [place] [id number] 05/06/2024 12:34:04 05/10/2024 22:50:52 Cough 45834168 R05.9 COVID-19 281362703 U07.1 [id number] WENDY DIAZ MD Main - [address] [phone] 06/10/2024 18:29:01 06/11/2024 16:28:08 Acute bronchitis 51647243 J20.9 Evaluation in the field was performed by my geospatial imagery intelligence analyst colleague, as noted above, I provided real-time direction and supervisio n for this visit. The evaluation revealed a 73-year-ol d female with a history of coronary artery disease status post myocardial infarction one year ago (per patient report) and asthma presents with complaints of a persistent , worsening cough.The patient reports that she was diagnosed with COVID-19 and pneumonia in late April 2024, was treated with Prednisone , and initially improved. However, the cough has persisted. She describes it as non-produc tive and disruptive . Albuterol MDI provides slight relief. She denies chest pain, shortness of breath, or recent weight gain. Vital Signs:BP: 150/90 mmHg (mildly elevated)S pO : 98%, AfebrileEx am:No acute distress, speaking in full sentences, non-labore d breathing. Lungs: Clear to auscultati on.Extremi ties: Mild bilateral lower extremity edema, unchanged per patient.De clined COVID-19 and flu testing.EC G: HR 81 bpm. Normal axis. Q wave in aVF.Poor R-wave progressio n in V3 No acute ST-T changes suggestive of acute ischemia.A llergies reviewed. Impression :Acute bronchitis Plan:- Rx for Doxycyclin e 100 mg BID x7 days sent to her pharmacy; first dose administer ed by paramedics .- Rx for Flovent sent to her pharmacy.- Rx for Tessalon Perles sent to her pharmacy; first dose administer ed by paramedics .-Encourag ed to stay well-hydra dez with fluids such as water, herbal teas, or clear broths.- Red flags discussed with the patient. Primary care, consider__ _ Dispositio n: We discussed the diagnostic uncertaint y of home visits and the risk associated with this. In this case, the patient and I felt this to be an acceptable and reasonable amount of risk given the benefit of avoiding an ED visit. We discussed the need to seek care urgently/e mergently in the setting of any new or worsening serious symptoms, particular ly fever, chills, CP, SOB, nausea, vomiting, inability to tolerate PO or any other concerns. Health Concerns Section Related Observation LastModified by Organization Detai ls LastModified Time None Recorded Concern Status LastModified by Organization Details LastModified Time None Recorded Advance Directives Directive None Recorded Payers Insurance Date Sequence Insurance Name Policy Number Policy Frances Covered Member ID Frances Member ID Guarantor Name 06/22/2024 1 [facility] - MEDICARE PREFERRED (MEDICARE REPLACEMENT HMO) [facility] Tanna Castrodashayogi [id number] Tanna Bonilla Notes Date Note Type Note Provider Name and Address Organization Details Recorded Time 05/06/2024 text/html [facility] Nurse Triage Notes (Flaco Hutchins - KAREN): Chief Complaints: Cough PMH: Asthma Comments: Tool Engineer verified the Pt.'s name//address and phone number. Education provided on the response time and the Pt. was advised to monitor reported s/s and seek emergency treatment if needed. Pt reports feeling unwell with a cough/cold and congestion - Recently treated last week with COVID and Pneumonia - Reports taking Paxlovid as prescribed - Pt reports the cough is not improving - Cough is non productive - Reports taking Benzonatate with no relief - Denies fever - Denies SOB - Pt is requesting a follow up as her cough is not improving - S/S x 1 week + ..................... ..................... ..................... ..................... ..................... ..................... ............... Runway Model Note From Joseph Pérez: Pt co cough with some production light yellow in color, pt sts mostly only at night and subsideds during the day. Pt sts had covid last week. Pt denies Fever, NC, runny nose,sneezing, Sore throat, Headache, body aches, NVD, CP, SOB or abdominal pain. Pt sts last time she was sick like this she was given prednisone and got relief. Baseline vitals assessed, WNL, Lungs normal with some rhonchi bilaterally. Afebrile, good skin color and turgor. [facility] [place] and 40mg prednisone given PO, Right meds ,date, dose and route. RX called in for prednisone for 3 days. Pt advised to continue with musinex OTC. Pt advised to monitor symptoms and if worsen to contact PCP for chest X-rays. Pt education on signs indicating the ER. Pt advised to follow up with PCP. ..................... ..................... ..................... ..................... ..................... ..................... ............... [facility] Consulted: Neema Swan ..................... ..................... ..................... ..................... ..................... ..................... ............... Disposition: Fulfilled Neema Swan MD [address] [place] [address],[address], [place], [address], [employer] 05/06/2024 13:18:41 06/10/2024 text/html ROS as noted in the HPI [facility] Nurse Triage Notes (Flaco Hutchins - RN): Reason For Request: Patient just wants to talk to a nurse and has questions about cough medicine, she has a cough. Patient Reports: Lower extremity swelling; Sputum increase ; CoughDenies: Increased work of breathing/labored with or without fever Unable to speak in full sentences without distress Discoloration of skin -cyanosis Needs to sleep sitting up, can t catch breath Shortness of breath in setting of confusion Cough, fever greater than 2 days History of asthma, increased use of inhaler COPD Shortness of breath with exertion Pain with inspiration Chief Complaints: Common cold symptomsPMH: AsthmaPMH Reviewed at 06/10/2024 16:57Allergies Reviewed at 06/10/2024 - 16:57Comments: Tool Engineer verified the Pt.'s name//address and phone number. Education provided on the response time and the Pt. was advised to monitor reported s/s and seek emergency treatment if needed.Pt has some questions about cough medication - Pt reports having a cough/cold and congestion - Denies SOB - Denies Fever - Denies taking over the counter cold/medication - S/S for 1 month. Wellness check requested Runway Model Organization Information for [employer] [employer] Legal Name: [employer] Address: [address] [place] [id number], Capacity Management Specialist: Eusebio Monroe MD CLIA No.: [id number] Runway Model POC Test Results from [facility] EKG (19:14:43) EKG test performed. Attachments uploaded as part of this test result can be found under Documents section. ..................... ..................... ..................... ..................... ..................... ..................... ............... Runway Model Note From [facility]: 73 yo F called to see what she can take for her cough. Pt reports, end of Apr (2023) was diagnosed with Covid and Pneumonia, was put on Prednisone, started to feel better, but the cough has continued throughout. Pt denies CP, SOB or pain. Pt reports cough is a non-productive cough but is disruptive. Pt is looking for recommendations for what she can take. Albuterol MDI reduces the coughing slightly per pt. Lungs clear, pt speaks in full sentences, non-labored breathing, and is in no distress. Slightly BLE edema noted - Pt reports not worse than normal. Pt denies recent weight gain. Pt denied Covid/Flu test, reports no need. She had covid last month and only s/s is the cough. . History: CHF, HTN, MD about a year ago. Pharmacy: [address] Allergies: NKDA MD Consult: Requested EKG prior to giving Azithromycin for QT check prior. MD treating persistent cough. Antibiotic changed to Doxy, due to EKG findings, first dose of [id number] given. Steroid Inhaler 2 times a day, and Rx and called in. Rx for Tessalon Perles, and first dose given as well. Discussed red flags with pt, and when to call 911. ..................... ..................... ..................... ..................... ..................... ..................... ............... [facility] Consulted: eWndy Diaz ..................... ..................... ..................... ..................... ..................... ..................... ............... Disposition: Fulfilled WENDY DIAZ MD [address] [facility],[address] [facility], [place], [address], [employer] - MAHNAZ CASTILLO 06/10/2024 23:15:27 OBGyn Episode No OBEpisode recorded.
--- OUTSIDE RECORDS SUMMARY | 2025-03-06 10:19 | XMS_ITS ---
Author Name [facility] Organization Unknown History of Medication Use Medication Directions Dispensed Refills Start Date End Date Stat lidocaine (PF) 100 mg/5 mL (2 %) injection syringe Take 4 mL by injection route. 07/13/2024 active Marcaine (PF) 0.5 % (5 mg/mL) injection solution Take 4 mL by injection route. 07/13/2024 active triamcinolone acetonide 40 mg/mL suspension for injection Take 40 mg by injection route. 07/13/2024 active triamcinolone acetonide 40 mg/mL suspension for injection active Marcaine (PF) 0.5 % (5 mg/mL) injection solution active lidocaine (PF) 100 mg/5 mL (2 %) injection syringe active albuterol sulfate HFA 90 mcg/actuation aerosol inhaler INHALE 1 PUFF INTO THE LUNGS EVERY 4 HOURS NEEDED active amlodipine 2.5 mg tablet TAKE 1 TABLET BY MOUTH EVERY DAY active amoxicillin 875 mg-potassium clavulanate 125 mg tablet TAKE 1 TABLET BY MOUTH EVERY 12 HOURS FOR 7 DAYS active aspirin 81 mg tablet,delayed release TAKE 1 TABLET BY MOUTH EVERY DAY active atorvastatin 80 mg tablet TAKE 1 TABLET BY MOUTH EVERY DAY active benzonatate 100 mg capsule TAKE 1 CAPSULE BY MOUTH THREE TIMES A DAY NEEDED FOR 14 DAYS active benzonatate 200 mg capsule TAKE 1 CAPSULE BY MOUTH THREE TIMES A DAY NEEDED FOR COUGH FOR 10 DAYS active cephalexin 500 mg capsule TAKE 1 CAPSULE BY MOUTH TWICE A DAY active cholecalciferol (vitamin D3) 50 mcg (2,000 unit) capsule TAKE 1 CAPSULE BY MOUTH EVERY DAY active ciprofloxacin 250 mg tablet TAKE 1 TABLET BY MOUTH TWICE A DAY active diclofenac 1 % topical gel APPLY 1 GRAM TO AFFECTED SKIN ON EACH FOOT EVERY 6 HOURS active dicyclomine 20 mg tablet TAKE 1 TABLET BY MOUTH 3 TIMES A DAY active doxycycline hyclate 100 mg tablet TAKE 1 TABLET BY MOUTH TWICE A DAY FOR 7 DAYS active Eliquis 5 mg tablet acti ve ergocalciferol (vitamin D2) 1,250 mcg (50,000 unit) capsule TAKE 1 CAPSULE BY MOUTH ONE TIME PER WEEK active escitalopram 5 mg tablet TAKE 1 TABLET BY MOUTH EVERY DAY active estradiol 0.01% (0.1 mg/gram) vaginal cream APPLY 1 GRAM PER VAGINA AND URETHRA TWICE WEEKLY active fluticasone propionate 50 mcg/actuation nasal spray,suspension SPRAY 1 SPRAY BY INTRANASAL ROUTE EVERY DAY active furosemide 20 mg tablet TAKE 1 TABLET BY MOUTH DAILY NEEDED FOR LOWER EXTREMITY EDEMA active gabapentin 300 mg capsule TAKE 1 CAPSULE BY MOUTH TWICE A DAY active guaifenesin ER 600 mg tablet, extended release 12 hr TAKE 1 TABLET BY MOUTH EVERY 12 HOURS FOR 7 DAYS. DO NOT CRUSH CHEW OR SPLIT active Jardiance 10 mg tablet TAKE 1 TABLET BY MOUTH 1 TIME EACH DAY IN THE MORNING. active ketorolac 0.5 % eye drops INSTILL 1 DROP IN OPERATIVE EYE TWICE DAILY. START 2 DAYS PRIOR TO SURGERY. active losartan 25 mg tablet TAKE 1 TABLET BY MOUTH EVERY DAY active losartan 50 mg tablet TAKE 1 TABLET BY MOUTH EVERY DAY active magnesium 400 mg (as magnesium oxide) capsule TAKE 1 CAPSULE BY MOUTH ONCE DAILY active methenamine hippurate 1 gram tablet TAKE 1 TABLET BY MOUTH TWICE A DAY WITH VIT C active metoprolol succinate ER 50 mg tablet,extended release 24 hr TAKE 1 TABLET BY MOUTH TWICE A DAY active mirtazapine 15 mg tablet TAKE 1 TABLET BY MOUTH EVERY DAY AT BEDTIME FOR 30 DAYS active nitrofurantoin monohydrate/macrocryst als 100 mg capsule TAKE 1 CAPSULE BY MOUTH TWICE A DAY active nitroglycerin 0.4 mg sublingual tablet PLEASE SEE ATTACHED FOR DETAILED DIRECTIONS active omeprazole 20 mg capsule,delayed release TAKE 1 CAPSULE BY MOUTH 1/2 TO 1 HOUR BEFORE MORNING MEAL ONCE A DAY active omeprazole 40 mg capsule,delayed release TAKE 1 CAPSULE BY MOUTH EVERY MORNING BEFORE BREAKFAST active ondansetron HCl 4 mg tablet TAKE 1 TABLET BY MOUTH EVERY DAY FOR 30 DAYS active oxycodone 5 mg tablet TAKE 1 TABLET BY MOUTH EVERY 6 HOURS NEEDED FOR SEVERE PAIN active Paxlovid 300 mg (150 mg x 2)-100 mg tablets in a dose pack TAKE 3 TABS BY MOUTH DIRECTED EVERY 12 HOURS FOR 4 DAYS. active pramipexole 0.75 mg tablet TAKE 1 TABLET BY MOUTH TWICE A DAY active prednisone 20 mg tablet TAKE 2 TABLETS BY MOUTH EVERY DAY FOR 4 DAYS active sulfamethoxazole 800 mg-trimethoprim 160 mg tablet TAKE 1 TABLET BY MOUTH TWICE A DAY active trospium 20 mg tablet TAKE 1 TABLET BY MOUTH EVERY DAY active urea 40 % topical cream APPLY 1 APPLICATION ON THE SKIN TWICE A DAY NEEDED CALLUSED END OF TOE active Encounters Encounter Type Encounter Reason Primary Diagnosis Location Date Ambulatory [facility] [place] 12/08/2024 Ambulatory [facility] [place] 11/27/2024 Ambulatory [facility] [place] 11/24/2024 Ambulatory [facility] [place] 11/03/2024 Ambulatory [facility] [place] 10/01/2024 Ambulatory [facility] [place] 07/14/2024 Ambulatory [facility] [place] 07/13/2024 Ambulatory [facility] [place] 07/13/2024 Ambulatory [facility] [place] 07/13/2024 Ambulatory [facility] [place] 07/13/2024 Ambulatory [facility] [place] [facility]27[facility]20[facility] Care Team Organization Name Specialty Phone Email Start Date End [facility]24 [facility] 11/25/2023
== END 2025-03-06 09:33 | disposition home or self-care (01) ==
PROVIDERS: PCP Internal Medicine; Visit Provider Psychiatry & Neurology Neurology
DX: I63.9 Cerebral infarction, unspecified (principal); S06.9XAA Unspecified intracranial injury with loss of consciousness status unknown, initial encounter; G25.81 Restless legs syndrome; H53.2 Diplopia; R55 Syncope and collapse
CPT/HCPCS: 99214

== ENCOUNTER → 2025-03-06 09:10 | Outpatient (BNVA) | payer MEDICARE, SELFPAY | PROVIDERS: PCP Internal Medicine; Visit Provider Psychiatry & Neurology Neurology | DX: G25.81 Restless legs syndrome (principal); R55 Syncope and collapse; R53.2 Functional quadriplegia; I63.9 Cerebral infarction, unspecified | CPT/HCPCS: 99212 ==